=== PATIENT | male | born 1960 | race Caucasian/White ===

== ENCOUNTER → 2019-07-15 11:29 | Outpatient (BNVA) | payer OTHER, SELFPAY | PROVIDERS: Family Provider Nurse Practitioner; PCP Nurse Practitioner; Visit Provider Nurse Practitioner | DX: I10 Essential (primary) hypertension (principal); E03.9 Hypothyroidism, unspecified | CPT/HCPCS: 80053; 80061; 83721; 84443 ==

== ENCOUNTER → 2019-07-23 18:20 | Outpatient (BNVA) | payer OTHER, SELFPAY | PROVIDERS: Family Provider Nurse Practitioner; PCP Nurse Practitioner; Visit Provider Nurse Practitioner | DX: E03.8 Other specified hypothyroidism (principal); R79.89 Other specified abnormal findings of blood chemistry | CPT/HCPCS: 84439; 84481 ==

== ENCOUNTER 2019-10-01 07:34 | Day surgery (SDC) | payer OTHER, SELFPAY ==
[2019-09-29 11:36] VITALS: BMI 34.0
[2019-10-01 07:55] VITALS: BP 121/88; PULSE 82; RESP 18; TEMP 36.3; O2SAT 93
--- NOTE | 2019-10-01 07:55 | W.PM.OPSUD ---
Surgery/Procedure H&P Update DATE OF PROCEDURE: October 01, 2019 DATE H&P PERFORMED: 09/10/19 H&P UPDATE INFORMATION: I have reviewed H&P completed within last 30 days, I have examined patient prior to procedure and No changes to prior documentation PLANNED PROCEDURE: Operation Date: 10/01/19 09:10 Proposed Procedures p Colonoscopy 71725 Z86.010(Not Applicable) - Emeka Fontenot MD
--- NOTE | 2019-10-01 08:49 | ANES.PREANE2 ---
Pre-Anesthetic Assessment Pre-Anesthetic Assessment: Height/Weight: Height 1.73 m Weight 101.605 kg Temp Pulse Resp BP Pulse Ox 97.4 F L 82 18 121/88 93 10/01/19 07:55 10/01/19 07:55 10/01/19 07:55 10/01/19 07:55 10/01/19 07:55 Preop Diagnosis: History of colon polyps Proposed Procedure: Operation Date: 10/01/19 09:10 Proposed Procedures p Colonoscopy 97494 Z86.010(Not Applicable) - Emeka Fontenot MD Last intake: Intake Last Liquid Date 09/30/19 Last Liquid Time 23:55 Last Solid Date 09/29/19 Last Solid Time 23:55 Social: Social History: Tobacco and No alcohol Exam: Pre-Anes Outpt Exam: alert, oriented x 3, clear to auscultation bilaterally and regular rate & rhythm Airway: Submandibular: WNL Cervical ROM: WNL MP: 2 History/ROS: No significant history except as noted Pulmonary: Pulmonary: COPD CV/HEM: CV/HEM: Afib Metabolic: Metabolic: Hyperlipidemia Musc/skel: Musc/skel: Lower Back Pain Anesthetic Plan: ASA status: 3 Anesthesia: Anesthesia Evaluation and MAC Risk of > 500 ml blood loss (7ml/kg in children): No PFSH Anesthesia PFSH: Social History Smoking and tobacco status: current every day smoker Second hand smoke exposure: No Smoking risk assessment/counseling performed?: Yes Alcohol intake: current Alcohol intake frequency: holidays/special occasions only Desire information about alcohol rehabilitation?: No Counseling given: No Desire information about substance/drug rehabilitation?: No Counseling given: No Adopted: No Caregiver/support person: No Household members: spouse and children Housing: House Marital status: Current occupational status: employed 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
[2019-10-01 08:56] LABS: Glucose Point of Care 104 mg/dL (70-110)
[2019-10-01] MEDS: sodium chloride 0.9% 1,000 ML 30 ML IV (09:39)
[2019-10-01 10:39] VITALS: BP 133/70; PULSE 73; RESP 16; TEMP 35.8; O2SAT 92
[2019-10-01 11:10] VITALS: BP 130/84; PULSE 68; RESP 16; TEMP 36.2; O2SAT 93
[2019-10-01 11:36] VITALS: O2SAT 98
== END 2019-10-01 12:20 | disposition home or self-care (01) ==
PROVIDERS: Family Provider Nurse Practitioner; PCP Nurse Practitioner; Visit Provider Surgery
PROC: 0DJD8ZZ Inspection of Lower Intestinal Tract, Via Natural or Artificial Opening Endoscopic (ICD-10-PCS; CPT 45378; principal; 2019-10-01 09:05)
DX: D12.0 Benign neoplasm of cecum (principal); D12.8 Benign neoplasm of rectum; K57.30 Diverticulosis of large intestine without perforation or abscess without bleeding; Z86.010 Personal history of colon polyps; E03.9 Hypothyroidism, unspecified; I48.91 Unspecified atrial fibrillation; J44.9 Chronic obstructive pulmonary disease, unspecified; I10 Essential (primary) hypertension; E78.2 Mixed hyperlipidemia; Z79.01 Long term (current) use of anticoagulants
CPT/HCPCS: 45380; 12345; 36416; 82962; 88305; J2704; J7030

== ENCOUNTER → 2019-11-05 12:00 | Outpatient (BNVA) | payer OTHER, SELFPAY | PROVIDERS: Family Provider Nurse Practitioner; PCP Nurse Practitioner; Visit Provider Nurse Practitioner | DX: E88.81 Metabolic syndrome and other insulin resistance (principal); I10 Essential (primary) hypertension; E03.8 Other specified hypothyroidism; E78.2 Mixed hyperlipidemia | CPT/HCPCS: 80053; 80061; 84443 ==

== ENCOUNTER → 2020-01-26 10:51 | Outpatient (BNVA) | payer OTHER, SELFPAY | PROVIDERS: Family Provider Nurse Practitioner; PCP Nurse Practitioner; Visit Provider Nurse Practitioner | DX: E55.9 Vitamin D deficiency, unspecified (principal); I10 Essential (primary) hypertension; E03.8 Other specified hypothyroidism; J30.1 Allergic rhinitis due to pollen; E78.2 Mixed hyperlipidemia; M54.5 Low back pain; E88.81 Metabolic syndrome and other insulin resistance; Z87.891 Personal history of nicotine dependence | CPT/HCPCS: 81000; 82306; 84439; 84443; 84481 ==

== ENCOUNTER → 2020-03-22 13:47 | Outpatient (BNVA) | payer OTHER, SELFPAY | PROVIDERS: Family Provider Nurse Practitioner; PCP Nurse Practitioner; Visit Provider Nurse Practitioner Family | DX: Z11.59 Encounter for screening for other viral diseases (principal) | CPT/HCPCS: 87635 ==

== ENCOUNTER → 2020-03-24 14:43 | Outpatient (BNVA) | payer OTHER, SELFPAY | PROVIDERS: Family Provider Nurse Practitioner; PCP Nurse Practitioner; Visit Provider Nurse Practitioner Family | DX: Z11.59 Encounter for screening for other viral diseases (principal) | CPT/HCPCS: 87635 ==

== ENCOUNTER → 2020-05-11 15:54 | Outpatient (BNVA) | payer OTHER, SELFPAY | PROVIDERS: Family Provider Nurse Practitioner; PCP Nurse Practitioner; Visit Provider Nurse Practitioner | DX: M54.5 Low back pain (principal); J30.1 Allergic rhinitis due to pollen; E03.8 Other specified hypothyroidism; E78.2 Mixed hyperlipidemia; E88.81 Metabolic syndrome and other insulin resistance; I10 Essential (primary) hypertension; M51.37 Other intervertebral disc degeneration, lumbosacral region | CPT/HCPCS: 72100; 80053; 80061; 84443 ==

== ENCOUNTER 2020-06-23 12:24 | Outpatient (CLI) | payer OTHER, SELFPAY ==
--- NOTE | 2020-06-23 13:00 | MR_ITS ---
WS: [id number] MRI LUMBAR SPINE NONCONTRAST TECHNIQUE: Sagittal T1, T2 and STIR imaging. Axial T1 and T2 imaging. CLINICAL INFORMATION: M48.062 - Spinal stenosis, lumbar region with neurogenic claudication COMPARISON: CT 2 15,019 FINDINGS: Mild lumbar curve. No acute compression. Infiltrating T2 hyperintense expansile bony process involvin g the S1-S2 vertebral bodies centered at the S1 level. Small amount of signal abnormality extends int o the sacral ala bilaterally. Additional signal abnormality extends into the posterior L5 vertebral b arlen. Findings suspicious for primary neoplasm or metastatic disease. Epidural disease at the S1 level with moderate to severe central canal stenosis eccentric to the right. Impingement on the traversing S1 nerve roots. L1-L2: Normal. L2-L3: Normal. L3-L4: Mild disc bulging with slight effacement of the ventral thecal sac. Mild central canal stenosi s. Small central protrusion. Impingement traversing L4 nerve roots. Small left foraminal protrusion w ith mild left foraminal narrowing. Mild to moderate facet arthropathy. L4-L5: Mild disc bulging eccentric to the right. Impingement traversing right L5 nerve root. Mild phuong tral canal stenosis. Mild right and no significant left foraminal narrowing. Moderate facet arthropat hy. L5-S1: Mild disc bulging with endplate ridging. Small amount of epidural disease at this level with m oderate central canal stenosis. Foramen are patent. Partially visualized expansile lesion in the right acetabulum. This could be further evaluated with M RI pelvis without and with gadolinium enhancement. Recommend oncology consultation.. MR/MR lumbar spine wo con* [id number] IMPRESSION: 1. Expansile marrow replacing process likely neoplasm involving the S1 and S2 vertebral bodies centered at the S1 level. Associated epidural disease with mod erate to severe narrowing of the cauda equina distally. Impingement traversing S1 nerve roots. 2. Infiltrating signal abnormality extends into the sacral ala bilaterally and also involves the posterior L5 vertebral body. Differential considerations inc lude primary bony neoplasm or metastatic disease. Recommend correlation with cl inical history. 3. Moderate central canal stenosis L5-S1 with a small amount of epidural disea se inferiorly. 4. Signal normality extends into the right ilium partially visualized. This ca n be further evaluated with MRI of the pelvis. Recommend oncology consultation. 5. Partially visualized expansile lesion in the right acetabulum. This could b e further evaluated with MRI pelvis. 6. Mild disc bulging with a small central protrusion L3-4 and L4-5 with mild c entral canal stenosis. Impingement on the left subarticular recess L3-4 and rig ht subarticular recess L4-5. 7. Small left foraminal protrusion L3-4 with contact of the exiting left L3 ne rve root. 8. Mild right L4-5 foraminal narrowing.
== END 2020-06-23 12:25 | disposition home or self-care (01) ==
LOC: RADSHAW 12:25
PROVIDERS: Family Provider Nurse Practitioner; PCP Nurse Practitioner; Visit Provider Orthopaedic Surgery
DX: M48.062 Spinal stenosis, lumbar region with neurogenic claudication (principal); M51.26 Other intervertebral disc displacement, lumbar region; M48.07 Spinal stenosis, lumbosacral region
CPT/HCPCS: 72148

== ENCOUNTER 2020-07-08 07:16 | Outpatient (CLI) | payer OTHER, SELFPAY ==
--- NOTE | 2020-07-08 07:26 | MR_ITS ---
WS: [id number] INDICATION: Low back pain TECHNIQUE: MR of the pelvis without gadolinium enhancement. Coronal T1 and T2 and STIR imaging. Axial T1 and T2 imaging. Sagittal T2 imaging. FINDINGS: Comparison MRI June 23, 2020 Again seen is the marrow replacing neoplasm involving the S1 and S2 vertebral bodies, right acetabulu m extending into the right pubic root and ilium. Additional T2 hyperintense lesions consistent with a dditional disease involving the intertrochanteric Left femur. Left femoral lesion measures 4.2 x 2.9 CM. Adjacent smaller satellite lesion. Additional patchy T2 signal abnormality extends into the right iliac wing adjacent to the sacroiliac joint. Small amount of adjacent soft tissue edema. Marrow replacing expansile disease involving the s acral ala. Right femoral head and neck appear normal. Partially visualized epidural disease better seen on the recent MRI with severe stenosis at S1 and S2 with tapering of the cauda equina distally. MR/MR pelvis wo con* [id number] IMPRESSION: 1. Marrow replacing multifocal neoplasm/metastatic disease involving the right acetabulum with bony expansion extending into the adjacent pubic rami and pubi c root. Signal normality extends into the right ilium and right iliac wing. 2. Additional disease involving the left intratrochanteric femur. The largest lesion measuring 2.8 x 4.2 CM. Patient potential risk for pathologic intratroch anteric fracture. 3. Additional marrow replacing T2 disease involving the S1-S2 vertebral bodies as described on the recent lumbar spine MRI with bony expansion at these level s. 4. Associated narrowing of the right S1 and S2 sacral foramina and narrowing o f the cauda equina distally at S1-S2. 5. Findings compatible with neoplasm most likely due to metastatic disease.
== END 2020-07-08 07:17 | disposition home or self-care (01) ==
LOC: RADSHAW 07:18
PROVIDERS: Family Provider Nurse Practitioner; PCP Nurse Practitioner; Visit Provider Orthopaedic Surgery
DX: M54.5 Low back pain (principal)
CPT/HCPCS: 72195

== ENCOUNTER 2020-08-23 05:36 | Outpatient (RCR) | payer OTHER, SELFPAY ==
[2020-08-04 12:02] VITALS: RESP 17; O2SAT 96
[2020-08-04] MEDS: morphine 4 mg/mL SDV 1 mL SUBCUT (12:02)
[2020-08-04 12:38] LABS: Basophils % 0.5 %; Eosinophils # 0.1 10^3/uL (0.0-0.8); Eosinophils % 1.1 %; Hematocrit 29.6 % (42.0-52.0); Hemoglobin 9.4 g/dL (11.7-16.6); Lymphocytes # 1.5 10^3/uL (0.8-4.8); Lymphocytes % 17.1 %; Mean Corpuscular HGB Conc 31.8 g/dL (30.0-36.0); Mean Corpuscular Volume 91.4 fL (80-94); Mean Platelet Volume 8.5 fL (7.4-10.4); Monocytes # 0.7 10^3/uL (0.2-0.9); Monocytes % 7.6 %; Neutrophils # 6.27 10^3/uL (1.8-7.7); Neutrophils % 73.2 %; Nucleated Red Blood Cells % 0 %; Platelet Count 498 10^3/cmm (130-400); Red Blood Count 3.24 10^6/uL (4.1-5.3); Red Cell Distribution Width 13.2 % (12.1-15.1); White Blood Count 8.6 10^3/uL (4.0-10.0)
--- NOTE | 2020-08-04 13:06 | N.ONRAD NP_ITS ---
Radiation Oncology Consultation Patient Name: Avtar Kerns Date of : 1960 Date of Service: 08/04/2020 Attending Physician: Jun Mead M.D. Avtar Kerns was seen in consultation this afternoon at the request of Julio Swenson M.D. for consideration of palliative radiotherapy for the management of his recently diagnosed non-small cell lung cancer. The patient was evaluated at [facility] after presenting with back pain. A radiograph of the lumbar spine ordered on May 11, 2020 identified degenerative disc disease most significant at L5-S1. An MR of the lumbar spine and pelvis (independently reviewed in [facility]) obtained on June 23, 2020 and July 08, 2020 revealed an infiltrating, expansile bony process involving the first and second sacral vertebral bodies marrow replacement within the right acetabulum extending into the right pubic root and ilium and a 4.2 cm x 2.9 cm lesion involving the intertrochanteric left femur. He was referred to [facility] in [place], [place] for further evaluation. A nuclear bone scan completed on July 15, 2020 demonstrated hyperactivity within the sacrum, right acetabulum and proximal left femur. A thoracoabdominopelvic CT revealed 2 cm x 2.6 cm right upper lobe mass invading the right upper lobe bronchus as well as the previously described destructive masses in the pelvis. A prophylactic fixation of the left femur and open biopsy was performed on July 21, 2020. The pathology report (requested from the outside hospital and personally reviewed) diagnosed a metastatic squamous cell carcinoma. PD-L1 testing is pending. I discussed with Mr. Kerns the role for palliative radiotherapy. I would recommend a 2-week course of radiation therapy. A CT scan will be performed for radiotherapy planning prior to beginning treatment. The potential toxicities of pelvic radiotherapy were reviewed. The patient has verbalized understanding would like to proceed as recommended. Signed by: Dr. Jun Mead 08/04/2020 1:04:56 PM
[2020-08-04 13:07] LABS: Alanine Aminotransferase 17 U/L (0-41); Albumin Level 3.5 g/dL (3.5-5.2); Alkaline Phosphatase 158 IU/L (40-130); Anion Gap 14.3 (5-19); Aspartate Amino Transferase 17 U/L (0-40); Blood Urea Nitrogen 13 mg/dL (6-20); Calcium 10.5 mg/dL (8.5-10.5); Carbon Dioxide 24 mmol/L (22-29); Chloride 97 mmol/L (98-107); Glomerular Filtration Rate 99.6 mL/min (90-130); Glucose 90 mg/dL (65-115); Osmolality Calculated 272 mOsm/kg (285-295); Potassium 4.3 mmol/L (3.5-5.1); Sodium 131 mmol/L (136-145); Total Bilirubin 0.2 mg/dL (0.15-1.2); Total Protein 7.5 g/dL (6.6-8.7)
--- NOTE | 2020-08-04 18:11 | ONC CON_ITS ---
Dr. Swenson New Patient Note Patient: Avtar Kerns Unit #: [id number]: 1960 Dicatated By: Julio Swenson M.D.Date of Visit: Aug 04, 2020 Onc MED New Patient/Consult Referring Physician: Jun Li Chief Complaint: Lung cancer. 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 This is presumed to be from a primary lesion in the upper lobe of the right lung, by clinical evaluation stage IVB (T2a, N0, M1c). He had presented with severe pain in the lower back. It actually started as far back as 2019 and it just continue to progressively worsen. He was seen at the orthopedic clinic by Dr. Umair Lima on 06/14/2020. An MRI of the lumbar spine on 06/23/2020 showed an expansile marrow replacing process, likely neoplasm, involving the S1 and S2 vertebral bodies centered at the S1 level. There was associated epidural disease with moderate to severe narrowing of the cauda equina distally impinging the transversing S1 nerve roots. There was infiltrating signal abnormality extending into the sacral ala bilaterally and also involving the posterior L5 vertebral body. There was moderate central canal stenosis at L5-S1. The findings were consistent with primary bone neoplasm or metastatic disease. Also noted was a partially visualized expansile lesion in the right acetabulum. Further evaluation with MRI of the pelvis on 07/08/2020 showed marrow replacing multifocal neoplasm/metastatic disease involving the right acetabulum with bony expansion extending into the adjacent pubic rami and pubic root. Signal abnormality was noted to extend into the right ilium and right iliac wing. There was additional disease involving the left intertrochanteric femur, with the largest lesion measuring 2.8 x 4.2 cm. The findings involving the S1-S2 vertebral bodies were again noted. Overall, the findings were compatible with neoplasm most likely due to metastatic disease. He was admitted to [facility] where additional evaluation with bone scan and x-rays confirmed evidence of a lytic lesion in the right acetabulum with cortical breakthrough, a large lytic lesion in the sacrum with cortical breakthrough, a lytic lesion in the left femoral intertrochanteric region, and a suspected lytic lesion in the left proximal tibia. Staging CT scans of the chest, abdomen, and pelvis on 07/15/2020 showed a hypoenhancing mass in the upper lobe of the right lung measuring 3.2 x 2.6 cm. It was noted to invade the right upper lobe bronchus and it appeared to be the likely cause of right upper lobe atelectasis. There were no pathologically enlarged lymph nodes in the mediastinum or kya. A 9 mm nodular groundglass opacity was noted in the right lower lobe and a 4 mm calcified granuloma was noted in the right lower lobe. There is no evidence for metastatic disease in the abdominal area. There was evidence of an infiltrative destructive mass centered in the sacrum with soft tissue component extending into the right sacroiliac joint and into the right aspect of the posterior elements of L5. Another infiltrative destructive mass with soft tissue component was seen centered in the right acetabulum with intra-arterial extension and with extension into the fovea of the right femoral head. Another lytic lesion was noted in the left femoral intertrochanteric region. On 07/21/2020 he underwent open biopsy of the left femur along with prophylactic fixation of the left femur with intramedullary maricruz. Pathology showed metastatic squamous cell carcinoma. A PD-L1 expression on that biopsy was requested, but the result was not reported in the available records. He is seen now for further management. He complains that it hurts on a scale that is inhuman. His pain medication has been limited to hydrocodone 5/APAP which is given him virtually no relief. He is in constant pain to the point that he has virtually no activity. He struggles to ambulate short distances with a walker. His ECOG score is 3. He does not have much appetite. He has not had fever, but he has been having significant night sweating. He has just recently started to have some cough. He does not complain of shortness of breath or chest pain. He has been having a lot of nausea, and he also has acid reflux, managed with antacids. He has constipation. He has difficulty with bowel movements because he cannot sit on a stool for more than a few minutes due to the severe pain. Bladder function thus far remains adequate. He has just occasional headache. He sometimes has lightheadedness. He has some numbness on his outside toes. He has no other focal neurologic symptoms. He has difficulty sleeping because of the pain, and he is having some depression. Past Medical History: His medical history includes atrial fibrillation, history of colonic polyps, hyperlipidemia, hypertension, hypothyroidism, and type II diabetes. Past Surgical History: He underwent prophylactic fixation of the left femur and open biopsy of left femur on 07/21/2020. His other surgical/procedural history has been limited to colonoscopy in 2018 and in 2019 and a previous tonsillectomy. Medications: Atorvastatin Calcium 1 (40 mg) Tablet Oral daily, Cetirizine HCl 1 (10 mg) Tablet Oral daily, DULoxetine HCl 1 (20 mg) Capsule Delayed Release Particles Oral b.i.d., Eliquis 1 (5 mg) Tablet Oral b.i.d., Gabapentin 1 (300 mg) Capsule Oral t.i.d., HYDROcodone-Acetaminophen 1 (5-325 mg) Tablet Oral q for 6 hours, Levoxyl 1 (150 mcg) Tablet Oral daily, Liothyronine Sodium 1 (5 mcg) Tablet Oral daily, metFORMIN HCl 1 (500 mg) Tablet Oral b.i.d., Metoprolol Tartrate 1 (25 mg) Tablet Oral b.i.d., Montelukast Sodium 1 (10 mg) Tablet Oral daily Allergies: No Known Allergies. Social History: Mr. Kerns is . 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 He has a history of smoking 1-1/2 to 2 packs of cigarettes daily for 35 years. He quit in November 2019. He has moderate alcohol use with a mixed drink 4 to 5 days a week. Family History: Father of heart attack at age 65. Mother of lung cancer at age 63. Three sisters are in good health. A 17-year-old daughter has juvenile rheumatoid arthritis. Review Of Symptoms: Constitutional - He has very limited activity. He struggles to ambulate with a walker. He does not have much appetite. He has not had fever. He has been having night sweating. ECOG score is 3, Eyes - No change in vision, ENMT - He has hearing loss and tinnitus. He has some allergy related sinus symptoms. No mouth sores. No sore throat or difficulty swallowing, Hematologic/Lymphatic - No abnormal bruising or bleeding, Respiratory - He does not complain of shortness of breath. He has just recently started having some cough. No pleuritic pain or hemoptysis, Cardiovascular - No angina pain. No palpitations, Gastrointestinal - He has a lot of nausea. He has had acid reflux, managed with antacids. He has constipation. He has difficulty with bowel movements because he cannot sit on a stool without having severe pain. No blood in the stool or black stools, Genitourinary (M) - No dysuria or hematuria. No urinary frequency. No urgency or incontinence, Musculoskeletal - He has severe pain in the lower back, Integumentary - No skin rash or other skin changes, Neurologic - He has occasional headache. He is sometimes lightheaded. He has had some numbness on his outside toes. No other focal neurologic symptoms, Psychiatric - He is having some depression. He has difficulty sleeping. Vital Signs: Performed on Aug 04, 2020 12:38: 68.00 in, 250.0 lbs, 97.0 F, 109, 18, 137/97 mm(hg), 96 %, 4, Performed on Aug 04, 2020 12:38: 38.013 kg/m2 (HIGH), and Performed on Aug 04, 2020 11:11: 2.25 sq.m. Physical Examination: Constitutional - He appears generally weak and he is in significant discomfort, Eyes - Sclerae nonicteric. Conjunctivae clear, ENMT - No lesions noted in the oral cavity, Neck - No mass or thyromegaly, Hematologic/Lymphatic - No cervical, clavicular, or axillary adenopathy, Respiratory - Lungs sound clear with good air movement bilaterally, Cardiovascular - Heart rhythm is regular. There is no murmur, gallop, or rub noted, Abdomen - Soft and non-tender. Liver and spleen are not enlarged. There is no abdominal mass or ascites noted and there is no inguinal adenopathy, Extremities - No edema. Pedal pulses are palpable bilaterally, Integumentary - No rashes. No suspicious skin lesions noted, Neurologic - He has extremely limited mobility due to pain. He does not appear to have any focal neurologic deficits noted. Problem List: 1. Metastatic squamous cell carcinoma with presumed primary in the upper lobe of the right lung, stage IVB (T2a, N0, M1c). 2. He presented with severely painful bony metastatic disease involving multiple sites including the sacrum, right acetabulum, proximal left femur, and possibly the proximal left tibia. 3. Hypertension. 4. Hyperlipidemia. 5. Type 2 diabetes. 6. Atrial fibrillation. 7. History of colonic polyps. Problems Addressed with this Encounter and Plan: 1. Patient with metastatic squamous cell carcinoma with presumed primary in the upper lobe of the right lung, stage IVB (T2a, N0, M1c). He presented with severely painful bony metastatic disease involving multiple sites including the sacrum, right acetabulum, proximal left femur, and possibly the proximal left tibia. On 07/21/2019 he underwent open biopsy of the left femur in association with prophylactic fixation of the left femur with intramedullary maricruz. Pathology showed metastatic squamous cell carcinoma. His staging CT scans showed a primary tumor in the upper lobe of the right lung. There was associated right upper lobe atelectasis, but he has not been overtly symptomatic with that disease. The findings on the imaging studies and the pathology results were reviewed with the patient and his . He has metastatic non-small cell lung cancer with multiple sites of bone involvement. He is aware of the this disease will not be curable. Initially the primary focus of the treatment will symptom palliation, and to that end I am going to have him see Dr. Mead for radiation oncology consultation. If he is physically able, he would potentially benefit with palliative radiation to the sites of metastatic bone involvement and eventually may also want to consider treating the lung primary, as there is associated obstructive atelectasis. Recommendations for systemic therapy will depend on the results of the PD-L1 expression. If the expression is high, monotherapy with a PD-L1 inhibitor would be the most appropriate treatment. I will check baseline laboratory studies today to include a CBC and CMP, and I will plan his further followup depending on the results of the radiation oncology evaluation. 2. He has severe pain associated with the metastatic bone involvement to the extent that he is virtually unable to function. He is being given 4 mg of morphine by subcutaneous injection in the office today, and he will then start extended release morphine 30 mg every 12 hours together with immediate release morphine 15 mg up to every 4 hours as needed for breakthrough pain. I discussed potential side effects with the pain medication which may include nausea, constipation, and sedation and/or confusion, among others. He will start a bowel regimen with senna/docusate. He had recently stopped Cymbalta, as he had run out of the medication, and that will be restarted at a dosage of 60 mg daily. In addition, I am requesting a hospital bed for him, as he is requiring positioning of his body in ways not feasible with an ordinary bed in order to help relieve his pain. At some point he also will need to start denosumab injections for the metastatic bone involvement. Signed By: Julio Swenson M.D. <<Signature on File>>
--- NOTE | 2020-08-08 | CT_ITS ---
Guided Bronchoscopy Planning CT images; total exam DLP: 1156.31 mGy-cm MTDD
--- NOTE | 2020-08-08 | CT_ITS ---
Radiation Therapy Planning CT images; total exam DLP: 1156.31 mGy-cm MTDD
--- NOTE | 2020-08-15 10:47 | ONCRAD TMN_ITS ---
Radiation Oncology Treatment Management Note Patient Name: Avtar Kerns Date of : 1960 Date of Service: 08/15/2020 Attending Physician: Jun Mead M.D. Avtar Kerns is a 59 year old white male recently diagnosed with metastatic non-small cell lung cancer to the pelvis. The patient has received 12 Gy of a prescribed 30 Ho to the sacrum with a 3-dimensional conformal radiotherapy plan utilizing AP port with a wedge-pair treatment field. Upon review of systems, he continues to have significant pain (01/03 with 120 mg bid ER morphine.) On physical examination, the patient weighed 202 lbs. His temperature was 97.1 ???F with a blood pressure of 76/39 mmHg. His pulse was 92 bpm and his respiratory rate was 16. Continue palliative radiotherapy as prescribed. IVF have been prescribed for hypotension. His medical oncologist will increase his narcotic regimen. Signed by: Dr. Jun Mead 08/15/2020 10:46:34 AM
[2020-08-15 11:38] VITALS: RESP 16
[2020-08-15] MEDS: morphine 4 mg/mL SDV 1 mL SUBCUT (11:38)
[2020-08-15] MEDS: sodium chloride 0.9% 1,000 ML 999 ML IV (12:00)
[2020-08-15 14:48] LABS: Add Urine Culture? No; Bacteria Urine TRACE /hpf; Bilirubin Urine Neg (Negative); Blood Urine Neg (Negative); Glucose Urine UA Norm (Normal); Hyaline Casts Urine 0-4 /lpf; Ketones Urine Negative (Negative); Leukocyte Esterase Urine Negative (Negative); Nitrate Urine Negative (Negative); Protein Urine Neg (Negative); Squamous Epithelial Cell Urine RARE /hpf (0-5); Urine Appearance Clear (CLEAR); Urine Color Yellow (Yellow); Urobilinogen Urine Norm (Negative); WBC Urine 0-4 /hpf (0-5); pH Urine 6 (5-7)
[2020-08-16] MEDS: sodium chloride 0.9% 500 ML 999 ML IV (10:20)
--- NOTE | 2020-08-18 11:26 | XR_ITS ---
WS: [id number] Exam: XR femur LT min 2V* [id number] Date/Time of Exam: 08/18/2020 11:26 AM Reason For Exam: BONE METS/PAIN LEFT LEG Cortical lytic bone destruction noted along the medial aspect of the proximal femur seen on the frog- leg view. No other obvious osteoblastic or osteolytic lesions of the femur were noted. There is a indra g intramedullary maricruz coursing through the femur with 2 femoral neck screws. No acute fracture is note d. XR/XR femur LT min 2V* [id number] IMPRESSION: 1. Subtle area of osteolytic bone destruction involving the medial aspect of th e proximal femur seen on the frog-leg view.
--- NOTE | 2020-08-18 11:26 | XR_ITS ---
WS: [id number] Exam: XR hip LT 2-3V wo/w pel* [id number] Date/Time of Exam: 08/18/2020 11:26 AM Reason For Exam: BONE METS/PAIN L LEG There is a 2 cm lytic lesion identified on the frog-leg view of the left hip just lateral to the less er trochanter that probably represents a metastatic lesion. No fracture or dislocation. An intramedul beverly maricruz with 2 femoral neck screws are in place apparently secondary to prior hip fracture. Mild DJD of the joint compartment. XR/XR hip LT 2-3V wo/w pel* [id number] IMPRESSION: 1. 2 cm lytic lesion seen in the proximal femur just lateral to the lesser troc hanter on the frog-leg view. This is likely related to the patient's known meta static bone disease. 2. No fracture or dislocation. Femoral hardware in place as discussed above.
--- NOTE | 2020-08-19 11:28 | XR_ITS ---
WS: [id number] Exam: XR hip RT 2-3V wo/w pel* [id number] Date/Time of Exam: 08/19/2020 11:28 AM Reason For Exam: BONE METS There is extensive lytic bone destruction involving the medial aspect of the right acetabulum as well as the anterior column and the lateral aspect of the superior right pubic ramus. The femoral head is intact. No obvious pathologic fracture. Degenerative change of the joint compartment. There are also ill-defined areas of lytic bone destruction in the right and left sacrum. XR/XR hip RT 2-3V wo/w pel* [id number] IMPRESSION: 1. Extensive lytic bone destruction involving the medial aspect of the right ac etabulum as well as the anterior column and the lateral aspect of the superior right pubic ramus. 2. Extensive ill-defined areas of lytic bone destruction involving the right an d left sacrum.
--- NOTE | 2020-08-19 11:28 | XR_ITS ---
WS: [id number] Exam: XR femur RT min 2V* [id number] Date/Time of Exam: 08/19/2020 11:28 AM Reason For Exam: BONE METS No fracture or dislocation. No sign of obvious osteolytic or osteoblastic bone destruction. Soft tiss ues are unremarkable. XR/XR femur RT min 2V* [id number] IMPRESSION: 1. No sign of osteolytic or osteoblastic bone destruction. No bony injury.
--- NOTE | 2020-08-22 10:46 | ONCRAD TMN_ITS ---
Radiation Oncology Treatment Management Note Patient Name: Avtar Kerns Date of : 1960 Date of Service: 08/22/2020 Attending Physician: Jun Mead M.D. Avtar Kerns is a 59 year old white male recently diagnosed with metastatic non-small cell lung cancer to the pelvis. The patient has received 27 Gy of a prescribed 30 Ho to the sacrum with a 3-dimensional conformal radiotherapy plan utilizing AP port with a wedge-pair treatment field. Upon review of systems, he continues to have pain (2/10). On physical examination, the patient weighed 201 lbs. His temperature was 97.5 ???F with a blood pressure of 103/67 mmHg. His pulse was 90 bpm and his respiratory rate was 20. Continue palliative radiotherapy as planned. Signed by: Dr. Jun Mead 08/22/2020 10:45:25 AM
== END 2020-08-24 23:59 | disposition home or self-care (01) ==
LOC: ONCMED 05:36
PROVIDERS: Internal Medicine Medical Oncology; Family Provider Nurse Practitioner; PCP Nurse Practitioner; Visit Provider Radiology Radiation Oncology
DX: Z51.0 Encounter for antineoplastic radiation therapy (principal); C34.11 Malignant neoplasm of upper lobe, right bronchus or lung; C79.51 Secondary malignant neoplasm of bone; I10 Essential (primary) hypertension; E78.5 Hyperlipidemia, unspecified; E11.9 Type 2 diabetes mellitus without complications; I48.91 Unspecified atrial fibrillation; Z86.010 Personal history of colon polyps; Z79.899 Other long term (current) drug therapy
CPT/HCPCS: 36415; 73502; 73552; 77280; 77290; 77295; 77300; 77334; 77336; 77412; 77417; 80053; 81001; 85025; 96361; 96365; 96372; 99205; 99215; J1100; J2270; J7030; J7040

== ENCOUNTER 2020-08-25 06:00 | Outpatient (RCR) | payer OTHER, SELFPAY ==
--- NOTE | 2020-08-25 17:11 | ONC FU_ITS ---
Dr. Swenson Patient Follow-Up Note Patient: Avtar Kerns Unit #: [id number]: 1960 Dicatated By: Julio Swenson M.D.Date of Visit:Aug 25, 2020 Onc Med Follow-up/Prog Note Chief Complaint: Lung cancer. 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 This is presumed to be from a primary lesion in the upper lobe of the right lung, by clinical evaluation stage IVB (T2a, N0, M1c). He had presented with severe pain in the lower back. It actually started as far back as 2019 and it just continue to progressively worsen. He was seen at the orthopedic clinic by Dr. Umair Lima on 06/14/2020. An MRI of the lumbar spine on 06/23/2020 showed an expansile marrow replacing process, likely neoplasm, involving the S1 and S2 vertebral bodies centered at the S1 level. There was associated epidural disease with moderate to severe narrowing of the cauda equina distally impinging the transversing S1 nerve roots. There was infiltrating signal abnormality extending into the sacral ala bilaterally and also involving the posterior L5 vertebral body. There was moderate central canal stenosis at L5-S1. The findings were consistent with primary bone neoplasm or metastatic disease. Also noted was a partially visualized expansile lesion in the right acetabulum. Further evaluation with MRI of the pelvis on 07/08/2020 showed marrow replacing multifocal neoplasm/metastatic disease involving the right acetabulum with bony expansion extending into the adjacent pubic rami and pubic root. Signal abnormality was noted to extend into the right ilium and right iliac wing. There was additional disease involving the left intertrochanteric femur, with the largest lesion measuring 2.8 x 4.2 cm. The findings involving the S1-S2 vertebral bodies were again noted. Overall, the findings were compatible with neoplasm most likely due to metastatic disease. He was admitted to [facility] where additional evaluation with bone scan and x-rays confirmed evidence of a lytic lesion in the right acetabulum with cortical breakthrough, a large lytic lesion in the sacrum with cortical breakthrough, a lytic lesion in the left femoral intertrochanteric region, and a suspected lytic lesion in the left proximal tibia. Staging CT scans of the chest, abdomen, and pelvis on 07/15/2020 showed a hypoenhancing mass in the upper lobe of the right lung measuring 3.2 x 2.6 cm. It was noted to invade the right upper lobe bronchus and it appeared to be the likely cause of right upper lobe atelectasis. There were no pathologically enlarged lymph nodes in the mediastinum or kya. A 9 mm nodular groundglass opacity was noted in the right lower lobe and a 4 mm calcified granuloma was noted in the right lower lobe. There is no evidence for metastatic disease in the abdominal area. There was evidence of an infiltrative destructive mass centered in the sacrum with soft tissue component extending into the right sacroiliac joint and into the right aspect of the posterior elements of L5. Another infiltrative destructive mass with soft tissue component was seen centered in the right acetabulum with intra-arterial extension and with extension into the fovea of the right femoral head. Another lytic lesion was noted in the left femoral intertrochanteric region. On 07/21/2020 he underwent open biopsy of the left femur along with prophylactic fixation of the left femur with intramedullary maricruz. Pathology showed metastatic squamous cell carcinoma. The PD-L1 22C3 expression by IHC was reported positive at 1 to 10%. He was seen here initially on 08/04/2020. He began on symptomatic management for the bone pain. He was seen by Dr. Mead for palliative radiation. He was given a course of treatment to the sacrum, which he completed on 08/23/2020 to a total dose of 3000 cGy administered in 10 fractions. He tolerated the radiation well. His other medical illnesses include hypertension, hyperlipidemia, type 2 diabetes, and hypothyroidism. He has a history of atrial fibrillation and he also has a history of colonic polyps. He has a history of smoking 1-1/2 to 2 packs of cigarettes daily for 35 years. He quit smoking in November 2019. He is seen for a follow-up visit. He still has very limited activity because of his bone pain, but overall he is feeling much better. His pain is mostly under control with his current medication, though with weightbearing is still has pain on both sides from the hips down to the knee. He is doing some ambulation with a walker. His ECOG score is 3. His appetite is not normal, but it is getting better. His weight is down about 30 pounds from normal. He has not had fever. He has been having some night sweating. He has no shortness of breath, cough, or chest pain. He has been having nausea, but is being managed adequately with medication. He has some acid reflux, which he manages with Tums. He was having constipation, but bowel function now is adequate on a bowel regimen. He still has some hesitancy with urination. He has occasional headaches and he occasionally has dizziness. He has no numbness/paresthesia or other focal neurologic symptoms. Medications: Atorvastatin Calcium 1 (40 mg) Tablet Oral daily, Cetirizine HCl 1 (10 mg) Tablet Oral daily, DULoxetine HCl 1 (20 mg) Capsule Delayed Release Particles Oral b.i.d., Eliquis 1 (5 mg) Tablet Oral b.i.d., Levoxyl 1 (150 mcg) Tablet Oral daily, Liothyronine Sodium 1 (5 mcg) Tablet Oral daily, Marinol 1 (5 mg) Capsule Oral b.i.d., metFORMIN HCl 1 (500 mg) Tablet Oral b.i.d., Metoprolol Tartrate 1 (25 mg) Tablet Oral b.i.d., Montelukast Sodium 1 (10 mg) Tablet Oral daily, Morphine Sulfate 1 Tablet (of 15 mg) Oral q 4 hours PRN, Morphine Sulfate ER 1 Tablet (of 60 mg) Tablet, controlled release Oral b.i.d., Ondansetron 1 - 2 (4 mg) Tablet Dispersable Oral q 4 hours PRN Allergies: No Known Allergies. Vital Signs: Performed on Aug 25, 2020 10:13 Height - 68.00 in Weight - 201.6 lbs (HIGH) BSA - 2.05 sq.m BMI - 30.65 (HIGH) Temperature - 97.0 F (LOW) Pulse - 102 /min (HIGH) Respiration - 18 /min BP - 119/73 mm(hg) O2 Sat - 93 % (LOW) Pain - 4 Fatigue - 8 Physical Examination: Constitutional - He still appears generally weak, but overall significantly improved, Eyes - Sclerae nonicteric. Conjunctivae clear, ENMT - No lesions noted in the oral cavity, Hematologic/Lymphatic - No cervical, clavicular, or axillary adenopathy, Respiratory - Lungs sound clear with good air movement bilaterally, Cardiovascular - Heart rhythm is regular. There is no murmur, gallop, or rub noted, Abdomen - Soft. Liver and spleen are not enlarged. There is no abdominal mass or ascites noted and there is no inguinal adenopathy, Extremities - No edema, Neurologic - He still has limited mobility. He does not appear to have any focal neurologic deficit. Lab/Imaging: Test performed on Aug 04, 2020 12:00 Sodium 131 mmol/L Potassium 4.3 mmol/L Chloride 97 mmol/L CO2 24 mmol/L Anion Gap 14.3 BUN 13 mg/dL Creatinine 0.8 mg/dL Cr Clearance (Est) 163.4100 mL/min eGFR 99.6 mL/min Glucose 90 mg/dL Osmolality - Calculated 272 mOsm/kg Calcium 10.5 mg/dL Protein, Total 7.5 g/dL Albumin 3.5 g/dL Globulin 4.0 g/dL Bilirubin, Total 0.2 mg/dL ALT (SGPT) 17 U/L AST (SGOT) 17 U/L Alkaline Phosphatase 158 IU/L WBC 8.6 10 3/uL RBC 3.24 10 6/uL HGB 9.4 g/dL HCT 29.6 % MCV 91.4 fL MCH 29.0 pg MCHC 31.8 g/dL RDW 13.2 % Platelet Count 498 10 3/cmm MPV 8.5 fL Neutrophils 6.27 10 3/uL Lymphocytes 1.5 10 3/uL Monocytes 0.7 10 3/uL Eosinophils 0.1 10 3/uL Basophils 0.0 10 3/uL Neutrophil % 73.2 % Lymphocyte % 17.1 % Monocyte % 7.6 % Eosinophil % 1.1 % Basophils % 0.5 % NRBC % 0 % Problem List: 1. Metastatic squamous cell carcinoma with presumed primary in the upper lobe of the right lung, stage IVB (T2a, N0, M1c). His tumor showed positive PD-L1 22C3 expression by IHC (1 to 10%). 2. He presented with severely painful bony metastatic disease involving multiple sites including the sacrum, right acetabulum, proximal left femur, and possibly the proximal left tibia. 3. Hypertension. 4. Hyperlipidemia. 5. Type 2 diabetes. 6. Atrial fibrillation. 7. History of colonic polyps. Problems Addressed with this Encounter and Plan: 1. Patient with metastatic squamous cell carcinoma with presumed primary in the upper lobe of the right lung, stage IVB (T2a, N0, M1c). His tumor showed positive PD-L1 22C3 expression by IHC (1 to 10%). He presented with severely painful bony metastatic disease involving multiple sites including the sacrum, right acetabulum, proximal left femur, and possibly the proximal left tibia. On 07/21/2019 he underwent open biopsy of the left femur in association with prophylactic fixation of the left femur with intramedullary maricruz. Pathology showed metastatic squamous cell carcinoma. His staging CT scans showed a primary tumor in the upper lobe of the right lung. There was associated right upper lobe atelectasis, but he has not been overtly symptomatic with it. He has undergone palliative radiation to the sacrum, completed on 08/23/2020 to a total dose of 3000 cGy administered in 10 fractions. He tolerated it well. He has had symptomatic benefit. He will proceed now to systemic therapy. With his PD-L1 expression positive at 1 to 10%, the recommended treatment will be chemotherapy with carboplatin/Abraxane in combination with pembrolizumab. He will be scheduled now for placement of Port-A-Cath venous access device and he will return for treatment soon as that is completed. In the meantime, I will request a next generation sequencing study by liquid biopsy. 2. He has severe pain associated with the metastatic bone involvement. It is now being managed adequately on a pain regimen following completion of palliative radiation. It is pain medications will be continued as ordered. He also will start denosumab injections for the metastatic bone involvement in conjunction with his chemotherapy. Signed By: Julio Swenson M.D. <<Signature on File>>
== END 2020-08-31 11:00 | disposition home or self-care (01) ==
LOC: ONCMED 06:00
PROVIDERS: Family Provider Nurse Practitioner; PCP Nurse Practitioner; Visit Provider Internal Medicine Medical Oncology
DX: C34.11 Malignant neoplasm of upper lobe, right bronchus or lung (principal); C79.51 Secondary malignant neoplasm of bone; G89.3 Neoplasm related pain (acute) (chronic); I10 Essential (primary) hypertension; E78.5 Hyperlipidemia, unspecified; E11.9 Type 2 diabetes mellitus without complications; I48.91 Unspecified atrial fibrillation; Z92.3 Personal history of irradiation; Z79.899 Other long term (current) drug therapy; Z86.010 Personal history of colon polyps; Z79.01 Long term (current) use of anticoagulants; Z79.891 Long term (current) use of opiate analgesic
CPT/HCPCS: 36415; 99214

== ENCOUNTER → 2020-08-26 12:41 | Outpatient (BNVA) | payer OTHER, SELFPAY | PROVIDERS: Family Provider Nurse Practitioner; PCP Nurse Practitioner; Visit Provider Surgery | DX: Z20.822 Contact with and (suspected) exposure to COVID-19 (principal) | CPT/HCPCS: 87635 ==

== ENCOUNTER 2020-08-31 11:04 | Day surgery (SDC) | payer OTHER, SELFPAY ==
--- NOTE | 2020-08-31 | SCC_ITS ---
Procedure Done: Placement of PowerPort in the left subclavian vein 19.8 seconds of fluoroscopic guidance, for a cumulative dose of 2.50 mGy, was provided to Dr. Fontenot by the radiology department. C-arm images of the chest were saved for the patient's permanent record. [facility]
[2020-08-31] MEDS: sodium chloride 0.9% 1,000 ML 30 ML IV (11:15)
--- NOTE | 2020-08-31 11:20 | W.PM.OPSUD ---
Surgery/Procedure H&P Update DATE OF PROCEDURE: August 31, 2020 DATE H&P PERFORMED: 08/26/20 H&P UPDATE INFORMATION: I have reviewed H&P completed within last 30 days, I have examined patient prior to procedure and No changes to prior documentation PREOP DIAGNOSIS: History of colon polyps PLANNED PROCEDURE: Operation Date: 08/31/20 13:20 Proposed Procedures p Portacath Placement 82721 c34.90(Not Applicable) - Emeka Fontenot MD
[2020-08-31 11:29] VITALS: BP 107/66; PULSE 111; RESP 18; TEMP 37.9; O2SAT 95; BMI 30.1
--- NOTE | 2020-08-31 11:47 | ANES.PREANE2 ---
Pre-Anesthetic Assessment Pre-Anesthetic Assessment: Height/Weight: Height 1.73 m Weight 89.811 kg Preop Diagnosis: History of colon polyps Proposed Procedure: Operation Date: 08/31/20 13:20 Proposed Procedures p Portacath Placement [id number] c34.90(Not Applicable) - Emeka Fontenot MD Exam: Pre-Anes Outpt Exam: alert, oriented x 3, clear to auscultation bilaterally and regular rate & rhythm Pulmonary: Pulmonary: COPD (metastatic lung cancer - mets to spine, in wheelchair) and Cough (states its baseline cough with chronic production of phlegm, no recent changes) CV/HEM: CV/HEM: Afib (w/ RVR - holding eliquis for port placement) and HTN Metabolic: Comments: metabolic syndrome. Temp 100.8 orally - patient denies new changes in respiratory status that might indicate respiratory infection, his lungs are clear to auscultation, denies dysuria, diarrhea, or increased fatigue/myalgias. Covid negative Neuropsych: Comments: lung mets to spine - in wheel chair Anesthetic Plan: ASA status: 4 Anesthesia: MAC Risk of > 500 ml blood loss (7ml/kg in children): No PFSH Anesthesia PFSH: Medical History (Updated 08/31/20 @ 11:22 by Emeka Fontenot MD) Adult onset hypothyroidism Atrial fibrillation with rapid ventricular response Chronic allergic rhinitis due to pollen COPD (chronic obstructive pulmonary disease) with emphysema Essential (primary) hypertension History of colon polyps Lumbar pain with radiation down right leg Metabolic syndrome Mixed hyperlipidemia Vitamin D deficiency Surgical History (Updated 08/31/20 @ 11:22 by Emeka Fontenot MD) History of circumcision History of colonoscopy 2019 History of tonsillectomy Port-A-Cath in place (08/31/20) Family History Other Cancer Hypertension Social History Smoking and tobacco status: current every day smoker Second hand smoke exposure: Yes Smoking risk assessment/counseling performed?: Yes Alcohol intake: current Alcohol intake frequency: holidays/special occasions only Desire information about alcohol rehabilitation?: No Counseling given: No Desire information about substance/drug rehabilitation?: No Counseling given: No Adopted: No Caregiver/support person: No Lives independently: Yes Household members: spouse and children Housing: House Marital status: Current occupational status: employed Current occupation: [employer] History of recent travel: Yes (for job) Out of state: Yes Current gender identity: Male Data Anesthesia Cardiac Studies: No Data to Display
[2020-08-31 12:19] LABS: Glucose Point of Care 126 mg/dL (70-110)
--- NOTE | 2020-08-31 12:19 | XR_ITS ---
WS: [id number] C-arm fluoroscopy of the left upper chest for port placement, 08/31/2020 Clinical Data: POST OP PORT PLACEMENT, AND FEVER 100.8 Comparison: Portable chest, 07/20/2020. Findings: A left port has been inserted into the left subclavian vein is noted and is in the superior vena cava .
[2020-08-31] MEDS: heparin, porcine 1,000 unit/mL INJ 10 mL 10000 UNIT IRRIGATION (12:53)
[2020-08-31] MEDS: lidocaine 1% INJ 20 mL INJECTION (12:54)
--- NOTE | 2020-08-31 13:28 | XR_ITS ---
WS: [id number] Portable AP upright chest, 08/31/2020 Clinical Data: POST PORT INSERTION Comparison: Portable chest, 07/20/2020. Findings: There is a right hilar mass with distal atelectasis. Compared with the prior chest x-ray th ere is partial reexpansion of the right upper lobe. The left infusion catheter is in good position. I t ends in the superior vena cava. No pneumothorax is seen. No lung nodules are still present. The hea rt is normal. The pulmonary vascularity is not increased. No pneumonia or pneumothorax is seen. XR/XR chest 1V portable [id number] Impression: 1. Right hilar, right upper lobe mass causing minimal peripheral atelectasis. 2. Satisfactory position of left infusion port.
--- NOTE | 2020-08-31 13:29 | PM.OP ---
Operative Report Date of procedure: August 31, 2020 Pre-op Diagnosis: Metastatic lung cancer Post-op diagnosis: same Procedure Done: Placement of PowerPort in the left subclavian vein Fluoroscopic guidance and interpretation for placement of catheter Pathology: none sent Surgeon: Emeka Fontenot Anesthesia: MAC Condition: stable Disposition: PACU Procedure: The patient was taken to the Operating Room and the chest and neck bilaterally were prepped and draped in a sterile manner after the antibiotic had been administered and shoulder rolls had been placed. A total of 10 mL of 1% lidocaine with 0.5% Marcaine was infiltrated under the clavicle on the left side at the site of the planned entry into the subclavian vein. An introducer needle was then used to access the subclavian vein under the clavicle and after withdrawing blood syringe was removed and a guidewire passed under fluoroscopy into the superior vena cava. The site of the planned port was then marked on the chest and a 15 blade was used to make a 3 cm skin incision this was extended into the subcutaneous tissue using electrocautery and a subcutaneous pocket over the pectoralis fascia was created 2-0 Vicryl suture was used to suture the port to the pectoral fascia in the pocket on 3 sides. The catheter, after having been flushed with hep saline, was attached to the tunneler and a tunnel created between the port site and the subclavian vein entry site. Under fluoroscopy the dilator sheath was passed over the guidewire into the proximal superior vena cava. The inner dilator was removed and the sheath left behind and~ the catheter was introduced through the peel-away sheath with the tip in the superior vena cava. The peel-away sheath was removed. The proximal end of the catheter was cut to the right size and was attached to the port. Using a Spencer needle the port was accessed, it withdrew blood easily and flushed easily. A final 5cc of heparin was used to flush the PowerPort. The subcutaneous tissue was approximated using interrupted 3-0 Vicryl sutures and the skin at the introducer site and the port site was closed using subcuticular running 4-0 Monocryl sutures. Surgical glue was applied and the patient was stable throughout the procedure. Fluoroscopic guidance and interpretation was performed for introduction of the guidewire in the left subclavian vein, passage of dilator and placement of catheter tip in the distal superior vena cava.
[2020-08-31 13:30] VITALS: BP 101/69; PULSE 100; RESP 16; TEMP 37.4; O2SAT 100
[2020-08-31 13:35] VITALS: BP 114/74; PULSE 101; RESP 19; O2SAT 99
[2020-08-31 13:40] VITALS: BP 105/63; PULSE 102; RESP 18; TEMP 37.5; O2SAT 91
[2020-08-31 13:55] VITALS: BP 108/60; PULSE 97; RESP 16; TEMP 36.3; O2SAT 94
[2020-08-31 14:15] LABS: Add Urine Microscopic? NO; Charge for UA Resulting for Rev
[2020-08-31 14:18] VITALS: BP 104/54; PULSE 97; RESP 18; O2SAT 93
[2020-08-31 14:23] LABS: Urine Appearance Clear (CLEAR); Urine Color Yellow (Yellow); pH Urine 6 (5-7)
[2020-08-31 14:24] LABS: Bilirubin Urine Neg (Negative); Blood Urine Neg (Negative); Glucose Urine UA Norm (Normal); Ketones Urine Negative (Negative); Leukocyte Esterase Urine Negative (Negative); Nitrate Urine Negative (Negative); Protein Urine Neg (Negative); Specific Gravity, Urine 1.005 (1.005-1.030); Urobilinogen Urine 4 mg/dL (Negative)
--- NOTE | 2020-08-31 15:51 | ANE.PACU2 ---
Inpatient post-anesthesia follow up: Airway intact: Yes Vital signs: Temperature 97.4 F Pulse Rate 97 Respiratory Rate 18 Blood Pressure 104/54 Pulse Oximetry 93 Oxygen Delivery Me thod Room Air Oxygen Flow Rate 6 Fraction of Inspir ed Oxygen Hydration adequate: Yes Nausea and vomiting: No Pain level: 2 Mental status: Baseline
== END 2020-08-31 14:24 | disposition home or self-care (01) ==
PROVIDERS: PCP Nurse Practitioner; Visit Provider Surgery
PROC: (CPT 36561; principal; 2020-08-31 13:10)
DX: C34.90 Malignant neoplasm of unspecified part of unspecified bronchus or lung (principal); C79.9 Secondary malignant neoplasm of unspecified site; J44.9 Chronic obstructive pulmonary disease, unspecified; I48.91 Unspecified atrial fibrillation; Z79.01 Long term (current) use of anticoagulants; I10 Essential (primary) hypertension; Z99.3 Dependence on wheelchair; E03.9 Hypothyroidism, unspecified; E78.2 Mixed hyperlipidemia; F17.210 Nicotine dependence, cigarettes, uncomplicated; Z79.52 Long term (current) use of systemic steroids
CPT/HCPCS: 36561; 36416; 71045; 77001; 81003; 82962; 96365; C1788; J0690; J1644; J2250; J2704; J3010; J3490; J7030

== ENCOUNTER 2020-09-15 08:08 | Outpatient (RCR) | payer OTHER, SELFPAY ==
[2020-09-06] VITALS (10 sets, daily range): BP systolic 99–143; BP diastolic 63–86; PULSE 61–96; RESP 18; TEMP 35.6–36.1; O2SAT 91–94
[2020-09-06 09:24] LABS: Basophils % 0.2 %; Eosinophils # 0.5 10^3/uL (0.0-0.8); Eosinophils % 7.4 %; Hematocrit 22.3 % (42.0-52.0); Hemoglobin 6.6 g/dL (11.7-16.6); Lymphocytes # 0.7 10^3/uL (0.8-4.8); Lymphocytes % 10.6 %; Mean Corpuscular HGB Conc 29.6 g/dL (30.0-36.0); Mean Corpuscular Hemoglobin 26.8 pg (28.0-34.0); Mean Corpuscular Volume 90.7 fL (80-94); Monocytes # 0.5 10^3/uL (0.2-0.9); Monocytes % 8.2 %; Neutrophils # 4.48 10^3/uL (1.8-7.7); Neutrophils % 73.1 %; Nucleated Red Blood Cells % 0 %; Platelet Count 192 10^3/cmm (130-400); Red Blood Count 2.46 10^6/uL (4.1-5.3); Red Cell Distribution Width 15.3 % (12.1-15.1); White Blood Count 6.1 10^3/uL (4.0-10.0)
[2020-09-06 09:52] LABS: Alanine Aminotransferase 17 U/L (0-41); Albumin Level 2.8 g/dL (3.5-5.2); Alkaline Phosphatase 149 IU/L (40-130); Anion Gap 14.7 (5-19); Aspartate Amino Transferase 20 U/L (0-40); Blood Urea Nitrogen 9 mg/dL (6-20); Calcium 8.3 mg/dL (8.5-10.5); Carbon Dioxide 26 mmol/L (22-29); Chloride 95 mmol/L (98-107); Globulin 3.9 g/dL (1.3-4.6); Glomerular Filtration Rate 116.2 mL/min (90-130); Glucose 124 mg/dL (65-115); Osmolality Calculated 274 mOsm/kg (285-295); Potassium 3.7 mmol/L (3.5-5.1); Sodium 132 mmol/L (136-145); Thyroid Stimulating Hormone 9.97 uIU/mL (0.27-4.20); Total Bilirubin 0.3 mg/dL (0.15-1.2); Total Protein 6.7 g/dL (6.6-8.7)
[2020-09-06] MEDS: famotidine 20 mg/2 mL INJ IVP (10:58)
[2020-09-06] MEDS: sodium chloride 0.9% 250 ML 75 ML IV (10:58)
[2020-09-06] MEDS: palonosetron 0.25 mg/5 mL SDV IVP (10:59)
[2020-09-06] MEDS: fosaprepitant 150 MG in sodium chloride 0.9% 150 ML 300 MG IV (11:16)
[2020-09-06 11:20] LABS: Free T4 Free Thyroxine 1.13 ng/dL (0.82-1.77); T3 Free 1.9 PG/ML (2.0-4.4)
[2020-09-06 11:36] LABS: Ferritin 363 ng/mL (30-400); Iron 25 ug/dL (59-158); Percent Saturation 16.8 % (20-50); Total Iron Binding Capacity 148 mcg/dl; Unsaturated Iron Binding 123 ug/dL (112-347)
[2020-09-06 11:37] LABS: Folate Level 3.9 ng/mL (4.5-32.2)
[2020-09-06] MEDS: diphenhydrAMINE 50 mg/mL SDV 1mL 25 MG IVP (11:51)
[2020-09-06] MEDS: acetaminophen 325 mg Tablet 650 MG PO (14:15)
[2020-09-06] MEDS: sodium chloride 0.9% 250 ML 999 ML IV (14:15)
[2020-09-06] MEDS: FUROsemide 10 mg/mL SDV 2mL 20 MG IV (15:40)
[2020-09-12 11:37] LABS: Basophils % 0.4 %; Eosinophils # 0.1 10^3/uL (0.0-0.8); Eosinophils % 2.8 %; Hematocrit 27.6 % (42.0-52.0); Hemoglobin 8.7 g/dL (11.7-16.6); Lymphocytes # 0.6 10^3/uL (0.8-4.8); Lymphocytes % 11.4 %; Mean Corpuscular HGB Conc 31.5 g/dL (30.0-36.0); Mean Corpuscular Volume 85.7 fL (80-94); Mean Platelet Volume 9.1 fL (7.4-10.4); Monocytes # 0.2 10^3/uL (0.2-0.9); Monocytes % 4.6 %; Neutrophils # 3.99 10^3/uL (1.8-7.7); Nucleated Red Blood Cells % 0 %; Platelet Count 204 10^3/cmm (130-400); Red Blood Count 3.22 10^6/uL (4.1-5.3); Red Cell Distribution Width 14.9 % (12.1-15.1)
[2020-09-12 11:57] LABS: Alanine Aminotransferase 16 U/L (0-41); Albumin Level 2.9 g/dL (3.5-5.2); Alkaline Phosphatase 163 IU/L (40-130); Anion Gap 15.2 (5-19); Aspartate Amino Transferase 32 U/L (0-40); Blood Urea Nitrogen 10 mg/dL (6-20); Calcium 8.5 mg/dL (8.5-10.5); Carbon Dioxide 25 mmol/L (22-29); Chloride 93 mmol/L (98-107); Globulin 3.8 g/dL (1.3-4.6); Glomerular Filtration Rate 171.4 mL/min (90-130); Glucose 132 mg/dL (65-115); Osmolality Calculated 269 mOsm/kg (285-295); Potassium 4.2 mmol/L (3.5-5.1); Sodium 129 mmol/L (136-145); Total Bilirubin 0.6 mg/dL (0.15-1.2); Total Protein 6.7 g/dL (6.6-8.7)
--- NOTE | 2020-09-12 22:14 | ONC FU_ITS ---
[facility] Patient Note Patient: Avtar Kerns Unit #: [id number]: [id number] Dictated By: Amna RockDate of Visit: Sep 06, 2020 Onc MED Follow-Up/Prog Note Chief Complaint: Lung cancer. 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 This is presumed to be from a primary lesion in the upper lobe of the right lung, by clinical evaluation stage IVB (T2a, N0, M1c). He had presented with severe pain in the lower back. It actually started as far back as 2019 and it just continue to progressively worsen. He was seen at the orthopedic clinic by Dr. Umair Lima on 06/14/2020. An MRI of the lumbar spine on 06/23/2020 showed an expansile marrow replacing process, likely neoplasm, involving the S1 and S2 vertebral bodies centered at the S1 level. There was associated epidural disease with moderate to severe narrowing of the cauda equina distally impinging the transversing S1 nerve roots. There was infiltrating signal abnormality extending into the sacral ala bilaterally and also involving the posterior L5 vertebral body. There was moderate central canal stenosis at L5-S1. The findings were consistent with primary bone neoplasm or metastatic disease. Also noted was a partially visualized expansile lesion in the right acetabulum. Further evaluation with MRI of the pelvis on 07/08/2020 showed marrow replacing multifocal neoplasm/metastatic disease involving the right acetabulum with bony expansion extending into the adjacent pubic rami and pubic root. Signal abnormality was noted to extend into the right ilium and right iliac wing. There was additional disease involving the left intertrochanteric femur, with the largest lesion measuring 2.8 x 4.2 cm. The findings involving the S1-S2 vertebral bodies were again noted. Overall, the findings were compatible with neoplasm most likely due to metastatic disease. He was admitted to [facility] where additional evaluation with bone scan and x-rays confirmed evidence of a lytic lesion in the right acetabulum with cortical breakthrough, a large lytic lesion in the sacrum with cortical breakthrough, a lytic lesion in the left femoral intertrochanteric region, and a suspected lytic lesion in the left proximal tibia. Staging CT scans of the chest, abdomen, and pelvis on 07/15/2020 showed a hypoenhancing mass in the upper lobe of the right lung measuring 3.2 x 2.6 cm. It was noted to invade the right upper lobe bronchus and it appeared to be the likely cause of right upper lobe atelectasis. There were no pathologically enlarged lymph nodes in the mediastinum or kya. A 9 mm nodular groundglass opacity was noted in the right lower lobe and a 4 mm calcified granuloma was noted in the right lower lobe. There is no evidence for metastatic disease in the abdominal area. There was evidence of an infiltrative destructive mass centered in the sacrum with soft tissue component extending into the right sacroiliac joint and into the right aspect of the posterior elements of L5. Another infiltrative destructive mass with soft tissue component was seen centered in the right acetabulum with intra-arterial extension and with extension into the fovea of the right femoral head. Another lytic lesion was noted in the left femoral intertrochanteric region. On 07/21/2020 he underwent open biopsy of the left femur along with prophylactic fixation of the left femur with intramedullary maricruz. Pathology showed metastatic squamous cell carcinoma. The PD-L1 22C3 expression by IHC was reported positive at 1 to 10%. He was seen here initially on 08/04/2020. He began on symptomatic management for the bone pain. He was seen by Dr. Mead for palliative radiation. He was given a course of treatment to the sacrum, which he completed on 08/23/2020 to a total dose of 3000 cGy administered in 10 fractions. He tolerated the radiation well. His other medical illnesses include hypertension, hyperlipidemia, type 2 diabetes, and hypothyroidism. He has a history of atrial fibrillation and he also has a history of colonic polyps. He has a history of smoking 1-1/2 to 2 packs of cigarettes daily for 35 years. He quit smoking in November 2019. Mr Kerns was seen by Dr Swenson and offered systemic therapy post radiation with Carboplatin and Abraxane in combination with pembrolizumab. The Carbo/Abraxane will be day 1 and 8 and the pembrolizumab is day 1 on a 21-day cycle. He did have venous access device placement per Dr. Fontenot. It is healing well. He is here today for his first cycle of chemotherapy and immunotherapy. He presents today with a hemoglobin of 6.6. His hemoglobin on August 04, 2020 was 9.4. He did just complete radiation therapy and has had had radiation to his pelvis. He has extensive bone metastasis. Mrs. Kerns reports that he has noted that he has been more weak and tired and short of breath. He denies any fever or chills. His appetite comes and goes. For the most part he is just sleeping a lot. She states that he sleeps a lot during the day and drinks pretty heavily at night but this is not an unusual pattern for him. He states his pain has improved since the radiation. He denies any new pain. He denies any nausea or vomiting. He denies any fever or chills. He has had no diarrhea or constipation. He continues to require assistance for mobility but is walking some with a walker and getting some stronger every day . His ECOG remains at 3 at present. Past Medical History: Atrial fibrillation History of colonic polyps Hyperlipidemia Hypertension Hypothyroidism Type II diabetes Past Surgical History: Tonsillectomy Left chest wall venous access device placement-Dr Fontenot-[facility] in 2020 Prophylactic fixation of the left femur and open biopsy of left femur in 2020 Colonoscopy in 2019 Allergies: No Known Allergies. Medications: Atorvastatin Calcium 1 (40 mg) Tablet Oral daily Cetirizine HCl 1 (10 mg) Tablet Oral daily DULoxetine HCl 1 (20 mg) Capsule Delayed Release Particles Oral b.i.d. Eliquis 1 (5 mg) Tablet Oral b.i.d. Levoxyl 1 (150 mcg) Tablet Oral daily Liothyronine Sodium 1 (5 mcg) Tablet Oral daily Marinol 1 (5 mg) Capsule Oral b.i.d. metFORMIN HCl 1 (500 mg) Tablet Oral b.i.d. Metoprolol Tartrate 1 (25 mg) Tablet Oral b.i.d. Montelukast Sodium 1 (10 mg) Tablet Oral daily Morphine Sulfate 1 Tablet (of 15 mg) Oral q 4 hours PRN Morphine Sulfate ER 1 Tablet (of 60 mg) Tablet, controlled release Oral b.i.d. Ondansetron 1 - 2 (4 mg) Tablet Dispersable Oral q 4 hours PRN Family History: Mr. Kerns's mother at age 63: Cancer. Mr. Kerns's father at age 65: myocardial infarction. Father of heart attack at age 65. Mother of lung cancer at age 63. Three sisters are in good health. A 17-year-old daughter has juvenile rheumatoid arthritis. Social History: Mr. Kerns is . Mr. Kerns quit smoking less than one year ago but had smoked 3.0 packs/day for 30 years. He drinks occasionally. 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 He has a history of smoking 1-1/2 to 2 packs of cigarettes daily for 35 years. He quit in November 2019. He has moderate alcohol use with a mixed drink 4 to 5 days a week. Review Of Symptoms: Vital Signs: ,3 - Capable of only limited self-care, confined to bed or chair more than 50% of waking hours. (ECOG) Physical Examination: Constitutional Alert, oriented, no acute distress. Skin pink, warm and dry. He is very drowsy but arouses relatively easy and answers questions appropriately but falls right back to sleep. Head Normocephalic; atraumatic. Eyes Conjunctivae and sclerae are clear and without icterus. Pupils are reactive and equal. ENMT No oral exudates, ulcers, masses, thrush or mucositis. Oropharynx clear. Tongue normal. Neck Supple without masses or thyromegaly. No jugular venous distension. Hematologic/Lymphatic No petechiae or purpura. No tender or palpable lymph nodes in the cervical or supraclavicular areas. Respiratory Lungs are clear to auscultation without rhonchi or wheezing. Cardiovascular Regular rate and rhythm of heart without murmurs,clicks, gallops or rubs. Chest Chest is symmetric without chest wall deformities. Left chest wall venous access device is unremarkable. It is healed well. Abdomen Non-tender, non-distended, no masses or ascites. Good bowel sounds noted in all quads. No guarding or rebound tenderness. No pulsatile masses. Back/Spine Non-tender to palpation. Extremities No visible deformities, no cyanosis, clubbing or edema. Musculoskeletal No tenderness or swelling, normal range of motion without obvious weakness. Integumentary No rashes or lesions. Psychiatric Alert and oriented times three. Coherent speech. Verbalizes understanding of our discussions today. Laboratory:Test performed on Sep 12, 2020 11:10 Sodium 129 mmol/L Potassium 4.2 mmol/L Chloride 93 mmol/L CO2 25 mmol/L Anion Gap 15.2 BUN 10 mg/dL Creatinine 0.5 mg/dL Cr Clearance (Est) 210.8300 mL/min eGFR 171.4 mL/min Glucose 132 mg/dL Osmolality - Calculated 269 mOsm/kg Calcium 8.5 mg/dL Protein, Total 6.7 g/dL Albumin 2.9 g/dL Globulin 3.8 g/dL Bilirubin, Total 0.6 mg/dL ALT (SGPT) 16 U/L AST (SGOT) 32 U/L Alkaline Phosphatase 163 IU/L WBC 5.0 10 3/uL RBC 3.22 10 6/uL HGB 8.7 g/dL HCT 27.6 % MCV 85.7 fL MCH 27.0 pg MCHC 31.5 g/dL RDW 14.9 % Platelet Count 204 10 3/cmm MPV 9.1 fL Neutrophils 3.99 10 3/uL Lymphocytes 0.6 10 3/uL Monocytes 0.2 10 3/uL Eosinophils 0.1 10 3/uL Basophils 0.0 10 3/uL Neutrophil % 80.0 % Lymphocyte % 11.4 % Monocyte % 4.6 % Eosinophil % 2.8 % Basophils % 0.4 % NRBC % 0 % Test performed on Sep 06, 2020 10:41 Ferritin 363 ng/mL Folate, Serum 3.9 ng/mL Iron 25 mcg/dL T3, Free 1.9 PG/ML T4, Free 1.13 ng/dL Iron Binding Capacity (TIBC) 148 mcg/dl % Iron Saturation 16.8 % UIBC 123 mcg/dL Test performed on Sep 06, 2020 10:35 Leukocyte Reduced RBC [id number] ON RCLR XM COMPATIBLE Anti-D Negative / 0 Blood Type ON Antibody Screen (Gel) NEGATIVE Test performed on Sep 06, 2020 09:07 TSH 9.97 uIU/mL ABO & Rh Type # 2 ON Impression: 1. Metastatic squamous cell carcinoma with presumed primary in the upper lobe of the right lung, stage IVB (T2a, N0, M1c). His tumor showed positive PD-L1 22C3 expression by IHC (1 to 10%). 2. He presented with severely painful bony metastatic disease involving multiple sites including the sacrum, right acetabulum, proximal left femur, and possibly the proximal left tibia. 3. Hypertension. 4. Hyperlipidemia. 5. Type 2 diabetes. 6. Atrial fibrillation. 7. History of colonic polyps. Plan: 1. Patient with metastatic squamous cell carcinoma with presumed primary in the upper lobe of the right lung, stage IVB (T2a, N0, M1c). His tumor showed positive PD-L1 22C3 expression by IHC (1 to 10%). He presented with severely painful bony metastatic disease involving multiple sites including the sacrum, right acetabulum, proximal left femur, and possibly the proximal left tibia. On 07/21/2019 he underwent open biopsy of the left femur in association with prophylactic fixation of the left femur with intramedullary maricruz. Pathology showed metastatic squamous cell carcinoma. His staging CT scans showed a primary tumor in the upper lobe of the right lung. There was associated right upper lobe atelectasis, but he has not been overtly symptomatic with it. He has undergone palliative radiation to the sacrum, completed on 08/23/2020 to a total dose of 3000 cGy administered in 10 fractions. He tolerated it well. He has had symptomatic benefit. He will proceed now to systemic therapy. With his PD-L1 expression positive at 1 to 10%, the recommended treatment will be chemotherapy with carboplatin/Abraxane in combination with pembrolizumab. He has had placement of Port-A-Cath venous access device per Dr Fontenot @ [facility]. A. Proceed with cycle 1 day 1 carboplatin/Abraxane along with pembrolizumab. B. Today's labs reviewed in detail and discussed with Mr. Kerns and a copy was given to him and his . WBC 6.1, hemoglobin 6.6, hematocrit 22.3 platelets 192,000 ANC is 4480. Potassium 3.7 creatinine 0.7 his LFTs are normal. Alk phos is 149 which is improved from August 04, 2020 at which time was 158. His iron saturation is 16.8%. His ferritin is 363 his folic acid is 3.9 iron level is 25. His TSH is 9.97 with a free T4 of one 1.13 and free T3 of 1.9. He is currently on thyroid replacement. C. Mr. Kerns also received 2 units of packed red blood cells today for the hemoglobin of 6.6 he is certainly symptomatic. D. He is noted to be iron deficient as well and we could try 1 dose of Injectafer for him. The anemia may be related to either his iron deficiency, radiation therapy, the squamous cell carcinoma or all the above. E. I have requested iFOB. He does have a history of polyps. Mrs. Kerns states that he has mentioned he thought he had passed blood in his stools over the last couple of months. He has had no overt, sy bleeding from the rectum that he is aware of. He denies any other episodes of bleeding. 2. He has severe pain associated with the metastatic bone involvement. A. His pain is being managed with his current pain regimen following completion of the palliative radiation. B. We will plan to start denosumab on day 8. Most likely his denosumab will be given on a 6-week schedule as he is on a 3-week treatment plan. I elected not to start it today due to all the new meds he was receiving. 3. Anemia/iron deficiency A. We will reassess his anemia in 1 week at his day 8 chemotherapy appointment. B. It may be optional to give him 1 unit/dose of Injectafer 750 mg and then reassess his anemia. 4. Follow-up plan A. We will plan to see him back in 1 week with CBC CMP. He will be due for day 8 carboplatin and Abraxane at that time. B. We will plan to initiate his first dose of denosumab 120 mg on day 8. C. His pembrolizumab is a 21-day cycle. D. He is on a 21 day cycle and will be due back for cycle 2 and 3 weeks with CBC CMP and repeat thyroid profile. E. Mr. Mrs. Kerns were encouraged to contact us in interim if questions or problems arise. 5. Patient education regarding chemotherapy treatment plan A. The patient and family were informed of chemotherapy plan and specific drugs were discussed. We also discussed how chemotherapy works and identified common side effects including alopecia; myelosuppression-including neutropenia, anemia, bleeding or bruising; skin changes; mouth sores; drug hypersensitivity/allergic reactions or anaphylaxis and extravasation. They have also been informed how to contact the clinic with side effects or symptoms, including but not limited to fever greater than 100.4 degrees, chills, sore throat, bleeding or bruising that is not explained or mouth sores, cough, nasal discharge, diarrhea, constipation, nausea and/or vomiting not relieved with medications on hand at home, as well as any other concern or question they may have. Our hours are 8:00 a.m. to 4:30 p.m. on Saturday through and 8-12:00 on Saturday. 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 We have also discussed potential long-term side effects of chemotherapy including secondary cancers, infertility, pulmonary complications, cardiac complications, and again peripheral neuropathy. We have discussed that they certainly need to let us know before taking any antioxidants or herbal or further dietary supplements, as we are unsure of how these agents react with chemotherapy and we request that they avoid these products for now. They were informed that it is okay to take multivitamins at normal doses. They verbally state that they understand to take all medications as directed by their healthcare provider unless otherwise indicated. They also verbalized understanding to leave the pressure dressing on the intravenous administration site for at least two hours after treatment. Instructions for oral care with baking soda and salt water rinses as well as a guide for use of [id number] medication were provided with the treatment plan. They have been given a written patient treatment plan, of which a copy is in the chart, as well as specific drug information. They have no questions and verbalized understanding and are willing to proceed with chemotherapy at this time. Total time spent on this patient encounter including reviewing records and plan of care prior to his visit; reviewing labs and arranging transfusion services; face to face communication with this patient and/or his/her family in regards to plan of care, side effect identification and management as well as post visit documentation was 70 minutes. Signed By: Amna Rock-, CNP Julio Swenson MD <<Signature on File>>
[2020-09-13] MEDS: famotidine 20 mg/2 mL INJ IVP (10:07)
[2020-09-13] MEDS: sodium chloride 0.9% 250 ML 75 ML IV (10:08)
[2020-09-13] MEDS: diphenhydrAMINE 50 mg/mL SDV 1mL 25 MG IV (10:08)
[2020-09-13] MEDS: palonosetron 0.25 mg/5 mL SDV IV (10:28)
[2020-09-13] MEDS: fosaprepitant 150 MG in sodium chloride 0.9% 150 ML 300 MG IV (10:44)
[2020-09-13] MEDS: pegfilgrastim 6 mg/0.6 mL Kit (onpro) SUBCUT (13:00)
--- NOTE | 2020-09-25 20:04 | ONC FU_ITS ---
[facility] Patient Note Patient: Avtar Kerns Unit #: [id number]: 1960 Dictated By: Amna RockDate of Visit: Sep 13, 2020 Onc MED Follow-Up/Prog Note Chief Complaint: Lung cancer. 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 This is presumed to be from a primary lesion in the upper lobe of the right lung, by clinical evaluation stage IVB (T2a, N0, M1c). He had presented with severe pain in the lower back. It actually started as far back as 2019 and it just continue to progressively worsen. He was seen at the orthopedic clinic by Dr. Umair Lima on 06/14/2020. An MRI of the lumbar spine on 06/23/2020 showed an expansile marrow replacing process, likely neoplasm, involving the S1 and S2 vertebral bodies centered at the S1 level. There was associated epidural disease with moderate to severe narrowing of the cauda equina distally impinging the transversing S1 nerve roots. There was infiltrating signal abnormality extending into the sacral ala bilaterally and also involving the posterior L5 vertebral body. There was moderate central canal stenosis at L5-S1. The findings were consistent with primary bone neoplasm or metastatic disease. Also noted was a partially visualized expansile lesion in the right acetabulum. Further evaluation with MRI of the pelvis on 07/08/2020 showed marrow replacing multifocal neoplasm/metastatic disease involving the right acetabulum with bony expansion extending into the adjacent pubic rami and pubic root. Signal abnormality was noted to extend into the right ilium and right iliac wing. There was additional disease involving the left intertrochanteric femur, with the largest lesion measuring 2.8 x 4.2 cm. The findings involving the S1-S2 vertebral bodies were again noted. Overall, the findings were compatible with neoplasm most likely due to metastatic disease. He was admitted to [facility] where additional evaluation with bone scan and x-rays confirmed evidence of a lytic lesion in the right acetabulum with cortical breakthrough, a large lytic lesion in the sacrum with cortical breakthrough, a lytic lesion in the left femoral intertrochanteric region, and a suspected lytic lesion in the left proximal tibia. Staging CT scans of the chest, abdomen, and pelvis on 07/15/2020 showed a hypoenhancing mass in the upper lobe of the right lung measuring 3.2 x 2.6 cm. It was noted to invade the right upper lobe bronchus and it appeared to be the likely cause of right upper lobe atelectasis. There were no pathologically enlarged lymph nodes in the mediastinum or kya. A 9 mm nodular groundglass opacity was noted in the right lower lobe and a 4 mm calcified granuloma was noted in the right lower lobe. There is no evidence for metastatic disease in the abdominal area. There was evidence of an infiltrative destructive mass centered in the sacrum with soft tissue component extending into the right sacroiliac joint and into the right aspect of the posterior elements of L5. Another infiltrative destructive mass with soft tissue component was seen centered in the right acetabulum with intra-arterial extension and with extension into the fovea of the right femoral head. Another lytic lesion was noted in the left femoral intertrochanteric region. On 07/21/2020 he underwent open biopsy of the left femur along with prophylactic fixation of the left femur with intramedullary maricruz. Pathology showed metastatic squamous cell carcinoma. The PD-L1 22C3 expression by IHC was reported positive at 1 to 10%. He was seen here initially on 08/04/2020. He began on symptomatic management for the bone pain. He was seen by Dr. Mead for palliative radiation. He was given a course of treatment to the sacrum, which he completed on 08/23/2020 to a total dose of 3000 cGy administered in 10 fractions. He tolerated the radiation well. His other medical illnesses include hypertension, hyperlipidemia, type 2 diabetes, and hypothyroidism. He has a history of atrial fibrillation and he also has a history of colonic polyps. He has a history of smoking 1-1/2 to 2 packs of cigarettes daily for 35 years. He quit smoking in November 2019. Mr Kerns was seen by Dr Swenson and offered systemic therapy post radiation with Carboplatin and Abraxane in combination with pembrolizumab. The Carbo/Abraxane will be day 1 and 8 and the pembrolizumab is day 1 on a 21-day cycle. He did have left subclavian Power Portvenous access device placement per Dr. Fontenot on 08/31/2020. He began his first cycle of chemotherapy and immunotherapy on 09/06/2020. He presented on day 1 with a hemoglobin of 6.6. His hemoglobin on August 04, 2020 was 9.4. He did just complete radiation therapy and has had had radiation to his pelvis. He has extensive bone metastasis. He received 2 untis of PRBCs and proceeded with cycle 1 day 1 on 09/06/2020. He has tolerated it well thus far. Mr. Kerns is here today for follow-up. He states overall he feels much better. He is much more alert. He states his pain is better. He is actually decreased his breakthrough pain medications. He states he just not taking them as often as he had been. He did have a little queasy this morning and did take Compazine and that has resolved. He states he is eating better. His energy is still marginal but overall he thinks it is improved. He denies any new concerns today. He denies any headaches or vision changes. He has had no mouth sores, sore throat or difficulty swallowing. He denies any shortness of breath orthopnea. He denies any hemoptysis at this time. He denies any bowel or bladder changes. He denies any peripheral neuropathy. His states that he is doing better overall as well. His ECOG is 3. Past Medical History: Atrial fibrillation History of colonic polyps Hyperlipidemia Hypertension Hypothyroidism Type II diabetes Past Surgical History: Tonsillectomy Left chest wall venous access device placement-Dr Fontenot[facility] in 2020 Prophylactic fixation of the left femur and open biopsy of left femur in 2020 Colonoscopy in 2019 Allergies: No Known Allergies. Medications: Atorvastatin Calcium 1 (40 mg) Tablet Oral daily Cetirizine HCl 1 (10 mg) Tablet Oral daily DULoxetine HCl 1 (20 mg) Capsule Delayed Release Particles Oral b.i.d. Eliquis 1 (5 mg) Tablet Oral b.i.d. Levoxyl 1 (150 mcg) Tablet Oral daily Liothyronine Sodium 1 (5 mcg) Tablet Oral daily Marinol 1 (5 mg) Capsule Oral b.i.d. metFORMIN HCl 1 (500 mg) Tablet Oral b.i.d. Metoprolol Tartrate 1 (25 mg) Tablet Oral b.i.d. Montelukast Sodium 1 (10 mg) Tablet Oral daily Morphine Sulfate 1 Tablet (of 15 mg) Oral q 4 hours PRN Morphine Sulfate ER 1 Tablet (of 60 mg) Tablet, controlled release Oral b.i.d. Ondansetron 1 - 2 (4 mg) Tablet Dispersable Oral q 4 hours PRN Family History: Mr. Kerns's mother at age 63: Cancer. Mr. Kerns's father at age 65: myocardial infarction. Father of heart attack at age 65. Mother of lung cancer at age 63. Three sisters are in good health. A 17-year-old daughter has juvenile rheumatoid arthritis. Social History: Mr. Kerns is . Mr. Kerns quit smoking less than one year ago but had smoked 3.0 packs/day for 30 years. He drinks occasionally. 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 He has a history of smoking 1-1/2 to 2 packs of cigarettes daily for 35 years. He quit in November 2019. He has moderate alcohol use with a mixed drink 4 to 5 days a week. Review Of Symptoms: Vital Signs: Performed on Sep 13, 2020 09:04 Height - 68.00 in Weight - 192.2 lbs (LOW) BSA - 2.01 sq.m BMI - 29.22 Temperature - 97.3 F (LOW) Pulse - 94 /min Respiration - 18 /min BP - 102/70 mm(hg) O2 Sat - 96 % Pain - 2 Fatigue - 6,3 - Capable of only limited self-care, confined to bed or chair more than 50% of waking hours. (ECOG) Physical Examination: Constitutional Alert, oriented, no acute distress. Skin pink, warm and dry. Head Normocephalic; atraumatic. Eyes Conjunctivae and sclerae are clear and without icterus. Pupils are reactive and equal. Neck Supple without masses or thyromegaly. No jugular venous distension. Hematologic/Lymphatic No petechiae or purpura. No tender or palpable lymph nodes in the cervical or supraclavicular areas. Respiratory Lungs are clear to auscultation without rhonchi or wheezing. Cardiovascular Regular rate and rhythm of heart without murmurs,clicks, gallops or rubs. Chest Chest is symmetric without chest wall deformities. Left chest wall venous access device is unremarkable. It has healed well. Back/Spine Non-tender to palpation. Extremities No visible deformities, no cyanosis, clubbing or edema. Musculoskeletal No tenderness or swelling, normal range of motion without obvious weakness. Integumentary No rashes or lesions. Psychiatric Alert and oriented times three. Coherent speech. Verbalizes understanding of our discussions today. Laboratory:Test performed on Sep 12, 2020 11:10 Sodium 129 mmol/L Potassium 4.2 mmol/L Chloride 93 mmol/L CO2 25 mmol/L Anion Gap 15.2 BUN 10 mg/dL Creatinine 0.5 mg/dL Cr Clearance (Est) 210.8300 mL/min eGFR 171.4 mL/min Glucose 132 mg/dL Osmolality - Calculated 269 mOsm/kg Calcium 8.5 mg/dL Protein, Total 6.7 g/dL Albumin 2.9 g/dL Globulin 3.8 g/dL Bilirubin, Total 0.6 mg/dL ALT (SGPT) 16 U/L AST (SGOT) 32 U/L Alkaline Phosphatase 163 IU/L WBC 5.0 10 3/uL RBC 3.22 10 6/uL HGB 8.7 g/dL HCT 27.6 % MCV 85.7 fL MCH 27.0 pg MCHC 31.5 g/dL RDW 14.9 % Platelet Count 204 10 3/cmm MPV 9.1 fL Neutrophils 3.99 10 3/uL Lymphocytes 0.6 10 3/uL Monocytes 0.2 10 3/uL Eosinophils 0.1 10 3/uL Basophils 0.0 10 3/uL Neutrophil % 80.0 % Lymphocyte % 11.4 % Monocyte % 4.6 % Eosinophil % 2.8 % Basophils % 0.4 % NRBC % 0 % Test performed on Sep 06, 2020 10:41 Ferritin 363 ng/mL Folate, Serum 3.9 ng/mL Iron 25 mcg/dL T3, Free 1.9 PG/ML T4, Free 1.13 ng/dL Iron Binding Capacity (TIBC) 148 mcg/dl % Iron Saturation 16.8 % UIBC 123 mcg/dL Test performed on Sep 06, 2020 10:35 Leukocyte Reduced RBC [id number] ON RCLR XM COMPATIBLE Anti-D Negative / 0 Blood Type ON Antibody Screen (Gel) NEGATIVE Test performed on Sep 06, 2020 09:07 TSH 9.97 uIU/mL ABO & Rh Type # 2 ON Test performed on Aug 15, 2020 13:53 Ua Color Yellow Ua Appearance Clear Ua pH 6 Ua Specific [place] 1.010 Ua Glucose Norm Ua Ketones Negative Ua Protein Neg Ua Blood Neg Ua Bilirubin Neg Ua Nitrites Negative Ua Leukocyte Esterase Negative Ua Micro: Hyaline Casts 0-4 /lpf Ua Micro: WBC 0-4 /hpf Ua Micro: RBC NONE /hpf Ua Micro: Squam Epith Cells RARE /hpf Ua Micro: Bacteria TRACE /hpf Impression: 1. Metastatic squamous cell carcinoma with presumed primary in the upper lobe of the right lung, stage IVB (T2a, N0, M1c). His tumor showed positive PD-L1 22C3 expression by IHC (1 to 10%). 2. He presented with severely painful bony metastatic disease involving multiple sites including the sacrum, right acetabulum, proximal left femur, and possibly the proximal left tibia. 3. Hypertension. 4. Hyperlipidemia. 5. Type 2 diabetes. 6. Atrial fibrillation. 7. History of colonic polyps. Plan: PROBLEMS ADDRESSED TODAY 1. Patient with metastatic squamous cell carcinoma with presumed primary in the upper lobe of the right lung, stage IVB (T2a, N0, M1c). His tumor showed positive PD-L1 22C3 expression by IHC (1 to 10%). He presented with severely painful bony metastatic disease involving multiple sites including the sacrum, right acetabulum, proximal left femur, and possibly the proximal left tibia. On 07/21/2019 he underwent open biopsy of the left femur in association with prophylactic fixation of the left femur with intramedullary maricruz. Pathology showed metastatic squamous cell carcinoma. His staging CT scans showed a primary tumor in the upper lobe of the right lung. There was associated right upper lobe atelectasis, but he has not been overtly symptomatic with it. He has undergone palliative radiation to the sacrum, completed on 08/23/2020 to a total dose of 3000 cGy administered in 10 fractions. He tolerated it well. He has had symptomatic benefit. He will proceed now to systemic therapy. With his PD-L1 expression positive at 1 to 10%, the recommended treatment will be chemotherapy with carboplatin/Abraxane in combination with pembrolizumab. He has had placement of Port-A-Cath venous access device per Dr Fontenot @ [facility]. A. Proceed with cycle 1 day 8 carboplatin/Abraxane along with pembrolizumab. He is only due for carbo Abraxane today. The pembrolizumab is only day one of the 21-day cycle. He will receive growth factor support with Neulasta today given his extensive bone metastasis and his extensive disease. B. Today's labs reviewed in detail and discussed with Mr. Kerns and a copy was given to him and his . WBC 5.0, hemoglobin improved at 8.7, platelets 204,000 ANC is 4000. Potassium 4.2 creatinine 0.5 random glucose 132 LFTs are normal. His alk phos is 163 but he just completed radiation to his pelvis. C. He is noted to be iron deficient as well and we could try 1 dose of Injectafer for him. The anemia may be related to either his iron deficiency, radiation therapy, the squamous cell carcinoma or all the above. Not yet pursued the iron deficiency replacement with Injectafer as he had been so sick and were given him time to recover. His hemoglobin is improved at 8.7 today. E. I have requested iFOB. I have not seen results of the iFOB yet. He does have a history of polyps. Mrs. Kerns states that he has mentioned he thought he had passed blood in his stools over the last couple of months. He has had no overt, sy bleeding from the rectum that he is aware of. He denies any other episodes of bleeding. 2. He has severe pain associated with the metastatic bone involvement. A. His pain is being managed with his current pain regimen following completion of the palliative radiation. B. We will plan to start denosumab on day 1 of cycle 2. Most likely his denosumab will be given on a 6-week schedule as he is on a 3-week treatment plan. I elected not to start it today due to growth factor support with Neulasta. His pain is just finally starting to settle down as well. 3. Anemia/iron deficiency A. We will reassess his anemia in weekly. B. It may be optional to give him 1 unit/dose of Injectafer 750 mg and then reassess his anemia. 4. Follow-up plan A. We will plan to see him back in 2 weeks with CBC CMP. He will be due for day 1 of cycle Keytruda, carboplatin and Abraxane at that time. B. We will plan to initiate his first dose of denosumab 120 mg on day 1 of cycle 2. C. . Mrs. Kerns were encouraged to contact us in interim if questions or problems arise. Signed By: Amna Rock-, [facility] Julio Swenson MD <<Signature on File>>
== END 2020-09-18 17:00 | disposition home or self-care (01) ==
LOC: ONCMED 08:08
PROVIDERS: Internal Medicine Medical Oncology; Family Provider Nurse Practitioner; PCP Nurse Practitioner; Visit Provider Nurse Practitioner
DX: Z51.11 Encounter for antineoplastic chemotherapy (principal); C34.11 Malignant neoplasm of upper lobe, right bronchus or lung; C79.51 Secondary malignant neoplasm of bone; I48.20 Chronic atrial fibrillation, unspecified; E78.5 Hyperlipidemia, unspecified; I10 Essential (primary) hypertension; E03.9 Hypothyroidism, unspecified; E11.9 Type 2 diabetes mellitus without complications; Z86.010 Personal history of colon polyps; Z79.899 Other long term (current) drug therapy
CPT/HCPCS: 36430; 36591; 80053; 82728; 82746; 83540; 83550; 84439; 84443; 84481; 85025; 86850; 86900; 86920; 96367; 96372; 96375; 96377; 96413; 96417; 99214; 99215; J1100; J1200; J1453; J1940; J2469; J2505; J3490; J7040; J7050; J9045; J9264; J9271; P9016; P9040

== ENCOUNTER 2020-09-18 17:57 | Emergency (ER) | payer OTHER, SELFPAY ==
[2020-09-18 18:20] VITALS: BP 107/69; PULSE 105; RESP 18; TEMP 36.7; O2SAT 98; BMI 28.8
[2020-09-18 19:17] VITALS: BP 124/73; PULSE 96; RESP 18; O2SAT 96
--- NOTE | 2020-09-18 19:18 | XRR_ITS ---
PROCEDURE INFORMATION: Exam: XR Right Hip Exam date and time: 09/18/2020 7:29 PM Age: 59 years old Clinical indication: Hip pain; Right hip; Additional info: Hip pain. H/o metastatic cancer TECHNIQUE: Imaging protocol: XR Right hip. Views: 2 or 3 views hip with pelvis when performed. COMPARISON: CR XR hip RT 2-3V wo/w pel* [id number] 08/19/2020 11:31 AM FINDINGS: Bones/joints: Femoroacetabular alignment is normal. There is no femoral fracture. Joint space is preserved. There are small acetabular osteophytes. There is an ill-defined osteolytic lesion involving the anterior acetabulum and superior pubic ramus. The visible portion of the sacrum is unremarkable. Soft tissues: Unremarkable. XR/XR hip RT 2-3V wo/w pel* [id number] IMPRESSION: Large osteolytic lesion involving the anterior acetabulum and superior pubic ramus. No acute fracture.
[2020-09-18 20:32] VITALS: BP 130/77; PULSE 103; RESP 18; O2SAT 94
--- NOTE | 2020-09-18 21:19 | W.ED.EXTPRO ---
HPI - Extremity Problem General: Chief complaint: Extremity Problem,Nontraumatic Stated complaint: hip pain Time Seen by Provider: 09/18/20 19:13 Source: patient, family () and old records reviewed Mode of arrival: ambulatory Limitations: no limitations History of Present Illness: HPI Narrative: This is a 59-year-old male with a history of metastatic lung cancer with multiple bone metastases including right acetabulum with extension into the adjacent pubic rami and pubic root, left intertrochanteric femur, S1-S2 vertebral bodies, among others. He presents to the emergency department with right hip pain. He states that today when he was moving he felt a pop in his right hip area and has had severe pain since then. Because the pain is persistent and because of the popping sound he was concerned that he may have dislocated his hip and wants to be evaluated for this. He has severe pain on ambulation. Complaint: extremity pain Onset (ago): hour(s) Pain Consistency: constant Location: right and lower extremity Severity scale (1-10): 10 Quality: sharp Radiation: none Relieving factors: nothing Exacerbating factors: range of motion and weight bearing Associated symptoms: Reports arthralgias; Deny chest pain, fever(s), myalgias, rash or short of breath Context: other (Bone metastasis) Review of Systems General: Reports: 10 or more systems reviewed and unremarkable except in HPI and below Const: Denies: fever(s) Card: Denies: chest pain Skin/Breast: Denies: rash PFSH ED PFSH: Medical History Adult onset hypothyroidism Atrial fibrillation with rapid ventricular response Chronic allergic rhinitis due to pollen COPD (chronic obstructive pulmonary disease) with emphysema Essential (primary) hypertension History of colon polyps Lumbar pain with radiation down right leg Metabolic syndrome Mixed hyperlipidemia Vitamin D deficiency Surgical History History of circumcision History of colonoscopy 2019 History of tonsillectomy Port-A-Cath in place (08/31/20) Family History Other Cancer Hypertension Social History Smoking and tobacco status: current every day smoker Second hand smoke exposure: Yes Smoking risk assessment/counseling performed?: Yes Alcohol intake: current Alcohol intake frequency: holidays/special occasions only Desire information about alcohol rehabilitation?: No Counseling given: No Desire information about substance/drug rehabilitation?: No Counseling given: No Adopted: No Caregiver/support person: No Lives independently: Yes Household members: spouse and children Housing: House Marital status: Current occupational status: employed Current occupation: [employer] History of recent travel: Yes (for job) Out of state: Yes Current gender identity: Male Physical Exam Const: COMMON NORMALS: no acute distress, average body habitus, patient oriented x3, no limitations, healthy appearing, alert and well nourished HENMT: COMMON NORMALS: normocephalic, atraumatic and moist oral mucous membranes HEAD & SCALP: normocephalic and atraumatic Neck/C-Spine: COMMON NORMALS: no meningeal signs and no JVD Resp: COMMON NORMALS: normal respiratory effort, No retractions, No use of accessory muscles, clear to auscultation bilaterally and percussion normal AUSCULTATION: clear to auscultation bilaterally PERCUSSION: percussion normal Cardio: COMMON NORMALS: no JVD, regular rate, regular rhythm, S1 normal heart sound present, S2 normal heart sound present, No gallops present (Cardio), No clicks present (Cardio), No murmurs present (Cardio), No rub (Cardio) and Peripheral pulses 2+ throughout RATE: regular rate RHYTHM: regular rhythm HEART SOUNDS: S1 normal heart sound present and S2 normal heart sound present PERIPHERAL PULSES: Peripheral pulses 2+ throughout GI: COMMON NORMALS: Normal to inspection, nondistended, normoactive bowel sounds present, Soft to palpation, non-tender, No hepatosplenomegaly present, no masses and no bruits PALPATION: Yes Soft to palpation and Yes No hepatosplenomegaly present Extremity: COMMON NORMALS: normal to inspection, full ROM, capillary refill normal, no calf tenderness and no pedal edema RIGHT LOWER EXTREMITY: Yes hip joint Right hip: Yes inspection (No gross abnormalities), Yes palpation (Tender to palpation laterally.), Yes ROM (Decreased, especially due to pain.) and Yes neurovascular exam (Intact.) Neuro: COMMON NORMALS: patient oriented x3 SENSORIUM/ORIENTATION: Yes alert MENINGEAL SIGNS: Yes no meningeal signs Course Reevaluation(s): Reevaluation #1: Discussed his imaging findings with him. Negative for acute findings. Previously seen metastasis noted but no acute findings. We will discharge him home with no new orders and he voiced understanding and is in agreement with the plan. Time: 21:20 Vital Signs: Vital signs: Vital Signs Temperature 98.0 F 09/18/20 18:20 Pulse Rate 92 09/18/20 21:43 Respiratory Rate 18 09/18/20 21:43 Blood Pressure 120/81 09/18/20 21:43 Pulse Oximetry 95 09/18/20 21:43 MDM - Extremity (Nontraumatic) MDM Narrative: Medical decision making narrative: 59-year-old male with a history of metastatic lung cancer with bone metastases who presents to the emergency department with right hip pain that he developed when moving today. He was concerned that he may have had a dislocation of the right hip. Evaluation in the ED was negative for dislocation or fracture of the right hip and previously seen bone metastasis. No acute changes on his imaging. He is therefore discharged home with no new orders. Patient has pain medication that he states works well for his pain. Medical Records: Attestation: I reviewed the patient's medical records. Lab Data: Attestation: I reviewed the patient's lab results. Imaging Data^: Other Xray: Attestation: I personally reviewed and interpreted this imaging study as follows: Radiologist's impression: [address] [address] XRay Report Signed Patient: Avtar Kerns #: [id number] : 1960Acct#:[id number] Age/Sex: 59 / MADM Date: 09/18/20 Loc: ERRoom/Bed: Attending Dr: Ordering Provider/Ordering MD: Virginia Dove MD, [facility] [place] Date of Service: 09/18/20 Procedure(s): XR hip RT 2-3V wo/w pel* [id number] Accession Number(s): [id number] Report Number: [id number] PROCEDURE INFORMATION: Exam: XR Right Hip Exam date and time: 09/18/2020 7:29 PM Age: 59 years old Clinical indication: Hip pain; Right hip; Additional info: Hip pain. H/o metastatic cancer TECHNIQUE: Imaging protocol: XR Right hip. Views: 2 or 3 views hip with pelvis when performed. COMPARISON: CR XR hip RT 2-3V wo/w pel* [id number] 08/19/2020 11:31 AM FINDINGS: Bones/joints: Femoroacetabular alignment is normal. There is no femoral fracture. Joint space is preserved. There are small acetabular osteophytes. There is an ill-defined osteolytic lesion involving the anterior acetabulum and superior pubic ramus. The visible portion of the sacrum is unremarkable. Soft tissues: Unremarkable. XR/XR hip RT 2-3V wo/w pel* [id number] IMPRESSION: Large osteolytic lesion involving the anterior acetabulum and superior pubic ramus. No acute fracture. Dictated By:Steven Bruner MD Signed By:Steven Bruner MDSigned Date/Time:09/18/202111 DD/ 10 Discharge Plan Discharge Patient Disposition: Home Clinical Impression: Right hip pain, Bone metastases Condition: Stable Prescriptions: Continued fluticasone propionate 50 mcg/actuation spray,suspension 2 spray INTRANASAL DAILY RF: 0 magnesium 250 mg tablet 250 mg PO .every other day RF: 0 cholecalciferol (vitamin D3) 125 mcg (5,000 unit) capsule 5,000 unit PO QDAY Qty: 90 RF: 1 atorvastatin [Lipitor] 40 mg tablet 40 mg PO DAILY Qty: 90 RF: 1 cetirizine [All Day Allergy (cetirizine)] 10 mg tablet 10 mg PO DAILY Qty: 90 RF: 1 levothyroxine [Levoxyl] 150 mcg tablet 150 mcg PO QDAY Qty: 90 RF: 1 liothyronine [Cytomel] 5 mcg tablet 5 mcg PO DAILY Qty: 90 RF: 1 metformin 500 mg tablet 500 mg PO BID Qty: 180 RF: 1 montelukast [Singulair] 10 mg tablet 10 mg PO DAILY Qty: 90 RF: 1 valsartan 160 mg tablet 160 mg PO DAILY Qty: 90 RF: 1 apixaban [Eliquis] 5 mg tablet 5 mg PO BID Qty: 180 RF: 2 Hold Instructions: Resume on 09/02/20. albuterol sulfate 2.5 mg /3 mL (0.083 %) solution for nebulization 2.5 mg INHALATION Q4H PRN (Reason: Shortness Of Breath Or Wheezing) Qty: 180 RF: 2 metoprolol tartrate 25 mg tablet 25 mg PO BID Qty: 180 RF: 3 polyethylene glycol 3350 [ClearLax] 17 gram/dose powder 17 g PO BID PRN (Reason: Constipation) RF: 0 duloxetine [Cymbalta] 60 mg capsule,delayed release(DR/EC) 60 mg PO DAILY RF: 0 dronabinol 5 mg capsule 5 mg PO BID RF: 0 morphine 60 mg tablet extended release 120 mg PO BID RF: 0 morphine 15 mg tablet 15 mg PO Q4H PRN (Reason: Breakthrough Pain) RF: 0 ondansetron 4 mg tablet,disintegrating 4 mg PO Q8H PRN (Reason: Nausea) RF: 0 Discharge Orders: Discharge ED (Routine); Ordered 09/18/20 Ordered By: Virginia Dove Referrals: Guerrero Claudio, CLASSIFIED AD TAKER-C [Primary Care Provider] - 1-3 days Discharge Diet: Usual diet Discharge Activity: Increase activity as tolerated Patient Instructions: Arthralgia (ED), Opioid Safety Activity Restrictions/Additional Instructions: Return for any new or worsening symptoms. Follow-up with your primary care provider as needed within 3 days. Continue home medications. Coding Level of Care Code ED Wheel And Pinion Inspector for Kasey Paul
[2020-09-18 21:43] VITALS: BP 120/81; PULSE 92; RESP 18; O2SAT 95
== END 2020-09-18 21:45 | disposition home or self-care (01) ==
PROVIDERS: Emergency Provider Family Medicine; PCP Nurse Practitioner
DX: M25.551 Pain in right hip (principal); C79.51 Secondary malignant neoplasm of bone; Z85.118 Personal history of other malignant neoplasm of bronchus and lung; I48.91 Unspecified atrial fibrillation; J44.9 Chronic obstructive pulmonary disease, unspecified; I10 Essential (primary) hypertension; E78.2 Mixed hyperlipidemia; F17.210 Nicotine dependence, cigarettes, uncomplicated
CPT/HCPCS: 73502; 99282

== ENCOUNTER 2020-09-20 06:30 | Outpatient (RCR) | payer OTHER, SELFPAY ==
[2020-09-20 14:34] LABS: Basophils # 0.1 10^3/uL (0.0-0.1); Basophils % 0.9 %; Eosinophils # 0.2 10^3/uL (0.0-0.8); Eosinophils % 1.2 %; Hematocrit 25.7 % (42.0-52.0); Hemoglobin 7.8 g/dL (11.7-16.6); Lymphocytes # 1.5 10^3/uL (0.8-4.8); Lymphocytes % 10.7 %; Mean Corpuscular HGB Conc 30.4 g/dL (30.0-36.0); Mean Corpuscular Hemoglobin 26.8 pg (28.0-34.0); Mean Corpuscular Volume 88.3 fL (80-94); Mean Platelet Volume 9.2 fL (7.4-10.4); Monocytes # 1.5 10^3/uL (0.2-0.9); Monocytes % 10.4 %; Neutrophils # 9.78 10^3/uL (1.8-7.7); Neutrophils % 69.3 %; Nucleated Red Blood Cells # 0.1 /100WBC; Nucleated Red Blood Cells % 0.6 %; Platelet Count 215 10^3/cmm (130-400); Red Blood Count 2.91 10^6/uL (4.1-5.3); Red Cell Distribution Width 16.8 % (12.1-15.1); White Blood Count 14.1 10^3/uL (4.0-10.0)
[2020-09-20 14:55] LABS: Alanine Aminotransferase 23 U/L (0-41); Albumin Level 2.9 g/dL (3.5-5.2); Alkaline Phosphatase 222 IU/L (40-130); Anion Gap 12.6 (5-19); Aspartate Amino Transferase 14 U/L (0-40); Blood Urea Nitrogen 6 mg/dL (6-20); Carbon Dioxide 26 mmol/L (22-29); Chloride 94 mmol/L (98-107); Globulin 3.1 g/dL (1.3-4.6); Glomerular Filtration Rate 138.9 mL/min (90-130); Glucose 101 mg/dL (65-115); Osmolality Calculated 266 mOsm/kg (285-295); Potassium 3.6 mmol/L (3.5-5.1); Sodium 129 mmol/L (136-145); Total Bilirubin 0.2 mg/dL (0.15-1.2)
[2020-09-20 15:13] LABS: Slide Review Slide Review Perform
== END 2020-09-23 23:59 | disposition home or self-care (01) ==
LOC: ONCMED 06:30
PROVIDERS: Family Provider Nurse Practitioner; PCP Nurse Practitioner; Visit Provider Internal Medicine Hematology & Oncology
DX: C34.11 Malignant neoplasm of upper lobe, right bronchus or lung (principal); C79.51 Secondary malignant neoplasm of bone
CPT/HCPCS: 36591; 80053; 85025

== ENCOUNTER 2020-10-18 05:34 | Outpatient (RCR) | payer OTHER, SELFPAY ==
[2020-09-26 09:07] LABS: Basophils % 0.3 %; Eosinophils # 0.1 10^3/uL (0.0-0.8); Eosinophils % 0.4 %; Hematocrit 22.8 % (42.0-52.0); Lymphocytes # 1.2 10^3/uL (0.8-4.8); Lymphocytes % 7.6 %; Mean Corpuscular HGB Conc 30.7 g/dL (30.0-36.0); Mean Corpuscular Hemoglobin 26.5 pg (28.0-34.0); Mean Corpuscular Volume 86.4 fL (80-94); Mean Platelet Volume 9.5 fL (7.4-10.4); Monocytes # 0.8 10^3/uL (0.2-0.9); Neutrophils # 12.87 10^3/uL (1.8-7.7); Neutrophils % 85.2 %; Nucleated Red Blood Cells % 0 %; Platelet Count 187 10^3/cmm (130-400); Red Blood Count 2.64 10^6/uL (4.1-5.3); Red Cell Distribution Width 17.4 % (12.1-15.1); White Blood Count 15.1 10^3/uL (4.0-10.0)
[2020-09-26 09:54] LABS: Alanine Aminotransferase 19 U/L (0-41); Albumin Level 2.5 g/dL (3.5-5.2); Alkaline Phosphatase 244 IU/L (40-130); Anion Gap 15.1 (5-19); Aspartate Amino Transferase 19 U/L (0-40); Blood Urea Nitrogen 9 mg/dL (6-20); Calcium 7.6 mg/dL (8.5-10.5); Carbon Dioxide 23 mmol/L (22-29); Chloride 92 mmol/L (98-107); Globulin 3.6 g/dL (1.3-4.6); Glomerular Filtration Rate 138.9 mL/min (90-130); Glucose 139 mg/dL (65-115); Osmolality Calculated 263 mOsm/kg (285-295); Potassium 4.1 mmol/L (3.5-5.1); Sodium 126 mmol/L (136-145); Thyroid Stimulating Hormone 3.57 uIU/mL (0.27-4.20); Total Bilirubin 0.5 mg/dL (0.15-1.2); Total Protein 6.1 g/dL (6.6-8.7)
[2020-09-26 11:04] LABS: Ferritin 839 ng/mL (30-400); Iron 22 ug/dL (59-158); Percent Saturation 15.7 % (20-50); Total Iron Binding Capacity 140 mcg/dl; Unsaturated Iron Binding 118 ug/dL (112-347)
[2020-09-27] VITALS (10 sets, daily range): BP systolic 104–128; BP diastolic 69–87; PULSE 80–91; RESP 18; TEMP 35.6–36.4; O2SAT 92–96
[2020-09-27] MEDS: famotidine 20 mg/2 mL INJ IVP (10:33)
[2020-09-27] MEDS: sodium chloride 0.9% 250 ML 75 ML IV (10:33)
[2020-09-27] MEDS: diphenhydrAMINE 50 mg/mL SDV 1mL 25 MG IV (10:34)
[2020-09-27] MEDS: palonosetron 0.25 mg/5 mL SDV IV (10:36)
[2020-09-27] MEDS: fosaprepitant 150 MG in sodium chloride 0.9% 150 ML 300 MG IV (10:53)
[2020-09-27] MEDS: acetaminophen 325 mg Tablet 650 MG PO (13:15)
[2020-09-27] MEDS: FUROsemide 10 mg/mL SDV 2mL 20 MG IV (14:45)
[2020-09-27] MEDS: diphenhydrAMINE 25 mg Capsule PO (14:49)
--- NOTE | 2020-09-27 16:02 | ONC FU_ITS ---
[facility] Patient Note Patient: Avtar Kerns Unit #: [id number]: 1960 Dictated By: Amna RockDate of Visit: September 27, 2020 Onc MED Follow-Up/Prog Note Chief Complaint: Lung cancer. 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 This is presumed to be from a primary lesion in the upper lobe of the right lung, by clinical evaluation stage IVB (T2a, N0, M1c). He had presented with severe pain in the lower back. It actually started as far back as 2019 and it just continue to progressively worsen. He was seen at the orthopedic clinic by Dr. Umair Lima on 06/14/2020. An MRI of the lumbar spine on 06/23/2020 showed an expansile marrow replacing process, likely neoplasm, involving the S1 and S2 vertebral bodies centered at the S1 level. There was associated epidural disease with moderate to severe narrowing of the cauda equina distally impinging the transversing S1 nerve roots. There was infiltrating signal abnormality extending into the sacral ala bilaterally and also involving the posterior L5 vertebral body. There was moderate central canal stenosis at L5-S1. The findings were consistent with primary bone neoplasm or metastatic disease. Also noted was a partially visualized expansile lesion in the right acetabulum. Further evaluation with MRI of the pelvis on 07/08/2020 showed marrow replacing multifocal neoplasm/metastatic disease involving the right acetabulum with bony expansion extending into the adjacent pubic rami and pubic root. Signal abnormality was noted to extend into the right ilium and right iliac wing. There was additional disease involving the left intertrochanteric femur, with the largest lesion measuring 2.8 x 4.2 cm. The findings involving the S1-S2 vertebral bodies were again noted. Overall, the findings were compatible with neoplasm most likely due to metastatic disease. He was admitted to [facility] where additional evaluation with bone scan and x-rays confirmed evidence of a lytic lesion in the right acetabulum with cortical breakthrough, a large lytic lesion in the sacrum with cortical breakthrough, a lytic lesion in the left femoral intertrochanteric region, and a suspected lytic lesion in the left proximal tibia. Staging CT scans of the chest, abdomen, and pelvis on 07/15/2020 showed a hypoenhancing mass in the upper lobe of the right lung measuring 3.2 x 2.6 cm. It was noted to invade the right upper lobe bronchus and it appeared to be the likely cause of right upper lobe atelectasis. There were no pathologically enlarged lymph nodes in the mediastinum or kya. A 9 mm nodular groundglass opacity was noted in the right lower lobe and a 4 mm calcified granuloma was noted in the right lower lobe. There is no evidence for metastatic disease in the abdominal area. There was evidence of an infiltrative destructive mass centered in the sacrum with soft tissue component extending into the right sacroiliac joint and into the right aspect of the posterior elements of L5. Another infiltrative destructive mass with soft tissue component was seen centered in the right acetabulum with intra-arterial extension and with extension into the fovea of the right femoral head. Another lytic lesion was noted in the left femoral intertrochanteric region. On 07/21/2020 he underwent open biopsy of the left femur along with prophylactic fixation of the left femur with intramedullary maricruz. Pathology showed metastatic squamous cell carcinoma. The PD-L1 22C3 expression by IHC was reported positive at 1 to 10%. He was seen here initially on 08/04/2020. He began on symptomatic management for the bone pain. He was seen by Dr. Mead for palliative radiation. He was given a course of treatment to the sacrum, which he completed on 08/23/2020 to a total dose of 3000 cGy administered in 10 fractions. He tolerated the radiation well. His other medical illnesses include hypertension, hyperlipidemia, type 2 diabetes, and hypothyroidism. He has a history of atrial fibrillation and he also has a history of colonic polyps. He has a history of smoking 1-1/2 to 2 packs of cigarettes daily for 35 years. He quit smoking in November 2019. Mr Kerns was seen by Dr Swenson and offered systemic therapy post radiation with Carboplatin and Abraxane in combination with pembrolizumab. The Carbo/Abraxane will be day 1 and 8 and the pembrolizumab is day 1 on a 21-day cycle. He did have left subclavian Power Portvenous access device placement per Dr. Fontenot on 08/31/2020. He began his first cycle of chemotherapy and immunotherapy on 09/06/2020. He presented on day 1 with a hemoglobin of 6.6. His hemoglobin on August 04, 2020 was 9.4. He did just complete radiation therapy and has had had radiation to his pelvis. He has extensive bone metastasis. He received 2 untis of PRBCs and proceeded with cycle 1 day 1 on 09/06/2020. He has tolerated it well thus far. Mr. Kerns is here today for follow-up. He is due for cycle 2 day 1 today. He will alos receive 2 units of PRBC today as his HGB is 7.0. He reports he is having persistent rectal bleeding with bright red blood and blood clots in the stool . He states he is having pain with bowel movements and is having more blood in the toliet with his bowel movements. He states he si eating good but tries not to let himself eat a whole lot bcause of the discomfort of moving bowels. Mrs Kerns states she is giving him stool softeners and Miralax as needed to him his bowel movements soft. He denies any other areas of bleeding. He states he has not had fever or chills. He denies any mouth sores, sore throat or trouble swallowing. Denies any shortness of breath orthopnea. He has had no chest pain or palpitations. Mrs. Kerns reports that his pain is well controlled on the extended release morphine. He is rarely taking any breakthrough morphine. She states overall he is getting better but they are concerned about the rectal bleeding. They have seen Dr. Fontenot in the past and would like to see him again. He denies any gastritis symptoms or any pain after eating. He denies any neuropathy symptoms. He denies any abdominal pain. He is somewhat sedated today due to the ventral given with the treatment and with transfusion services but Mrs. Kerns states overall he is doing well at home. His ECOG is 3. Past Medical History: Atrial fibrillation History of colonic polyps Hyperlipidemia Hypertension Hypothyroidism Type II diabetes Past [facility] History[facility]phylactic fixation of the left femur and open biopsy of left femur in 2020 Colonoscopy in 2019 Allergies: No Known Allergies. Medications: Atorvastatin Calcium 1 (40 mg) Tablet Oral daily Cetirizine HCl 1 (10 mg) Tablet Oral daily DULoxetine HCl 1 (20 mg) Capsule Delayed Release Particles Oral b.i.d. Eliquis 1 (5 mg) Tablet Oral b.i.d. Levoxyl 1 (150 mcg) Tablet Oral daily Liothyronine Sodium 1 (5 mcg) Tablet Oral daily Marinol 1 (5 mg) Capsule Oral b.i.d. metFORMIN HCl 1 (500 mg) Tablet Oral b.i.d. Metoprolol Tartrate 1 (25 mg) Tablet Oral b.i.d. Montelukast Sodium 1 (10 mg) Tablet Oral daily Morphine Sulfate 1 Tablet (of 15 mg) Oral q 4 hours PRN Morphine Sulfate ER 1 Tablet (of 60 mg) Tablet, controlled release Oral b.i.d. Ondansetron 1 - 2 (4 mg) Tablet Dispersable Oral q 4 hours PRN Family History: Mr. Kerns's mother at age 63: Cancer. Mr. Kerns's father at age 65: myocardial infarction. Father of heart attack at age 65. Mother of lung cancer at age 63. Three sisters are in good health. A 17-year-old daughter has juvenile rheumatoid arthritis. Social History: Mr. Kerns is . Mr. Kerns quit smoking less than one year ago but had smoked 3.0 packs/day for 30 years. He drinks occasionally. 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 He has a history of smoking 1-1/2 to 2 packs of cigarettes daily for 35 years. He quit in November 2019. He has moderate alcohol use with a mixed drink 4 to 5 days a week. Review Of Symptoms: see above Vital Signs: Performed on September 27, 2020 09:18 Height - 68.00 in Weight - 190.8 lbs (LOW) BSA - 2.00 sq.m BMI - 29.01 Temperature - 97.2 F (LOW) Pulse - 99 /min Respiration - 18 /min BP - 111/67 mm(hg) O2 Sat - 96 % Pain - 2 Fatigue - 6,3 - Capable of only limited self-care, confined to bed or chair more than 50% of waking hours. (ECOG) Physical Examination: Constitutional Alert, oriented, no acute distress. Skin pink, warm and dry. Head Normocephalic; atraumatic. Eyes Conjunctivae and sclerae are clear and without icterus. Pupils are reactive and equal. Neck Supple without masses or thyromegaly. No jugular venous distension. Hematologic/Lymphatic No petechiae or purpura. No tender or palpable lymph nodes in the cervical or supraclavicular areas. Respiratory Lungs are clear to auscultation without rhonchi or wheezing. Cardiovascular Regular rate and rhythm of heart without murmurs,clicks, gallops or rubs. Chest Chest is symmetric without chest wall deformities. Left chest wall venous access device is unremarkable. It has healed well. Abdomen Non-tender, non-distended, no masses or ascites. Good bowel sounds noted in all quads. No guarding or rebound tenderness. No pulsatile masses. Back/Spine Non-tender to palpation. Extremities No visible deformities, no cyanosis, clubbing or edema. Musculoskeletal No tenderness or swelling, normal range of motion without obvious weakness. Integumentary No rashes or lesions. Psychiatric Alert and oriented times three. Coherent speech. Verbalizes understanding of our discussions today. Laboratory:Test performed on September 27, 2020 09:18 Leukocyte Reduced RBC [id number] ON RCLR XM COMPATIBLE Anti-D Negative / 0 Blood Type ON Antibody Screen (Gel) NEGATIVE Test performed on September 26, 2020 09:19 Creatinine 0.6 mg/dL Cr Clearance (Est) 175.69 mL/min Test performed on Sep 12, 2020 11:10 Sodium 129 mmol/L Potassium 4.2 mmol/L Chloride 93 mmol/L CO2 25 mmol/L Anion Gap 15.2 BUN 10 mg/dL eGFR 171.4 mL/min Glucose 132 mg/dL Osmolality - Calculated 269 mOsm/kg Calcium 8.5 mg/dL Protein, Total 6.7 g/dL Albumin 2.9 g/dL Globulin 3.8 g/dL Bilirubin, Total 0.6 mg/dL ALT (SGPT) 16 U/L AST (SGOT) 32 U/L Alkaline Phosphatase 163 IU/L WBC 5.0 10 3/uL RBC 3.22 10 6/uL HGB 8.7 g/dL HCT 27.6 % MCV 85.7 fL MCH 27.0 pg MCHC 31.5 g/dL RDW 14.9 % Platelet Count 204 10 3/cmm MPV 9.1 fL Neutrophils 3.99 10 3/uL Lymphocytes 0.6 10 3/uL Monocytes 0.2 10 3/uL Eosinophils 0.1 10 3/uL Basophils 0.0 10 3/uL Neutrophil % 80.0 % Lymphocyte % 11.4 % Monocyte % 4.6 % Eosinophil % 2.8 % Basophils % 0.4 % NRBC % 0 % Test performed on Sep 06, 2020 10:41 Ferritin 363 ng/mL Folate, Serum 3.9 ng/mL Iron 25 mcg/dL T3, Free 1.9 PG/ML T4, Free 1.13 ng/dL Iron Binding Capacity (TIBC) 148 mcg/dl % Iron Saturation 16.8 % UIBC 123 mcg/dL Test performed on Sep 06, 2020 09:07 TSH 9.97 uIU/mL ABO & Rh Type # 2 ON Test performed on Aug 15, 2020 13:53 Ua Color Yellow Ua Appearance Clear Ua pH 6 Ua Specific Newell 1.010 Ua Glucose Norm Ua Ketones Negative Ua Protein Neg Ua Blood Neg Ua Bilirubin Neg Ua Nitrites Negative Ua Leukocyte Esterase Negative Ua Micro: Hyaline Casts 0-4 /lpf Ua Micro: WBC 0-4 /hpf Ua Micro: RBC NONE /hpf Ua Micro: Squam Epith Cells RARE /hpf Ua Micro: Bacteria TRACE /hpf Impression: 1. Metastatic squamous cell carcinoma with presumed primary in the upper lobe of the right lung, stage IVB (T2a, N0, M1c). His tumor showed positive PD-L1 22C3 expression by IHC (1 to 10%). 2. He presented with severely painful bony metastatic disease involving multiple sites including the sacrum, right acetabulum, proximal left femur, and possibly the proximal left tibia. 3. Hypertension. 4. Hyperlipidemia. 5. Type 2 diabetes. 6. Atrial fibrillation. 7. History of colonic polyps. Plan: PROBLEMS ADDRESSED TODAY 1. Patient with metastatic squamous cell carcinoma with presumed primary in the upper lobe of the right lung, stage IVB (T2a, N0, M1c). His tumor showed positive PD-L1 22C3 expression by IHC (1 to 10%). He presented with severely painful bony metastatic disease involving multiple sites including the sacrum, right acetabulum, proximal left femur, and possibly the proximal left tibia. On 07/21/2019 he underwent open biopsy of the left femur in association with prophylactic fixation of the left femur with intramedullary maricruz. Pathology showed metastatic squamous cell carcinoma. His staging CT scans showed a primary tumor in the upper lobe of the right lung. There was associated right upper lobe atelectasis, but he has not been overtly symptomatic with it. He has undergone palliative radiation to the sacrum, completed on 08/23/2020 to a total dose of 3000 cGy administered in 10 fractions. He tolerated it well. He has had symptomatic benefit. He will proceed now to systemic therapy. With his PD-L1 expression positive at 1 to 10%, the recommended treatment will be chemotherapy with carboplatin/Abraxane in combination with pembrolizumab. He has had placement of Port-A-Cath venous access device per Dr Fontenot @ [facility]. A. Proceed with cycle 2 day 1 carboplatin/Abraxane along with pembrolizumab. The pembrolizumab is only day one of the 21-day cycle. He will receive growth factor support with Neulasta day 8 given his extensive bone metastasis and his extensive disease. B. Labs from )09/26/2020 were reviewed in detail and discussed with Mr. Kerns and a copy was given to him and his . WBC 15.1, hemoglobin 7.0 hematocrit 22.8, platelets 187,000 ANC is 12,900. Sodium 129 random glucose 139 creatinine 0.6 calcium 7.6 LFTs are normal. His iron saturation is 15.7%. His iron level is 22. His TSH is 3.57. C. He is noted to be iron deficient as well and we could try 1 dose of Injectafer for him. The anemia may be related to either his iron deficiency, radiation therapy, the squamous cell carcinoma or all the above. Not yet pursued the iron deficiency replacement with Injectafer as he had been so sick and we were trying to give him time to recover. E. I have requested iFOB. I have not seen results of the iFOB yet. He does have a history of polyps. Mrs. Kerns states that he has mentioned he thought he had passed blood in his stools over the last couple of months. He has had some bleeding from the rectum and reports blood clots in the toliet with bowel movements. He denies any other episodes of bleeding. 2. He has severe pain associated with the metastatic bone involvement. A. His pain is being managed with his current pain regimen following completion of the palliative radiation. B. We will plan to start denosumab on day 3 of cycle 2. Most likely his denosumab will be given on a 6-week schedule as he is on a 3-week treatment plan. I elected not to start it today due to growth factor support with Neulasta. His pain is just finally starting to settle down as well. 3. Anemia/iron deficiency A. We will reassess his anemia in weekly. B. It may be optional to give him 1 unit/dose of Injectafer 750 mg and then reassess his anemia. 4. Follow-up plan A. We will plan to see him back in 3 weeks with CBC CMP. He will be due for day 1 of cycle3 Keytruda, carboplatin and Abraxane at that time. B. We will plan to initiate his first dose of denosumab 120 mg on day 8 of cycle 2. C. I requested referral to Dr. Fontenot for follow-up of patient's report of consistent/persistent rectal bleeding now with blood clots in the toilet with bowel movements. He has had a colonoscopy with polyp removal about a year ago per Dr. Fontenot. Mikaela. . Mrs. Kerns were encouraged to contact us in interim if questions or problems arise. Signed By: Amna Rock-, AOCNP Julio Swenson MD <<Signature on File>>
[2020-10-04] VITALS (10 sets, daily range): BP systolic 121–145; BP diastolic 66–98; PULSE 79–92; RESP 18; TEMP 35.9–36.9; O2SAT 95–99
[2020-10-04 09:29] LABS: Basophils % 0.2 %; Eosinophils # 0.1 10^3/uL (0.0-0.8); Eosinophils % 1.7 %; Hematocrit 23.7 % (42.0-52.0); Hemoglobin 7.5 g/dL (11.7-16.6); Lymphocytes # 0.6 10^3/uL (0.8-4.8); Lymphocytes % 14.4 %; Mean Corpuscular HGB Conc 31.6 g/dL (30.0-36.0); Mean Corpuscular Hemoglobin 28.2 pg (28.0-34.0); Mean Corpuscular Volume 89.1 fL (80-94); Mean Platelet Volume 8.9 fL (7.4-10.4); Monocytes # 0.3 10^3/uL (0.2-0.9); Monocytes % 7.4 %; Neutrophils # 3.16 10^3/uL (1.8-7.7); Neutrophils % 75.6 %; Nucleated Red Blood Cells % 0 %; Platelet Count 155 10^3/cmm (130-400); Red Blood Count 2.66 10^6/uL (4.1-5.3); Red Cell Distribution Width 17.2 % (12.1-15.1); White Blood Count 4.2 10^3/uL (4.0-10.0)
[2020-10-04 09:49] LABS: Alanine Aminotransferase 13 U/L (0-41); Albumin Level 2.8 g/dL (3.5-5.2); Alkaline Phosphatase 145 IU/L (40-130); Anion Gap 11.9 (5-19); Aspartate Amino Transferase 15 U/L (0-40); Blood Urea Nitrogen 13 mg/dL (6-20); Calcium 8.1 mg/dL (8.5-10.5); Carbon Dioxide 24 mmol/L (22-29); Chloride 97 mmol/L (98-107); Globulin 3.5 g/dL (1.3-4.6); Glomerular Filtration Rate 138.9 mL/min (90-130); Glucose 104 mg/dL (65-115); Osmolality Calculated 268 mOsm/kg (285-295); Potassium 3.9 mmol/L (3.5-5.1); Sodium 129 mmol/L (136-145); Total Bilirubin 0.3 mg/dL (0.15-1.2); Total Protein 6.3 g/dL (6.6-8.7)
[2020-10-04] MEDS: acetaminophen 325 mg Tablet 650 MG PO (12:20)
[2020-10-04] MEDS: sodium chloride 0.9% 250 ML 999 ML IV (12:20)
[2020-10-04] MEDS: diphenhydrAMINE 25 mg Capsule PO (12:20)
[2020-10-04] MEDS: FUROsemide 10 mg/mL SDV 2mL 20 MG IV (14:12)
--- NOTE | 2020-10-05 06:50 | ONC FU_ITS ---
Dr. Swenson Patient Follow-Up Note Patient: Avtar Kerns Unit #: [id number]: 1960 Dicatated By: Julio Swenson M.D.Date of Visit:October 04, 2020 Onc Med Follow-up/Prog Note Chief Complaint: Lung cancer. 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 This is presumed to be from a primary lesion in the upper lobe of the right lung, by clinical evaluation stage IVB (T2a, N0, M1c). He had presented with severe pain in the lower back. It actually started as far back as 2019 and it just continue to progressively worsen. He was seen at the orthopedic clinic by Dr. Umair Lima on 06/14/2020. An MRI of the lumbar spine on 06/23/2020 showed an expansile marrow replacing process, likely neoplasm, involving the S1 and S2 vertebral bodies centered at the S1 level. There was associated epidural disease with moderate to severe narrowing of the cauda equina distally impinging the transversing S1 nerve roots. There was infiltrating signal abnormality extending into the sacral ala bilaterally and also involving the posterior L5 vertebral body. There was moderate central canal stenosis at L5-S1. The findings were consistent with primary bone neoplasm or metastatic disease. Also noted was a partially visualized expansile lesion in the right acetabulum. Further evaluation with MRI of the pelvis on 07/08/2020 showed marrow replacing multifocal neoplasm/metastatic disease involving the right acetabulum with bony expansion extending into the adjacent pubic rami and pubic root. Signal abnormality was noted to extend into the right ilium and right iliac wing. There was additional disease involving the left intertrochanteric femur, with the largest lesion measuring 2.8 x 4.2 cm. The findings involving the S1-S2 vertebral bodies were again noted. Overall, the findings were compatible with neoplasm most likely due to metastatic disease. He was admitted to [facility] where additional evaluation with bone scan and x-rays confirmed evidence of a lytic lesion in the right acetabulum with cortical breakthrough, a large lytic lesion in the sacrum with cortical breakthrough, a lytic lesion in the left femoral intertrochanteric region, and a suspected lytic lesion in the left proximal tibia. Staging CT scans of the chest, abdomen, and pelvis on 07/15/2020 showed a hypoenhancing mass in the upper lobe of the right lung measuring 3.2 x 2.6 cm. It was noted to invade the right upper lobe bronchus and it appeared to be the likely cause of right upper lobe atelectasis. There were no pathologically enlarged lymph nodes in the mediastinum or kya. A 9 mm nodular groundglass opacity was noted in the right lower lobe and a 4 mm calcified granuloma was noted in the right lower lobe. There is no evidence for metastatic disease in the abdominal area. There was evidence of an infiltrative destructive mass centered in the sacrum with soft tissue component extending into the right sacroiliac joint and into the right aspect of the posterior elements of L5. Another infiltrative destructive mass with soft tissue component was seen centered in the right acetabulum with intra-arterial extension and with extension into the fovea of the right femoral head. Another lytic lesion was noted in the left femoral intertrochanteric region. On 07/21/2020 he underwent open biopsy of the left femur along with prophylactic fixation of the left femur with intramedullary maricruz. Pathology showed metastatic squamous cell carcinoma. The PD-L1 22C3 expression by IHC was reported positive at 1 to 10%. He was seen here initially on 08/04/2020. He began on symptomatic management for the bone pain. He was seen by Dr. Mead for palliative radiation. He was given a course of treatment to the sacrum, which he completed on 08/23/2020 to a total dose of 3000 cGy administered in 10 fractions. He tolerated the radiation well. His other medical illnesses include hypertension, hyperlipidemia, type 2 diabetes, and hypothyroidism. He has a history of atrial fibrillation and he also has a history of colonic polyps. He has a history of smoking 1-1/2 to 2 packs of cigarettes daily for 35 years. He quit smoking in November 2019. INTERIM HISTORY: On 09/06/2020 he began systemic therapy with carboplatin/Abraxane chemotherapy administered on a day 1/day 8 schedule every 21 days together with pembrolizumab administered every 21 days. At that point he had become significantly anemic, requiring PRBC transfusion. He was able to tolerate treatment with acceptable toxicity, and he continued with cycle 2 on 09/27/2020. He is seen for a follow-up visit. He is now at day 8 of his second cycle. He has been showing gradual improvement in his clinical status, the point that he is able to ambulate short distances with a walker. He has also been exercising his legs. He has managing his pain adequately with extended release morphine. His ECOG score is still 3. His appetite is getting better. Recently has been running a slight fever, up to 99.9 degrees. Along with that he has been having episodes of feeling hot and sweaty alternating with shaking chills. He has had sore mouth. He has no difficulty swallowing. He has cough productive of clear to greenish sputum. He occasionally gets short of breath. He does not complain of chest pain. He has had some nausea, but it is adequately managed with medication. He is also having some acid reflux. He had constipation, that is now managed adequately with his bowel regimen. Recently he has noticed some red blood in the stool. He has no complaints. He does not complain of headache. He sometimes has lightheadedness. He has no numbness/paresthesia or other focal neurologic symptoms. Medications: Atorvastatin Calcium 1 (40 mg) Tablet Oral daily, Cetirizine HCl 1 (10 mg) Tablet Oral daily, DULoxetine HCl 1 (20 mg) Capsule Delayed Release Particles Oral b.i.d., Eliquis 1 (5 mg) Tablet Oral b.i.d., Levaquin 1 (500 mg) Tablet Oral daily for 7 days, Levoxyl 1 (150 mcg) Tablet Oral daily, Liothyronine Sodium 1 (5 mcg) Tablet Oral daily, Marinol 1 (5 mg) Capsule Oral b.i.d., metFORMIN HCl 1 (500 mg) Tablet Oral b.i.d., Metoprolol Tartrate 1 (25 mg) Tablet Oral b.i.d., Montelukast Sodium 1 (10 mg) Tablet Oral daily, Morphine Sulfate 1 Tablet (of 15 mg) Oral q 4 hours PRN, Morphine Sulfate ER 1 Tablet (of 60 mg) Tablet, controlled release Oral b.i.d., Ondansetron 1 - 2 (4 mg) Tablet Dispersable Oral q 4 hours PRN Allergies: No Known Allergies. Vital Signs: Performed on October 04, 2020 08:15 Height - 68.00 in Weight - 190.6 lbs (LOW) BSA - 2.00 sq.m BMI - 28.98 Temperature - 96.7 F (LOW) Pulse - 85 /min Respiration - 17 /min BP - 107/65 mm(hg) O2 Sat - 97 % Pain - 2 Physical Examination: Constitutional - He appears somewhat weak generally, but not acutely ill, Eyes - Sclerae nonicteric. Conjunctivae clear, ENMT - There are some tiny ulcerations on the lateral aspect of the tongue on both sides, Hematologic/Lymphatic - No cervical, clavicular, or axillary adenopathy, Respiratory - Lungs sound clear, Cardiovascular - Heart rhythm is regular. There is no murmur, gallop, or rub noted, Abdomen - Soft. Liver and spleen are not enlarged. There is no abdominal mass or ascites noted and there is no inguinal adenopathy, Extremities - No edema, Neurologic - No focal neurologic deficits noted. Lab/Imaging: Test performed on October 04, 2020 09:00 Sodium 129 mmol/L Potassium 3.9 mmol/L Chloride 97 mmol/L CO2 24 mmol/L Anion Gap 11.9 BUN 13 mg/dL Creatinine 0.6 mg/dL Cr Clearance (Est) 175.6900 mL/min eGFR 138.9 mL/min Glucose 104 mg/dL Osmolality - Calculated 268 mOsm/kg Calcium 8.1 mg/dL Protein, Total 6.3 g/dL Albumin 2.8 g/dL Globulin 3.5 g/dL Bilirubin, Total 0.3 mg/dL ALT (SGPT) 13 U/L AST (SGOT) 15 U/L Alkaline Phosphatase 145 IU/L WBC 4.2 10 3/uL RBC 2.66 10 6/uL HGB 7.5 g/dL HCT 23.7 % MCV 89.1 fL MCH 28.2 pg MCHC 31.6 g/dL RDW 17.2 % Platelet Count 155 10 3/cmm MPV 8.9 fL Neutrophils 3.16 10 3/uL Lymphocytes 0.6 10 3/uL Monocytes 0.3 10 3/uL Eosinophils 0.1 10 3/uL Basophils 0.0 10 3/uL Neutrophil % 75.6 % Lymphocyte % 14.4 % Monocyte % 7.4 % Eosinophil % 1.7 % Basophils % 0.2 % NRBC % 0 % Problem List: 1. Metastatic squamous cell carcinoma with presumed primary in the upper lobe of the right lung, stage IVB (T2a, N0, M1c). His tumor showed positive PD-L1 22C3 expression by IHC (1 to 10%). 2. He presented with severely painful bony metastatic disease involving multiple sites including the sacrum, right acetabulum, proximal left femur, and possibly the proximal left tibia. 3. Hypertension. 4. Hyperlipidemia. 5. Type 2 diabetes. 6. Atrial fibrillation. 7. History of colonic polyps. Problems Addressed with this Encounter and Plan: 1. Patient with metastatic squamous cell carcinoma with presumed primary in the upper lobe of the right lung, stage IVB (T2a, N0, M1c). His tumor showed positive PD-L1 22C3 expression by IHC (1 to 10%). He presented with severely painful bony metastatic disease involving multiple sites including the sacrum, right acetabulum, proximal left femur, and possibly the proximal left tibia. On 07/21/2019 he underwent open biopsy of the left femur in association with prophylactic fixation of the left femur with intramedullary maricruz. Pathology showed metastatic squamous cell carcinoma. His staging CT scans showed a primary tumor in the upper lobe of the right lung. There was associated right upper lobe atelectasis, but he has not been overtly symptomatic with it. He was given palliative radiation to the sacrum, completed on 08/23/2020 to a total dose of 3000 cGy administered in 10 fractions. He tolerated it well, and he did have symptomatic benefit. On 09/06/2020 he began systemic therapy with carboplatin/Abraxane chemotherapy in combination with pembrolizumab. He tolerated the 1st cycle with acceptable toxicity. He continued with cycle 2 on 09/27/2020. He is now at day 8 of the second cycle. He does not appear to be having any significant treatment related toxicity, but he does report having low-grade fever along with episodes of feeling hot/sweaty alternating with severe chills. The underlying cause is uncertain. However, I am going to put his treatment on hold pending outcome of blood cultures, which will be obtained today. 2. He has persistent anemia, severe enough to require PRBC transfusion. A specific cause has not been determined, and may just be due to the underlying malignancy. He will have additional laboratory studies today and he will again be transfused 2 units PRBC. He will have further evaluation as indicated. 3. He has severe pain associated with the metastatic bone involvement. It is being managed adequately with extended release morphine, which will be continued at the same dosage. 4. He complains of sore mouth and he has some small ulcerations on the lateral aspect of the tongue bilaterally. He will be given empiric treatment with fluconazole and acyclovir. Signed By: Julio Swenson M.D. <<Signature on File>>
[2020-10-11 12:16] LABS: Basophils % 0.3 %; Eosinophils # 0.1 10^3/uL (0.0-0.8); Eosinophils % 1.4 %; Hematocrit 31.5 % (42.0-52.0); Hemoglobin 9.9 g/dL (11.7-16.6); Lymphocytes # 1.1 10^3/uL (0.8-4.8); Lymphocytes % 18.9 %; Mean Corpuscular HGB Conc 31.4 g/dL (30.0-36.0); Mean Platelet Volume 8.5 fL (7.4-10.4); Monocytes # 0.7 10^3/uL (0.2-0.9); Neutrophils # 3.97 10^3/uL (1.8-7.7); Neutrophils % 67.1 %; Nucleated Red Blood Cells % 0 %; Platelet Count 248 10^3/cmm (130-400); Red Blood Count 3.54 10^6/uL (4.1-5.3); Red Cell Distribution Width 16.2 % (12.1-15.1); White Blood Count 5.9 10^3/uL (4.0-10.0)
[2020-10-11 12:51] LABS: Alanine Aminotransferase 12 U/L (0-41); Albumin Level 3.1 g/dL (3.5-5.2); Alkaline Phosphatase 159 IU/L (40-130); Anion Gap 13.9 (5-19); Aspartate Amino Transferase 13 U/L (0-40); Blood Urea Nitrogen 13 mg/dL (6-20); Calcium 8.7 mg/dL (8.5-10.5); Carbon Dioxide 26 mmol/L (22-29); Chloride 96 mmol/L (98-107); Globulin 4.4 g/dL (1.3-4.6); Glucose 116 mg/dL (65-115); Osmolality Calculated 275 mOsm/kg (285-295); Potassium 3.9 mmol/L (3.5-5.1); Sodium 132 mmol/L (136-145); Total Bilirubin 0.3 mg/dL (0.15-1.2); Total Protein 7.5 g/dL (6.6-8.7)
[2020-10-17 10:05] LABS: Basophils % 0.3 %; Eosinophils % 0.5 %; Hematocrit 29.8 % (42.0-52.0); Hemoglobin 9.4 g/dL (11.7-16.6); Lymphocytes # 1.1 10^3/uL (0.8-4.8); Lymphocytes % 17.6 %; Mean Corpuscular HGB Conc 31.5 g/dL (30.0-36.0); Mean Corpuscular Hemoglobin 27.7 pg (28.0-34.0); Mean Corpuscular Volume 87.9 fL (80-94); Mean Platelet Volume 8.1 fL (7.4-10.4); Monocytes # 0.6 10^3/uL (0.2-0.9); Monocytes % 10.7 %; Neutrophils # 4.22 10^3/uL (1.8-7.7); Neutrophils % 70.6 %; Nucleated Red Blood Cells % 0 %; Platelet Count 248 10^3/cmm (130-400); Red Blood Count 3.39 10^6/uL (4.1-5.3); Red Cell Distribution Width 15.8 % (12.1-15.1)
[2020-10-17 10:35] LABS: Alanine Aminotransferase 9 U/L (0-41); Albumin Level 3.1 g/dL (3.5-5.2); Alkaline Phosphatase 165 IU/L (40-130); Anion Gap 16.7 (5-19); Aspartate Amino Transferase 12 U/L (0-40); Blood Urea Nitrogen 11 mg/dL (6-20); Calcium 8.5 mg/dL (8.5-10.5); Carbon Dioxide 26 mmol/L (22-29); Chloride 95 mmol/L (98-107); Globulin 4.4 g/dL (1.3-4.6); Glomerular Filtration Rate 99.6 mL/min (90-130); Glucose 109 mg/dL (65-115); Osmolality Calculated 278 mOsm/kg (285-295); Potassium 3.7 mmol/L (3.5-5.1); Sodium 134 mmol/L (136-145); Thyroid Stimulating Hormone 13.95 uIU/mL (0.27-4.20); Total Bilirubin 0.3 mg/dL (0.15-1.2); Total Protein 7.5 g/dL (6.6-8.7)
[2020-10-18] MEDS: sodium chloride 0.9% 250 ML 75 ML IV (10:10)
[2020-10-18] MEDS: palonosetron 0.25 mg/5 mL SDV IVP (10:10)
[2020-10-18] MEDS: famotidine 20 mg/2 mL INJ IVP (10:11)
[2020-10-18] MEDS: diphenhydrAMINE 50 mg/mL SDV 1mL 25 MG IVP (10:13)
[2020-10-18 10:16] LABS: Free T4 Free Thyroxine 1.13 ng/dL (0.82-1.77); T3 Free 2.3 PG/ML (2.0-4.4)
[2020-10-18] MEDS: fosaprepitant 150 MG in sodium chloride 0.9% 150 ML 300 MG IV (10:33)
[2020-10-18] MEDS: ferumoxytol (NON-ESRD) 510 MG in sodium chloride 0.9% (100 ml) 100 ML 351 MG IV (13:35)
--- NOTE | 2020-10-20 07:23 | ONC FU_ITS ---
Dr. Swenson Patient Follow-Up Note Patient: Avtar Kerns Unit #: [id number]: 1960 Dicatated By: Julio Swenson M.D.Date of Visit:October 18, 2020 Onc Med Follow-up/Prog Note Chief Complaint: Lung cancer. 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 This is presumed to be from a primary lesion in the upper lobe of the right lung, by clinical evaluation stage IVB (T2a, N0, M1c). He had presented with severe pain in the lower back. It actually started as far back as 2019 and it just continue to progressively worsen. He was seen at the orthopedic clinic by Dr. Umair Lima on 06/14/2020. An MRI of the lumbar spine on 06/23/2020 showed an expansile marrow replacing process, likely neoplasm, involving the S1 and S2 vertebral bodies centered at the S1 level. There was associated epidural disease with moderate to severe narrowing of the cauda equina distally impinging the transversing S1 nerve roots. There was infiltrating signal abnormality extending into the sacral ala bilaterally and also involving the posterior L5 vertebral body. There was moderate central canal stenosis at L5-S1. The findings were consistent with primary bone neoplasm or metastatic disease. Also noted was a partially visualized expansile lesion in the right acetabulum. Further evaluation with MRI of the pelvis on 07/08/2020 showed marrow replacing multifocal neoplasm/metastatic disease involving the right acetabulum with bony expansion extending into the adjacent pubic rami and pubic root. Signal abnormality was noted to extend into the right ilium and right iliac wing. There was additional disease involving the left intertrochanteric femur, with the largest lesion measuring 2.8 x 4.2 cm. The findings involving the S1-S2 vertebral bodies were again noted. Overall, the findings were compatible with neoplasm most likely due to metastatic disease. He was admitted to [facility] where additional evaluation with bone scan and x-rays confirmed evidence of a lytic lesion in the right acetabulum with cortical breakthrough, a large lytic lesion in the sacrum with cortical breakthrough, a lytic lesion in the left femoral intertrochanteric region, and a suspected lytic lesion in the left proximal tibia. Staging CT scans of the chest, abdomen, and pelvis on 07/15/2020 showed a hypoenhancing mass in the upper lobe of the right lung measuring 3.2 x 2.6 cm. It was noted to invade the right upper lobe bronchus and it appeared to be the likely cause of right upper lobe atelectasis. There were no pathologically enlarged lymph nodes in the mediastinum or kya. A 9 mm nodular groundglass opacity was noted in the right lower lobe and a 4 mm calcified granuloma was noted in the right lower lobe. There is no evidence for metastatic disease in the abdominal area. There was evidence of an infiltrative destructive mass centered in the sacrum with soft tissue component extending into the right sacroiliac joint and into the right aspect of the posterior elements of L5. Another infiltrative destructive mass with soft tissue component was seen centered in the right acetabulum with intra-arterial extension and with extension into the fovea of the right femoral head. Another lytic lesion was noted in the left femoral intertrochanteric region. On 07/21/2020 he underwent open biopsy of the left femur along with prophylactic fixation of the left femur with intramedullary maricruz. Pathology showed metastatic squamous cell carcinoma. The PD-L1 22C3 expression by IHC was reported positive at 1 to 10%. He was seen here initially on 08/04/2020. He began on symptomatic management for the bone pain. He was seen by Dr. Mead for palliative radiation. He was given a course of treatment to the sacrum, which he completed on 08/23/2020 to a total dose of 3000 cGy administered in 10 fractions. He tolerated the radiation well. His other medical illnesses include hypertension, hyperlipidemia, type 2 diabetes, and hypothyroidism. He has a history of atrial fibrillation and he also has a history of colonic polyps. He has a history of smoking 1-1/2 to 2 packs of cigarettes daily for 35 years. He quit smoking in November 2019. INTERIM HISTORY: On 09/06/2020 he began systemic therapy with carboplatin/Abraxane chemotherapy administered on a day 1/day 8 schedule every 21 days together with pembrolizumab administered every 21 days. At that point he had become significantly anemic, requiring PRBC transfusion. He was able to tolerate treatment with acceptable toxicity, and he continued with cycle 2 on 09/27/2020. He is seen for a follow-up visit. He continues to complain that he is tired a lot. However, he is able to ambulate with a walker, though slowly. His ECOG score is 2. Appetite is not that good and he has early satiety. He just eats small amounts at a time. He has a slight fever at times and he also has chills. He has sweating when he is sleeping, during the daytime or at night. He has not had sore mouth or throat. He has just occasional cough. He does not complain of shortness of breath or chest pain. He continues to complain that he is nauseated a lot, and he sometimes has vomiting. He has ongoing problems with constipation. Bladder function has been okay. He does have some pain in his lower back, but overall the pain is being managed adequately with his medication. He has occasional orthostatic lightheadedness. He does not complain of headache, and he has no focal neurologic symptoms. Medications: Atorvastatin Calcium 1 (40 mg) Tablet Oral daily, Cetirizine HCl 1 (10 mg) Tablet Oral daily, Dulcolax Tablet, enteric coated Oral PRN, DULoxetine HCl 1 (20 mg) Capsule Delayed Release Particles Oral b.i.d., Eliquis 1 (5 mg) Tablet Oral b.i.d., Famotidine 1 (20 mg) Tablet Oral daily, Levoxyl 1 (200 mcg) Tablet Oral daily, Liothyronine Sodium 1 (5 mcg) Tablet Oral daily, LORazepam 1 (1 mg) Tablet Oral b.i.d., Marinol 1 (5 mg) Capsule Oral b.i.d., metFORMIN HCl 1 (500 mg) Tablet Oral b.i.d., Metoprolol Tartrate 1 (25 mg) Tablet Oral b.i.d., Montelukast Sodium 1 (10 mg) Tablet Oral daily, Morphine Sulfate 1 Tablet (of 15 mg) Oral q 4 hours PRN, Morphine Sulfate ER 2 Tablet (of 60 mg) Tablet, controlled release Oral b.i.d., Ondansetron 1 - 2 (4 mg) Tablet Dispersable Oral q 4 hours PRN Allergies: No Known Allergies. Vital Signs: Performed on October 18, 2020 09:19 Height - 68.00 in Weight - 183.2 lbs (LOW) BSA - 1.97 sq.m BMI - 27.86 Temperature - 96.6 F (LOW) Pulse - 82 /min Respiration - 18 /min BP - 120/77 mm(hg) O2 Sat - 98 % Pain - 2 Fatigue - 6 Physical Examination: Constitutional - He still appears somewhat weak generally, but over he looks better, Eyes - Sclerae nonicteric. Conjunctivae clear, ENMT - No lesions noted in the oral cavity, Hematologic/Lymphatic - No cervical, clavicular, or axillary adenopathy, Respiratory - Lungs sound clear, Cardiovascular - Heart rhythm is regular. There is no murmur, gallop, or rub noted, Abdomen - Soft. Liver and spleen are not enlarged. There is no abdominal mass or ascites noted and there is no inguinal adenopathy, Extremities - No edema, Neurologic - No focal neurologic deficits noted. Lab/Imaging: CBC shows hemoglobin 9.4 g, white blood cell count 6000, and platelet count 248,000. Comprehensive metabolic profile is unremarkable except for mildly elevated alkaline phosphatase of 165/130 IU/L.. TSH is mildly elevated at 13.95 ???IU/mL. Problem List: 1. Metastatic squamous cell carcinoma with presumed primary in the upper lobe of the right lung, stage IVB (T2a, N0, M1c). His tumor showed positive PD-L1 22C3 expression by IHC (1 to 10%). 2. He presented with severely painful bony metastatic disease involving multiple sites including the sacrum, right acetabulum, proximal left femur, and possibly the proximal left tibia. 3. Hypertension. 4. Hyperlipidemia. 5. Type 2 diabetes. 6. Atrial fibrillation. 7. History of colonic polyps. Problems Addressed with this Encounter and Plan: 1. Patient with metastatic squamous cell carcinoma with presumed primary in the upper lobe of the right lung, stage IVB (T2a, N0, M1c). His tumor showed positive PD-L1 22C3 expression by IHC (1 to 10%). He presented with severely painful bony metastatic disease involving multiple sites including the sacrum, right acetabulum, proximal left femur, and possibly the proximal left tibia. On 07/21/2019 he underwent open biopsy of the left femur in association with prophylactic fixation of the left femur with intramedullary maricruz. Pathology showed metastatic squamous cell carcinoma. His staging CT scans showed a primary tumor in the upper lobe of the right lung. There was associated right upper lobe atelectasis, but he has not been overtly symptomatic with it. He was given palliative radiation to the sacrum, completed on 08/23/2020 to a total dose of 3000 cGy administered in 10 fractions. He tolerated it well, and he did have symptomatic benefit. On 09/06/2020 he began systemic therapy with carboplatin/Abraxane chemotherapy in combination with pembrolizumab. He tolerated the 1st cycle with acceptable toxicity. He continued with cycle 2 on 09/27/2020. He was seen at day 8 of the 2nd cycle with complaints of low-grade fever along with episodes of feeling hot/sweaty alternating with severe chills. A specific cause was not determined, but there was no evidence of an active infectious process. Overall he has tolerated his treatment with acceptable toxicity, and he has been showing gradual improvement in his performance status. As such, he will proceed now with cycle 3 of carboplatin/Abraxane/pembrolizumab. The dosages will remain the same. Blood counts will be monitored weekly. He will be scheduled for a follow-up visit in 3 weeks. 2. He has transfusion dependent anemia. It is uncertain to what extent the anemia may be due to treatment or to the underlying malignancy. He will be transfused as needed. 3. He had severe pain associated with the metastatic bone involvement. It is being managed adequately with extended release morphine, which will be continued at the same dosage. 4. He has ongoing complaints of nausea and anorexia. I will have him try dronabinol, subject to verification of insurance coverage. 5. He has elevated TSH, consistent with hypothyroidism. His levothyroxine dosage will be increased to 200 mcg daily. Signed By: Julio Swenson M.D. <<Signature on File>>
== END 2020-10-24 23:59 | disposition home or self-care (01) ==
LOC: ONCMED 05:34
PROVIDERS: Internal Medicine Hematology & Oncology; Nurse Practitioner; Family Provider Nurse Practitioner; PCP Nurse Practitioner; Visit Provider Internal Medicine Medical Oncology
DX: Z51.12 Encounter for antineoplastic immunotherapy (principal); Z51.11 Encounter for antineoplastic chemotherapy; C34.01 Malignant neoplasm of right main bronchus; C79.51 Secondary malignant neoplasm of bone; I10 Essential (primary) hypertension; E78.5 Hyperlipidemia, unspecified; E11.9 Type 2 diabetes mellitus without complications; I48.20 Chronic atrial fibrillation, unspecified; Z86.010 Personal history of colon polyps; Z79.899 Other long term (current) drug therapy
CPT/HCPCS: 36430; 36591; 80053; 82274; 82728; 83540; 83550; 84439; 84443; 84481; 85025; 86850; 86900; 86920; 87040; 96367; 96375; 96413; 96417; 99214; 99215; J1100; J1200; J1453; J1940; J2469; J3490; J7040; J7050; J9045; J9264; J9271; P9016; Q0138

== ENCOUNTER 2020-11-21 05:50 | Outpatient (RCR) | payer OTHER, SELFPAY ==
[2020-10-25 09:06] LABS: Basophils % 0.4 %; Eosinophils % 0.6 %; Hematocrit 27.8 % (42.0-52.0); Lymphocytes # 0.8 10^3/uL (0.8-4.8); Lymphocytes % 14.6 %; Mean Corpuscular HGB Conc 32.4 g/dL (30.0-36.0); Mean Corpuscular Hemoglobin 27.5 pg (28.0-34.0); Mean Platelet Volume 8.7 fL (7.4-10.4); Monocytes # 0.3 10^3/uL (0.2-0.9); Monocytes % 5.8 %; Neutrophils # 4.06 10^3/uL (1.8-7.7); Nucleated Red Blood Cells % 0 %; Platelet Count 232 10^3/cmm (130-400); Red Blood Count 3.27 10^6/uL (4.1-5.3); Red Cell Distribution Width 15.6 % (12.1-15.1); White Blood Count 5.2 10^3/uL (4.0-10.0)
[2020-10-25 09:22] LABS: Alanine Aminotransferase 10 U/L (0-41); Albumin Level 3.1 g/dL (3.5-5.2); Alkaline Phosphatase 165 IU/L (40-130); Anion Gap 16.1 (5-19); Aspartate Amino Transferase 15 U/L (0-40); Blood Urea Nitrogen 15 mg/dL (6-20); Calcium 8.7 mg/dL (8.5-10.5); Carbon Dioxide 26 mmol/L (22-29); Chloride 92 mmol/L (98-107); Globulin 3.9 g/dL (1.3-4.6); Glomerular Filtration Rate 116.2 mL/min (90-130); Glucose 145 mg/dL (65-115); Osmolality Calculated 275 mOsm/kg (285-295); Potassium 3.1 mmol/L (3.5-5.1); Sodium 131 mmol/L (136-145); Total Bilirubin 0.4 mg/dL (0.15-1.2)
[2020-10-25] MEDS: palonosetron 0.25 mg/5 mL SDV IV (09:50)
[2020-10-25] MEDS: sodium chloride 0.9% 250 ML 75 ML IV (09:50)
[2020-10-25] MEDS: famotidine 20 mg/2 mL INJ IVP (09:51)
[2020-10-25] MEDS: diphenhydrAMINE 50 mg/mL SDV 1mL 25 MG IV (09:53)
[2020-10-25] MEDS: fosaprepitant 150 MG in sodium chloride 0.9% 150 ML 300 MG IV (10:15)
[2020-10-25] MEDS: pegfilgrastim 6 mg/0.6 mL Kit (onpro) SUBCUT (13:00)
[2020-10-26] MEDS: ferumoxytol (NON-ESRD) 510 MG in sodium chloride 0.9% (100 ml) 100 ML 351 MG IV (13:47)
[2020-11-01] MEDS: sodium chloride 0.9% 1,000 ML 999 ML IV (14:40)
[2020-11-01] MEDS: ondansetron 2 mg/ML SDV 2 mL 8 MG IVP (14:45)
[2020-11-01 15:25] LABS: Basophils # 0.1 10^3/uL (0.0-0.1); Basophils % 0.9 %; Eosinophils % 0.1 %; Hematocrit 27.5 % (42.0-52.0); Hemoglobin 8.8 g/dL (11.7-16.6); Lymphocytes # 1.1 10^3/uL (0.8-4.8); Lymphocytes % 7.1 %; Mean Corpuscular Hemoglobin 27.6 pg (28.0-34.0); Mean Corpuscular Volume 86.2 fL (80-94); Mean Platelet Volume 9.2 fL (7.4-10.4); Monocytes # 1.3 10^3/uL (0.2-0.9); Monocytes % 8.3 %; Neutrophils # 12.01 10^3/uL (1.8-7.7); Neutrophils % 80.2 %; Nucleated Red Blood Cells % 0.1 %; Platelet Count 217 10^3/cmm (130-400); Red Blood Count 3.19 10^6/uL (4.1-5.3); Red Cell Distribution Width 16.6 % (12.1-15.1)
[2020-11-08] VITALS (10 sets, daily range): BP systolic 112–125; BP diastolic 72–81; PULSE 80–87; RESP 16; TEMP 35.8–36.7; O2SAT 95–100
[2020-11-08 09:28] LABS: Basophils % 0.3 %; Eosinophils % 0.1 %; Hematocrit 23.7 % (42.0-52.0); Hemoglobin 7.5 g/dL (11.7-16.6); Lymphocytes # 0.9 10^3/uL (0.8-4.8); Lymphocytes % 10.2 %; Mean Corpuscular HGB Conc 31.6 g/dL (30.0-36.0); Mean Corpuscular Hemoglobin 27.7 pg (28.0-34.0); Mean Corpuscular Volume 87.5 fL (80-94); Mean Platelet Volume 9.1 fL (7.4-10.4); Monocytes # 0.7 10^3/uL (0.2-0.9); Monocytes % 7.6 %; Neutrophils # 7.37 10^3/uL (1.8-7.7); Neutrophils % 81.2 %; Nucleated Red Blood Cells % 0 %; Platelet Count 182 10^3/cmm (130-400); Red Blood Count 2.71 10^6/uL (4.1-5.3); Red Cell Distribution Width 17.5 % (12.1-15.1); White Blood Count 9.1 10^3/uL (4.0-10.0)
[2020-11-08 10:06] LABS: Alanine Aminotransferase 11 U/L (0-41); Albumin Level 3.2 g/dL (3.5-5.2); Alkaline Phosphatase 176 IU/L (40-130); Anion Gap 18.8 (5-19); Aspartate Amino Transferase 11 U/L (0-40); Blood Urea Nitrogen 14 mg/dL (6-20); Calcium 8.8 mg/dL (8.5-10.5); Carbon Dioxide 22 mmol/L (22-29); Chloride 94 mmol/L (98-107); Globulin 3.2 g/dL (1.3-4.6); Glomerular Filtration Rate 115.8 mL/min (90-130); Glucose 137 mg/dL (65-115); Osmolality Calculated 275 mOsm/kg (285-295); Potassium 3.8 mmol/L (3.5-5.1); Sodium 131 mmol/L (136-145); Thyroid Stimulating Hormone 1.21 uIU/mL (0.27-4.20); Total Bilirubin 0.3 mg/dL (0.15-1.2); Total Protein 6.4 g/dL (6.6-8.7)
[2020-11-08] MEDS: diphenhydrAMINE 25 mg Capsule PO (10:53)
[2020-11-08] MEDS: sodium chloride 0.9% 250 ML 999 ML IV (10:53)
[2020-11-08] MEDS: acetaminophen 325 mg Tablet 650 MG PO (10:53)
[2020-11-08] MEDS: FUROsemide 10 mg/mL SDV 2mL 20 MG IV (12:55)
[2020-11-08 14:24] LABS: Magnesium 1.9 mg/dL (1.7-2.3)
[2020-11-14] MEDS: sodium chloride 0.9% 1,000 ML 999 ML IV (13:50)
[2020-11-14 14:00] LABS: Basophils % 0.3 %; Eosinophils % 0.3 %; Hemoglobin 9.9 g/dL (11.7-16.6); Lymphocytes # 1.2 10^3/uL (0.8-4.8); Lymphocytes % 15.1 %; Mean Corpuscular Hemoglobin 28.7 pg (28.0-34.0); Mean Platelet Volume 8.9 fL (7.4-10.4); Monocytes # 0.6 10^3/uL (0.2-0.9); Neutrophils # 5.97 10^3/uL (1.8-7.7); Neutrophils % 75.8 %; Nucleated Red Blood Cells % 0 %; Platelet Count 166 10^3/cmm (130-400); Red Blood Count 3.45 10^6/uL (4.1-5.3); Red Cell Distribution Width 16.3 % (12.1-15.1); White Blood Count 7.9 10^3/uL (4.0-10.0)
[2020-11-14 14:50] LABS: Alanine Aminotransferase 21 U/L (0-41); Albumin Level 3.3 g/dL (3.5-5.2); Alkaline Phosphatase 168 IU/L (40-130); Anion Gap 19.2 (5-19); Aspartate Amino Transferase 15 U/L (0-40); Blood Urea Nitrogen 18 mg/dL (6-20); Calcium 9.6 mg/dL (8.5-10.5); Carbon Dioxide 23 mmol/L (22-29); Chloride 93 mmol/L (98-107); Globulin 3.6 g/dL (1.3-4.6); Glomerular Filtration Rate 138.4 mL/min (90-130); Glucose 103 mg/dL (65-115); Osmolality Calculated 274 mOsm/kg (285-295); Potassium 4.2 mmol/L (3.5-5.1); Sodium 131 mmol/L (136-145); Total Bilirubin 0.4 mg/dL (0.15-1.2); Total Protein 6.9 g/dL (6.6-8.7)
[2020-11-17] MEDS: famotidine 20 mg/2 mL INJ IVP (10:28)
[2020-11-17] MEDS: sodium chloride 0.9% 250 ML 125 ML IV (10:28)
[2020-11-17] MEDS: diphenhydrAMINE 50 mg/mL SDV 1mL 25 MG IV (10:30)
[2020-11-17] MEDS: fosaprepitant 150 MG in sodium chloride 0.9% 150 ML 300 MG IV (10:32)
[2020-11-17] MEDS: palonosetron 0.25 mg/5 mL SDV IV (11:10)
[2020-11-21 11:12] LABS: Basophils % 0.4 %; Eosinophils % 0.2 %; Lymphocytes # 0.6 10^3/uL (0.8-4.8); Lymphocytes % 11.1 %; Mean Corpuscular HGB Conc 33.3 g/dL (30.0-36.0); Mean Corpuscular Hemoglobin 28.8 pg (28.0-34.0); Mean Corpuscular Volume 86.5 fL (80-94); Mean Platelet Volume 8.7 fL (7.4-10.4); Monocytes # 0.1 10^3/uL (0.2-0.9); Monocytes % 2.1 %; Neutrophils # 4.53 10^3/uL (1.8-7.7); Neutrophils % 84.9 %; Nucleated Red Blood Cells % 0 %; Platelet Count 184 10^3/cmm (130-400); Red Blood Count 3.12 10^6/uL (4.1-5.3); Red Cell Distribution Width 16.3 % (12.1-15.1); White Blood Count 5.3 10^3/uL (4.0-10.0)
[2020-11-21 11:50] LABS: Alanine Aminotransferase 11 U/L (0-41); Albumin Level 3.1 g/dL (3.5-5.2); Alkaline Phosphatase 139 IU/L (40-130); Anion Gap 17.1 (5-19); Aspartate Amino Transferase 10 U/L (0-40); Blood Urea Nitrogen 22 mg/dL (6-20); Calcium 9.2 mg/dL (8.5-10.5); Carbon Dioxide 24 mmol/L (22-29); Chloride 89 mmol/L (98-107); Globulin 3.3 g/dL (1.3-4.6); Glomerular Filtration Rate 138.4 mL/min (90-130); Glucose 145 mg/dL (65-115); Osmolality Calculated 268 mOsm/kg (285-295); Potassium 4.1 mmol/L (3.5-5.1); Sodium 126 mmol/L (136-145); Total Bilirubin 0.5 mg/dL (0.15-1.2); Total Protein 6.4 g/dL (6.6-8.7)
--- NOTE | 2020-11-27 18:24 | ONC FU_ITS ---
[facility] Patient Note Patient: Avtar Kerns Unit #: [id number]: 1960 Dictated By: Amna RockDate of Visit: Nov 08, 2020 Onc MED Follow-Up/Prog Note Chief Complaint: Lung cancer. 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 This is presumed to be from a primary lesion in the upper lobe of the right lung, by clinical evaluation stage IVB (T2a, N0, M1c). He had presented with severe pain in the lower back. It actually started as far back as 2019 and it just continue to progressively worsen. He was seen at the orthopedic clinic by Dr. Umair Lima on 06/14/2020. An MRI of the lumbar spine on 06/23/2020 showed an expansile marrow replacing process, likely neoplasm, involving the S1 and S2 vertebral bodies centered at the S1 level. There was associated epidural disease with moderate to severe narrowing of the cauda equina distally impinging the transversing S1 nerve roots. There was infiltrating signal abnormality extending into the sacral ala bilaterally and also involving the posterior L5 vertebral body. There was moderate central canal stenosis at L5-S1. The findings were consistent with primary bone neoplasm or metastatic disease. Also noted was a partially visualized expansile lesion in the right acetabulum. Further evaluation with MRI of the pelvis on 07/08/2020 showed marrow replacing multifocal neoplasm/metastatic disease involving the right acetabulum with bony expansion extending into the adjacent pubic rami and pubic root. Signal abnormality was noted to extend into the right ilium and right iliac wing. There was additional disease involving the left intertrochanteric femur, with the largest lesion measuring 2.8 x 4.2 cm. The findings involving the S1-S2 vertebral bodies were again noted. Overall, the findings were compatible with neoplasm most likely due to metastatic disease. He was admitted to [facility] where additional evaluation with bone scan and x-rays confirmed evidence of a lytic lesion in the right acetabulum with cortical breakthrough, a large lytic lesion in the sacrum with cortical breakthrough, a lytic lesion in the left femoral intertrochanteric region, and a suspected lytic lesion in the left proximal tibia. Staging CT scans of the chest, abdomen, and pelvis on 07/15/2020 showed a hypoenhancing mass in the upper lobe of the right lung measuring 3.2 x 2.6 cm. It was noted to invade the right upper lobe bronchus and it appeared to be the likely cause of right upper lobe atelectasis. There were no pathologically enlarged lymph nodes in the mediastinum or kya. A 9 mm nodular groundglass opacity was noted in the right lower lobe and a 4 mm calcified granuloma was noted in the right lower lobe. There is no evidence for metastatic disease in the abdominal area. There was evidence of an infiltrative destructive mass centered in the sacrum with soft tissue component extending into the right sacroiliac joint and into the right aspect of the posterior elements of L5. Another infiltrative destructive mass with soft tissue component was seen centered in the right acetabulum with intra-arterial extension and with extension into the fovea of the right femoral head. Another lytic lesion was noted in the left femoral intertrochanteric region. On 07/21/2020 he underwent open biopsy of the left femur along with prophylactic fixation of the left femur with intramedullary maricruz. Pathology showed metastatic squamous cell carcinoma. The PD-L1 22C3 expression by IHC was reported positive at 1 to 10%. He was seen here initially on 08/04/2020. He began on symptomatic management for the bone pain. He was seen by Dr. Mead for palliative radiation. He was given a course of treatment to the sacrum, which he completed on 08/23/2020 to a total dose of 3000 cGy administered in 10 fractions. He tolerated the radiation well. His other medical illnesses include hypertension, hyperlipidemia, type 2 diabetes, and hypothyroidism. He has a history of atrial fibrillation and he also has a history of colonic polyps. He has a history of smoking 1-1/2 to 2 packs of cigarettes daily for 35 years. He quit smoking in November 2019. INTERIM HISTORY: On 09/06/2020 he began systemic therapy with carboplatin/Abraxane chemotherapy administered on a day 1/day 8 schedule every 21 days together with pembrolizumab administered every 21 days. At that point he had become significantly anemic, requiring PRBC transfusion. He was able to tolerate treatment with acceptable toxicity, and he continued with cycle 2 on 09/27/2020. Mr. Kerns is now received three cycles of carboplatin Abraxane Keytruda. His last Keytruda was on 10/19/2020 and his carbo Abraxane cycle 3-day eight was on October 25, 2020. He has received two doses of Feraheme 510 mg with the last dose being on October 26, 2020. His last blood transfusion was on November 01, 2020 for hemoglobin of 8.8 which was very symptomatic with shortness of breath, orthopnea and significant fatigue. Mr. Kerns presents today for follow-up and consideration of day four carboplatin Abraxane Keytruda. He continues to have shortness of breath and generalized weakness overall. However his overall performance status does seem to have improved some. He is more alert and talkative. He states his appetite is doing fair. He denies any new pain. He has had no orthopnea. He denies chest pain or palpitations today. He has had significant fatigue over the last couple of days and is noted that his hemoglobin today is 7.5. He denies any fever or chills. His activity is still limited although somewhat improved. He states he does a little bit around the house but wears out pretty fast and rest frequently. He denies nausea or vomiting. He denies any diarrhea or constipation. He has had no lower extremity edema or persistent neuropathy symptoms. He denies any hearing changes. His ECOG is two. Past Medical History: Atrial fibrillation History of colonic polyps Hyperlipidemia Hypertension Hypothyroidism Type II diabetes Past Surgical History: [facility] Prophylactic fixation of the left femur and open biopsy of left femur in 2020 Colonoscopy in 2019 Allergies: No Known Allergies. Medications: Atorvastatin Calcium 1 (40 mg) Tablet Oral daily Cetirizine HCl 1 (10 mg) Tablet Oral daily Dulcolax Tablet, enteric coated Oral PRN DULoxetine HCl 1 (20 mg) Capsule Delayed Release Particles Oral b.i.d. Eliquis 1 (5 mg) Tablet Oral b.i.d. Famotidine 1 (20 mg) Tablet Oral daily Levoxyl 1 (200 mcg) Tablet Oral daily Liothyronine Sodium 1 (5 mcg) Tablet Oral daily LORazepam 1 (1 mg) Tablet Oral b.i.d. Marinol 1 (5 mg) Capsule Oral b.i.d. metFORMIN HCl 1 (500 mg) Tablet Oral b.i.d. Metoprolol Tartrate 1 (25 mg) Tablet Oral b.i.d. Montelukast Sodium 1 (10 mg) Tablet Oral daily Morphine Sulfate 1 Tablet (of 15 mg) Oral q 4 hours PRN Morphine Sulfate ER 2 Tablet (of 60 mg) Tablet, controlled release Oral b.i.d. Ondansetron 1 - 2 (4 mg) Tablet Dispersable Oral q 4 hours PRN Family History: Mr. Kerns's mother at age 63: Cancer. Mr. Kerns's father at age 65: myocardial infarction. Father of heart attack at age 65. Mother of lung cancer at age 63. Three sisters are in good health. A 17-year-old daughter has juvenile rheumatoid arthritis. Social History: Mr. Kerns is . Mr. Kerns quit smoking less than one year ago but had smoked 3.0 packs/day for 30 years. He drinks occasionally. 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 He has a history of smoking 1-1/2 to 2 packs of cigarettes daily for 35 years. He quit in November 2019. He has moderate alcohol use with a mixed drink 4 to 5 days a week. Review Of Symptoms: <See Above> Vital Signs: Performed on Nov 08, 2020 10:00 Height - 68.00 in Weight - 171.8 lbs (LOW) BSA - 1.92 sq.m BMI - 26.12 Temperature - 97.2 F (LOW) Pulse - 102 /min (HIGH) Respiration - 18 /min BP - 104/68 mm(hg) O2 Sat - 99 % Pain - 4 Fatigue - 5,2 - Ambulatory/capable of all self-care, unable to perform any work activities. Up and about more than 50% of waking hours. (ECOG) Physical Examination: Constitutional Alert, oriented, no acute distress. Skin pink, warm and dry. Head Normocephalic; atraumatic. Eyes Conjunctivae and sclerae are clear and without icterus. Pupils are reactive and equal. Neck Supple without masses or thyromegaly. No jugular venous distension. Respiratory Lungs are clear to auscultation without rhonchi or wheezing. Cardiovascular Regular rate and rhythm of heart without murmurs,clicks, gallops or rubs. Chest Chest is symmetric without chest wall deformities. Left chest wall venous access device is unremarkable. It has healed well. Back/Spine Non-tender to palpation. Extremities No visible deformities, no cyanosis, clubbing or edema. Musculoskeletal No tenderness or swelling, normal range of motion without obvious weakness. Ambulating with wheeled walker Integumentary No rashes or lesions. Psychiatric Alert and oriented times three. Coherent speech. Verbalizes understanding of our discussions today. Laboratory:Test performed on Nov 14, 2020 13:44 Sodium 131 mmol/L TSH 0.80 uIU/mL Potassium 4.2 mmol/L Chloride 93 mmol/L CO2 23 mmol/L Anion Gap 19.2 BUN 18 mg/dL Creatinine 0.6 mg/dL Cr Clearance (Est) 147.9200 mL/min eGFR 138.4 mL/min Glucose 103 mg/dL Osmolality - Calculated 274 mOsm/kg Calcium 9.6 mg/dL Protein, Total 6.9 g/dL Albumin 3.3 g/dL Globulin 3.6 g/dL Bilirubin, Total 0.4 mg/dL ALT (SGPT) 21 U/L AST (SGOT) 15 U/L Alkaline Phosphatase 168 IU/L WBC 7.9 10 3/uL RBC 3.45 10 6/uL HGB 9.9 g/dL HCT 30.0 % MCV 87.0 fL MCH 28.7 pg MCHC 33.0 g/dL RDW 16.3 % Platelet Count 166 10 3/cmm MPV 8.9 fL Neutrophils 5.97 10 3/uL Lymphocytes 1.2 10 3/uL Monocytes 0.6 10 3/uL Eosinophils 0.0 10 3/uL Basophils 0.0 10 3/uL Neutrophil % 75.8 % Lymphocyte % 15.1 % Monocyte % 8.0 % Eosinophil % 0.3 % Basophils % 0.3 % NRBC % 0 % Test performed on Nov 08, 2020 08:38 Magnesium 1.9 mg/dL Anti-D Negative / 0 Blood Type ON Antibody Screen (Gel) NEGATIVE Test performed on October 17, 2020 09:45 T3, Free 2.3 PG/ML T4, Free 1.13 ng/dL Test performed on October 04, 2020 09:05 Leukocyte Reduced RBC [id number] ON RCLR XM COMPATIBLE Blood Culture R3 Test performed on October 02, 2020 10:30 Occult Blood -Fecal, IA IFOB P Test performed on Sep 06, 2020 10:41 Ferritin 363 ng/mL Folate, Serum 3.9 ng/mL Iron 25 mcg/dL Iron Binding Capacity (TIBC) 148 mcg/dl % Iron Saturation 16.8 % UIBC 123 mcg/dL Test performed on Sep 06, 2020 09:07 ABO & Rh Type # 2 ON Test performed on Aug 15, 2020 13:53 Ua Color Yellow Ua Appearance Clear Ua pH 6 Ua Specific [place] 1.010 Ua Glucose Norm Ua Ketones Negative Ua Protein Neg Ua Blood Neg Ua Bilirubin Neg Ua Nitrites Negative Ua Leukocyte Esterase Negative Ua Micro: Hyaline Casts 0-4 /lpf Ua Micro: WBC 0-4 /hpf Ua Micro: RBC NONE /hpf Ua Micro: Squam Epith Cells RARE /hpf Ua Micro: Bacteria TRACE /hpf Impression: 1. Metastatic squamous cell carcinoma with presumed primary in the upper lobe of the right lung, stage IVB (T2a, N0, M1c). His tumor showed positive PD-L1 22C3 expression by IHC (1 to 10%). 2. He presented with severely painful bony metastatic disease involving multiple sites including the sacrum, right acetabulum, proximal left femur, and possibly the proximal left tibia. 3. Hypertension. 4. Hyperlipidemia. 5. Type 2 diabetes. 6. Atrial fibrillation. 7. History of colonic polyps. Plan/Problems Addressed at this Visit: 1. Metastatic squamous cell carcinoma with presumed primary in the upper lobe of the right lung, stage IVB (T2a, N0, M1c). His tumor showed positive PD-L1 22C3 expression by IHC (1 to 10%). He presented with severely painful bony metastatic disease involving multiple sites including the sacrum, right acetabulum, proximal left femur, and possibly the proximal left tibia. On 07/21/2019 he underwent open biopsy of the left femur in association with prophylactic fixation of the left femur with intramedullary maricruz. Pathology showed metastatic squamous cell carcinoma. His staging CT scans showed a primary tumor in the upper lobe of the right lung. There was associated right upper lobe atelectasis, but he has not been overtly symptomatic with it. He was given palliative radiation to the sacrum, completed on 08/23/2020 to a total dose of 3000 cGy administered in 10 fractions. He tolerated it well, and he did have symptomatic benefit. On 09/06/2020 he began systemic therapy with carboplatin/Abraxane chemotherapy in combination with pembrolizumab. He tolerated the 1st cycle with acceptable toxicity. He continued with cycle 2 on 09/27/2020. He was seen at day 8 of the 2nd cycle with complaints of low-grade fever along with episodes of feeling hot/sweaty alternating with severe chills. A specific cause was not determined, but there was no evidence of an active infectious process. Overall he has tolerated his treatment with acceptable toxicity, and he has been showing gradual improvement in his performance status. He has now completed three cycles of carboplatin Abraxane Keytruda. His carboplatin Abraxane was last given on October 25, 2020 and Keytruda was last given on 10/18/2020. A. Plan we'll set him up for 2 units of packed red blood cells today for hemoglobin of 7.5 hematocrit 23.7. Today's labs reviewed in detail discussed with Mr. Kerns and a copy was given to him. White count 9.1 hemoglobin 7.5, HCT is 23.7 platelets 182,000, ANC is 7370. Sodium 131 which is stable creatinine 0.7 LFTs are normal alk phos 176. B. We'll delay his cycle 4-day one chemotherapy as well today. We'll plan for that to occur in 1 week. C. I have asked for repeat TSH as well as CBC CMP and type a next at that time. It is noted that his TSH was 13.95 on 10/17/2020. His free T3 and free T4 were both normal. D. Given that he has bone involvement. He will need coverage with Xgeva monthly. This has not been started yet as he has been so sick with significant performance status changes but is slowly recovering. 2. He has transfusion dependent anemia. It is uncertain to what extent the anemia may be due to treatment or to the underlying malignancy. He will be transfused as needed. A. He'll have 2 units of packed red blood cells today for hemoglobin of 7.5. 3. He had severe pain associated with the metastatic bone involvement. It is being managed adequately with extended release morphine, which will be continued at the same dosage. 4. He has elevated TSH, consistent with hypothyroidism. His levothyroxine dosage was increased to 200 mcg daily On 10/18/2020. A. We'll follow TSH in 1 week to make sure that is declining. 5. Mr. Kerns is instructed to contact us in interim should questions or problems arise. Signed By: Amna Rock-, CNP Julio Swenson MD <<Signature on File>>
--- NOTE | 2020-11-28 13:46 | ONC FU_ITS ---
[facility] Patient Note Patient: Avtar Kerns Unit #: [id number]: 1960 Dictated By: Amna RockDate of Visit: Nov 17, 2020 Onc MED Follow-Up/Prog Note Chief Complaint: Lung cancer. 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 This is presumed to be from a primary lesion in the upper lobe of the right lung, by clinical evaluation stage IVB (T2a, N0, M1c). He had presented with severe pain in the lower back. It actually started as far back as 2019 and it just continue to progressively worsen. He was seen at the orthopedic clinic by Dr. Umair Lima on 06/14/2020. An MRI of the lumbar spine on 06/23/2020 showed an expansile marrow replacing process, likely neoplasm, involving the S1 and S2 vertebral bodies centered at the S1 level. There was associated epidural disease with moderate to severe narrowing of the cauda equina distally impinging the transversing S1 nerve roots. There was infiltrating signal abnormality extending into the sacral ala bilaterally and also involving the posterior L5 vertebral body. There was moderate central canal stenosis at L5-S1. The findings were consistent with primary bone neoplasm or metastatic disease. Also noted was a partially visualized expansile lesion in the right acetabulum. Further evaluation with MRI of the pelvis on 07/08/2020 showed marrow replacing multifocal neoplasm/metastatic disease involving the right acetabulum with bony expansion extending into the adjacent pubic rami and pubic root. Signal abnormality was noted to extend into the right ilium and right iliac wing. There was additional disease involving the left intertrochanteric femur, with the largest lesion measuring 2.8 x 4.2 cm. The findings involving the S1-S2 vertebral bodies were again noted. Overall, the findings were compatible with neoplasm most likely due to metastatic disease. He was admitted to [facility] where additional evaluation with bone scan and x-rays confirmed evidence of a lytic lesion in the right acetabulum with cortical breakthrough, a large lytic lesion in the sacrum with cortical breakthrough, a lytic lesion in the left femoral intertrochanteric region, and a suspected lytic lesion in the left proximal tibia. Staging CT scans of the chest, abdomen, and pelvis on 07/15/2020 showed a hypoenhancing mass in the upper lobe of the right lung measuring 3.2 x 2.6 cm. It was noted to invade the right upper lobe bronchus and it appeared to be the likely cause of right upper lobe atelectasis. There were no pathologically enlarged lymph nodes in the mediastinum or kya. A 9 mm nodular groundglass opacity was noted in the right lower lobe and a 4 mm calcified granuloma was noted in the right lower lobe. There is no evidence for metastatic disease in the abdominal area. There was evidence of an infiltrative destructive mass centered in the sacrum with soft tissue component extending into the right sacroiliac joint and into the right aspect of the posterior elements of L5. Another infiltrative destructive mass with soft tissue component was seen centered in the right acetabulum with intra-arterial extension and with extension into the fovea of the right femoral head. Another lytic lesion was noted in the left femoral intertrochanteric region. On 07/21/2020 he underwent open biopsy of the left femur along with prophylactic fixation of the left femur with intramedullary maricruz. Pathology showed metastatic squamous cell carcinoma. The PD-L1 22C3 expression by IHC was reported positive at 1 to 10%. He was seen here initially on 08/04/2020. He began on symptomatic management for the bone pain. He was seen by Dr. Mead for palliative radiation. He was given a course of treatment to the sacrum, which he completed on 08/23/2020 to a total dose of 3000 cGy administered in 10 fractions. He tolerated the radiation well. His other medical illnesses include hypertension, hyperlipidemia, type 2 diabetes, and hypothyroidism. He has a history of atrial fibrillation and he also has a history of colonic polyps. He has a history of smoking 1-1/2 to 2 packs of cigarettes daily for 35 years. He quit smoking in November 2019. INTERIM HISTORY: On 09/06/2020 he began systemic therapy with carboplatin/Abraxane chemotherapy administered on a day 1/day 8 schedule every 21 days together with pembrolizumab administered every 21 days. At that point he had become significantly anemic, requiring PRBC transfusion. He was able to tolerate treatment with acceptable toxicity, and he continued with cycle 2 on 09/27/2020. Mr. Kerns has now received three cycles of carboplatin Abraxane Keytruda. His last Keytruda was on 10/19/2020 and his carbo Abraxane cycle 3-day eight was on October 25, 2020. He has received two doses of Feraheme 510 mg with the last dose being on October 26, 2020. His last blood transfusion was on November 01, 2020 for hemoglobin of 8.8 which was very symptomatic with shortness of breath, orthopnea and significant fatigue. Mr. Kerns presents today for follow-up and consideration of cycle 4 Keytruda/carboplatin/Abraxane. His treatment was held last week due to hemoglobin of 7.5, generalized weakness and shortness of breath. He received 2 units of packed red blood cells and is here today for reassessment. His labs were drawn on November 14, 2020 he did not show for his appointment on the and is here today instead. He states overall he is feeling pretty good. He tolerated transfusion services well. He states his shortness of breath and weakness is better overall. He still has some shortness of breath and generalized weakness but feels it is improved compared to last week. He has no new concerns. He denies any fever or chills. He denies mouth sores, sore throat or difficulty swallowing. He denies any productive cough or hemoptysis. He denies any nausea or vomiting. He states his bowels are normal for him. Some days are loose and some days are firm. He adjust his stool softener/laxative/bowel regimen accordingly. He is having intermittent lower back pain with walking. He states it hurts at times just sitting or laying but bothers him walking as well. He describes the pain as achy sharp pokey at times. He has had no recent fall or trauma. He states pain medication heat and ice seem to help the back in general. He has needed a bone scan follow-up but has titanium in his left leg (prophylactic fixation of the left femur with intramedullary maricruz on 07/21/2020). He states he does not want to pursue anything for the back pain at this time. He wants to monitor it over the next week or so and see how it does. He thinks it is aggravated because he has been a low bit more active recently by walking around the house trying to do a little bit more for himself. He has had no lower extremity edema or persistent neuropathy symptoms. He denies any hearing changes. His ECOG is 2. Past Medical History: Atrial fibrillation History of colonic polyps Hyperlipidemia Hypertension Hypothyroidism Type II diabetes Past Surgical History: [facility] Prophylactic fixation of the left femur and open biopsy of left femur in 2020 Colonoscopy in 2019 Allergies: No Known Allergies. Medications: Atorvastatin Calcium 1 (40 mg) Tablet Oral daily Cetirizine HCl 1 (10 mg) Tablet Oral daily Dulcolax Tablet, enteric coated Oral PRN DULoxetine HCl 1 (20 mg) Capsule Delayed Release Particles Oral b.i.d. Eliquis 1 (5 mg) Tablet Oral b.i.d. Famotidine 1 (20 mg) Tablet Oral daily Levoxyl 1 (200 mcg) Tablet Oral daily Liothyronine Sodium 1 (5 mcg) Tablet Oral daily LORazepam 1 (1 mg) Tablet Oral b.i.d. Marinol 1 (5 mg) Capsule Oral b.i.d. metFORMIN HCl 1 (500 mg) Tablet Oral b.i.d. Metoprolol Tartrate 1 (25 mg) Tablet Oral b.i.d. Montelukast Sodium 1 (10 mg) Tablet Oral daily Morphine Sulfate 1 Tablet (of 15 mg) Oral q 4 hours PRN Morphine Sulfate ER 2 Tablet (of 60 mg) Tablet, controlled release Oral b.i.d. Ondansetron 1 - 2 (4 mg) Tablet Dispersable Oral q 4 hours PRN Family History: Mr. Kerns's mother at age 63: Cancer. Mr. Kerns's father at age 65: myocardial infarction. Father of heart attack at age 65. Mother of lung cancer at age 63. Three sisters are in good health. A 17-year-old daughter has juvenile rheumatoid arthritis. Social History: Mr. Kerns is . Mr. Kerns quit smoking less than one year ago but had smoked 3.0 packs/day for 30 years. He drinks occasionally. 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 He has a history of smoking 1-1/2 to 2 packs of cigarettes daily for 35 years. He quit in November 2019. He has moderate alcohol use with a mixed drink 4 to 5 days a week. Review Of Symptoms: <See Above> Vital Signs: Performed on Nov 17, 2020 13:40 Height - 68.00 in Temperature - 96.8 F (LOW) Pulse - 88 /min Respiration - 18 /min BP - 129/88 mm(hg) O2 Sat - 97 % Performed on Nov 17, 2020 09:21 Height - 68.00 in Weight - 168.2 lbs (LOW) BSA - 1.90 sq.m BMI - 25.57 Temperature - 97.0 F (LOW) Pulse - 108 /min (HIGH) Respiration - 17 /min BP - 132/90 mm(hg) O2 Sat - 92 % (LOW) Pain - 7,2 - Ambulatory/capable of all self-care, unable to perform any work activities. Up and about more than 50% of waking hours. (ECOG) Physical Examination: Constitutional Alert, oriented, no acute distress. Skin pink, warm and dry. Head Normocephalic; atraumatic. Eyes Conjunctivae and sclerae are clear and without icterus. Pupils are reactive and equal. ENMT No oral exudates, ulcers, masses, thrush or mucositis. Oropharynx clear. Tongue normal. Neck Supple without masses or thyromegaly. No jugular venous distension. Hematologic/Lymphatic No petechiae or purpura. No tender or palpable lymph nodes in the cervical or supraclavicular areas. Respiratory Lungs are clear to auscultation without rhonchi or wheezing. Cardiovascular Regular rate and rhythm of heart without murmurs,clicks, gallops or rubs. Chest Chest is symmetric without chest wall deformities. Left chest wall venous access device is unremarkable. Abdomen Non-tender, non-distended, no masses or ascites. Good bowel sounds noted in all quads. No guarding or rebound tenderness. No pulsatile masses. Back/Spine Non-tender to palpation. Extremities No visible deformities, no cyanosis, clubbing or edema. Musculoskeletal No tenderness or swelling, normal range of motion without obvious weakness. Ambulating with wheeled walker Integumentary No rashes or lesions. Psychiatric Alert and oriented times three. Coherent speech. Verbalizes understanding of our discussions today. Laboratory:Test performed on Nov 14, 2020 13:44 Sodium 131 mmol/L TSH 0.80 uIU/mL Potassium 4.2 mmol/L Chloride 93 mmol/L CO2 23 mmol/L Anion Gap 19.2 BUN 18 mg/dL Creatinine 0.6 mg/dL Cr Clearance (Est) 147.9200 mL/min eGFR 138.4 mL/min Glucose 103 mg/dL Osmolality - Calculated 274 mOsm/kg Calcium 9.6 mg/dL Protein, Total 6.9 g/dL Albumin 3.3 g/dL Globulin 3.6 g/dL Bilirubin, Total 0.4 mg/dL ALT (SGPT) 21 U/L AST (SGOT) 15 U/L Alkaline Phosphatase 168 IU/L WBC 7.9 10 3/uL RBC 3.45 10 6/uL HGB 9.9 g/dL HCT 30.0 % MCV 87.0 fL MCH 28.7 pg MCHC 33.0 g/dL RDW 16.3 % Platelet Count 166 10 3/cmm MPV 8.9 fL Neutrophils 5.97 10 3/uL Lymphocytes 1.2 10 3/uL Monocytes 0.6 10 3/uL Eosinophils 0.0 10 3/uL Basophils 0.0 10 3/uL Neutrophil % 75.8 % Lymphocyte % 15.1 % Monocyte % 8.0 % Eosinophil % 0.3 % Basophils % 0.3 % NRBC % 0 % TImpression: 1. Metastatic squamous cell carcinoma with presumed primary in the upper lobe of the right lung, stage IVB (T2a, N0, M1c). His tumor showed positive PD-L1 22C3 expression by IHC (1 to 10%). 2. He presented with severely painful bony metastatic disease involving multiple sites including the sacrum, right acetabulum, proximal left femur, and possibly the proximal left tibia. 3. Hypertension. 4. Hyperlipidemia. 5. Type 2 diabetes. 6. Atrial fibrillation. 7. History of colonic polyps. Plan/Problems Addressed at this Visit: 1. Metastatic squamous cell carcinoma with presumed primary in the upper lobe of the right lung, stage IVB (T2a, N0, M1c). His tumor showed positive PD-L1 22C3 expression by IHC (1 to 10%). He presented with severely painful bony metastatic disease involving multiple sites including the sacrum, right acetabulum, proximal left femur, and possibly the proximal left tibia. On 07/21/2019 he underwent open biopsy of the left femur in association with prophylactic fixation of the left femur with intramedullary maricruz. Pathology showed metastatic squamous cell carcinoma. His staging CT scans showed a primary tumor in the upper lobe of the right lung. There was associated right upper lobe atelectasis, but he has not been overtly symptomatic with it. He was given palliative radiation to the sacrum, completed on 08/23/2020 to a total dose of 3000 cGy administered in 10 fractions. He tolerated it well, and he did have symptomatic benefit. On 09/06/2020 he began systemic therapy with carboplatin/Abraxane chemotherapy in combination with pembrolizumab. He tolerated the 1st cycle with acceptable toxicity. He continued with cycle 2 on 09/27/2020. He was seen at day 8 of the 2nd cycle with complaints of low-grade fever along with episodes of feeling hot/sweaty alternating with severe chills. A specific cause was not determined, but there was no evidence of an active infectious process. Overall he has tolerated his treatment with acceptable toxicity, and he has been showing gradual improvement in his performance status. He has now completed three cycles of carboplatin Abraxane Keytruda. His carboplatin Abraxane was last given on October 25, 2020 and Keytruda was last given on 10/18/2020. His treatment was delayed on 11/09/2020 due to anemia. He received 2 units of packed red blood cells and tolerated them well. He has recovered well thus far. A. We will plan to proceed with cycle 4 Keytruda/carboplatin/Abraxane. B. Labs from 11.14.2020 were reviewed in detail discussed with Mr. Kerns and a copy was given to him. WBC 7.9 hemoglobin 9.9, platelets 166,000, ANC is 6000. Sodium stable at 131 potassium 4.2, random glucose 103, creatinine 0.6. His alk phos is stable at 168. His LFTs are normal. His TSH today is 0.80. 2. He has transfusion dependent anemia. It is uncertain to what extent the anemia may be due to treatment or to the underlying malignancy. He will be transfused as needed. A. He did have 2 units of packed red blood cells on 11/09/2020 for hemoglobin of 7.5. B. His hemoglobin today is 9.9. 3. He had severe pain associated with the metastatic bone involvement. It is being managed adequately with extended release morphine, which will be continued at the same dosage. A. He has had radiation to the sacrum per Dr. Jun Mead at [facility] radiation oncology completed on August 23, 2020 to a total dose of 3000 cGy in 10 fractions. B. He has not yet started denosumab due to the severe pain and poor performance status. 4. He has elevated TSH, consistent with hypothyroidism. His levothyroxine dosage was increased to 200 mcg daily On 10/18/2020. A. His TSH on 11/08/2020 was 1.21 and is 0.80 today. 5. Followup Plan A. We will plan to have him return in 1 week for day 8 carboplatin Abraxane. B. I have requested a CBC CMP antibiotics at that time. C. Mr. Kerns was instructed to contact us in interim should questions or problems arise. Signed By: Amna Rock-, AOP Julio Swenson MD <<Signature on File>>
== END 2020-11-23 23:59 | disposition home or self-care (01) ==
LOC: ONCMED 05:50
PROVIDERS: Nurse Practitioner; Family Provider Nurse Practitioner; PCP Nurse Practitioner; Visit Provider Internal Medicine Medical Oncology
DX: Z51.12 Encounter for antineoplastic immunotherapy (principal); Z51.11 Encounter for antineoplastic chemotherapy; C34.11 Malignant neoplasm of upper lobe, right bronchus or lung; C79.51 Secondary malignant neoplasm of bone; I10 Essential (primary) hypertension; E78.5 Hyperlipidemia, unspecified; E11.9 Type 2 diabetes mellitus without complications; I48.20 Chronic atrial fibrillation, unspecified; Z86.010 Personal history of colon polyps; Z79.899 Other long term (current) drug therapy
CPT/HCPCS: 36415; 36430; 36591; 80053; 83735; 84443; 85025; 86850; 86900; 86920; 96360; 96361; 96365; 96367; 96374; 96375; 96377; 96413; 96417; 99214; 99215; J1100; J1200; J1453; J1940; J2405; J2469; J2505; J3490; J7030; J7040; J7050; J9045; J9264; J9271; P9016; Q0138

== ENCOUNTER 2020-12-15 05:45 | Outpatient (RCR) | payer OTHER, SELFPAY ==
[2020-11-29 10:48] LABS: Basophils % 0.5 %; Eosinophils % 0.5 %; Hematocrit 26.2 % (42.0-52.0); Hemoglobin 8.3 g/dL (11.7-16.6); Lymphocytes # 0.6 10^3/uL (0.8-4.8); Lymphocytes % 15.4 %; Mean Corpuscular HGB Conc 31.7 g/dL (30.0-36.0); Mean Corpuscular Hemoglobin 28.5 pg (28.0-34.0); Mean Platelet Volume 8.5 fL (7.4-10.4); Monocytes # 0.6 10^3/uL (0.2-0.9); Monocytes % 13.9 %; Neutrophils # 2.79 10^3/uL (1.8-7.7); Neutrophils % 69.5 %; Nucleated Red Blood Cells % 0 %; Platelet Count 220 10^3/cmm (130-400); Red Blood Count 2.91 10^6/uL (4.1-5.3)
[2020-11-29 11:14] LABS: Alanine Aminotransferase 10 U/L (0-41); Alkaline Phosphatase 129 IU/L (40-130); Anion Gap 16.1 (5-19); Aspartate Amino Transferase 11 U/L (0-40); Blood Urea Nitrogen 18 mg/dL (6-20); Calcium 9.4 mg/dL (8.5-10.5); Carbon Dioxide 25 mmol/L (22-29); Chloride 95 mmol/L (98-107); Globulin 3.1 g/dL (1.3-4.6); Glomerular Filtration Rate 115.8 mL/min (90-130); Glucose 102 mg/dL (65-115); Osmolality Calculated 276 mOsm/kg (285-295); Potassium 4.1 mmol/L (3.5-5.1); Sodium 132 mmol/L (136-145); Total Bilirubin 0.3 mg/dL (0.15-1.2); Total Protein 6.1 g/dL (6.6-8.7)
[2020-11-29] MEDS: sodium chloride 0.9% 250 ML 75 ML IV (12:20)
[2020-11-29] MEDS: fosaprepitant 150 MG in sodium chloride 0.9% 150 ML 300 MG IV (12:40)
[2020-11-29] MEDS: palonosetron 0.25 mg/5 mL SDV IV (13:05)
[2020-11-29] MEDS: famotidine 20 mg/2 mL INJ IVP (13:06)
[2020-11-29] MEDS: diphenhydrAMINE 50 mg/mL SDV 1mL 25 MG IV (13:08)
[2020-11-29] MEDS: pegfilgrastim 6 mg/0.6 mL Kit (onpro) SUBCUT (15:30)
--- NOTE | 2020-11-30 06:55 | ONC FU_ITS ---
Dr. Swenson Patient Follow-Up Note Patient: Avtar Kerns Unit #: [id number]: 1960 Dicatated By: Julio Swenson M.D.Date of Visit:Nov 29, 2020 Onc Med Follow-up/Prog Note Chief Complaint: Lung cancer. 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 This is presumed to be from a primary lesion in the upper lobe of the right lung, by clinical evaluation stage IVB (T2a, N0, M1c). He had presented with severe pain in the lower back. It actually started as far back as 2019 and it just continue to progressively worsen. He was seen at the orthopedic clinic by Dr. Umair Lima on 06/14/2020. An MRI of the lumbar spine on 06/23/2020 showed an expansile marrow replacing process, likely neoplasm, involving the S1 and S2 vertebral bodies centered at the S1 level. There was associated epidural disease with moderate to severe narrowing of the cauda equina distally impinging the transversing S1 nerve roots. There was infiltrating signal abnormality extending into the sacral ala bilaterally and also involving the posterior L5 vertebral body. There was moderate central canal stenosis at L5-S1. The findings were consistent with primary bone neoplasm or metastatic disease. Also noted was a partially visualized expansile lesion in the right acetabulum. Further evaluation with MRI of the pelvis on 07/08/2020 showed marrow replacing multifocal neoplasm/metastatic disease involving the right acetabulum with bony expansion extending into the adjacent pubic rami and pubic root. Signal abnormality was noted to extend into the right ilium and right iliac wing. There was additional disease involving the left intertrochanteric femur, with the largest lesion measuring 2.8 x 4.2 cm. The findings involving the S1-S2 vertebral bodies were again noted. Overall, the findings were compatible with neoplasm most likely due to metastatic disease. He was admitted to [facility] where additional evaluation with bone scan and x-rays confirmed evidence of a lytic lesion in the right acetabulum with cortical breakthrough, a large lytic lesion in the sacrum with cortical breakthrough, a lytic lesion in the left femoral intertrochanteric region, and a suspected lytic lesion in the left proximal tibia. Staging CT scans of the chest, abdomen, and pelvis on 07/15/2020 showed a hypoenhancing mass in the upper lobe of the right lung measuring 3.2 x 2.6 cm. It was noted to invade the right upper lobe bronchus and it appeared to be the likely cause of right upper lobe atelectasis. There were no pathologically enlarged lymph nodes in the mediastinum or kya. A 9 mm nodular groundglass opacity was noted in the right lower lobe and a 4 mm calcified granuloma was noted in the right lower lobe. There is no evidence for metastatic disease in the abdominal area. There was evidence of an infiltrative destructive mass centered in the sacrum with soft tissue component extending into the right sacroiliac joint and into the right aspect of the posterior elements of L5. Another infiltrative destructive mass with soft tissue component was seen centered in the right acetabulum with intra-arterial extension and with extension into the fovea of the right femoral head. Another lytic lesion was noted in the left femoral intertrochanteric region. On 07/21/2020 he underwent open biopsy of the left femur along with prophylactic fixation of the left femur with intramedullary maricruz. Pathology showed metastatic squamous cell carcinoma. The PD-L1 22C3 expression by IHC was reported positive at 1 to 10%. He was seen here initially on 08/04/2020. He began on symptomatic management for the bone pain. He was seen by Dr. Mead for palliative radiation. He was given a course of treatment to the sacrum, which he completed on 08/23/2020 to a total dose of 3000 cGy administered in 10 fractions. He tolerated the radiation well. His other medical illnesses include hypertension, hyperlipidemia, type 2 diabetes, and hypothyroidism. He has a history of atrial fibrillation and he also has a history of colonic polyps. He has a history of smoking 1-1/2 to 2 packs of cigarettes daily for 35 years. He quit smoking in November 2019. INTERIM HISTORY: On 09/06/2020 he began systemic therapy with carboplatin/Abraxane chemotherapy administered on a day 1/day 8 schedule every 21 days together with pembrolizumab administered every 21 days. At that point he had become significantly anemic, requiring PRBC transfusion. He was able to tolerate treatment with acceptable toxicity, and he continued with cycle 2 on 09/27/2020, with cycle 3 on 10/18/2020, and with cycle 4 on 11/17/2020. On 11/21/2020 he had been seen by Dr. Fontenot because of left lower quadrant abdominal pain. He improved on empiric antibiotic therapy with ciprofloxacin/metronidazole for suspected diverticulitis. However, because of that illness, his scheduled day 8 chemotherapy treatment was deferred. He is seen for a follow-up visit. He has been feeling better to the extent that his abdominal pain has completely resolved. However, since his last visit with me his hip pain has worsened to the point that he is not walking now, and he is having to use a wheelchair to get around. His ECOG score is 3. His appetite is getting better. He has not had fever. He has some night sweating, not as much now. He has had no mouth sores. He has no shortness of breath, cough, or chest pain. He has had some nausea, but not bad. Bowel function has been okay as long as he regulates his pain medication. He has no complaints. He does not complain of headache. He does have some orthostatic dysequilibrium. He sometimes has tingling. Medications: Atorvastatin Calcium 1 (40 mg) Tablet Oral daily, Cetirizine HCl 1 (10 mg) Tablet Oral daily, Dulcolax Tablet, enteric coated Oral PRN, DULoxetine HCl 1 (20 mg) Capsule Delayed Release Particles Oral b.i.d., Eliquis 1 (5 mg) Tablet Oral b.i.d., Famotidine 1 (20 mg) Tablet Oral daily, Levoxyl 1 (200 mcg) Tablet Oral daily, Liothyronine Sodium 1 (5 mcg) Tablet Oral daily, LORazepam 1 (1 mg) Tablet Oral b.i.d., Marinol 1 (5 mg) Capsule Oral b.i.d., metFORMIN HCl 1 (500 mg) Tablet Oral b.i.d., Metoprolol Tartrate 1 (25 mg) Tablet Oral b.i.d., Montelukast Sodium 1 (10 mg) Tablet Oral daily, Morphine Sulfate 1 Tablet (of 15 mg) Oral q 4 hours PRN, Morphine Sulfate ER 2 Tablet (of 60 mg) Tablet, controlled release Oral b.i.d., Ondansetron 1 - 2 (4 mg) Tablet Dispersable Oral q 4 hours PRN Allergies: No Known Allergies. Vital Signs: Performed on Nov 29, 2020 11:54 Height - 68.00 in Weight - 165.6 lbs (LOW) BSA - 1.89 sq.m BMI - 25.18 Temperature - 97.6 F (LOW) Pulse - 98 /min Respiration - 18 /min BP - 102/67 mm(hg) O2 Sat - 94 % (LOW) Pain - 8 Physical Examination: Constitutional - He appears generally weak, Eyes - Sclerae nonicteric. Conjunctivae clear, ENMT - No lesions noted in the oral cavity, Hematologic/Lymphatic - No cervical, clavicular, or axillary adenopathy, Respiratory - Lungs sound clear, Cardiovascular - Heart rhythm is regular. There is no murmur, gallop, or rub noted, Abdomen - Soft. Liver and spleen are not enlarged. There is no abdominal mass or ascites noted and there is no inguinal adenopathy, Extremities - Slight edema, Integumentary - He still has mottling of the skin in both legs, Neurologic - No focal neurologic deficits noted. Lab/Imaging: Test performed on Nov 29, 2020 11:51 Creatinine 0.7 mg/dL Cr Clearance (Est) 124.13 mL/min Test performed on Nov 29, 2020 10:16 Sodium 132 mmol/L Potassium 4.1 mmol/L Chloride 95 mmol/L CO2 25 mmol/L Anion Gap 16.1 BUN 18 mg/dL eGFR 115.8 mL/min Glucose 102 mg/dL Osmolality - Calculated 276 mOsm/kg Calcium 9.4 mg/dL Protein, Total 6.1 g/dL Albumin 3.0 g/dL Globulin 3.1 g/dL Bilirubin, Total 0.3 mg/dL ALT (SGPT) 10 U/L AST (SGOT) 11 U/L Alkaline Phosphatase 129 IU/L WBC 4.0 10 3/uL RBC 2.91 10 6/uL HGB 8.3 g/dL HCT 26.2 % MCV 90.0 fL MCH 28.5 pg MCHC 31.7 g/dL RDW 17.0 % Platelet Count 220 10 3/cmm MPV 8.5 fL Neutrophils 2.79 10 3/uL Lymphocytes 0.6 10 3/uL Monocytes 0.6 10 3/uL Eosinophils 0.0 10 3/uL Basophils 0.0 10 3/uL Neutrophil % 69.5 % Lymphocyte % 15.4 % Monocyte % 13.9 % Eosinophil % 0.5 % Basophils % 0.5 % NRBC % 0 % Problem List: 1. Metastatic squamous cell carcinoma with presumed primary in the upper lobe of the right lung, stage IVB (T2a, N0, M1c). His tumor showed positive PD-L1 22C3 expression by IHC (1 to 10%). 2. He presented with severely painful bony metastatic disease involving multiple sites including the sacrum, right acetabulum, proximal left femur, and possibly the proximal left tibia. 3. Hypertension. 4. Hyperlipidemia. 5. Type 2 diabetes. 6. Atrial fibrillation. 7. History of colonic polyps. Problems Addressed with this Encounter and Plan: 1. Patient with metastatic squamous cell carcinoma with presumed primary in the upper lobe of the right lung, stage IVB (T2a, N0, M1c). His tumor showed positive PD-L1 22C3 expression by IHC (1 to 10%). He presented with severely painful bony metastatic disease involving multiple sites including the sacrum, right acetabulum, proximal left femur, and possibly the proximal left tibia. On 07/21/2019 he underwent open biopsy of the left femur in association with prophylactic fixation of the left femur with intramedullary maricruz. Pathology showed metastatic squamous cell carcinoma. His staging CT scans showed a primary tumor in the upper lobe of the right lung. There was associated right upper lobe atelectasis, but he has not been overtly symptomatic with it. He was given palliative radiation to the sacrum, completed on 08/23/2020 to a total dose of 3000 cGy administered in 10 fractions. He tolerated it well, and he did have symptomatic benefit. On 09/06/2020 he began systemic therapy with carboplatin/Abraxane chemotherapy in combination with pembrolizumab. He tolerated the 1st cycle with acceptable toxicity. He continued with cycle 2 on 09/27/2020. He was seen at day 8 of the 2nd cycle with complaints of low-grade fever along with episodes of feeling hot/sweaty alternating with severe chills. A specific cause was not determined, but there was no evidence of an active infectious process. Overall he had tolerated his treatment with acceptable toxicity, and he had been showing gradual improvement in his performance status. He then continued with cycle 3 of carboplatin/Abraxane/pembrolizumab on 10/18/2020 and with cycle 4 on 11/17/2020. His cycle 4-day 8 treatment was deferred due to suspected acute diverticulitis. His symptoms have resolved following empiric antibiotic therapy. He will now proceed with his daily treatment. The dosages remain the same. He will be given Neulasta prophylactically, and he will return for follow-up in 2 weeks. He will have restaging PET/CT prior to that visit. 2. He has transfusion dependent anemia. It is uncertain to what extent the anemia may be due to treatment or to the underlying malignancy. He is being transfused as needed. 3. He had severe pain associated with the metastatic bone involvement. It is still being managed adequately with extended release morphine, but it has worsened to the point that he has become nonambulatory again. 5. He has had elevated TSH, consistent with hypothyroidism. His most recent TSH was in normal range with the levothyroxine dosage increased to 200 mcg daily. Signed By: Julio Swenson M.D. <<Signature on File>>
[2020-12-06 14:59] LABS: Basophils % 0.1 %; Eosinophils % 0.1 %; Hematocrit 25.5 % (42.0-52.0); Hemoglobin 7.9 g/dL (11.7-16.6); Lymphocytes # 0.9 10^3/uL (0.8-4.8); Lymphocytes % 6.2 %; Mean Corpuscular Hemoglobin 28.4 pg (28.0-34.0); Mean Corpuscular Volume 91.7 fL (80-94); Mean Platelet Volume 9.7 fL (7.4-10.4); Monocytes # 1.2 10^3/uL (0.2-0.9); Monocytes % 8.5 %; Neutrophils # 11.37 10^3/uL (1.8-7.7); Neutrophils % 79.8 %; Nucleated Red Blood Cells # 0.1 /100WBC; Nucleated Red Blood Cells % 0.4 %; Platelet Count 195 10^3/cmm (130-400); Red Blood Count 2.78 10^6/uL (4.1-5.3); Red Cell Distribution Width 17.1 % (12.1-15.1); White Blood Count 14.2 10^3/uL (4.0-10.0)
[2020-12-06 15:46] LABS: Slide Review Slide Review Perform
[2020-12-08] VITALS (8 sets, daily range): BP systolic 99–122; BP diastolic 61–78; PULSE 72–79; RESP 18; TEMP 36–36.8; O2SAT 92–98
[2020-12-08 10:37] LABS: Basophils # 0.1 10^3/uL (0.0-0.1); Basophils % 0.6 %; Eosinophils % 0.1 %; Hematocrit 23.6 % (42.0-52.0); Hemoglobin 7.6 g/dL (11.7-16.6); Lymphocytes # 0.9 10^3/uL (0.8-4.8); Lymphocytes % 6.4 %; Mean Corpuscular HGB Conc 32.2 g/dL (30.0-36.0); Mean Corpuscular Hemoglobin 29.2 pg (28.0-34.0); Mean Corpuscular Volume 90.8 fL (80-94); Mean Platelet Volume 9.3 fL (7.4-10.4); Monocytes # 0.9 10^3/uL (0.2-0.9); Monocytes % 6.4 %; Neutrophils # 11.48 10^3/uL (1.8-7.7); Neutrophils % 81.5 %; Nucleated Red Blood Cells % 0.1 %; Platelet Count 133 10^3/cmm (130-400); White Blood Count 14.1 10^3/uL (4.0-10.0)
[2020-12-08] MEDS: sodium chloride 0.9% 250 ML 999 ML IV (11:00)
[2020-12-08] MEDS: diphenhydrAMINE 25 mg Capsule PO (11:30)
[2020-12-08] MEDS: acetaminophen 325 mg Tablet 650 MG PO (11:30)
[2020-12-08] MEDS: FUROsemide 10 mg/mL SDV 2mL 20 MG IV (13:25)
--- NOTE | 2020-12-15 09:49 | PC.NURSE ---
Patient came in for [id number] with vitals takenevery 15 minutes on units [id number] and [id number] with the units scans
[2020-12-15 10:25] LABS: Basophils % 0.4 %; Eosinophils % 0.3 %; Hematocrit 32.6 % (42.0-52.0); Hemoglobin 10.7 g/dL (11.7-16.6); Lymphocytes # 0.8 10^3/uL (0.8-4.8); Mean Corpuscular HGB Conc 32.8 g/dL (30.0-36.0); Mean Corpuscular Hemoglobin 30.1 pg (28.0-34.0); Mean Corpuscular Volume 91.6 fL (80-94); Monocytes # 0.7 10^3/uL (0.2-0.9); Monocytes % 7.8 %; Neutrophils # 7.61 10^3/uL (1.8-7.7); Nucleated Red Blood Cells % 0 %; Platelet Count 163 10^3/cmm (130-400); Red Blood Count 3.56 10^6/uL (4.1-5.3); Red Cell Distribution Width 15.9 % (12.1-15.1); White Blood Count 9.3 10^3/uL (4.0-10.0)
[2020-12-15 10:57] LABS: Alanine Aminotransferase 8 U/L (0-41); Albumin Level 3.1 g/dL (3.5-5.2); Alkaline Phosphatase 144 IU/L (40-130); Anion Gap 15.7 (5-19); Aspartate Amino Transferase 11 U/L (0-40); Blood Urea Nitrogen 18 mg/dL (6-20); Calcium 10.7 mg/dL (8.5-10.5); Carbon Dioxide 26 mmol/L (22-29); Chloride 92 mmol/L (98-107); Globulin 3.4 g/dL (1.3-4.6); Glomerular Filtration Rate 115.8 mL/min (90-130); Glucose 128 mg/dL (65-115); Osmolality Calculated 274 mOsm/kg (285-295); Potassium 3.7 mmol/L (3.5-5.1); Sodium 130 mmol/L (136-145); Thyroid Stimulating Hormone 2.24 uIU/mL (0.27-4.20); Total Bilirubin 0.4 mg/dL (0.15-1.2); Total Protein 6.5 g/dL (6.6-8.7)
[2020-12-15] MEDS: sodium chloride 0.9% 250 ML 125 ML IV (12:10)
[2020-12-15] MEDS: denosumab 120 mg SDV SUBCUT (14:29)
--- NOTE | 2020-12-15 17:02 | ONC FU_ITS ---
Dr. Swenson Patient Follow-Up Note Patient: Avtar Kerns Unit #: [id number]: 1960 Dicatated By: Julio Swenson M.D.Date of Visit:Dec 15, 2020 Onc Med Follow-up/Prog Note Chief Complaint: Lung cancer. 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 This is presumed to be from a primary lesion in the upper lobe of the right lung, by clinical evaluation stage IVB (T2a, N0, M1c). He had presented with severe pain in the lower back. It actually started as far back as 2019 and it just continue to progressively worsen. He was seen at the orthopedic clinic by Dr. Umair Lima on 06/14/2020. An MRI of the lumbar spine on 06/23/2020 showed an expansile marrow replacing process, likely neoplasm, involving the S1 and S2 vertebral bodies centered at the S1 level. There was associated epidural disease with moderate to severe narrowing of the cauda equina distally impinging the transversing S1 nerve roots. There was infiltrating signal abnormality extending into the sacral ala bilaterally and also involving the posterior L5 vertebral body. There was moderate central canal stenosis at L5-S1. The findings were consistent with primary bone neoplasm or metastatic disease. Also noted was a partially visualized expansile lesion in the right acetabulum. Further evaluation with MRI of the pelvis on 07/08/2020 showed marrow replacing multifocal neoplasm/metastatic disease involving the right acetabulum with bony expansion extending into the adjacent pubic rami and pubic root. Signal abnormality was noted to extend into the right ilium and right iliac wing. There was additional disease involving the left intertrochanteric femur, with the largest lesion measuring 2.8 x 4.2 cm. The findings involving the S1-S2 vertebral bodies were again noted. Overall, the findings were compatible with neoplasm most likely due to metastatic disease. He was admitted to [facility] where additional evaluation with bone scan and x-rays confirmed evidence of a lytic lesion in the right acetabulum with cortical breakthrough, a large lytic lesion in the sacrum with cortical breakthrough, a lytic lesion in the left femoral intertrochanteric region, and a suspected lytic lesion in the left proximal tibia. Staging CT scans of the chest, abdomen, and pelvis on 07/15/2020 showed a hypoenhancing mass in the upper lobe of the right lung measuring 3.2 x 2.6 cm. It was noted to invade the right upper lobe bronchus and it appeared to be the likely cause of right upper lobe atelectasis. There were no pathologically enlarged lymph nodes in the mediastinum or kya. A 9 mm nodular groundglass opacity was noted in the right lower lobe and a 4 mm calcified granuloma was noted in the right lower lobe. There is no evidence for metastatic disease in the abdominal area. There was evidence of an infiltrative destructive mass centered in the sacrum with soft tissue component extending into the right sacroiliac joint and into the right aspect of the posterior elements of L5. Another infiltrative destructive mass with soft tissue component was seen centered in the right acetabulum with intra-arterial extension and with extension into the fovea of the right femoral head. Another lytic lesion was noted in the left femoral intertrochanteric region. On 07/21/2020 he underwent open biopsy of the left femur along with prophylactic fixation of the left femur with intramedullary maricruz. Pathology showed metastatic squamous cell carcinoma. The PD-L1 22C3 expression by IHC was reported positive at 1 to 10%. He was seen here initially on 08/04/2020. He began on symptomatic management for the bone pain. He was seen by Dr. Mead for palliative radiation. He was given a course of treatment to the sacrum, which he completed on 08/23/2020 to a total dose of 3000 cGy administered in 10 fractions. He tolerated the radiation well. His other medical illnesses include hypertension, hyperlipidemia, type 2 diabetes, and hypothyroidism. He has a history of atrial fibrillation and he also has a history of colonic polyps. He has a history of smoking 1-1/2 to 2 packs of cigarettes daily for 35 years. He quit smoking in November 2019. INTERIM HISTORY: On 09/06/2020 he began systemic therapy with carboplatin/Abraxane chemotherapy administered on a day 1/day 8 schedule every 21 days together with pembrolizumab administered every 21 days. At that point he had become significantly anemic, requiring PRBC transfusion. He was able to tolerate treatment with acceptable toxicity, and he continued with cycle 2 on 09/27/2020, with cycle 3 on 10/18/2020, and with cycle 4 on 11/17/2020. On 11/21/2020 he had been seen by Dr. Fontenot because of left lower quadrant abdominal pain. He improved on empiric antibiotic therapy with ciprofloxacin/metronidazole for suspected diverticulitis. However, because of that illness, his scheduled day 8 chemotherapy treatment was deferred. He was then seen here on 11/29/2020. His symptoms have improved at that point I did opt to proceed with the cycle 4-day treatment. It was administered with Neulasta prophylactically. He is seen for a follow-up visit. He continues to have limited activity due to increased pain in the left hip area. He has only minimal ambulation. ECOG score is 3. Appetite is poor, but he is maintaining his weight. He occasionally feels feverish and he also sometimes has chills. He does not have night sweating. He has had a little bit of sore throat. His breathing has been okay. He does not have much cough. He has occasional mild chest pain. He has occasional episodes of nausea/vomiting. Bowel and bladder function remain adequate. He still has some pain in his lower back area, but it is managed adequately with his medication. He does not complain of headache or dizziness. He has some numbness in his hands and feet, but it is intermittent. Medications: Atorvastatin Calcium 1 (40 mg) Tablet Oral daily, Cetirizine HCl 1 (10 mg) Tablet Oral daily, Dulcolax Tablet, enteric coated Oral PRN, DULoxetine HCl 1 (20 mg) Capsule Delayed Release Particles Oral b.i.d., Eliquis 1 (5 mg) Tablet Oral b.i.d., Famotidine 1 (20 mg) Tablet Oral daily, Levoxyl 1 (200 mcg) Tablet Oral daily, Liothyronine Sodium 1 (5 mcg) Tablet Oral daily, LORazepam 1 (1 mg) Tablet Oral b.i.d., Marinol 1 (5 mg) Capsule Oral b.i.d., metFORMIN HCl 1 (500 mg) Tablet Oral b.i.d., Metoprolol Tartrate 1 (25 mg) Tablet Oral b.i.d., Montelukast Sodium 1 (10 mg) Tablet Oral daily, Morphine Sulfate 1 Tablet (of 15 mg) Oral q 4 hours PRN, Morphine Sulfate ER 2 Tablet (of 60 mg) Tablet, controlled release Oral b.i.d., Ondansetron 1 - 2 (4 mg) Tablet Dispersable Oral q 4 hours PRN Allergies: No Known Allergies. Vital Signs: Performed on Dec 15, 2020 11:55 Height - 68.00 in Weight - 164.4 lbs (LOW) BSA - 1.88 sq.m BMI - 25.00 Temperature - 98.4 F Pulse - 108 /min (HIGH) Respiration - 18 /min BP - 89/57 mm(hg) (LOW) Pain - 7 Fatigue - 7 Physical Examination: Constitutional - He appears generally weak, Eyes - Sclerae nonicteric. Conjunctivae clear, ENMT - No lesions noted in the oral cavity, Hematologic/Lymphatic - No cervical, clavicular, or axillary adenopathy, Respiratory - Lungs sound clear, Cardiovascular - Heart rhythm is regular. There is no murmur, gallop, or rub noted, Abdomen - Soft. Liver and spleen are not enlarged. There is no abdominal mass or ascites noted and there is no inguinal adenopathy, Extremities - Mild edema, Neurologic - No focal neurologic deficits noted. Lab/Imaging: Test performed on Dec 15, 2020 09:50 Sodium 130 mmol/L TSH 2.24 uIU/mL Potassium 3.7 mmol/L Chloride 92 mmol/L CO2 26 mmol/L Anion Gap 15.7 BUN 18 mg/dL Creatinine 0.7 mg/dL Cr Clearance (Est) 121.3300 mL/min eGFR 115.8 mL/min Glucose 128 mg/dL Osmolality - Calculated 274 mOsm/kg Calcium 10.7 mg/dL Protein, Total 6.5 g/dL Albumin 3.1 g/dL Globulin 3.4 g/dL Bilirubin, Total 0.4 mg/dL ALT (SGPT) 8 U/L AST (SGOT) 11 U/L Alkaline Phosphatase 144 IU/L WBC 9.3 10 3/uL RBC 3.56 10 6/uL HGB 10.7 g/dL HCT 32.6 % MCV 91.6 fL MCH 30.1 pg MCHC 32.8 g/dL RDW 15.9 % Platelet Count 163 10 3/cmm MPV 9.0 fL Neutrophils 7.61 10 3/uL Lymphocytes 0.8 10 3/uL Monocytes 0.7 10 3/uL Eosinophils 0.0 10 3/uL Basophils 0.0 10 3/uL Neutrophil % 82.0 % Lymphocyte % 9.0 % Monocyte % 7.8 % Eosinophil % 0.3 % Basophils % 0.4 % NRBC % 0 % Problem List: 1. Metastatic squamous cell carcinoma with presumed primary in the upper lobe of the right lung, stage IVB (T2a, N0, M1c). His tumor showed positive PD-L1 22C3 expression by IHC (1 to 10%). 2. He presented with severely painful bony metastatic disease involving multiple sites including the sacrum, right acetabulum, proximal left femur, and possibly the proximal left tibia. 3. Hypertension. 4. Hyperlipidemia. 5. Type 2 diabetes. 6. Atrial fibrillation. 7. History of colonic polyps. Problems Addressed with this Encounter and Plan: 1. Patient with metastatic squamous cell carcinoma with presumed primary in the upper lobe of the right lung, stage IVB (T2a, N0, M1c). His tumor showed positive PD-L1 22C3 expression by IHC (1 to 10%). He presented with severely painful bony metastatic disease involving multiple sites including the sacrum, right acetabulum, proximal left femur, and possibly the proximal left tibia. On 07/21/2019 he underwent open biopsy of the left femur in association with prophylactic fixation of the left femur with intramedullary maricruz. Pathology showed metastatic squamous cell carcinoma. His staging CT scans showed a primary tumor in the upper lobe of the right lung. There was associated right upper lobe atelectasis, but he has not been overtly symptomatic with it. He was given palliative radiation to the sacrum, completed on 08/23/2020 to a total dose of 3000 cGy administered in 10 fractions. He tolerated it well, and he did have symptomatic benefit. On 09/06/2020 he began systemic therapy with carboplatin/Abraxane chemotherapy in combination with pembrolizumab. He tolerated the 1st cycle with acceptable toxicity. He continued with cycle 2 on 09/27/2020. He was seen at day 8 of the 2nd cycle with complaints of low-grade fever along with episodes of feeling hot/sweaty alternating with severe chills. A specific cause was not determined, but there was no evidence of an active infectious process. Overall he had tolerated his treatment with acceptable toxicity, and he had been showing gradual improvement in his performance status. He then continued with cycle 3 of carboplatin/Abraxane/pembrolizumab on 10/18/2020 and with cycle 4 on 11/17/2020. His cycle 4-day 8 treatment was deferred due to suspected acute diverticulitis. At his follow-up visit on 11/30/2019 when he was feeling better, and he then continued his cycle 4-day treatment. It was administered with Neulasta prophylactically. He has now completed 4 cycles of chemotherapy. He does have a restaging PET/CT scheduled for this weekend. I will now go ahead and transition him to maintenance pembrolizumab, but further management will depend on the PET/CT results. 2. He has transfusion dependent anemia. It is uncertain to what extent the anemia may be due to treatment or to the underlying malignancy. He is being transfused as needed. 3. He had severe pain associated with the metastatic bone involvement. The pain has been managed adequately with extended release morphine, but he recently had developed increased pain in the left hip area significant enough that he had become nonambulatory again. He will continue the extended release morphine as ordered, but he also is scheduled for further evaluation with MRI of the left hip. Signed By: Julio Swenson M.D. <<Signature on File>>
== END 2020-12-24 23:59 | disposition home or self-care (01) ==
LOC: ONCMED 05:45
PROVIDERS: Family Provider Nurse Practitioner; PCP Nurse Practitioner; Visit Provider Internal Medicine Medical Oncology
DX: Z51.12 Encounter for antineoplastic immunotherapy (principal); Z51.11 Encounter for antineoplastic chemotherapy; C34.11 Malignant neoplasm of upper lobe, right bronchus or lung; C79.51 Secondary malignant neoplasm of bone; I10 Essential (primary) hypertension; E78.5 Hyperlipidemia, unspecified; E11.9 Type 2 diabetes mellitus without complications; I48.20 Chronic atrial fibrillation, unspecified; Z86.010 Personal history of colon polyps; Z79.899 Other long term (current) drug therapy
CPT/HCPCS: 36415; 36430; 36591; 80053; 84443; 85025; 86850; 86900; 86920; 96367; 96372; 96375; 96377; 96413; 96417; 99214; 99215; J0897; J1100; J1200; J1453; J1940; J2469; J2505; J3490; J7040; J7050; J9045; J9264; J9271; P9040

== ENCOUNTER 2021-01-19 05:36 | Outpatient (RCR) | payer OTHER, SELFPAY ==
--- NOTE | 2020-12-29 13:25 | MR_ITS ---
WS: [id number] MRI PELVIS with and without CONTRAST. COMPARISON: 07/08/[address] 12/17/2020 Multiplanar, multisequence imaging is performed with and without contrast. There is diffuse increased STIR signal throughout the soft tissues and muscles of the pelvis bilatera lly. These areas do not significantly enhance and probably representing myositis. There is a large lobulated soft tissue mass centered along the RIGHT acetabulum extending over a cam th of 10 cm x 9 cm x 8 cm. This mass enhances and is destroying the acetabulum and a portion of the R IGHT ilium with extension along the superior acetabulum through the joint space. There is greater joshua n 50% encasement of the femoral head and neck. Displacement of the soft tissues and muscles towards t he midline. There is slight mass effect upon the bladder. There is tumor extension into the RIGHT nico um through the supra-acetabular region. There are additional neoplastic implants which are less well-defined involving the gluteal muscles of the LEFT hip. Soft tissue mass with mild enhancement extends along the lateral hip and posterior to the ilium. There is obliteration of the fat planes between the gluteal muscles. There is additional s oft tissue component which is subcutaneous and lateral to the femoral neck. The subcutaneous nodule m easures 3.0 x 3.5 cm. The infiltrating gluteal mass measures at least 6.1 x 9.1 cm. Patient is status post LEFT hip ORIF. Bony expansion secondary to a metastatic deposit within the LEF T lesser trochanter extending into the proximal femur. There is destruction of cortex. Patient at [facility] for pathological fracture. This soft tissue mass contains only moderate enhancement and measures at least 4.8 x 3.3 cm. There is bone and adjacent soft tissue involvement. Metastatic lesion at L5 and within at least S1 and S2 and possibly S3 and S4. Abnormal signal through out the sacrum bilaterally with enhancement. Metastatic changes in sacrum extend to involve multiple of the sacral nerve roots bilaterally but greatest on the RIGHT. Metastatic deposit in the RIGHT isch ial tuberosity. MR/MR pelvis wo/w con [id number] IMPRESSION: 1. Large destructive osseous metastatic mass centered in the RIGHT acetabulum with extension through the superior RIGHT hip joint and RIGHT ilium. Mass effec t upon the bladder and soft tissues of the pelvis due to extension into the pel vis. 2. Multifocal soft tissue metastatic deposit surrounding the LEFT hip involvin g the gluteal muscles. 3. Additional osseous metastatic site involving the LEFT lesser trochanter wit h extension into the proximal femoral diaphysis. This metastatic site is adjace nt to the prosthetic hardware in the LEFT hip. Patient at risk for pathological fracture. 4. Multiple additional metastatic lesions in the lumbar spine, sacrum and RIGH T ischial tuberosity.
[2020-12-29] MEDS: gadobenate dimeglumine 20 mL vial IV (14:58)
[2020-12-29 15:15] LABS: Basophils % 0.3 %; Eosinophils % 0.2 %; Hematocrit 26.1 % (42.0-52.0); Hemoglobin 8.3 g/dL (11.7-16.6); Lymphocytes # 0.8 10^3/uL (0.8-4.8); Lymphocytes % 13.2 %; Mean Corpuscular HGB Conc 31.8 g/dL (30.0-36.0); Mean Corpuscular Hemoglobin 29.1 pg (28.0-34.0); Mean Corpuscular Volume 91.6 fL (80-94); Mean Platelet Volume 8.7 fL (7.4-10.4); Monocytes # 0.7 10^3/uL (0.2-0.9); Neutrophils # 4.25 10^3/uL (1.8-7.7); Nucleated Red Blood Cells % 0 %; Platelet Count 242 10^3/cmm (130-400); Red Blood Count 2.85 10^6/uL (4.1-5.3); Red Cell Distribution Width 15.7 % (12.1-15.1); White Blood Count 5.8 10^3/uL (4.0-10.0)
--- NOTE | 2021-01-02 14:05 | N.ONRAD NP_ITS ---
Radiation Oncology Consultation Patient Name: Avtar Kerns Date of : 1960 Date of Service: 01/02/2021 Attending Physician: Jun Mead M.D. Avtar Kerns was seen in consultation this afternoon at the request of Julio Swenson M.D. for consideration of palliative radiotherapy for the management of a non-small cell lung cancer. The patient was evaluated at [facility] after presenting with back pain. A radiograph of the lumbar spine ordered on May 11, 2020 identified degenerative disc disease most significant at L5-S1. An MR of the lumbar spine and pelvis obtained on June 23, 2020 and July 08, 2020 revealed an infiltrating, expansile bony process involving the first and second sacral vertebral bodies, marrow replacement within the right acetabulum extending into the right pubis and ilium, and a 4.2 cm x 2.9 cm lesion involving the intertrochanteric left femur. He was referred to [facility] in [place], [place] for further evaluation. A nuclear bone scan completed on July 15, 2020 demonstrated hyperactivity within the sacrum, right acetabulum and proximal left femur. A thoracoabdominopelvic CT revealed 2 cm x 2.6 cm right upper lobe mass invading the right upper lobe bronchus as well as the previously described destructive masses in the pelvis. A prophylactic fixation of the left femur and open biopsy was performed on July 21, 2020. 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 PD-L1 expression was 1 to 10%. Radiotherapy was administered between the dates of August 10, 2020 through August 23, 2020. A prescribed dose of 30 Gy was delivered to the sacrum in 10 fractions encompassing 14 elapsed days. Systemic chemotherapy (carboplatin, Abraxane, and Keytruda) was prescribed for 3 cycles (September 06, 2020 through November 17, 2020). A PET CT (independently reviewed in [facility]) ordered on December 17, 2020 revealed a new malignant soft tissue implant in the left gluteal muscles (SUV 18.7) with the lesion measuring 6.7 cm x 3.1 cm, an 8.7 cm x 4.5 cm right acetabular mass (SUV 18.8), smaller lesions within the right ilium and proximal left femur, and the known primary lung carcinoma within the right upper lobe (SUV 12.8). Of note, FDG negative sclerotic changes were present in the sacrum consistent with treated metastatic disease. The patient was evaluated for palliative radiotherapy to the left gluteal mass and right acetabulum. I discussed with Mr. Kerns the role for palliative radiotherapy. I would recommend a 2-week course of radiation therapy. A CT scan will be performed for radiotherapy planning prior to beginning treatment to delineate the clinical target volumes. The potential toxicities of pelvic radiotherapy were reviewed. The patient has verbalized understanding would like to proceed as recommended. His medical treatment plan has been discussed with Julio Swenson M.D. Signed by: Dr. Jun Mead 01/02/2021 2:04:08 PM
--- NOTE | 2021-01-03 | CT_ITS ---
Radiation Therapy Planning CT images; total exam DLP: 728.06 mGy-cm MTDD
[2021-01-09] MEDS: morphine 4 mg/mL SDV 1 mL 8 MG IM (14:35)
--- NOTE | 2021-01-10 14:45 | ONCRAD TMN_ITS ---
Radiation Oncology Treatment Management Note Patient Name: Avtar Kerns Date of : 1960 Date of Service: 01/10/2021 Attending Physician: Jun Mead M.D. Avtar Kerns is a 60 year-old white male diagnosed non-small cell lung cancer. A PET scan ordered on December 17, 2020 revealed a new malignant soft tissue implant in the left gluteal muscles (SUV 18.7) with the lesion measuring 6.7 cm x 3.1 cm, an 8.7 cm x 4.5 cm right acetabular mass (SUV 18.8), smaller lesions within the right ilium and proximal left femur, and the known primary lung carcinoma within the right upper lobe (SUV 12.8). The patient presents for palliative radiotherapy to the left gluteal mass and right acetabulum. The patient has received 12 Gy of a prescribed 30 Ho to the right acetabulum and left gluteal mass with two 3-dimensional conformal radiotherapy plans utilizing AP/PA and lateral treatment adams. Upon review of systems, he described improvement with his pain likely due to an increase in the ER morphine dosage. On physical examination, the patient weighed 166 lbs. His temperature was 98.4 ???F with a blood pressure of 94/61 mmHg. His pulse was 75 bpm and his respiratory rate was 20. Continue palliative radiotherapy as prescribed. Signed by: Dr. Jun Mead 01/10/2021 2:43:34 PM
--- NOTE | 2021-01-19 14:57 | N.ONRD TS_ITS ---
Radiation OncologyTreatment Summary Patient Name: Avtar Kerns Date of : 1960 Date of Service: 01/19/2021 Attending Physician: Jun Mead M.D. Avtar Kerns has completed palliative radiotherapy for the management of a metastatic non-small cell lung cancer. A PET scan ordered on December 17, 2020 revealed a new malignant soft tissue implant in the left gluteal muscles (SUV 18.7) with the lesion measuring 6.7 cm x 3.1 cm, an 8.7 cm x 4.5 cm right acetabular mass (SUV 18.8), smaller lesions within the right ilium and proximal left femur, and the known primary lung carcinoma within the right upper lobe (SUV 12.8). The patient presents for palliative radiotherapy to the left gluteal mass and right acetabulum. Daily radiotherapy was administered between the dates of January 04, 2021 through January 17, 2021. A prescribed dose of 30 Gy was delivered in 10 fractions encompassing 14 elapsed days. The right acetabular mass was treated utilizing a 3-dimensional conformal radiotherapy plan with AP/PA adams and a right lateral port. The AP field utilized a 0??? gantry angle with a collimator angle of 90???. The field size measured 7 cm x 7 cm within the X-direction and 7 cm x 7 cm within the Y-direction. The SSD measured 92.2 cm with the field delivering 125 monitor units. An enhanced dynamic wedge of 30??? was utilized. The PA port employed a gantry angle of 180??? and a collimator angle of 90???. The field size was 7 cm x 7 cm within X-direction and 7 cm x 7 cm within the Y-direction. The SSD was 86.9 cm with the field allocating 146 monitor units. A 30??? enhanced dynamic wedge was incorporated. The right lateral field was designed with a gantry angle of 270??? with a collimator angle of 90???. The measured field size was 7.4 cm x 8 cm within the X-direction and 7.2 cm x 7.2 cm within the Y-direction. The measured SSD was 88.3 cm with the field apportioning 115 monitor units. All treatments were performed with the [employer] linear accelerator and an isocentric technique. The dose was calculated by Anisotropic Analytic Algorithm. A photon energy of 15 MV was prescribed with the plan normalized to deliver 100% of the prescription dose to 100% of the planning target volume. The gluteal mass was treated utilizing a 3-dimensional conformal radiotherapy plan with AP/PA adams and a left lateral port. The AP field utilized a 0??? gantry angle with a collimator angle of 90???. The field size measured 5 cm x 5 cm within the X-direction and 7 cm x 7 cm within the Y-direction. The SSD measured 91.7 cm with the field delivering 171 monitor units. An enhanced dynamic wedge of 30??? was utilized. The PA port employed a gantry angle of 180??? and a collimator angle of 90???. The field size was 5 cm x 5 cm within X-direction and 7 cm x 7 cm within the Y-direction. The SSD was 89.9 cm with the field allocating 175 monitor units. A 30??? enhanced dynamic wedge was incorporated. The left lateral field was designed with a gantry angle of 90??? with a collimator angle of 90???. The measured field size was 5.6 cm x 5.6 cm within the X-direction and 5.7 cm x 5.7 cm within the Y-direction. The measured SSD was 93.5 cm with the field apportioning 107 monitor units. All treatments were performed with the [employer] linear accelerator and an isocentric technique. The dose was calculated by Anisotropic Analytic Algorithm. A photon energy of 6 MV was prescribed with the plan normalized to deliver 100% of the prescription dose to 100% of the planning target volume. Signed by: Dr. Jun Mead 01/19/2021 2:57:07 PM
--- NOTE | 2021-01-19 15:19 | ONCRAD TMN_ITS ---
Radiation Oncology Treatment Management Note Patient Name: Avtar Kerns Date of : 1960 Date of Service: 01/19/2021 Attending Physician: Jun Mead M.D. Avtar Kerns is a 60 year-old white male diagnosed non-small cell lung cancer. A PET scan ordered on December 17, 2020 revealed a new malignant soft tissue implant in the left gluteal muscles (SUV 18.7) with the lesion measuring 6.7 cm x 3.1 cm, an 8.7 cm x 4.5 cm right acetabular mass (SUV 18.8), smaller lesions within the right ilium and proximal left femur, and the known primary lung carcinoma within the right upper lobe (SUV 12.8). The patient presents for palliative radiotherapy to the left gluteal mass and right acetabulum. The patient has received 30 Gy of a prescribed 30 Ho to the right acetabulum and left gluteal mass with two 3-dimensional conformal radiotherapy plans utilizing AP/PA and lateral treatment adams. Upon review of systems, he described continued improvement with his pain. On physical examination, the patient weighed 164 lbs. His temperature was 98 ???F with a blood pressure of 91/57 mmHg. His pulse was 98 bpm and his respiratory rate was 20. Palliative radiotherapy was concluded today. Signed by: Dr. Jun Mead 01/19/2021 3:17:27 PM
== END 2021-01-24 23:59 | disposition home or self-care (01) ==
LOC: ONCMED 05:36
PROVIDERS: Internal Medicine Medical Oncology; PCP Nurse Practitioner; Visit Provider Radiology Radiation Oncology
DX: Z51.0 Encounter for antineoplastic radiation therapy (principal); C34.11 Malignant neoplasm of upper lobe, right bronchus or lung; C79.51 Secondary malignant neoplasm of bone; Z79.899 Other long term (current) drug therapy
CPT/HCPCS: 36591; 72197; 77290; 77295; 77300; 77334; 77336; 77387; 77412; 85025; 96372; A9577; J2270

== ENCOUNTER 2021-02-06 08:52 | Outpatient (RCR) | payer OTHER, SELFPAY ==
[2021-02-02 10:16] LABS: Basophils % 0.2 %; Hematocrit 26.1 % (42.0-52.0); Hemoglobin 7.8 g/dL (11.7-16.6); Lymphocytes # 1.1 10^3/uL (0.8-4.8); Lymphocytes % 19.8 %; Mean Corpuscular HGB Conc 29.9 g/dL (30.0-36.0); Mean Corpuscular Hemoglobin 27.8 pg (28.0-34.0); Mean Corpuscular Volume 92.9 fl (80-94); Mean Platelet Volume 8.4 fL (7.4-10.4); Monocytes # 0.5 10^3/uL (0.2-0.9); Monocytes % 10.1 %; Neutrophils # 3.72 10^3/uL (1.8-7.7); Neutrophils % 69.3 %; Nucleated Red Blood Cells % 0 %; Platelet Count 242 10^3/cmm (130-400); Red Blood Count 2.81 10^6/uL (4.1-5.3); Red Cell Distribution Width 17.2 % (12.1-15.1); White Blood Count 5.4 10^3/uL (4.0-10.0)
[2021-02-02 10:44] LABS: Alanine Aminotransferase 9 U/L (0-41); Albumin Level 2.7 g/dL (3.5-5.2); Alkaline Phosphatase 116 IU/L (40-130); Anion Gap 15.8 (5-19); Aspartate Amino Transferase 10 U/L (0-40); Blood Urea Nitrogen 11 mg/dL (6-20); Calcium 8.5 mg/dL (8.5-10.5); Carbon Dioxide 21 mmol/L (22-29); Chloride 93 mmol/L (98-107); Globulin 3.9 g/dL (1.3-4.6); Glomerular Filtration Rate 138.4 mL/min (90-130); Glucose 114 mg/dL (65-115); Osmolality Calculated 262 mOsm/kg (285-295); Potassium 3.8 mmol/L (3.5-5.1); Sodium 126 mmol/L (136-145); Total Bilirubin 0.3 mg/dL (0.15-1.2); Total Protein 6.6 g/dL (6.6-8.7)
--- NOTE | 2021-02-03 07:42 | ONC FU_ITS ---
Dr. Swenson Patient Follow-Up Note Patient: Avtar Kerns Unit #: [id number]: 1960 Dicatated By: Julio Swenson M.D.Date of Visit:Feb 02, 2021 Onc Med Follow-up/Prog Note Chief Complaint: Lung cancer. 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 This is presumed to be from a primary lesion in the upper lobe of the right lung, by clinical evaluation stage IVB (T2a, N0, M1c). He had presented with severe pain in the lower back. It actually started as far back as 2019 and it just continue to progressively worsen. He was seen at the orthopedic clinic by Dr. Umair Lima on 06/14/2020. An MRI of the lumbar spine on 06/23/2020 showed an expansile marrow replacing process, likely neoplasm, involving the S1 and S2 vertebral bodies centered at the S1 level. There was associated epidural disease with moderate to severe narrowing of the cauda equina distally impinging the transversing S1 nerve roots. There was infiltrating signal abnormality extending into the sacral ala bilaterally and also involving the posterior L5 vertebral body. There was moderate central canal stenosis at L5-S1. The findings were consistent with primary bone neoplasm or metastatic disease. Also noted was a partially visualized expansile lesion in the right acetabulum. Further evaluation with MRI of the pelvis on 07/08/2020 showed marrow replacing multifocal neoplasm/metastatic disease involving the right acetabulum with bony expansion extending into the adjacent pubic rami and pubic root. Signal abnormality was noted to extend into the right ilium and right iliac wing. There was additional disease involving the left intertrochanteric femur, with the largest lesion measuring 2.8 x 4.2 cm. The findings involving the S1-S2 vertebral bodies were again noted. Overall, the findings were compatible with neoplasm most likely due to metastatic disease. He was admitted to [facility] where additional evaluation with bone scan and x-rays confirmed evidence of a lytic lesion in the right acetabulum with cortical breakthrough, a large lytic lesion in the sacrum with cortical breakthrough, a lytic lesion in the left femoral intertrochanteric region, and a suspected lytic lesion in the left proximal tibia. Staging CT scans of the chest, abdomen, and pelvis on 07/15/2020 showed a hypoenhancing mass in the upper lobe of the right lung measuring 3.2 x 2.6 cm. It was noted to invade the right upper lobe bronchus and it appeared to be the likely cause of right upper lobe atelectasis. There were no pathologically enlarged lymph nodes in the mediastinum or kya. A 9 mm nodular groundglass opacity was noted in the right lower lobe and a 4 mm calcified granuloma was noted in the right lower lobe. There is no evidence for metastatic disease in the abdominal area. There was evidence of an infiltrative destructive mass centered in the sacrum with soft tissue component extending into the right sacroiliac joint and into the right aspect of the posterior elements of L5. Another infiltrative destructive mass with soft tissue component was seen centered in the right acetabulum with intra-arterial extension and with extension into the fovea of the right femoral head. Another lytic lesion was noted in the left femoral intertrochanteric region. On 07/21/2020 he underwent open biopsy of the left femur along with prophylactic fixation of the left femur with intramedullary maricruz. Pathology showed metastatic squamous cell carcinoma. The PD-L1 22C3 expression by IHC was reported positive at 1 to 10%. He was seen here initially on 08/04/2020. He began on symptomatic management for the bone pain. He was seen by Dr. Mead for palliative radiation. He was given a course of treatment to the sacrum, which he completed on 08/23/2020 to a total dose of 3000 cGy administered in 10 fractions. He tolerated the radiation well. His other medical illnesses include hypertension, hyperlipidemia, type 2 diabetes, and hypothyroidism. He has a history of atrial fibrillation and he also has a history of colonic polyps. He has a history of smoking 1-1/2 to 2 packs of cigarettes daily for 35 years. He quit smoking in November 2019. INTERIM HISTORY: On 09/06/2020 he began systemic therapy with carboplatin/Abraxane chemotherapy administered on a day 1/day 8 schedule every 21 days together with pembrolizumab administered every 21 days. At that point he had become significantly anemic, requiring PRBC transfusion. He was able to tolerate treatment with acceptable toxicity, and he continued with cycle 2 on 09/27/2020, with cycle 3 on 10/18/2020, and with cycle 4 on 11/17/2020. On 11/21/2020 he had been seen by Dr. Fontenot because of left lower quadrant abdominal pain. He improved on empiric antibiotic therapy with ciprofloxacin/metronidazole for suspected diverticulitis. However, because of that illness, his scheduled day 8 chemotherapy treatment was deferred. He was then seen here on 11/29/2020. His symptoms have improved at that point I did opt to proceed with the cycle 4-day treatment. It was administered with Neulasta prophylactically. At his follow-up visit on 12/15/2020 he reported significant worsening of pain, particularly in the left hip area. Restaging PET/CT on 12/17/2020 showed FDG avid right upper lobe pulmonary nodule measuring 1.8 x 2.1 cm, SUV 12.8. There were malignant soft tissue implants noted in the left gluteal muscles with SUV up to 18.7, the dominant lesion measuring 6.7 x 3.1 cm. There was essential replacement of the right acetabulum with an FDG positive destructive mass measuring 8.7 x 4.5 cm, SUV 18.8. Other smaller active lesions were noted in the right iliac bone and proximal left femur. And FDG negative sclerotic change in the sacrum was felt to be consistent with treated metastatic disease. David had further evaluation with MRI of the pelvis on 12/29/2020. It showed a large destructive osseous metastatic mass centered in the right acetabulum with extension through the superior right hip joint and right ilium. Also noted were multifocal soft tissue metastatic deposits surrounding the left hip involving the gluteal muscles and an additional osseous metastatic site involving the left lesser trochanter with extension into the proximal femoral diaphysis. With those findings he was referred to Dr. Mead and he underwent additional palliative radiation to the right acetabular mass and to the left gluteal area. Treatment was completed on 01/19/2021, both sites to a total dose of 3000 cGy administered in 10 fractions. He is seen for a follow-up visit. He has had significant improvement in his pain following the radiation, but he still has very limited activity. He is essentially nonambulatory. His appetite lately has been a little bit better, though still not good. He does not have fever or night sweats. He has not had sore mouth or throat, and he has no difficulty swallowing. He does not complain of cough, shortness of breath, or chest pain. He has nausea occasionally. Bowel function has been adequate with his current bowel regimen. He has no complaints. He still has some pain in his lower back and left hip area, and his mobility is very limited. He has difficulty getting in and out of bed. He does not complain of headache or dizziness. He has some numbness in his feet. Medications: Atorvastatin Calcium 1 (40 mg) Tablet Oral daily, Cetirizine HCl 1 (10 mg) Tablet Oral daily, Dulcolax Tablet, enteric coated Oral PRN, DULoxetine HCl 1 (20 mg) Capsule Delayed Release Particles Oral b.i.d., Eliquis 1 (5 mg) Tablet Oral b.i.d., Famotidine 1 (20 mg) Tablet Oral daily, Levoxyl 1 (200 mcg) Tablet Oral daily, Liothyronine Sodium 1 (5 mcg) Tablet Oral daily, LORazepam 1 (1 mg) Tablet Oral b.i.d., Marinol 1 (5 mg) Capsule Oral b.i.d., metFORMIN HCl 1 (500 mg) Tablet Oral b.i.d., Metoprolol Tartrate 1 (25 mg) Tablet Oral b.i.d., Montelukast Sodium 1 (10 mg) Tablet Oral daily, Morphine Sulfate 1 - 2 Tablet (of 30 mg) Oral q 4 hours PRN, Morphine Sulfate ER 3 Tablet (of 60 mg) Tablet, controlled release Oral b.i.d., Ondansetron 1 - 2 (4 mg) Tablet Dispersable Oral q 4 hours PRN Allergies: No Known Allergies. Vital Signs: Performed on Feb 02, 2021 11:04 Height - 68.00 in Weight - 163.4 lbs (LOW) BSA - 1.88 sq.m BMI - 24.85 Temperature - 98.1 F (LOW) Pulse - 89 /min Respiration - 18 /min BP - 95/65 mm(hg) O2 Sat - 94 % (LOW) Pain - 4 Fatigue - 5 Physical Examination: Constitutional - He appears generally weak, Eyes - Sclerae nonicteric. Conjunctivae clear, ENMT - No lesions noted in the oral cavity, Hematologic/Lymphatic - No cervical, clavicular, or axillary adenopathy, Respiratory - Lungs sound clear, Cardiovascular - Heart rhythm is regular. There is no murmur, gallop, or rub noted, Abdomen - Soft. Liver and spleen are not enlarged. There is no abdominal mass or ascites noted and there is no inguinal adenopathy, Extremities - Slight edema, Neurologic - No focal neurologic deficits noted. Lab/Imaging: Test performed on Feb 02, 2021 09:58 Sodium 126 mmol/L Potassium 3.8 mmol/L Chloride 93 mmol/L CO2 21 mmol/L Anion Gap 15.8 BUN 11 mg/dL Creatinine 0.6 mg/dL Cr Clearance (Est) 140.69 mL/min eGFR 138.4 mL/min Glucose 114 mg/dL Osmolality - Calculated 262 mOsm/kg Calcium 8.5 mg/dL Protein, Total 6.6 g/dL Albumin 2.7 g/dL Globulin 3.9 g/dL Bilirubin, Total 0.3 mg/dL ALT (SGPT) 9 U/L AST (SGOT) 10 U/L Alkaline Phosphatase 116 IU/L WBC 5.4 10 3/uL RBC 2.81 10 6/uL HGB 7.8 g/dL HCT 26.1 % MCV 92.9 fl MCH 27.8 pg MCHC 29.9 g/dL RDW 17.2 % Platelet Count 242 10 3/cmm MPV 8.4 fL Neutrophils 3.72 10 3/uL Lymphocytes 1.1 10 3/uL Monocytes 0.5 10 3/uL Eosinophils 0.0 10 3/uL Basophils 0.0 10 3/uL Neutrophil % 69.3 % Lymphocyte % 19.8 % Monocyte % 10.1 % Eosinophil % 0.0 % Basophils % 0.2 % NRBC % 0 % Problem List: 1. Metastatic squamous cell carcinoma with presumed primary in the upper lobe of the right lung, stage IVB (T2a, N0, M1c). His tumor showed positive PD-L1 22C3 expression by IHC (1 to 10%). 2. He presented with severely painful bony metastatic disease involving multiple sites including the sacrum, right acetabulum, proximal left femur, and possibly the proximal left tibia. 3. Hypertension. 4. Hyperlipidemia. 5. Type 2 diabetes. 6. Atrial fibrillation. 7. History of colonic polyps. Problems Addressed with this Encounter and Plan: 1. Patient with metastatic squamous cell carcinoma with presumed primary in the upper lobe of the right lung, stage IVB (T2a, N0, M1c). His tumor showed positive PD-L1 22C3 expression by IHC (1 to 10%). He presented with severely painful bony metastatic disease involving multiple sites including the sacrum, right acetabulum, proximal left femur, and possibly the proximal left tibia. On 07/21/2019 he underwent open biopsy of the left femur in association with prophylactic fixation of the left femur with intramedullary maricruz. Pathology showed metastatic squamous cell carcinoma. His staging CT scans showed a primary tumor in the upper lobe of the right lung. There was associated right upper lobe atelectasis, but he has not been overtly symptomatic with it. He was given palliative radiation to the sacrum, completed on 08/23/2020 to a total dose of 3000 cGy administered in 10 fractions. He tolerated it well, and he did have symptomatic benefit. On 09/06/2020 he began systemic therapy with carboplatin/Abraxane chemotherapy in combination with pembrolizumab. He tolerated the 1st cycle with acceptable toxicity. He continued with cycle 2 on 09/27/2020. He was seen at day 8 of the 2nd cycle with complaints of low-grade fever along with episodes of feeling hot/sweaty alternating with severe chills. A specific cause was not determined, but there was no evidence of an active infectious process. Overall he had tolerated his treatment with acceptable toxicity, and he had been showing gradual improvement in his performance status. He then continued with cycle 3 of carboplatin/Abraxane/pembrolizumab on 10/18/2020 and with cycle 4 on 11/17/2020. His cycle 4-day 8 treatment was deferred due to suspected acute diverticulitis. At his follow-up visit on 11/30/2019 when he was feeling better, and he then continued his cycle 4-day treatment. It was administered with Neulasta prophylactically. At his follow-up visit on 12/15/2020 he reported significant increased pain, particularly in the left hip area. His restaging PET/CT showed significant disease progression involving the right acetabulum and the left gluteal area, for which she was given additional palliative radiation. His options for further treatment unfortunately are limited given the fact that he had significant disease progression on combined chemotherapy/immunotherapy. In this setting, I think the best option for him will be a trial of second line treatment with afatinib, which may at least delay his further disease progression with relatively low risk for significant toxicities. It will be initiated at a standard dosage of 40 mg daily, subject to verification of insurance coverage. I reviewed anticipated side effects which may include hypertension, skin rash, diarrhea, and fatigue, among others. I will plan a 1-month interval follow-up visit. 2. He has transfusion dependent anemia. At this point it appears most likely to be due to the underlying malignancy. He will be transfused as needed. 3. He has pain associated with metastatic bone involvement in the right hip and with involvement in the left gluteal area. The pain has improved following additional palliative radiation, but he has an ongoing requirement for opiate pain medication. The dosages will be adjusted as necessary. In the meantime, he has very limited mobility which includes difficulty getting in and out of his hospital bed. At this point he would potentially benefit with a trapeze bar, I will put in that request for him. Signed By: Julio Swenson M.D. <<Signature on File>>
[2021-02-06 11:55] VITALS: BP 102/64; PULSE 85; RESP 18; TEMP 37.3; O2SAT 99
[2021-02-06] MEDS: sodium chloride 0.9% 250 ML 999 ML IV (12:00)
[2021-02-06] MEDS: acetaminophen 325 mg Tablet 650 MG PO (12:00)
[2021-02-06] MEDS: diphenhydrAMINE 25 mg Capsule PO (12:00)
[2021-02-06] MEDS: FUROsemide 10 mg/mL SDV 2mL 20 MG IV (13:50)
[2021-02-06 13:55] VITALS: BP 94/67; PULSE 77; RESP 18; TEMP 37.1; O2SAT 98
[2021-02-06 14:10] VITALS: PULSE 78; RESP 18; TEMP 37.3; O2SAT 99
[2021-02-07] MEDS: FUROsemide 10 mg/mL SDV 2mL 20 MG IV (11:00)
== END 2021-02-23 23:59 | disposition home or self-care (01) ==
LOC: ONCMED 08:52
PROVIDERS: PCP Nurse Practitioner; Visit Provider Internal Medicine Medical Oncology
DX: C34.11 Malignant neoplasm of upper lobe, right bronchus or lung (principal); C79.51 Secondary malignant neoplasm of bone; I10 Essential (primary) hypertension; E78.5 Hyperlipidemia, unspecified; E11.9 Type 2 diabetes mellitus without complications; I48.91 Unspecified atrial fibrillation; Z86.010 Personal history of colon polyps; Z79.899 Other long term (current) drug therapy; Z92.21 Personal history of antineoplastic chemotherapy
CPT/HCPCS: 36430; 36591; 80053; 85025; 86850; 86900; 86920; 99215; J1940; J7050; P9016

== ENCOUNTER 2021-02-28 08:04 | Outpatient (CLI) | payer OTHER, SELFPAY ==
--- NOTE | 2021-02-28 08:20 | USCV_ITS ---
NOTE: Report was unsigned for reason: Order was edited. Original Signature date and time was: 02/28/21 @2047 Avtar Kerns Age: 60 Gender: M : 1960 Exam Date: 02/28/2021 08:39 Ordering Phys: Julio Swenson MD Technologist: Ochoa Quiros Exam Location: [facility] [place] Indication: HIGH RISK MEDS BP: 125 / 70 HR: 91 Rhythm: Sinus Technical Quality: Technically difficult study MEASUREMENTS (Male / Female) Normal Values 2D ECHO LV Diastolic Diameter PLAX 3.9 cm 4.2 - 5.9 / 3.9 - 5.3 cm LV Systolic Diameter PLAX 2.4 cm IVS Diastolic Thickness 1.0 cm 0.6 - 1.0 / 0.6 - 0.9 cm IVS Systolic Thickness 1.3 cm LVPW Diastolic Thickness 1.1 cm 0.6 - 1.0 / 0.6 - 0.9 cm LVPW Systolic Thickness 1.2 cm LVOT Diameter 2.2 cm LV Ejection Fraction 2D Teich 67.8 % LA Diameter 3.2 cm FINDINGS Left Ventricle Possibly normal LV size and ejection fraction of around 55%. Technically difficult study because of poor ultrasonic window. Only subcostal views were obtained Right Ventricle Possibly normal LV size and ejection fraction. Right Atrium Possibly of normal size Left Atrium Possibly of normal size Mitral Valve No gross abnormalities noted Aortic Valve No gross abnormalities noted Tricuspid Valve No gross abnormalities noted Pulmonic Valve Pulmonic valve not well visualized. Pericardium No pericardial effusion. Aorta Normal aortic annulus size. CONCLUSIONS Possibly normal LV size and ejection fraction of around 55%. Possibly normal cardiac chamber sizes No intracardiac mass Pericardial effusion Technically difficult study because of poor ultrasonic window Only subcostal views were obtained Dr Azeb Menard MD FACC (Electronically Signed) Final Date: 28 February 2021 20:48 S MTDD
== END 2021-02-28 08:05 | disposition home or self-care (01) ==
PROVIDERS: PCP Nurse Practitioner; Visit Provider Internal Medicine Medical Oncology
DX: Z79.899 Other long term (current) drug therapy (principal); I31.3 Pericardial effusion (noninflammatory)
CPT/HCPCS: 93308

== ENCOUNTER 2021-03-20 06:29 | Outpatient (RCR) | payer OTHER, SELFPAY ==
[2021-02-27 13:27] LABS: Basophils % 0.4 %; Eosinophils % 0.2 %; Hemoglobin 8.5 g/dL (11.7-16.6); Lymphocytes # 0.8 10^3/uL (0.8-4.8); Lymphocytes % 14.8 %; Mean Corpuscular HGB Conc 31.5 g/dL (30.0-36.0); Mean Corpuscular Hemoglobin 27.6 pg (28.0-34.0); Mean Corpuscular Volume 87.7 fl (80-94); Mean Platelet Volume 8.5 fL (7.4-10.4); Monocytes # 0.5 10^3/uL (0.2-0.9); Monocytes % 8.6 %; Neutrophils # 4.25 10^3/uL (1.8-7.7); Neutrophils % 75.6 %; Nucleated Red Blood Cells % 0 %; Platelet Count 213 10^3/cmm (130-400); Red Blood Count 3.08 10^6/uL (4.1-5.3); Red Cell Distribution Width 15.9 % (12.1-15.1); White Blood Count 5.6 10^3/uL (4.0-10.0)
[2021-02-27 13:58] LABS: Alanine Aminotransferase 9 U/L (0-41); Albumin Level 2.6 g/dL (3.5-5.2); Alkaline Phosphatase 99 IU/L (40-130); Anion Gap 11.2 (5-19); Aspartate Amino Transferase 11 U/L (0-40); Blood Urea Nitrogen 12 mg/dL (6-20); Calcium 8.6 mg/dL (8.5-10.5); Carbon Dioxide 26 mmol/L (22-29); Chloride 96 mmol/L (98-107); Globulin 3.2 g/dL (1.3-4.6); Glomerular Filtration Rate 220.9 mL/min (90-130); Glucose 94 mg/dL (65-115); Osmolality Calculated 268 mOsm/kg (285-295); Potassium 4.2 mmol/L (3.5-5.1); Sodium 129 mmol/L (136-145); Total Bilirubin 0.2 mg/dL (0.15-1.2); Total Protein 5.8 g/dL (6.6-8.7)
[2021-03-07 09:32] LABS: Basophils % 0.4 %; Eosinophils % 0.4 %; Hematocrit 27.2 % (42.0-52.0); Hemoglobin 8.5 g/dL (11.7-16.6); Lymphocytes # 0.7 10^3/uL (0.8-4.8); Lymphocytes % 15.4 %; Mean Corpuscular HGB Conc 31.3 g/dL (30.0-36.0); Mean Corpuscular Hemoglobin 27.2 pg (28.0-34.0); Mean Corpuscular Volume 87.2 fl (80-94); Mean Platelet Volume 8.4 fL (7.4-10.4); Monocytes # 0.5 10^3/uL (0.2-0.9); Monocytes % 11.5 %; Neutrophils # 3.36 10^3/uL (1.8-7.7); Neutrophils % 71.9 %; Nucleated Red Blood Cells % 0 %; Platelet Count 252 10^3/cmm (130-400); Red Blood Count 3.12 10^6/uL (4.1-5.3); Red Cell Distribution Width 15.6 % (12.1-15.1); White Blood Count 4.7 10^3/uL (4.0-10.0)
[2021-03-07] MEDS: sodium chloride 0.9% 1,000 mL Bag 1000 ML IV (09:44)
[2021-03-07] MEDS: ondansetron 2 mg/ML SDV 2 mL 8 MG IV (09:44)
[2021-03-07 10:04] LABS: Alanine Aminotransferase 9 U/L (0-41); Alkaline Phosphatase 96 IU/L (40-130); Anion Gap 18.1 (5-19); Aspartate Amino Transferase 11 U/L (0-40); Blood Urea Nitrogen 12 mg/dL (6-20); Calcium 8.7 mg/dL (8.5-10.5); Carbon Dioxide 19 mmol/L (22-29); Chloride 96 mmol/L (98-107); Globulin 3.7 g/dL (1.3-4.6); Glomerular Filtration Rate 115.8 mL/min (90-130); Glucose 98 mg/dL (65-115); Magnesium 1.8 mg/dL (1.7-2.3); Osmolality Calculated 270 mOsm/kg (285-295); Potassium 3.1 mmol/L (3.5-5.1); Sodium 130 mmol/L (136-145); Total Bilirubin 0.5 mg/dL (0.15-1.2); Total Protein 6.7 g/dL (6.6-8.7)
[2021-03-15 08:59] LABS: Basophils % 0.3 %; Eosinophils % 0.3 %; Hematocrit 25.2 % (42.0-52.0); Hemoglobin 8.1 g/dL (11.7-16.6); Lymphocytes # 0.8 10^3/uL (0.8-4.8); Lymphocytes % 19.6 %; Mean Corpuscular HGB Conc 32.1 g/dL (30.0-36.0); Mean Corpuscular Hemoglobin 27.6 pg (28.0-34.0); Mean Corpuscular Volume 85.7 fl (80-94); Mean Platelet Volume 8.4 fL (7.4-10.4); Monocytes # 0.5 10^3/uL (0.2-0.9); Monocytes % 12.8 %; Neutrophils # 2.58 10^3/uL (1.8-7.7); Neutrophils % 65.7 %; Nucleated Red Blood Cells % 0 %; Platelet Count 225 10^3/cmm (130-400); Red Blood Count 2.94 10^6/uL (4.1-5.3); Red Cell Distribution Width 15.8 % (12.1-15.1); White Blood Count 3.9 10^3/uL (4.0-10.0)
[2021-03-15] MEDS: ondansetron 2 mg/ML SDV 2 mL 8 MG IV (09:10)
[2021-03-15] MEDS: sodium chloride 0.9% 500 ML 999 ML IV (09:15)
[2021-03-15 09:23] LABS: Alanine Aminotransferase 17 U/L (0-41); Albumin Level 2.9 g/dL (3.5-5.2); Alkaline Phosphatase 124 IU/L (40-130); Anion Gap 13.6 (5-19); Aspartate Amino Transferase 15 U/L (0-40); Blood Urea Nitrogen 9 mg/dL (6-20); Calcium 8.3 mg/dL (8.5-10.5); Carbon Dioxide 23 mmol/L (22-29); Chloride 93 mmol/L (98-107); Globulin 3.1 g/dL (1.3-4.6); Glomerular Filtration Rate 170.8 mL/min (90-130); Glucose 99 mg/dL (65-115); Osmolality Calculated 261 mOsm/kg (285-295); Potassium 3.6 mmol/L (3.5-5.1); Sodium 126 mmol/L (136-145); Total Bilirubin 0.4 mg/dL (0.15-1.2)
[2021-03-20] VITALS (11 sets, daily range): BP systolic 102–108; BP diastolic 61–76; PULSE 76–84; RESP 18; TEMP 36.3–36.7; O2SAT 96–98
[2021-03-20 09:03] LABS: Basophils % 0.2 %; Eosinophils % 0.2 %; Hematocrit 24.9 % (42.0-52.0); Hemoglobin 7.8 g/dL (11.7-16.6); Lymphocytes # 0.7 10^3/uL (0.8-4.8); Lymphocytes % 15.9 %; Mean Corpuscular HGB Conc 31.3 g/dL (30.0-36.0); Mean Corpuscular Hemoglobin 27.4 pg (28.0-34.0); Mean Corpuscular Volume 87.4 fl (80-94); Mean Platelet Volume 8.4 fL (7.4-10.4); Monocytes # 0.4 10^3/uL (0.2-0.9); Monocytes % 8.7 %; Neutrophils # 3.43 10^3/uL (1.8-7.7); Neutrophils % 74.6 %; Nucleated Red Blood Cells % 0 %; Platelet Count 191 10^3/cmm (130-400); Red Blood Count 2.85 10^6/uL (4.1-5.3); White Blood Count 4.6 10^3/uL (4.0-10.0)
[2021-03-20] MEDS: sodium chloride 0.9% 250 ML 999 ML IV (10:15)
[2021-03-20] MEDS: diphenhydrAMINE 25 mg Capsule PO (10:20)
[2021-03-20] MEDS: acetaminophen 325 mg Tablet 650 MG PO (10:20)
[2021-03-20] MEDS: FUROsemide 10 mg/mL SDV 2mL 20 MG IV (12:30)
--- NOTE | 2021-03-30 21:25 | ONC FU_ITS ---
[facility] Patient Note Patient: Avtar Kerns Unit #: [id number]: 1960 Dictated By: Amna RockDate of Visit: Mar 15, 2021 Onc MED Follow-Up/Prog Note Chief Complaint: Metastatic Lung cancer. 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 This is presumed to be from a primary lesion in the upper lobe of the right lung, by clinical evaluation stage IVB (T2a, N0, M1c). He had presented with severe pain in the lower back. It actually started as far back as 2019 and it just continue to progressively worsen. He was seen at the orthopedic clinic by Dr. Umair Lima on 06/14/2020. An MRI of the lumbar spine on 06/23/2020 showed an expansile marrow replacing process, likely neoplasm, involving the S1 and S2 vertebral bodies centered at the S1 level. There was associated epidural disease with moderate to severe narrowing of the cauda equina distally impinging the transversing S1 nerve roots. There was infiltrating signal abnormality extending into the sacral ala bilaterally and also involving the posterior L5 vertebral body. There was moderate central canal stenosis at L5-S1. The findings were consistent with primary bone neoplasm or metastatic disease. Also noted was a partially visualized expansile lesion in the right acetabulum. Further evaluation with MRI of the pelvis on 07/08/2020 showed marrow replacing multifocal neoplasm/metastatic disease involving the right acetabulum with bony expansion extending into the adjacent pubic rami and pubic root. Signal abnormality was noted to extend into the right ilium and right iliac wing. There was additional disease involving the left intertrochanteric femur, with the largest lesion measuring 2.8 x 4.2 cm. The findings involving the S1-S2 vertebral bodies were again noted. Overall, the findings were compatible with neoplasm most likely due to metastatic disease. He was admitted to [facility] where additional evaluation with bone scan and x-rays confirmed evidence of a lytic lesion in the right acetabulum with cortical breakthrough, a large lytic lesion in the sacrum with cortical breakthrough, a lytic lesion in the left femoral intertrochanteric region, and a suspected lytic lesion in the left proximal tibia. Staging CT scans of the chest, abdomen, and pelvis on 07/15/2020 showed a hypoenhancing mass in the upper lobe of the right lung measuring 3.2 x 2.6 cm. It was noted to invade the right upper lobe bronchus and it appeared to be the likely cause of right upper lobe atelectasis. There were no pathologically enlarged lymph nodes in the mediastinum or kya. A 9 mm nodular groundglass opacity was noted in the right lower lobe and a 4 mm calcified granuloma was noted in the right lower lobe. There is no evidence for metastatic disease in the abdominal area. There was evidence of an infiltrative destructive mass centered in the sacrum with soft tissue component extending into the right sacroiliac joint and into the right aspect of the posterior elements of L5. Another infiltrative destructive mass with soft tissue component was seen centered in the right acetabulum with intra-arterial extension and with extension into the fovea of the right femoral head. Another lytic lesion was noted in the left femoral intertrochanteric region. On 07/21/2020 he underwent open biopsy of the left femur along with prophylactic fixation of the left femur with intramedullary maricruz. Pathology showed metastatic squamous cell carcinoma. The PD-L1 22C3 expression by IHC was reported positive at 1 to 10%. He was seen here initially on 08/04/2020. He began on symptomatic management for the bone pain. He was seen by Dr. Mead for palliative radiation. He was given a course of treatment to the sacrum, which he completed on 08/23/2020 to a total dose of 3000 cGy administered in 10 fractions. He tolerated the radiation well. His other medical illnesses include hypertension, hyperlipidemia, type 2 diabetes, and hypothyroidism. He has a history of atrial fibrillation and he also has a history of colonic polyps. He has a history of smoking 1-1/2 to 2 packs of cigarettes daily for 35 years. He quit smoking in November 2019. INTERIM HISTORY: On 09/06/2020 he began systemic therapy with carboplatin/Abraxane chemotherapy administered on a day 1/day 8 schedule every 21 days together with pembrolizumab administered every 21 days. At that point he had become significantly anemic, requiring PRBC transfusion. He was able to tolerate treatment with acceptable toxicity, and he continued with cycle 2 on 09/27/2020, with cycle 3 on 10/18/2020, and with cycle 4 on 11/17/2020. On 11/21/2020 he had been seen by Dr. Fontenot because of left lower quadrant abdominal pain. He improved on empiric antibiotic therapy with ciprofloxacin/metronidazole for suspected diverticulitis. However, because of that illness, his scheduled day 8 chemotherapy treatment was deferred. He was then seen here on 11/29/2020. His symptoms have improved at that point and Dr Swenson did opt to proceed with the cycle 4-day 1 treatment. It was administered with Neulasta prophylactically. At his follow-up visit on 12/15/2020, he reported significant worsening of pain, particularly in the left hip area. Restaging PET/CT on 12/17/2020 showed FDG avid right upper lobe pulmonary nodule measuring 1.8 x 2.1 cm, SUV 12.8. There were malignant soft tissue implants noted in the left gluteal muscles with SUV up to 18.7, the dominant lesion measuring 6.7 x 3.1 cm. There was essential replacement of the right acetabulum with an FDG positive destructive mass measuring 8.7 x 4.5 cm, SUV 18.8. Other smaller active lesions were noted in the right iliac bone and proximal left femur. A FDG negative sclerotic change in the sacrum was felt to be consistent with treated metastatic disease. He had further evaluation with MRI of the pelvis on 12/29/2020. It showed a large destructive osseous metastatic mass centered in the right acetabulum with extension through the superior right hip joint and right ilium. Also noted were multifocal soft tissue metastatic deposits surrounding the left hip involving the gluteal muscles and an additional osseous metastatic site involving the left lesser trochanter with extension into the proximal femoral diaphysis. With those findings he was referred to Dr. Mead and he underwent additional palliative radiation to the right acetabular mass and to the left gluteal area. Treatment was completed on 01/19/2021, both sites to a total dose of 3000 cGy administered in 10 fractions. He was seen by Dr Swenson on 02/02/2021 for a follow-up visit. He had had significant improvement in his pain following the radiation, but he still had very limited activity. He was essentially nonambulatory. He was also found to be anemic at that point with a hemoglobin of 7.8 hematocrit of 26.1. He received 2 units of packed red blood cells on February 06, 2021. It was recommended that he pursue second line treatment with afatinib 40 mg orally daily. He states that he started on the afatinib on March 01, 2021. He is here today for follow-up. He reports overall he is feeling better. He is still tired and his mobility is limited but his pain overall is better. He reports no adverse reactions to the afatinib at this point. States his only been on it for 2 weeks but feels he is tolerating it well. His last transfusion was on February 06, 2021 but his hemoglobin has steadily dropped. He has had weekly interim counts and his hemoglobin has ranged from 8.5-8.1 today. He states he really does not feel that he needs blood right now but may in the next week or so as he is feeling more short of breath and some fatigue. He did not want to arrange blood today. He is opted to come back on March 21 for the transfusion services. He denies any nausea or vomiting with the afatinib. He denies any mouth sores, sore throat or difficulty swallowing. He states that he is eating relatively well. He states he is moving around some better. He is still not walking fully but still the pain in his hips are much better. He is jovial and very responsive today. He denies any headaches or vision changes. His ECOG is 3. Past Medical History: Atrial fibrillation History of colonic polyps Hyperlipidemia Hypertension Hypothyroidism Type II diabetes Past Surgical History: Tonsillectomy Left chest wall venous access device placement-Dr [facility]enot[facility] in 2020 Prophylactic fixation of the left femur and open biopsy of left femur in 2020 Colonoscopy in 2019 Allergies: No Known Allergies. Medications: Atorvastatin Calcium 1 (40 mg) Tablet Oral daily Cetirizine HCl 1 (10 mg) Tablet Oral daily Dulcolax Tablet, enteric coated Oral PRN DULoxetine HCl 1 (20 mg) Capsule Delayed Release Particles Oral b.i.d. Eliquis 1 (5 mg) Tablet Oral b.i.d. Famotidine 1 (20 mg) Tablet Oral daily Levoxyl 1 (200 mcg) Tablet Oral daily Liothyronine Sodium 1 (5 mcg) Tablet Oral daily LORazepam 1 (1 mg) Tablet Oral b.i.d. Marinol 1 (5 mg) Capsule Oral b.i.d. metFORMIN HCl 1 (500 mg) Tablet Oral b.i.d. Metoprolol Tartrate 1 (25 mg) Tablet Oral b.i.d. Montelukast Sodium 1 (10 mg) Tablet Oral daily Morphine Sulfate 1 - 2 Tablet (of 30 mg) Oral q 4 hours PRN Morphine Sulfate ER 3 Tablet (of 60 mg) Tablet, controlled release Oral b.i.d. Ondansetron 1 - 2 (4 mg) Tablet Dispersable Oral q 4 hours PRN Family History: Mr. Kerns's mother at age 63: Cancer. Mr. Kerns's father at age 65: myocardial infarction. Father of heart attack at age 65. Mother of lung cancer at age 63. Three sisters are in good health. A 17-year-old daughter has juvenile rheumatoid arthritis. Social History: Mr. Kerns is . He quit smoking 1 year ago but had smoked 3.0 packs/day for 30 years. He drinks occasionally. 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 He has a history of smoking 1-1/2 to 2 packs of cigarettes daily for 35 years. He quit in November 2019. He has moderate alcohol use with a mixed drink 4 to 5 days a week. Review Of Symptoms: <See Above> Vital Signs: Performed on Mar 15, 2021 10:25 Height - 68.00 in Temperature - 97.6 F (LOW) Pulse - 89 /min Respiration - 18 /min BP - 92/51 mm(hg) O2 Sat - 98 % Pain - 2 Fatigue - 6 Performed on Mar 15, 2021 09:00 Height - 68.00 in Temperature - 97.6 F (LOW) Pulse - 88 /min Respiration - 18 /min BP - 108/59 mm(hg) O2 Sat - 96 % Pain - 0 Fatigue - 6,2 - Ambulatory/capable of all self-care, unable to perform any work activities. Up and about more than 50% of waking hours. (ECOG) Physical Examination: Constitutional Alert, oriented, no acute distress. Skin pink, warm and dry. Head Normocephalic; atraumatic. Eyes Conjunctivae and sclerae are clear and without icterus. Pupils are reactive and equal. Neck Supple without masses or thyromegaly. No jugular venous distension. Respiratory Lungs are clear to auscultation without rhonchi or wheezing. Cardiovascular Regular rate and rhythm of heart without murmurs,clicks, gallops or rubs. Chest Chest is symmetric without chest wall deformities. Left chest wall venous access device is unremarkable. Back/Spine Non-tender to palpation. Extremities No visible deformities, no cyanosis, clubbing or edema. Integumentary No rashes or lesions. Psychiatric Alert and oriented times three. Coherent speech. Verbalizes understanding of our discussions today. Laboratory:Test performed on Mar 15, 2021 08:35 Sodium 126 mmol/L Potassium 3.6 mmol/L Chloride 93 mmol/L CO2 23 mmol/L Anion Gap 13.6 BUN 9 mg/dL Creatinine 0.5 mg/dL Cr Clearance (Est) 168.8200 mL/min eGFR 170.8 mL/min Glucose 99 mg/dL Osmolality - Calculated 261 mOsm/kg Calcium 8.3 mg/dL Protein, Total 6.0 g/dL Albumin 2.9 g/dL Globulin 3.1 g/dL Bilirubin, Total 0.4 mg/dL ALT (SGPT) 17 U/L AST (SGOT) 15 U/L Alkaline Phosphatase 124 IU/L WBC 3.9 10 3/uL RBC 2.94 10 6/uL HGB 8.1 g/dL HCT 25.2 % MCV 85.7 fl MCH 27.6 pg MCHC 32.1 g/dL RDW 15.8 % Platelet Count 225 10 3/cmm MPV 8.4 fL Neutrophils 2.58 10 3/uL Lymphocytes 0.8 10 3/uL Monocytes 0.5 10 3/uL Eosinophils 0.0 10 3/uL Basophils 0.0 10 3/uL Neutrophil % 65.7 % Lymphocyte % 19.6 % Monocyte % 12.8 % Eosinophil % 0.3 % Basophils % 0.3 % NRBC % 0 % Impression: 1. Metastatic squamous cell carcinoma with presumed primary in the upper lobe of the right lung, stage IVB (T2a, N0, M1c). His tumor showed positive PD-L1 22C3 expression by IHC (1 to 10%). 2. He presented with severely painful bony metastatic disease involving multiple sites including the sacrum, right acetabulum, proximal left femur, and possibly the proximal left tibia. 3. Hypertension. 4. Hyperlipidemia. 5. Type 2 diabetes. 6. Atrial fibrillation. 7. History of colonic polyps. Plan/Problems Addressed at this Visit: 1. Metastatic squamous cell carcinoma with presumed primary in the upper lobe of the right lung, stage IVB (T2a, N0, M1c). His tumor showed positive PD-L1 22C3 expression by IHC (1 to 10%). He presented with severely painful bony metastatic disease involving multiple sites including the sacrum, right acetabulum, proximal left femur, and possibly the proximal left tibia. On 07/21/2019 he underwent open biopsy of the left femur in association with prophylactic fixation of the left femur with intramedullary maricruz. Pathology showed metastatic squamous cell carcinoma. His staging CT scans showed a primary tumor in the upper lobe of the right lung. There was associated right upper lobe atelectasis, but he has not been overtly symptomatic with it. He was given palliative radiation to the sacrum, completed on 08/23/2020 to a total dose of 3000 cGy administered in 10 fractions. He tolerated it well, and he did have symptomatic benefit. On 09/06/2020 he began systemic therapy with carboplatin/Abraxane chemotherapy in combination with pembrolizumab. He tolerated the 1st cycle with acceptable toxicity. He continued with cycle 2 on 09/27/2020. He was seen at day 8 of the 2nd cycle with complaints of low-grade fever along with episodes of feeling hot/sweaty alternating with severe chills. A specific cause was not determined, but there was no evidence of an active infectious process. Overall he had tolerated his treatment with acceptable toxicity, and he had been showing gradual improvement in his performance status. He then continued with cycle 3 of carboplatin/Abraxane/pembrolizumab on 10/18/2020 and with cycle 4 on 11/17/2020. His cycle 4-day 8 treatment was deferred due to suspected acute diverticulitis. At his follow-up visit on 11/30/2019 when he was feeling better, and he then continued his cycle 4-day treatment. It was administered with Neulasta prophylactically. At his follow-up visit on 12/15/2020 he reported significant increased pain, particularly in the left hip area. His restaging PET/CT showed significant disease progression involving the right acetabulum and the left gluteal area, for which she was given additional palliative radiation. His options for further treatment unfortunately are limited given the fact that he had significant disease progression on combined chemotherapy/immunotherapy. In this setting, Dr Swenson has recommended a trial of second line treatment with afatinib, which may at least delay his further disease progression with relatively low risk for significant toxicities. A. Proceed with afatinib 40 mg daily. He started this on 03/01/2021 per his report. B. He has not had any hyper pretension. His blood pressure today is reported 92/51. C. He may utilize Compazine and lorazepam as needed for nausea. Thus far has not had any problems. D. Today's labs reviewed in detail discussed with Mr. Kerns and a copy was given to him. Today BC 3.9, hemoglobin 8.1, platelets 225,000 ANC is 2580. Potassium 3.6 creatinine 0.5 random glucose was 99 and LFTs are normal. E. We will plan for weekly CBC CMP and typenex. F. In regards to the follow-up for the half at night he will need to be seen at least monthly. G. Mr Kerns was reminded NO GRAPEFRUIT PRODUCTS WITH AFATINIB. H. Mr. Kerns was instructed to contact us in interim should questions or problems arise. I. Echocardiogram from 02/28/2021 reports left ventricular ejection fraction around 55% and possible normal LV size . There is no intracardiac mass. It was reported as a technically difficult study because of poor ultrasonic window. Only subcostal views were obtained. 2. He has transfusion dependent anemia. At this point it appears most likely to be due to the underlying malignancy. He will be transfused as needed. A. His last transfusion services was on 02/06/2021 at which time his hemoglobin was 9.8. B. We will plan to schedule him for transfusion services on 03/20/2021 as his hemoglobin today is 8.1 and he is short of breath and having fatigue. He states he also thinks he may have had some chest pain off and on. He denies any chest pain currently. 3. He has pain associated with metastatic bone involvement in the right hip and with involvement in the left gluteal area. The pain has improved following additional palliative radiation, but he has an ongoing requirement for opiate pain medication. The dosages will be adjusted as necessary. 4. Metastatic bone involvement in the sacrum, proximal left femur and possibly the left proximal tibia amd most recently right hip and left gluteal mass status post radiation therapy. Radiation therapy was completed on the right acetabular mass and the left gluteal area on 01/19/2021 to a total dose of 3000 cGy in 10 fractions to both sites. A. We will request a prior authorization for denosumab monthly. Signed By: Amna Rock-, AOCNP Julio Swenson MD <<Signature on File>>
== END 2021-03-26 23:59 | disposition home or self-care (01) ==
LOC: ONCMED 06:29
PROVIDERS: Internal Medicine Hematology & Oncology; PCP Nurse Practitioner; Visit Provider Nurse Practitioner
DX: C34.11 Malignant neoplasm of upper lobe, right bronchus or lung (principal); C79.51 Secondary malignant neoplasm of bone; D64.89 Other specified anemias
CPT/HCPCS: 36430; 36591; 80053; 83735; 85025; 86850; 86900; 86920; 96361; 96365; 96375; 99215; J1100; J1940; J2405; J7030; J7040; J7050; P9016

== ENCOUNTER 2021-04-12 05:53 | Outpatient (RCR) | payer OTHER, SELFPAY ==
[2021-04-12 11:33] LABS: Basophils % 0.2 %; Eosinophils % 0.2 %; Hematocrit 27.3 % (42.0-52.0); Hemoglobin 8.3 g/dL (11.7-16.6); Lymphocytes # 0.8 10^3/uL (0.8-4.8); Lymphocytes % 12.3 %; Mean Corpuscular HGB Conc 30.4 g/dL (30.0-36.0); Mean Corpuscular Hemoglobin 27.4 pg (28.0-34.0); Mean Corpuscular Volume 90.1 fl (80-94); Mean Platelet Volume 8.5 fL (7.4-10.4); Monocytes # 0.5 10^3/uL (0.2-0.9); Neutrophils # 5.28 10^3/uL (1.8-7.7); Neutrophils % 79.7 %; Nucleated Red Blood Cells % 0 %; Platelet Count 252 10^3/cmm (130-400); Red Blood Count 3.03 10^6/uL (4.1-5.3); Red Cell Distribution Width 14.9 % (12.1-15.1); White Blood Count 6.6 10^3/uL (4.0-10.0)
[2021-04-12 11:48] LABS: Alanine Aminotransferase 15 U/L (0-41); Albumin Level 2.8 g/dL (3.5-5.2); Alkaline Phosphatase 159 IU/L (40-130); Anion Gap 12.9 (5-19); Aspartate Amino Transferase 12 U/L (0-40); Blood Urea Nitrogen 10 mg/dL (6-20); Calcium 7.4 mg/dL (8.5-10.5); Carbon Dioxide 25 mmol/L (22-29); Chloride 97 mmol/L (98-107); Globulin 3.3 g/dL (1.3-4.6); Glomerular Filtration Rate 138.4 mL/min (90-130); Glucose 94 mg/dL (65-115); Osmolality Calculated 271 mOsm/kg (285-295); Potassium 3.9 mmol/L (3.5-5.1); Sodium 131 mmol/L (136-145); Total Bilirubin 0.3 mg/dL (0.15-1.2); Total Protein 6.1 g/dL (6.6-8.7)
--- NOTE | 2021-04-27 17:14 | ONC FU_ITS ---
[facility] Patient Note Patient: Avtar Kerns Unit #: [id number]: 1960 Dictated By: Amna RockDate of Visit: Apr 12, 2021 Onc MED Follow-Up/Prog Note Chief Complaint: Lung cancer. 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 This is presumed to be from a primary lesion in the upper lobe of the right lung, by clinical evaluation stage IVB (T2a, N0, M1c). He had presented with severe pain in the lower back. It actually started as far back as 2019 and it just continue to progressively worsen. He was seen at the orthopedic clinic by Dr. Umair Lima on 06/14/2020. An MRI of the lumbar spine on 06/23/2020 showed an expansile marrow replacing process, likely neoplasm, involving the S1 and S2 vertebral bodies centered at the S1 level. There was associated epidural disease with moderate to severe narrowing of the cauda equina distally impinging the transversing S1 nerve roots. There was infiltrating signal abnormality extending into the sacral ala bilaterally and also involving the posterior L5 vertebral body. There was moderate central canal stenosis at L5-S1. The findings were consistent with primary bone neoplasm or metastatic disease. Also noted was a partially visualized expansile lesion in the right acetabulum. Further evaluation with MRI of the pelvis on 07/08/2020 showed marrow replacing multifocal neoplasm/metastatic disease involving the right acetabulum with bony expansion extending into the adjacent pubic rami and pubic root. Signal abnormality was noted to extend into the right ilium and right iliac wing. There was additional disease involving the left intertrochanteric femur, with the largest lesion measuring 2.8 x 4.2 cm. The findings involving the S1-S2 vertebral bodies were again noted. Overall, the findings were compatible with neoplasm most likely due to metastatic disease. He was admitted to [facility] where additional evaluation with bone scan and x-rays confirmed evidence of a lytic lesion in the right acetabulum with cortical breakthrough, a large lytic lesion in the sacrum with cortical breakthrough, a lytic lesion in the left femoral intertrochanteric region, and a suspected lytic lesion in the left proximal tibia. Staging CT scans of the chest, abdomen, and pelvis on 07/15/2020 showed a hypoenhancing mass in the upper lobe of the right lung measuring 3.2 x 2.6 cm. It was noted to invade the right upper lobe bronchus and it appeared to be the likely cause of right upper lobe atelectasis. There were no pathologically enlarged lymph nodes in the mediastinum or kya. A 9 mm nodular groundglass opacity was noted in the right lower lobe and a 4 mm calcified granuloma was noted in the right lower lobe. There is no evidence for metastatic disease in the abdominal area. There was evidence of an infiltrative destructive mass centered in the sacrum with soft tissue component extending into the right sacroiliac joint and into the right aspect of the posterior elements of L5. Another infiltrative destructive mass with soft tissue component was seen centered in the right acetabulum with intra-arterial extension and with extension into the fovea of the right femoral head. Another lytic lesion was noted in the left femoral intertrochanteric region. On 07/21/2020 he underwent open biopsy of the left femur along with prophylactic fixation of the left femur with intramedullary maricruz. Pathology showed metastatic squamous cell carcinoma. The PD-L1 22C3 expression by IHC was reported positive at 1 to 10%. He was seen here initially on 08/04/2020. He began on symptomatic management for the bone pain. He was seen by Dr. Mead for palliative radiation. He was given a course of treatment to the sacrum, which he completed on 08/23/2020 to a total dose of 3000 cGy administered in 10 fractions. He tolerated the radiation well. His other medical illnesses include hypertension, hyperlipidemia, type 2 diabetes, and hypothyroidism. He has a history of atrial fibrillation and he also has a history of colonic polyps. He has a history of smoking 1-1/2 to 2 packs of cigarettes daily for 35 years. He quit smoking in November 2019. INTERIM HISTORY: On 09/06/2020 he began systemic therapy with carboplatin/Abraxane chemotherapy administered on a day 1/day 8 schedule every 21 days together with pembrolizumab administered every 21 days. At that point he had become significantly anemic, requiring PRBC transfusion. He was able to tolerate treatment with acceptable toxicity, and he continued with cycle 2 on 09/27/2020, with cycle 3 on 10/18/2020, and with cycle 4 on 11/17/2020. On 11/21/2020 he had been seen by Dr. Fontenot because of left lower quadrant abdominal pain. He improved on empiric antibiotic therapy with ciprofloxacin/metronidazole for suspected diverticulitis. However, because of that illness, his scheduled day 8 chemotherapy treatment was deferred. He was then seen here on 11/29/2020. His symptoms have improved at that point and Dr Swenson did opt to proceed with the cycle 4-day 1 treatment. It was administered with Neulasta prophylactically. At his follow-up visit on 12/15/2020, he reported significant worsening of pain, particularly in the left hip area. Restaging PET/CT on 12/17/2020 showed FDG avid right upper lobe pulmonary nodule measuring 1.8 x 2.1 cm, SUV 12.8. There were malignant soft tissue implants noted in the left gluteal muscles with SUV up to 18.7, the dominant lesion measuring 6.7 x 3.1 cm. There was essential replacement of the right acetabulum with an FDG positive destructive mass measuring 8.7 x 4.5 cm, SUV 18.8. Other smaller active lesions were noted in the right iliac bone and proximal left femur. A FDG negative sclerotic change in the sacrum was felt to be consistent with treated metastatic disease. He had further evaluation with MRI of the pelvis on 12/29/2020. It showed a large destructive osseous metastatic mass centered in the right acetabulum with extension through the superior right hip joint and right ilium. Also noted were multifocal soft tissue metastatic deposits surrounding the left hip involving the gluteal muscles and an additional osseous metastatic site involving the left lesser trochanter with extension into the proximal femoral diaphysis. With those findings he was referred to Dr. Mead and he underwent additional palliative radiation to the right acetabular mass and to the left gluteal area. Treatment was completed on 01/19/2021, both sites to a total dose of 3000 cGy administered in 10 fractions. He was seen by Dr Swenson on 02/02/2021 for a follow-up visit. He had had significant improvement in his pain following the radiation, but he still had very limited activity. He was essentially nonambulatory. He was also found to be anemic at that point with a hemoglobin of 7.8 hematocrit of 26.1. He received 2 units of packed red blood cells on February 06, 2021. It was recommended that he pursue second line treatment with afatinib 40 mg orally daily. He states that he started on the afatinib on March 01, 2021. He is here today for follow-up. He reports overall he is feeling ok . He is still tired and his mobility is limited but his pain overall is some better. He reports no adverse reactions to the afatinib at this point. His last transfusion was on 03/20/2021. His hemoglobin today is 8.3 but he states he really does not feel like he needs blood today. He states he will just call us if he feels that he is needing blood. His main concern today is that his left great toenail has been oozing. He is also wondering if he could do his Covid booster. Given that his ANC is greater than 1000 he is cleared to go ahead and pursue his [employer] Covid booster. He denies any new shortness of breath or orthopnea. He still has shortness of breath due to the anemia, but states that stable at present. He denies any fever or chills. He denies any nausea or vomiting. He states that he is eating good. His energy is still low but no worse than what it has been. He denies any skin rashes or lesions. He denies any diarrhea or constipation. He states he is had some intermittent nausea but nothing that bothers him tremendously. If he does have some nausea he can take a nausea medicine and it relieves it quickly. He has no particular complaints overall other than his great toenail which he states his made him report. His mobility is assisted by his wheelchair which he can self propel for the most part but his mobility is greatly limited overall. Due to the mobility limitations his ECOG is 3. He is jovial and very responsive today. He denies any headaches or vision changes. Past Medical History: Atrial fibrillation History of colonic polyps Hyperlipidemia Hypertension Hypothyroidism Type II diabetes Past Surgical History: [facility] Prophylactic fixation of the left femur and open biopsy of left femur in 2020 Colonoscopy in 2019 Allergies: No Known Allergies. Medications: Atorvastatin Calcium 1 (40 mg) Tablet Oral daily Cetirizine HCl 1 (10 mg) Tablet Oral daily Doxycycline Hyclate 1 Tablet (of 100 mg) Oral b.i.d. for 14 days Dulcolax Tablet, enteric coated Oral PRN DULoxetine HCl 1 (20 mg) Capsule Delayed Release Particles Oral b.i.d. Eliquis 1 (5 mg) Tablet Oral b.i.d. Famotidine 1 (20 mg) Tablet Oral daily Levoxyl 1 (200 mcg) Tablet Oral daily Liothyronine Sodium 1 (5 mcg) Tablet Oral daily LORazepam 1 (1 mg) Tablet Oral b.i.d. Marinol 1 (5 mg) Capsule Oral b.i.d. metFORMIN HCl 1 (500 mg) Tablet Oral b.i.d. Metoprolol Tartrate 1 (25 mg) Tablet Oral b.i.d. Montelukast Sodium 1 (10 mg) Tablet Oral daily Morphine Sulfate 1 - 2 Tablet (of 30 mg) Oral q 4 hours PRN Morphine Sulfate ER 3 Tablet (of 60 mg) Tablet, controlled release Oral b.i.d. Ondansetron 1 - 2 (4 mg) Tablet Dispersable Oral q 4 hours PRN predniSONE (5 ) Tablet Therapy Pack Oral Take as Directed Family History: Mr. Kerns's mother at age 63: Cancer. Mr. Kerns's father at age 65: myocardial infarction. Father of heart attack at age 65. Mother of lung cancer at age 63. Three sisters are in good health. A 17-year-old daughter has juvenile rheumatoid arthritis. Social History: Mr. Kerns is . He quit smoking 1 year ago but had smoked 3.0 packs/day for 30 years. He drinks occasionally. 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 He has a history of smoking 1-1/2 to 2 packs of cigarettes daily for 35 years. He quit in November 2019. He has moderate alcohol use with a mixed drink 4 to 5 days a week. Review Of Symptoms: <See Above> Vital Signs: Performed on Apr 12, 2021 13:05 Height - 68.00 in Temperature - 97.5 F (LOW) Pulse - 85 /min Respiration - 18 /min BP - 91/61 mm(hg) O2 Sat - 91 % (LOW) Pain - 5 Fatigue - 7,3 - Capable of only limited self-care, confined to bed or chair more than 50% of waking hours. (ECOG) Physical Examination: Constitutional Alert, oriented, no acute distress. Skin pink, warm and dry. Head Normocephalic; atraumatic. Eyes Conjunctivae and sclerae are clear and without icterus. Pupils are reactive and equal. ENMT No oral exudates, ulcers, masses, thrush or mucositis. Oropharynx clear. Tongue normal. Neck Supple without masses or thyromegaly. No jugular venous distension. Hematologic/Lymphatic No petechiae or purpura. No tender or palpable lymph nodes in the cervical or supraclavicular areas. Respiratory Lungs are clear to auscultation without rhonchi or wheezing. Cardiovascular Regular rate and rhythm of heart without murmurs,clicks, gallops or rubs. Chest Chest is symmetric without chest wall deformities. Left chest wall venous access device is unremarkable. Abdomen Non-tender, non-distended, no masses or ascites. Good bowel sounds noted in all quads. No guarding or rebound tenderness. No pulsatile masses. Back/Spine Non-tender to palpation. Extremities No visible deformities, no cyanosis, clubbing or edema. Musculoskeletal No tenderness or swelling, limited range of motion with obvious weakness bilaterally. Ambulation assistance with his specialized wheelchair which is self r propelled Integumentary No rashes or lesions. Psychiatric Alert and oriented times three. Coherent speech. Verbalizes understanding of our discussions today. Laboratory:Test performed on Apr 24, 2021 08:35 Sodium 134 mmol/L Potassium 3.9 mmol/L Chloride 100 mmol/L CO2 24 mmol/L Anion Gap 13.9 BUN 9 mg/dL Creatinine 0.5 mg/dL Cr Clearance (Est) 168.8200 mL/min eGFR 170.8 mL/min Glucose 103 mg/dL Osmolality - Calculated 277 mOsm/kg Calcium 7.9 mg/dL Protein, Total 6.3 g/dL Albumin 3.0 g/dL Globulin 3.3 g/dL Bilirubin, Total 0.3 mg/dL ALT (SGPT) 12 U/L AST (SGOT) 14 U/L Alkaline Phosphatase 142 IU/L Leukocyte Reduced RBC [id number] ON RCLR XM COMPATIBLE WBC 4.5 10 3/uL RBC 2.79 10 6/uL HGB 7.8 g/dL HCT 24.3 % MCV 87.1 fl MCH 28.0 pg MCHC 32.1 g/dL RDW 15.7 % Platelet Count 233 10 3/cmm MPV 8.7 fL Neutrophils 3.45 10 3/uL Lymphocytes 0.8 10 3/uL Monocytes 0.3 10 3/uL Eosinophils 0.0 10 3/uL Basophils 0.0 10 3/uL Neutrophil % 76.6 % Lymphocyte % 17.3 % Monocyte % 5.5 % Eosinophil % 0.0 % Basophils % 0.2 % NRBC % 0 % Anti-D Negative Blood Type ON Antibody Screen (Gel) NEGATIVE [place] Free Light Chains 33.9 mg/L Lambda Free Light Chains 23.7 mg/L IgA 171 mg/dL [place]/Lambda Free Ratio 1.43 Test performed on Dec 15, 2020 09:50 TSH 2.24 uIU/mL Test performed on Dec 06, 2020 14:32 CBC Slide Review Slide Review Perform Test performed on Nov 08, 2020 08:38 Magnesium 1.9 mg/dL Test performed on October 17, 2020 09:45 T3, Free 2.3 PG/ML T4, Free 1.13 ng/dL Impression: 1. Metastatic squamous cell carcinoma with presumed primary in the upper lobe of the right lung, stage IVB (T2a, N0, M1c). His tumor showed positive PD-L1 22C3 expression by IHC (1 to 10%). 2. He presented with severely painful bony metastatic disease involving multiple sites including the sacrum, right acetabulum, proximal left femur, and possibly the proximal left tibia. 3. Hypertension. 4. Hyperlipidemia. 5. Type 2 diabetes. 6. Atrial fibrillation. 7. History of colonic polyps. Plan/Problems Addressed at this Visit: 1. Metastatic squamous cell carcinoma with presumed primary in the upper lobe of the right lung, stage IVB (T2a, N0, M1c). His tumor showed positive PD-L1 22C3 expression by IHC (1 to 10%). He presented with severely painful bony metastatic disease involving multiple sites including the sacrum, right acetabulum, proximal left femur, and possibly the proximal left tibia. On 07/21/2019 he underwent open biopsy of the left femur in association with prophylactic fixation of the left femur with intramedullary maricruz. Pathology showed metastatic squamous cell carcinoma. His staging CT scans showed a primary tumor in the upper lobe of the right lung. There was associated right upper lobe atelectasis, but he has not been overtly symptomatic with it. He was given palliative radiation to the sacrum, completed on 08/23/2020 to a total dose of 3000 cGy administered in 10 fractions. He tolerated it well, and he did have symptomatic benefit. On 09/06/2020 he began systemic therapy with carboplatin/Abraxane chemotherapy in combination with pembrolizumab. He tolerated the 1st cycle with acceptable toxicity. He continued with cycle 2 on 09/27/2020. He was seen at day 8 of the 2nd cycle with complaints of low-grade fever along with episodes of feeling hot/sweaty alternating with severe chills. A specific cause was not determined, but there was no evidence of an active infectious process. Overall he had tolerated his treatment with acceptable toxicity, and he had been showing gradual improvement in his performance status. He then continued with cycle 3 of carboplatin/Abraxane/pembrolizumab on 10/18/2020 and with cycle 4 on 11/17/2020. His cycle 4-day 8 treatment was deferred due to suspected acute diverticulitis. At his follow-up visit on 11/30/2019 when he was feeling better, and he then continued his cycle 4-day treatment. It was administered with Neulasta prophylactically. At his follow-up visit on 12/15/2020 he reported significant increased pain, particularly in the left hip area. His restaging PET/CT showed significant disease progression involving the right acetabulum and the left gluteal area, for which she was given additional palliative radiation. His options for further treatment unfortunately are limited given the fact that he had significant disease progression on combined chemotherapy/immunotherapy. In this setting, Dr Swenson has recommended a trial of second line treatment with afatinib, which may at least delay his further disease progression with relatively low risk for significant toxicities. A. Proceed with afatinib 40 mg daily. He started this on 03/01/2021 per his report. B. He has not had any hypertension. His blood pressure today is reported at 91/61. C. He may utilize Compazine and lorazepam as needed for nausea. Thus far has not had any problems. D. Today's labs reviewed in detail discussed with Mr. Kerns and a copy was given to him. WBC 6.6, hemoglobin 8.3, platelets 252,000, ANC is 5280. Potassium 3.9 random glucose 94 creatinine 0.5 LFTs are normal alk phos is 159. His weight was not reported. E. We will plan for weekly CBC CMP and typenex as needed with transfusion support as needed. F. In regards to the follow-up for afatinib, he will need to be seen at least monthly. G. Mr Kerns was reminded NO GRAPEFRUIT PRODUCTS WITH AFATINIB. H. Mr. Kerns was instructed to contact us in interim should questions or problems arise. I. Echocardiogram from 02/28/2021 reports left ventricular ejection fraction around 55% and possible normal LV size . There is no intracardiac mass. It was reported as a technically difficult study because of poor ultrasonic window. Only subcostal views were obtained. 2. He has transfusion dependent anemia. At this point it appears most likely to be due to the underlying malignancy. He will be transfused as needed. A. His last transfusion services was on 03/20/21 at which time his Hgb was 7.8. B. We will plan to schedule him for transfusion services as needed. 3. He has pain associated with metastatic bone involvement in the right hip and with involvement in the left gluteal area. The pain has improved following additional palliative radiation, but he has an ongoing requirement for opiate pain medication. The dosages will be adjusted as necessary. 4. Metastatic bone involvement in the sacrum, proximal left femur and possibly the left proximal tibia amd most recently right hip and left gluteal mass status post radiation therapy. Radiation therapy was completed on the right acetabular mass and the left gluteal area on 01/19/2021 to a total dose of 3000 cGy in 10 fractions to both sites. A. We will request a prior authorization for denosumab monthly. B. This is not been initiated as of yet due to his significant bone pain. However his bone pain has dramatically improved and hopefully with his next visit will be able to initiate the denosumab. Signed By: Amna Rock-RAHAT, AOMARVINP Julio Swenson MD <<Signature on File>>
== END 2021-04-21 06:00 | disposition home or self-care (01) ==
LOC: ONCMED 05:53
PROVIDERS: PCP Nurse Practitioner; Visit Provider Nurse Practitioner
DX: C34.11 Malignant neoplasm of upper lobe, right bronchus or lung (principal); C79.51 Secondary malignant neoplasm of bone; G89.3 Neoplasm related pain (acute) (chronic); I10 Essential (primary) hypertension; E78.5 Hyperlipidemia, unspecified; E11.59 Type 2 diabetes mellitus with other circulatory complications; I48.91 Unspecified atrial fibrillation; Z86.010 Personal history of colon polyps; Z79.899 Other long term (current) drug therapy; Z92.21 Personal history of antineoplastic chemotherapy; Z92.3 Personal history of irradiation
CPT/HCPCS: 36591; 80053; 85025; 86850; 86900; 99214

== ENCOUNTER 2021-04-21 14:05 | Emergency (ER) | payer OTHER, SELFPAY ==
[2021-04-21 14:08] VITALS: BP 107/69; PULSE 111; RESP 18; TEMP 36.9; O2SAT 98; BMI 24.3
--- NOTE | 2021-04-21 14:22 | XR_ITS ---
WS: [id number] PORTABLE CHEST HISTORY: SOB COMPARISON: 08/31/2020 Left-sided Mediport is present with tip in the distal SVC. Lungs are clear and well expanded. No pleural effusion or pneumothorax. Cardiac size: Normal. Mediastinum/Aorta: Normal mediastinum. No osseous abnormality seen. XR/XR chest 1V portable [id number] IMPRESSION: Unremarkable portable chest.
[2021-04-21 15:13] LABS: Basophils % 0.2 %; Hematocrit 28.6 % (42.0-52.0); Hemoglobin 8.6 g/dL (11.7-16.6); Lymphocytes # 0.7 10^3/uL (0.8-4.8); Mean Corpuscular HGB Conc 30.1 g/dL (30.0-36.0); Mean Corpuscular Hemoglobin 27.5 pg (28.0-34.0); Mean Corpuscular Volume 91.4 fl (80-94); Mean Platelet Volume 8.4 fL (7.4-10.4); Monocytes # 0.4 10^3/uL (0.2-0.9); Monocytes % 7.9 %; Neutrophils # 3.99 10^3/uL (1.8-7.7); Neutrophils % 78.7 %; Nucleated Red Blood Cells % 0 %; Platelet Count 239 10^3/cmm (130-400); Red Blood Count 3.13 10^6/uL (4.1-5.3); White Blood Count 5.1 10^3/uL (4.0-10.0)
--- NOTE | 2021-04-21 15:14 | ECG_ITS ---
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
[2021-04-21 15:39] LABS: Alanine Aminotransferase 11 U/L (0-41); Albumin Level 3.2 g/dL (3.5-5.2); Alkaline Phosphatase 155 IU/L (40-130); Anion Gap 15.7 (5-19); Aspartate Amino Transferase 11 U/L (0-40); Blood Urea Nitrogen 9 mg/dL (6-20); Carbon Dioxide 22 mmol/L (22-29); Chloride 97 mmol/L (98-107); Globulin 3.3 g/dL (1.3-4.6); Glomerular Filtration Rate 138.4 mL/min (90-130); Glucose 99 mg/dL (65-115); Osmolality Calculated 271 mOsm/kg (285-295); Potassium 3.7 mmol/L (3.5-5.1); SARS Covid-2 Antigen Negative (Negative); Sodium 131 mmol/L (136-145); Total Bilirubin 0.3 mg/dL (0.15-1.2); Total Protein 6.5 g/dL (6.6-8.7)
[2021-04-21 15:46] LABS: Procalcitonin 0.06 ng/mL (0-0.5)
[2021-04-21 17:05] VITALS: BP 139/82; PULSE 100; RESP 17; O2SAT 91
--- NOTE | 2021-04-21 17:13 | W.ED.COVID ---
Documented by User: Maksim Rain DO 04/22/21 11:19 HPI - COVID General: Chief Complaint: Shortness of Breath/Dyspnea Stated Complaint: SOB Time Seen by Provider: 04/21/21 17:04 Triage information: No fever, cough or shortness of breath. No known COVID + exposure last 14 days History of Present Illness: HPI Narrative: 60-year-old male presents emergency room complaining of shortness of breath the last 2 days. Patient is a known history of lung cancer with metastasis to the left proximal femur and proximal left tibia. He had been receiving palliative radiation to multiple areas of bone. Not had any fever but he has had the shortness of breath and mild chest discomfort with a deep breath. No other symptoms no myalgias headache or anosmia. COVID 19 common symptoms: positive non-productive cough and dyspnea; negative fever(s), chills, productive cough, fatigue, body aches, throat pain, nasal congestion, nausea, vomiting or diarrhea COVID 19 other sytmptoms: negative chest pain COVID Results: SARS-CoV-2 Antigen (Rapid) Negative (Negative) 04/21/21 15:00 04/21/21 SARS-CoV-2 RNA (RT-PCR) Not detected (NOT DETECTED) 08/26/20 12:41 08/26/20 Review of Systems Const: Denies: fever(s), chills, body aches, change in appetite, fatigue or malaise ENMT: Denies: throat pain, ear or mastoid pain, nasal discharge or nasal congestion Card: Denies: chest pain, edema, dyspnea on exertion or orthopnea Resp: Reports: dyspnea and non-productive cough; Denies: productive cough GI: Denies: abdominal pain, nausea, vomiting, hematemesis, coffee ground emesis, diarrhea, constipation, bloating, hematochezia or melena : Denies: flank pain, dysuria, urinary frequency or urinary urgency Skin/Breast: Denies: rash or pruritus PFS ED PFSH: Medical History Adult onset hypothyroidism Atrial fibrillation with rapid ventricular response Chronic allergic rhinitis due to pollen COPD (chronic obstructive pulmonary disease) with emphysema Essential (primary) hypertension History of colon polyps Impaired ambulation Lumbar pain with radiation down right leg Metabolic syndrome Mixed hyperlipidemia Vitamin D deficiency Surgical History History of circumcision History of colonoscopy 2019 History of tonsillectomy Port-A-Cath in place (08/31/20) Family History Other Cancer Hypertension Social History Second hand smoke exposure: Yes Smoking risk assessment/counseling performed?: Yes Alcohol intake: current Alcohol intake frequency: holidays/special occasions only Desire information about alcohol rehabilitation?: No Counseling given: No Desire information about substance/drug rehabilitation?: No Counseling given: No Adopted: No Caregiver/support person: No Lives independently: Yes Household members: spouse and children Housing: House Marital status: Current occupational status: employed Current occupation: [employer] History of recent travel: Yes (for job) Out of state: Yes Current gender identity: Male Physical Exam Const: COMMON NORMALS: no acute distress GENERAL APPEARANCE: cooperative and comfortable ORIENTATION/CONSCIOUSNESS: Yes awake, Yes oriented to person, Yes oriented to place and Yes oriented to time HENMT: COMMON NORMALS: normocephalic, atraumatic and hearing grossly normal bilaterally HEAD & SCALP: normocephalic and atraumatic Neck/C-Spine: COMMON NORMALS: no JVD Resp: COMMON NORMALS: normal respiratory effort, No retractions, No use of accessory muscles and clear to auscultation bilaterally AUSCULTATION: clear to auscultation bilaterally Cardio: COMMON NORMALS: no JVD, regular rate, regular rhythm and No murmurs present (Cardio) RATE: regular rate RHYTHM: regular rhythm GI: COMMON NORMALS: Soft to palpation and No hepatosplenomegaly present AUSCULTATION: Yes normoactive bowel sounds PALPATION: Yes Soft to palpation, No Tenderness to palpation present (GI), No Guarding due to palpation present (GI) and Yes No hepatosplenomegaly present Extremity: COMMON NORMALS: normal to inspection, capillary refill normal, no clubbing, cyanosis or edema, no calf tenderness and no pedal edema Neuro: SENSORIUM/ORIENTATION: Yes oriented to person, Yes oriented to place and Yes oriented to time Skin: COMMON NORMALS: no rashes or lesions noted GENERAL SKIN EXAM: no rashes or lesions noted Course Vital Signs: Vital signs: Vital Signs Temperature 98.4 F 04/21/21 14:08 Pulse Rate 103 H 04/21/21 20:13 Respiratory Rate 15 04/21/21 20:13 Blood Pressure 129/78 04/21/21 20:13 Pulse Oximetry 100 04/21/21 20:13 MDM - COVID MDM Narrative: Medical decision making narrative: Care turned over to Dr. Broderick at change of shift. We have ordered home oxygen he will require that CTA of the chest to evaluate whether or not he needs to be anticoagulated if he has a PE. We discussed risks and benefits of possible anticoagulation he expresses understanding. He would prefer to go home he has advanced metastatic lung cancer and does not wish to be hospitalized I think it is peripherally reasonable to discharge him home with oxygen. The CT of the chest is pending Dr. Broderick will follow up on that see his notes. Lab Data: Labs: Lab Results 04/21/21 04/21/21 04/21/21 15:00 15:00 15:00 WBC 5.1 10^3/uL 10^3/ uL (4.0-10.0) RBC 3.13 10^6/uL L 10 ^6/uL (4.1-5.3) Hgb 8.6 g/dL L g/dL (11.7-16.6) Hct 28.6 % L % (42.0-52.0) MCV 91.4 fl fl (80-94) MCH 27.5 pg L pg (28.0-34.0) MCHC 30.1 g/dL g/dL (30.0-36.0) RDW 16.0 % H % (12.1-15.1) Plt Count 239 10^3/cmm 10^3 /cmm (130-400) MPV 8.4 fL fL (7.4-10.4) Neut % (Auto) 78.7 % % Lymph % (Auto) 13.0 % % [place] % (Auto) 7.9 % % Eos % (Auto) 0.0 % % Baso % (Auto) 0.2 % % Neut # (Auto) 3.99 10^3/uL 10^3 /uL (1.8-7.7) Lymph # (Auto) 0.7 10^3/uL L 10^ 3/uL (0.8-4.8) [place] # (Auto) 0.4 10^3/uL 10^3/ uL (0.2-0.9) Eos # (Auto) 0.0 10^3/uL 10^3/ uL (0.0-0.8) Baso # (Auto) 0.0 10^3/uL 10^3/ uL (0.0-0.1) Nucleated RBC % (a uto) 0 % % Nucleated RBCs # 0.0 /100WBC /100W BC Sodium 131 mmol/L L mmol /L (136-145) Potassium 3.7 mmol/L mmol/L (3.5-5.1) Chloride 97 mmol/L L mmol/ L (98-107) Carbon Dioxide 22 mmol/L mmol/L (22-29) Anion Gap 15.7 (5-19) BUN 9 mg/dL mg/dL (6-20) Creatinine 0.6 mg/dL L mg/dL (0.7-1.2) GFR Calculation 138.4 mL/min H mL /min (90-130) Glucose 99 mg/dL mg/dL (65-115) Calculated Osmolal ity 271 mOsm/kg L mOs m/kg (285-295) Calcium 8.0 mg/dL L mg/dL (8.5-10.5) Total Bilirubin 0.3 mg/dL mg/dL (0.15-1.2) AST 11 U/L U/L (0-40) ALT 11 U/L U/L (0-41) Alkaline Phosphata se 155 IU/L H IU/L (40-130) Total Protein 6.5 g/dL L g/dL (6.6-8.7) Albumin 3.2 g/dL L g/dL (3.5-5.2) Globulin 3.3 g/dL g/dL (1.3-4.6) Procalcitonin 0.06 ng/mL ng/mL (0-0.5) SARS-CoV-2 Ag (Rap id) Negative (Negative) COVID Results: SARS-CoV-2 Antigen (Rapid) Negative (Negative) 04/21/21 15:00 04/21/21 SARS-CoV-2 RNA (RT-PCR) Not detected (NOT DETECTED) 08/26/20 12:41 08/26/20 Discharge Plan Discharge Patient Disposition: Home Clinical Impression: Bronchitis Condition: Stable Prescriptions: New Medrol (Edson) 4 mg tablets,dose pack See Rx Instructions .ROUTE .COMPLEX Qty: 21 RF: 0 doxycycline hyclate 100 mg capsule 100 mg PO BID 7 Days Qty: 14 RF: 0 Continued albuterol sulfate 2.5 mg /3 mL (0.083 %) solution for nebulization 2.5 mg INHALATION Q4H PRN (Reason: Shortness Of Breath Or Wheezing) Qty: 180 RF: 2 No Action fluticasone propionate 50 mcg/actuation spray,suspension 2 spray INTRANASAL DAILY RF: 0 magnesium 250 mg tablet 250 mg PO .every other day RF: 0 cholecalciferol (vitamin D3) 125 mcg (5,000 unit) capsule 5,000 unit PO QDAY Qty: 90 RF: 1 levothyroxine [Levoxyl] 150 mcg tablet 200 mcg PO QDAY RF: 0 metoprolol tartrate 25 mg tablet 25 mg PO DAILY RF: 0 Gilotrif 40 mg tablet 40 mg PO DAILY RF: 0 potassium chloride 20 mEq tablet extended release 20 meq PO DAILY RF: 0 liothyronine [Cytomel] 5 mcg tablet 5 mcg PO DAILY Qty: 90 RF: 1 duloxetine [Cymbalta] 60 mg capsule,delayed release(DR/EC) 60 mg PO DAILY Qty: 90 RF: 1 lactulose 10 gram/15 mL solution 20 g PO BID PRNRF: 0 atorvastatin [Lipitor] 40 mg tablet 40 mg PO DAILY Qty: 90 RF: 1 cetirizine [All Day Allergy (cetirizine)] 10 mg tablet 10 mg PO DAILY Qty: 90 RF: 1 sennosides-docusate sodium [Senna-S] 8.6-50 mg tablet 1 tab-cap PO BID 30 Days Qty: 60 RF: 0 pantoprazole [Protonix] 40 mg tablet,delayed release (DR/EC) 40 mg PO BID 30 Days Qty: 60 RF: 0 (DME) AP pad with pump E0271 See Rx Instructions .Route .MEDSUPPLY Qty: 1 RF: 0 (DME) ROHO pad [id number] See Rx Instructions .Route .MEDSUPPLY Qty: 1 RF: 0 montelukast [Singulair] 10 mg tablet 10 mg PO DAILY Qty: 90 RF: 1 metformin 500 mg tablet 500 mg PO BID Qty: 180 RF: 0 Hold Instructions: Improving glucose level Eliquis 5 mg tablet 5 mg PO BID Qty: 60 RF: 0 Hold Instructions: Resume on 09/02/20. MediHoney (honey) 100 % paste 1 applic topical BID Qty: 103 RF: 0 dronabinol 5 mg capsule 5 mg PO BID RF: 0 morphine 60 mg tablet extended release 120 mg PO BID RF: 0 morphine 15 mg tablet 15 mg PO Q4H PRN (Reason: Breakthrough Pain) RF: 0 ondansetron 4 mg tablet,disintegrating 4 mg PO Q8H PRN (Reason: Nausea) RF: 0 Discharge Orders: Discharge ED (Routine); Ordered 04/21/21 Ordered By: Jose De Jesus Broderick Other Ambulatory Orders: DME: Oxygen (Order) Location: None Selected Ordered By: Maksim Rain Referrals: Guerrero Claudio, PARANORMAL INVESTIGATOR-C [Primary Care Provider] - 4-7 days Patient Instructions: Acute Bronchitis (ED) Activity Restrictions/Additional Instructions: Return for fever despite 2-3 doses of antibiotics, worsening shortness of breath despite treatment with oxygen, and medications, chest pain, other concerning symptoms. After 2 to 3 days of therapy, if you are feeling improved, you may use a pulse oximeter at home to check your oxygen level off of oxygen. If your oxygen saturation is remaining above 92% after being off of oxygen for an hour, you may decrease use of oxygen at home. Coding Level of Care Code ED Packaging Inspector for Chg Fwd Documented by User: Jose De Jesus Broderick DO 04/21/21 20:44 HPI - COVID General: Chief Complaint: Shortness of Breath/Dyspnea Stated Complaint: SOB Time Seen by Provider: 04/21/21 17:04 COVID Results: SARS-CoV-2 Antigen (Rapid) Negative (Negative) 04/21/21 15:00 04/21/21 SARS-CoV-2 RNA (RT-PCR) Not detected (NOT DETECTED) 08/26/20 12:41 08/26/20 PFSH ED PFSH: Medical History Adult onset hypothyroidism Atrial fibrillation with rapid ventricular response Chronic allergic rhinitis due to pollen COPD (chronic obstructive pulmonary disease) with emphysema Essential (primary) hypertension History of colon polyps Impaired ambulation Lumbar pain with radiation down right leg Metabolic syndrome Mixed hyperlipidemia Vitamin D deficiency Surgical History History of circumcision History of colonoscopy 2019 History of tonsillectomy Port-A-Cath in place (08/31/20) Family History Other Cancer Hypertension Social History Second hand smoke exposure: Yes Smoking risk assessment/counseling performed?: Yes Alcohol intake: current Alcohol intake frequency: holidays/special occasions only Desire information about alcohol rehabilitation?: No Counseling given: No Desire information about substance/drug rehabilitation?: No Counseling given: No Adopted: No Caregiver/support person: No Lives independently: Yes Household members: spouse and children Housing: House Marital status: Current occupational status: employed Current occupation: [employer] History of recent travel: Yes (for job) Out of state: Yes Current gender identity: Male Course Vital Signs: Vital signs: Vital Signs Temperature 98.4 F 04/21/21 14:08 Pulse Rate 103 H 04/21/21 20:13 Respiratory Rate 15 04/21/21 20:13 Blood Pressure 129/78 04/21/21 20:13 Pulse Oximetry 100 04/21/21 20:13 MDM - COVID MDM Narrative: Medical decision making narrative: 60-year-old male checked out to me by Dr. Rain at shift change. This gentleman has metastatic lung cancer. He has noticed an increasing level of shortness of breath. He has home oxygen set up. His rapid Covid is negative. PCR is pending. Hemoglobin is 8.6, which is at his baseline it appears. His BMP is not remarkable. CTA is performed, as there is a significant chance of clot in this patient, who is currently not anticoagulated. It is negative for PE, or any focal pneumonia. He has agreed to go home on home oxygen therapy to follow-up with his physician. Lab Data: Labs: Lab Results 04/21/21 04/21/21 04/21/21 15:00 15:00 15:00 WBC 5.1 10^3/uL 10^3/ uL (4.0-10.0) RBC 3.13 10^6/uL L 10 ^6/uL (4.1-5.3) Hgb 8.6 g/dL L g/dL (11.7-16.6) Hct 28.6 % L % (42.0-52.0) MCV 91.4 fl fl (80-94) MCH 27.5 pg L pg (28.0-34.0) MCHC 30.1 g/dL g/dL (30.0-36.0) RDW 16.0 % H % (12.1-15.1) Plt Count 239 10^3/cmm 10^3 /cmm (130-400) MPV 8.4 fL fL (7.4-10.4) Neut % (Auto) 78.7 % % Lymph % (Auto) 13.0 % % [place] % (Auto) 7.9 % % Eos % (Auto) 0.0 % % Baso % (Auto) 0.2 % % Neut # (Auto) 3.99 10^3/uL 10^3 /uL (1.8-7.7) Lymph # (Auto) 0.7 10^3/uL L 10^ 3/uL (0.8-4.8) [place] # (Auto) 0.4 10^3/uL 10^3/ uL (0.2-0.9) Eos # (Auto) 0.0 10^3/uL 10^3/ uL (0.0-0.8) Baso # (Auto) 0.0 10^3/uL 10^3/ uL (0.0-0.1) Nucleated RBC % (a uto) 0 % % Nucleated RBCs # 0.0 /100WBC /100W BC Sodium 131 mmol/L L mmol /L (136-145) Potassium 3.7 mmol/L mmol/L (3.5-5.1) Chloride 97 mmol/L L mmol/ L (98-107) Carbon Dioxide 22 mmol/L mmol/L (22-29) Anion Gap 15.7 (5-19) BUN 9 mg/dL mg/dL (6-20) Creatinine 0.6 mg/dL L mg/dL (0.7-1.2) GFR Calculation 138.4 mL/min H mL /min (90-130) Glucose 99 mg/dL mg/dL (65-115) Calculated Osmolal ity 271 mOsm/kg L mOs m/kg (285-295) Calcium 8.0 mg/dL L mg/dL (8.5-10.5) Total Bilirubin 0.3 mg/dL mg/dL (0.15-1.2) AST 11 U/L U/L (0-40) ALT 11 U/L U/L (0-41) Alkaline Phosphata se 155 IU/L H IU/L (40-130) Total Protein 6.5 g/dL L g/dL (6.6-8.7) Albumin 3.2 g/dL L g/dL (3.5-5.2) Globulin 3.3 g/dL g/dL (1.3-4.6) Procalcitonin 0.06 ng/mL ng/mL (0-0.5) SARS-CoV-2 Ag (Rap id) Negative (Negative) COVID Results: SARS-CoV-2 Antigen (Rapid) Negative (Negative) 04/21/21 15:00 04/21/21 SARS-CoV-2 RNA (RT-PCR) Not detected (NOT DETECTED) 08/26/20 12:41 08/26/20 Discharge Plan Discharge Patient Disposition: Home Clinical Impression: Bronchitis Condition: Stable Prescriptions: New Medrol (Edson) 4 mg tablets,dose pack See Rx Instructions .ROUTE .COMPLEX Qty: 21 RF: 0 doxycycline hyclate 100 mg capsule 100 mg PO BID 7 Days Qty: 14 RF: 0 Continued albuterol sulfate 2.5 mg /3 mL (0.083 %) solution for nebulization 2.5 mg INHALATION Q4H PRN (Reason: Shortness Of Breath Or Wheezing) Qty: 180 RF: 2 No Action fluticasone propionate 50 mcg/actuation spray,suspension 2 spray INTRANASAL DAILY RF: 0 magnesium 250 mg tablet 250 mg PO .every other day RF: 0 cholecalciferol (vitamin D3) 125 mcg (5,000 unit) capsule 5,000 unit PO QDAY Qty: 90 RF: 1 levothyroxine [Levoxyl] 150 mcg tablet 200 mcg PO QDAY RF: 0 metoprolol tartrate 25 mg tablet 25 mg PO DAILY RF: 0 Gilotrif 40 mg tablet 40 mg PO DAILY RF: 0 potassium chloride 20 mEq tablet extended release 20 meq PO DAILY RF: 0 liothyronine [Cytomel] 5 mcg tablet 5 mcg PO DAILY Qty: 90 RF: 1 duloxetine [Cymbalta] 60 mg capsule,delayed release(DR/EC) 60 mg PO DAILY Qty: 90 RF: 1 lactulose 10 gram/15 mL solution 20 g PO BID PRNRF: 0 atorvastatin [Lipitor] 40 mg tablet 40 mg PO DAILY Qty: 90 RF: 1 cetirizine [All Day Allergy (cetirizine)] 10 mg tablet 10 mg PO DAILY Qty: 90 RF: 1 sennosides-docusate sodium [Senna-S] 8.6-50 mg tablet 1 tab-cap PO BID 30 Days Qty: 60 RF: 0 pantoprazole [Protonix] 40 mg tablet,delayed release (DR/EC) 40 mg PO BID 30 Days Qty: 60 RF: 0 (DME) AP pad with pump E0271 See Rx Instructions .Route .MEDSUPPLY Qty: 1 RF: 0 (DME) ROHO pad [id number] See Rx Instructions .Route .MEDSUPPLY Qty: 1 RF: 0 montelukast [Singulair] 10 mg tablet 10 mg PO DAILY Qty: 90 RF: 1 metformin 500 mg tablet 500 mg PO BID Qty: 180 RF: 0 Hold Instructions: Improving glucose level Eliquis 5 mg tablet 5 mg PO BID Qty: 60 RF: 0 Hold Instructions: Resume on 09/02/20. MediHoney (honey) 100 % paste 1 applic topical BID Qty: 103 RF: 0 dronabinol 5 mg capsule 5 mg PO BID RF: 0 morphine 60 mg tablet extended release 120 mg PO BID RF: 0 morphine 15 mg tablet 15 mg PO Q4H PRN (Reason: Breakthrough Pain) RF: 0 ondansetron 4 mg tablet,disintegrating 4 mg PO Q8H PRN (Reason: Nausea) RF: 0 Discharge Orders: Discharge ED (Routine); Ordered 04/21/21 Ordered By: Jose De Jesus Broderick Other Ambulatory Orders: DME: Oxygen (Order) Location: None Selected Ordered By: Maksim Rain Referrals: Guerrero Claudio, PARANORMAL INVESTIGATOR-C [Primary Care Provider] - 4-7 days Patient Instructions: Acute Bronchitis (ED) Activity Restrictions/Additional Instructions: Return for fever despite 2-3 doses of antibiotics, worsening shortness of breath despite treatment with oxygen, and medications, chest pain, other concerning symptoms. After 2 to 3 days of therapy, if you are feeling improved, you may use a pulse oximeter at home to check your oxygen level off of oxygen. If your oxygen saturation is remaining above 92% after being off of oxygen for an hour, you may decrease use of oxygen at home. Coding Level of Care Code ED Packaging Inspector for Kasey Paul
--- NOTE | 2021-04-21 17:29 | CTR_ITS ---
PROCEDURE INFORMATION: Exam: CTA Chest With Contrast Exam date and time: 04/21/2021 5:29 PM Age: 60 years old Clinical indication: Shortness of breath; Prior surgery; Surgery date: 6+ months; Surgery type: Port; Patient HX: HX lung CA w/ mets. Sobx 2 days; Additional info: Hypoxis chest pain, HX lung CA TECHNIQUE: Imaging protocol: Computed tomographic angiography of the chest with contrast. 3D rendering (Not supervised by radiologist): MIP and/or 3D reconstructed images were created by the technologist. Radiation optimization: All CT scans at this facility use at least one of these dose optimization techniques: automated exposure control; mA and/or kV adjustment per patient size (includes targeted exams where dose is matched to clinical indication); or iterative reconstruction. Contrast material: OMNI 350; Contrast volume: 74 ml; Contrast route: INTRAVENOUS (IV); COMPARISON: CT chest abd pel w con* 07/15/2020 5:09 PM RADIATION DOSE METRICS: Total DLP (mGy-cm): 575 FINDINGS: Tubes, catheters and devices: Tunnel Port-A-Cath in the left chest with catheter tip terminating in the distal superior vena cava. Pulmonary arteries: Normal. No pulmonary emboli. Aorta: Unremarkable. No aortic aneurysm. No aortic dissection. Lungs: Moderate severity pulmonary emphysema. Coarse reticular interstitial lung change. Spiculated pulmonary nodule in the posterior right upper lobe is difficult to define given the spiculations but the largest solid central component is about 16 mm x 12 mm on axial series 2, image 212. 5 mm noncalcified circumscribed pulmonary nodule slightly superior and lateral to the spiculated nodule. Mild diffuse bronchial wall thickening. Pleural spaces: Unremarkable. No pneumothorax. No pleural effusion. Heart: Unremarkable. No cardiomegaly. No pericardial effusion. Mediastinal space: Small nonenlarged calcified mediastinal granulomas. Lymph nodes: Negative for mediastinal lymphadenopathy. Spleen: Calcified granulomas in the spleen. Bones/joints: Unremarkable. No acute fracture. Soft tissues: Unremarkable. CT/CT angio chest PE protcl [id number] IMPRESSION: 1. Negative for pulmonary embolism. 2. No focal pneumonia. 3. Right upper lobe spiculated lesion with adjacent satellite nodule likely representing residual malignancy. Radiation Dose CTDIVOL = (mGy): DLP = 575 (mGy-cm)
[2021-04-21 17:40] VITALS: BP 125/88; PULSE 93; O2SAT 100
[2021-04-21 18:09] VITALS: O2SAT 95
[2021-04-21] MEDS: iohexol 350 mg/mL 100 mL Btl IV (18:28)
[2021-04-21 19:36] VITALS: BP 105/74; PULSE 89; RESP 19; O2SAT 100
[2021-04-21 20:13] VITALS: BP 129/78; PULSE 103; RESP 15; O2SAT 100
== END 2021-04-21 20:15 | disposition home or self-care (01) ==
PROVIDERS: Physician Assistant; Emergency Provider Emergency Medicine; PCP Nurse Practitioner
DX: J40 Bronchitis, not specified as acute or chronic (principal); Z85.110 Personal history of malignant carcinoid tumor of bronchus and lung; Z85.830 Personal history of malignant neoplasm of bone; Z77.22 Contact with and (suspected) exposure to environmental tobacco smoke (acute) (chronic); J44.9 Chronic obstructive pulmonary disease, unspecified; Z79.891 Long term (current) use of opiate analgesic; Z79.84 Long term (current) use of oral hypoglycemic drugs; Z79.01 Long term (current) use of anticoagulants; I10 Essential (primary) hypertension
CPT/HCPCS: 71045; 71275; 80053; 84145; 85025; 87426; 93005; 99283; Q9967

== ENCOUNTER 2021-04-24 08:19 | Outpatient (RCR) | payer OTHER, SELFPAY ==
[2021-04-24 09:34] LABS: Alanine Aminotransferase 12 U/L (0-41); Alkaline Phosphatase 142 IU/L (40-130); Anion Gap 13.9 (5-19); Aspartate Amino Transferase 14 U/L (0-40); Blood Urea Nitrogen 9 mg/dL (6-20); Calcium 7.9 mg/dL (8.5-10.5); Carbon Dioxide 24 mmol/L (22-29); Chloride 100 mmol/L (98-107); Globulin 3.3 g/dL (1.3-4.6); Glomerular Filtration Rate 170.8 mL/min (90-130); Glucose 103 mg/dL (65-115); Osmolality Calculated 277 mOsm/kg (285-295); Potassium 3.9 mmol/L (3.5-5.1); Sodium 134 mmol/L (136-145); Total Bilirubin 0.3 mg/dL (0.15-1.2); Total Protein 6.3 g/dL (6.6-8.7)
[2021-04-24 10:00] LABS: Basophils % 0.2 %; Hematocrit 24.3 % (42.0-52.0); Hemoglobin 7.8 g/dL (11.7-16.6); Lymphocytes # 0.8 10^3/uL (0.8-4.8); Lymphocytes % 17.3 %; Mean Corpuscular HGB Conc 32.1 g/dL (30.0-36.0); Mean Corpuscular Volume 87.1 fl (80-94); Mean Platelet Volume 8.7 fL (7.4-10.4); Monocytes # 0.3 10^3/uL (0.2-0.9); Monocytes % 5.5 %; Neutrophils # 3.45 10^3/uL (1.8-7.7); Neutrophils % 76.6 %; Nucleated Red Blood Cells % 0 %; Platelet Count 233 10^3/cmm (130-400); Red Blood Count 2.79 10^6/uL (4.1-5.3); Red Cell Distribution Width 15.7 % (12.1-15.1); White Blood Count 4.5 10^3/uL (4.0-10.0)
[2021-04-24 10:21] LABS: Immunoglobulin IGA 171 mg/dL (70-400); Immunoglobulin IGG 1132 mg/dL (700-1600); Immunoglobulin IGM 170 mg/dL (40-230)
[2021-04-24] MEDS: acetaminophen 325 mg Tablet 650 MG PO (10:45)
[2021-04-24] MEDS: sodium chloride 0.9% 250 ML 999 ML IV (10:45)
[2021-04-24] MEDS: diphenhydrAMINE 25 mg Capsule PO (10:45)
[2021-04-24 12:00] VITALS: BP 127/78; PULSE 67; RESP 18; TEMP 36.5; O2SAT 96
[2021-04-24 12:15] VITALS: BP 139/79; PULSE 67; RESP 18; TEMP 36.6; O2SAT 96
[2021-04-24 12:30] VITALS: BP 128/76; PULSE 68; RESP 18; TEMP 36.5; O2SAT 97
--- NOTE | 2021-04-25 07:17 | ONC FU_ITS ---
Dr. Swenson Patient Follow-Up Note Patient: Avtar Kerns Unit #: [id number]: [id number] Dicatated By: Julio Swenson M.D.Date of Visit:Apr 24, 2021 Onc Med Follow-up/Prog Note Chief Complaint: Lung cancer. 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 This is presumed to be from a primary lesion in the upper lobe of the right lung, by clinical evaluation stage IVB (T2a, N0, M1c). He had presented with severe pain in the lower back. It actually started as far back as 2019 and it just continue to progressively worsen. He was seen at the orthopedic clinic by Dr. Umair Lima on 06/14/2020. An MRI of the lumbar spine on 06/23/2020 showed an expansile marrow replacing process, likely neoplasm, involving the S1 and S2 vertebral bodies centered at the S1 level. There was associated epidural disease with moderate to severe narrowing of the cauda equina distally impinging the transversing S1 nerve roots. There was infiltrating signal abnormality extending into the sacral ala bilaterally and also involving the posterior L5 vertebral body. There was moderate central canal stenosis at L5-S1. The findings were consistent with primary bone neoplasm or metastatic disease. Also noted was a partially visualized expansile lesion in the right acetabulum. Further evaluation with MRI of the pelvis on 07/08/2020 showed marrow replacing multifocal neoplasm/metastatic disease involving the right acetabulum with bony expansion extending into the adjacent pubic rami and pubic root. Signal abnormality was noted to extend into the right ilium and right iliac wing. There was additional disease involving the left intertrochanteric femur, with the largest lesion measuring 2.8 x 4.2 cm. The findings involving the S1-S2 vertebral bodies were again noted. Overall, the findings were compatible with neoplasm most likely due to metastatic disease. He was admitted to [facility] where additional evaluation with bone scan and x-rays confirmed evidence of a lytic lesion in the right acetabulum with cortical breakthrough, a large lytic lesion in the sacrum with cortical breakthrough, a lytic lesion in the left femoral intertrochanteric region, and a suspected lytic lesion in the left proximal tibia. Staging CT scans of the chest, abdomen, and pelvis on 07/15/2020 showed a hypoenhancing mass in the upper lobe of the right lung measuring 3.2 x 2.6 cm. It was noted to invade the right upper lobe bronchus and it appeared to be the likely cause of right upper lobe atelectasis. There were no pathologically enlarged lymph nodes in the mediastinum or kya. A 9 mm nodular groundglass opacity was noted in the right lower lobe and a 4 mm calcified granuloma was noted in the right lower lobe. There is no evidence for metastatic disease in the abdominal area. There was evidence of an infiltrative destructive mass centered in the sacrum with soft tissue component extending into the right sacroiliac joint and into the right aspect of the posterior elements of L5. Another infiltrative destructive mass with soft tissue component was seen centered in the right acetabulum with intra-arterial extension and with extension into the fovea of the right femoral head. Another lytic lesion was noted in the left femoral intertrochanteric region. On 07/21/2020 he underwent open biopsy of the left femur along with prophylactic fixation of the left femur with intramedullary maricruz. Pathology showed metastatic squamous cell carcinoma. The PD-L1 22C3 expression by IHC was reported positive at 1 to 10%. He was seen here initially on 08/04/2020. He began on symptomatic management for the bone pain. He was seen by Dr. Mead for palliative radiation. He was given a course of treatment to the sacrum, which he completed on 08/23/2020 to a total dose of 3000 cGy administered in 10 fractions. He tolerated the radiation well. His other medical illnesses include hypertension, hyperlipidemia, type 2 diabetes, and hypothyroidism. He has a history of atrial fibrillation and he also has a history of colonic polyps. He has a history of smoking 1-1/2 to 2 packs of cigarettes daily for 35 years. He quit smoking in November 2019. INTERIM HISTORY: On 09/06/2020 he began systemic therapy with carboplatin/Abraxane chemotherapy administered on a day 1/day 8 schedule every 21 days together with pembrolizumab administered every 21 days. At that point he had become significantly anemic, requiring PRBC transfusion. He was able to tolerate treatment with acceptable toxicity, and he continued with cycle 2 on 09/27/2020, with cycle 3 on 10/18/2020, and with cycle 4 on 11/17/2020. On 11/21/2020 he had been seen by Dr. Fontenot because of left lower quadrant abdominal pain. He improved on empiric antibiotic therapy with ciprofloxacin/metronidazole for suspected diverticulitis. However, because of that illness, his scheduled day 8 chemotherapy treatment was deferred. He was then seen here on 11/29/2020. His symptoms have improved at that point he continued with his cycle 4-day 8 chemotherapy. It was administered with Neulasta prophylactically. At his follow-up visit on 12/15/2020, he reported significant worsening of pain, particularly in the left hip area. Restaging PET/CT on 12/17/2020 showed FDG avid right upper lobe pulmonary nodule measuring 1.8 x 2.1 cm, SUV 12.8. There were malignant soft tissue implants noted in the left gluteal muscles with SUV up to 18.7, the dominant lesion measuring 6.7 x 3.1 cm. There was essential replacement of the right acetabulum with an FDG positive destructive mass measuring 8.7 x 4.5 cm, SUV 18.8. Other smaller active lesions were noted in the right iliac bone and proximal left femur. A FDG negative sclerotic change in the sacrum was felt to be consistent with treated metastatic disease. He had further evaluation with MRI of the pelvis on 12/29/2020. It showed a large destructive osseous metastatic mass centered in the right acetabulum with extension through the superior right hip joint and right ilium. Also noted were multifocal soft tissue metastatic deposits surrounding the left hip involving the gluteal muscles and an additional osseous metastatic site involving the left lesser trochanter with extension into the proximal femoral diaphysis. With those findings he was referred to Dr. Mead and he underwent additional palliative radiation to the right acetabular mass and to the left gluteal area. Treatment was completed on 01/19/2021, both sites to a total dose of 3000 cGy administered in 10 fractions. He was seen on 02/02/2021 for a follow-up visit. He had significant improvement in his pain following the radiation, but he still had very limited activity. He was essentially nonambulatory. He was also found to be anemic with a hemoglobin of 7.8g and hematocrit of 26.1%. He received 2 units of packed red blood cells on February 06, 2021. It was recommended that he pursue second line treatment with afatinib. He started the afatinib on 03/01/2021 at a standard dosage of 40 mg daily. He is seen for an unplanned visit. He had been seen in the emergency room 3 days ago with increased shortness of breath. Has had started fairly abruptly the day before when he woke up from a nap and just could not catch his breath. Evaluation, his hemoglobin was low but above transfusion threshold at 8.[address] pulmonary angiogram showed no evidence of pulmonary embolism. There was evidence of moderately severe emphysema with coarse reticular interstitial changes. The right upper lobe pulmonary nodule measured 16 x 12 mm. There was mild diffuse bronchial wall thickening, but there was no acute infiltrate noted and there was no pleural or pericardial effusion. He was treated symptomatically for bronchitis. Today he is feeling better. He is not as short of breath, even without oxygen. He still has virtually no activity. ECOG score is 3. His appetite is not good. He does not have fever or night sweats. He is having soreness around his lips. He does not have difficulty swallowing. He has not been having cough, and he does not complain of chest pain. He has no GI/ complaints other than his bowels have been a little loose. He continues to have pain in his back and in his right hip and leg. It is managed adequately with the medication. He does not complain of headache or dizziness, and he has no focal neurologic symptoms. Medications: Atorvastatin Calcium 1 (40 mg) Tablet Oral daily, Cetirizine HCl 1 (10 mg) Tablet Oral daily, Doxycycline Hyclate 1 Tablet (of 100 mg) Oral b.i.d. for 14 days, Dulcolax Tablet, enteric coated Oral PRN, DULoxetine HCl 1 (20 mg) Capsule Delayed Release Particles Oral b.i.d., Eliquis 1 (5 mg) Tablet Oral b.i.d., Famotidine 1 (20 mg) Tablet Oral daily, Levoxyl 1 (200 mcg) Tablet Oral daily, Liothyronine Sodium 1 (5 mcg) Tablet Oral daily, LORazepam 1 (1 mg) Tablet Oral b.i.d., Marinol 1 (5 mg) Capsule Oral b.i.d., metFORMIN HCl 1 (500 mg) Tablet Oral b.i.d., Metoprolol Tartrate 1 (25 mg) Tablet Oral b.i.d., Montelukast Sodium 1 (10 mg) Tablet Oral daily, Morphine Sulfate 1 - 2 Tablet (of 30 mg) Oral q 4 hours PRN, Morphine Sulfate ER 3 Tablet (of 60 mg) Tablet, controlled release Oral b.i.d., Ondansetron 1 - 2 (4 mg) Tablet Dispersable Oral q 4 hours PRN, predniSONE (5 ) Tablet Therapy Pack Oral Take as Directed Allergies: No Known Allergies. Vital Signs: Performed on Apr 24, 2021 08:47 Height - 68.00 in Temperature - 98.0 F (LOW) Pulse - 81 /min Respiration - 18 /min BP - 128/81 mm(hg) O2 Sat - 98 % Pain - 5 Fatigue - 4 Physical Examination: Constitutional - He appears generally weak, but not acutely ill, Eyes - Sclerae nonicteric. Conjunctivae clear, ENMT - There is mild angular cheilitis. There are no lesions noted in the oral cavity, Hematologic/Lymphatic - No cervical, clavicular, or axillary adenopathy, Respiratory - Lungs sound clear with some decrease in air movement bilaterally, Cardiovascular - Heart rhythm is regular. There is no murmur, gallop, or rub noted, Abdomen - Soft. Liver and spleen are not enlarged. There is no abdominal mass or ascites noted and there is no inguinal adenopathy, Extremities - No edema, Neurologic - There is generalized weakness, more pronounced in the lower extremities. He does not appear to have any focal neurologic deficit. Lab/Imaging: Test performed on Apr 24, 2021 08:35 Sodium 134 mmol/L Potassium 3.9 mmol/L Chloride 100 mmol/L CO2 24 mmol/L Anion Gap 13.9 BUN 9 mg/dL Creatinine 0.5 mg/dL Cr Clearance (Est) 168.8200 mL/min eGFR 170.8 mL/min Glucose 103 mg/dL Osmolality - Calculated 277 mOsm/kg Calcium 7.9 mg/dL Protein, Total 6.3 g/dL Albumin 3.0 g/dL Globulin 3.3 g/dL Bilirubin, Total 0.3 mg/dL ALT (SGPT) 12 U/L AST (SGOT) 14 U/L Alkaline Phosphatase 142 IU/L Leukocyte Reduced RBC [id number] ON RCLR XM COMPATIBLE WBC 4.5 10 3/uL RBC 2.79 10 6/uL HGB 7.8 g/dL HCT 24.3 % MCV 87.1 fl MCH 28.0 pg MCHC 32.1 g/dL RDW 15.7 % Platelet Count 233 10 3/cmm MPV 8.7 fL Neutrophils 3.45 10 3/uL Lymphocytes 0.8 10 3/uL Monocytes 0.3 10 3/uL Eosinophils 0.0 10 3/uL Basophils 0.0 10 3/uL Neutrophil % 76.6 % Lymphocyte % 17.3 % Monocyte % 5.5 % Eosinophil % 0.0 % Basophils % 0.2 % NRBC % 0 % Anti-D Negative Blood Type ON Antibody Screen (Gel) NEGATIVE IgA 171 mg/dL Problem List: 1. Metastatic squamous cell carcinoma with presumed primary in the upper lobe of the right lung, stage IVB (T2a, N0, M1c). His tumor showed positive PD-L1 22C3 expression by IHC (1 to 10%). 2. He presented with severely painful bony metastatic disease involving multiple sites including the sacrum, right acetabulum, proximal left femur, and possibly the proximal left tibia. 3. Hypertension. 4. Hyperlipidemia. 5. Type 2 diabetes. 6. Atrial fibrillation. 7. History of colonic polyps. Problems Addressed with this Encounter and Plan: 1. Patient with metastatic squamous cell carcinoma with presumed primary in the upper lobe of the right lung, stage IVB (T2a, N0, M1c). His tumor showed positive PD-L1 22C3 expression by IHC (1 to 10%). He presented with severely painful bony metastatic disease involving multiple sites including the sacrum, right acetabulum, proximal left femur, and possibly the proximal left tibia. On 07/21/2019 he underwent open biopsy of the left femur in association with prophylactic fixation of the left femur with intramedullary maricruz. Pathology showed metastatic squamous cell carcinoma. His staging CT scans showed a primary tumor in the upper lobe of the right lung. There was associated right upper lobe atelectasis, but he has not been overtly symptomatic with it. He was given palliative radiation to the sacrum, completed on 08/23/2020 to a total dose of 3000 cGy administered in 10 fractions. He tolerated it well, and he did have symptomatic benefit. On 09/06/2020 he began systemic therapy with carboplatin/Abraxane chemotherapy in combination with pembrolizumab. He tolerated the 1st cycle with acceptable toxicity. He continued with cycle 2 on 09/27/2020. He was seen at day 8 of the 2nd cycle with complaints of low-grade fever along with episodes of feeling hot/sweaty alternating with severe chills. A specific cause was not determined, but there was no evidence of an active infectious process. Overall he had tolerated his treatment with acceptable toxicity, and he had been showing gradual improvement in his performance status. He then continued with cycle 3 of carboplatin/Abraxane/pembrolizumab on 10/18/2020 and with cycle 4 on 11/17/2020. His cycle 4-day 8 treatment was deferred due to suspected acute diverticulitis. At his follow-up visit on 11/29/2020 he was feeling better, and he then continued his cycle 4-day treatment. It was administered with Neulasta prophylactically. At his follow-up visit on 12/15/2020 he reported significant increased pain, particularly in the left hip area. His restaging PET/CT showed significant disease progression involving the right acetabulum and the left gluteal area, for which he was given additional palliative radiation. With evidence of disease progression, he then began second line treatment with afatinib 40 mg daily on 03/01/2021. During follow-up his continued to have transfusion dependent anemia, but he has tolerated the afatinib without significant toxicity. He was seen in the emergency room on 04/21/2021 with increased shortness of breath. The exact cause for that is uncertain, as there were no acute findings noted on CT pulmonary angiogram. In the absence of any evidence of further disease progression, he will continue treatment with afatinib 40 mg daily. He will be scheduled for a follow-up visit in 1 month. 2. 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 With his hemoglobin now back down to 7.8 g, he will be transfused 2 units PRBC. 3. He has pain associated with metastatic bone involvement in the right hip and with involvement in the left gluteal area. The pain did show some improvement following additional palliative radiation, but he has an ongoing requirement for opiate pain medication. Signed By: Julio Swenson M.D. <<Signature on File>>
[2021-04-25 12:07] LABS: PROTEIN, TOTAL 5.9 g/dL (6.1-8.1)
[2021-04-25 14:38] LABS: KAPPA LIGHT CHAIN, FREE, SERUM 33.9 mg/L (3.3-19.4); KAPPA/LAMBDA LIGHT CHAINS FREE 1.43 (0.26-1.65); LAMBDA LIGHT CHAIN, FREE, SERU 23.7 mg/L (5.7-26.3)
[2021-04-25 14:48] LABS: ALBUMIN 2.5 g/dL (3.8-4.8); ALPHA 1 GLOBULIN 0.6 g/dL (0.2-0.3); BETA 1 GLOBULIN 0.4 g/dL (0.4-0.6); BETA 2 GLOBULIN 0.3 g/dL (0.2-0.5); GAMMA GLOBULIN 1.1 g/dL (0.8-1.7)
== END 2021-04-25 23:59 | disposition home or self-care (01) ==
LOC: ONCMED 08:19
PROVIDERS: Internal Medicine Medical Oncology; PCP Nurse Practitioner; Visit Provider Nurse Practitioner
DX: C34.11 Malignant neoplasm of upper lobe, right bronchus or lung (principal); C79.51 Secondary malignant neoplasm of bone; G89.3 Neoplasm related pain (acute) (chronic); I10 Essential (primary) hypertension; E78.5 Hyperlipidemia, unspecified; E11.59 Type 2 diabetes mellitus with other circulatory complications; I48.91 Unspecified atrial fibrillation; Z86.010 Personal history of colon polyps; Z79.899 Other long term (current) drug therapy; Z92.21 Personal history of antineoplastic chemotherapy; Z92.3 Personal history of irradiation
CPT/HCPCS: 36430; 36591; 80053; 82784; 83883; 84155; 84165; 85025; 86850; 86900; 86920; 99214; J7050; P9016

== ENCOUNTER 2021-05-25 06:15 | Outpatient (RCR) | payer OTHER, SELFPAY ==
[2021-04-27] MEDS: sodium chloride 0.9% 1,000 ML 999 ML IV (08:30)
[2021-04-27 09:03] LABS: Basophils % 0.2 %; Eosinophils % 0.2 %; Hematocrit 40.8 % (42.0-52.0); Hemoglobin 13.4 g/dL (11.7-16.6); Lymphocytes # 1.3 10^3/uL (0.8-4.8); Lymphocytes % 11.1 %; Mean Corpuscular HGB Conc 32.8 g/dL (30.0-36.0); Mean Corpuscular Hemoglobin 27.6 pg (28.0-34.0); Mean Corpuscular Volume 84.1 fl (80-94); Monocytes # 1.1 10^3/uL (0.2-0.9); Monocytes % 8.9 %; Neutrophils # 9.37 10^3/uL (1.8-7.7); Nucleated Red Blood Cells % 0 %; Platelet Count 319 10^3/cmm (130-400); Red Blood Count 4.85 10^6/uL (4.1-5.3); Red Cell Distribution Width 15.1 % (12.1-15.1); White Blood Count 11.8 10^3/uL (4.0-10.0)
[2021-04-27 09:14] LABS: Alanine Aminotransferase 9 U/L (0-41); Albumin Level 3.5 g/dL (3.5-5.2); Alkaline Phosphatase 163 IU/L (40-130); Anion Gap 16.1 (5-19); Aspartate Amino Transferase 10 U/L (0-40); Blood Urea Nitrogen 9 mg/dL (6-20); Calcium 7.9 mg/dL (8.5-10.5); Carbon Dioxide 20 mmol/L (22-29); Chloride 90 mmol/L (98-107); Globulin 3.6 g/dL (1.3-4.6); Glomerular Filtration Rate 138.4 mL/min (90-130); Glucose 108 mg/dL (65-115); Osmolality Calculated 255 mOsm/kg (285-295); Potassium 3.1 mmol/L (3.5-5.1); Sodium 123 mmol/L (136-145); Total Bilirubin 0.7 mg/dL (0.15-1.2); Total Protein 7.1 g/dL (6.6-8.7)
[2021-04-27] MEDS: ondansetron 2 mg/ML SDV 2 mL 8 MG IVP (10:20)
[2021-04-27] MEDS: potassium chloride 40 MEQ in sodium chloride 0.9% 500 ML 250 MEQ IV (10:40)
[2021-05-25 11:18] LABS: Basophils % 0.2 %; Eosinophils % 0.4 %; Hematocrit 29.5 % (42.0-52.0); Hemoglobin 9.3 g/dL (11.7-16.6); Lymphocytes % 21.8 %; Mean Corpuscular HGB Conc 31.5 g/dL (30.0-36.0); Mean Corpuscular Hemoglobin 28.1 pg (28.0-34.0); Mean Corpuscular Volume 89.1 fl (80-94); Monocytes # 0.3 10^3/uL (0.2-0.9); Monocytes % 6.2 %; Neutrophils # 3.18 10^3/uL (1.8-7.7); Nucleated Red Blood Cells % 0 %; Platelet Count 210 10^3/cmm (130-400); Red Blood Count 3.31 10^6/uL (4.1-5.3); Red Cell Distribution Width 15.2 % (12.1-15.1); White Blood Count 4.5 10^3/uL (4.0-10.0)
[2021-05-25 11:36] LABS: Alanine Aminotransferase 18 U/L (0-41); Albumin Level 3.3 g/dL (3.5-5.2); Alkaline Phosphatase 154 IU/L (40-130); Anion Gap 14.2 (5-19); Aspartate Amino Transferase 14 U/L (0-40); Blood Urea Nitrogen 13 mg/dL (6-20); Calcium 8.4 mg/dL (8.5-10.5); Carbon Dioxide 26 mmol/L (22-29); Chloride 94 mmol/L (98-107); Globulin 3.7 g/dL (1.3-4.6); Glomerular Filtration Rate 115.8 mL/min (90-130); Glucose 93 mg/dL (65-115); Osmolality Calculated 270 mOsm/kg (285-295); Potassium 4.2 mmol/L (3.5-5.1); Sodium 130 mmol/L (136-145); Total Bilirubin 0.4 mg/dL (0.15-1.2)
--- NOTE | 2021-05-27 11:42 | ONC FU_ITS ---
Dr. Swenson Patient Follow-Up Note Patient: Avtar Kerns Unit #: [id number]: 1960 Dicatated By: Julio Swenson M.D.Date of Visit:May 25, 2021 Onc Med Follow-up/Prog Note Chief Complaint: Lung cancer. 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 This is presumed to be from a primary lesion in the upper lobe of the right lung, by clinical evaluation stage IVB (T2a, N0, M1c). He had presented with severe pain in the lower back. It actually started as far back as 2019 and it just continue to progressively worsen. He was seen at the orthopedic clinic by Dr. Umair Lima on 06/14/2020. An MRI of the lumbar spine on 06/23/2020 showed an expansile marrow replacing process, likely neoplasm, involving the S1 and S2 vertebral bodies centered at the S1 level. There was associated epidural disease with moderate to severe narrowing of the cauda equina distally impinging the transversing S1 nerve roots. There was infiltrating signal abnormality extending into the sacral ala bilaterally and also involving the posterior L5 vertebral body. There was moderate central canal stenosis at L5-S1. The findings were consistent with primary bone neoplasm or metastatic disease. Also noted was a partially visualized expansile lesion in the right acetabulum. Further evaluation with MRI of the pelvis on 07/08/2020 showed marrow replacing multifocal neoplasm/metastatic disease involving the right acetabulum with bony expansion extending into the adjacent pubic rami and pubic root. Signal abnormality was noted to extend into the right ilium and right iliac wing. There was additional disease involving the left intertrochanteric femur, with the largest lesion measuring 2.8 x 4.2 cm. The findings involving the S1-S2 vertebral bodies were again noted. Overall, the findings were compatible with neoplasm most likely due to metastatic disease. He was admitted to [facility] where additional evaluation with bone scan and x-rays confirmed evidence of a lytic lesion in the right acetabulum with cortical breakthrough, a large lytic lesion in the sacrum with cortical breakthrough, a lytic lesion in the left femoral intertrochanteric region, and a suspected lytic lesion in the left proximal tibia. Staging CT scans of the chest, abdomen, and pelvis on 07/15/2020 showed a hypoenhancing mass in the upper lobe of the right lung measuring 3.2 x 2.6 cm. It was noted to invade the right upper lobe bronchus and it appeared to be the likely cause of right upper lobe atelectasis. There were no pathologically enlarged lymph nodes in the mediastinum or kya. A 9 mm nodular groundglass opacity was noted in the right lower lobe and a 4 mm calcified granuloma was noted in the right lower lobe. There is no evidence for metastatic disease in the abdominal area. There was evidence of an infiltrative destructive mass centered in the sacrum with soft tissue component extending into the right sacroiliac joint and into the right aspect of the posterior elements of L5. Another infiltrative destructive mass with soft tissue component was seen centered in the right acetabulum with intra-arterial extension and with extension into the fovea of the right femoral head. Another lytic lesion was noted in the left femoral intertrochanteric region. On 07/21/2020 he underwent open biopsy of the left femur along with prophylactic fixation of the left femur with intramedullary maricruz. Pathology showed metastatic squamous cell carcinoma. The PD-L1 22C3 expression by IHC was reported positive at 1 to 10%. He was seen here initially on 08/04/2020. He began on symptomatic management for the bone pain. He was seen by Dr. Mead for palliative radiation. He was given a course of treatment to the sacrum, which he completed on 08/23/2020 to a total dose of 3000 cGy administered in 10 fractions. He tolerated the radiation well. His other medical illnesses include hypertension, hyperlipidemia, type 2 diabetes, and hypothyroidism. He has a history of atrial fibrillation and he also has a history of colonic polyps. He has a history of smoking 1-1/2 to 2 packs of cigarettes daily for 35 years. He quit smoking in November 2019. INTERIM HISTORY: On 09/06/2020 he began systemic therapy with carboplatin/Abraxane chemotherapy administered on a day 1/day 8 schedule every 21 days together with pembrolizumab administered every 21 days. At that point he had become significantly anemic, requiring PRBC transfusion. He was able to tolerate treatment with acceptable toxicity, and he continued with cycle 2 on 09/27/2020, with cycle 3 on 10/18/2020, and with cycle 4 on 11/17/2020. On 11/21/2020 he had been seen by Dr. Fontenot because of left lower quadrant abdominal pain. He improved on empiric antibiotic therapy with ciprofloxacin/metronidazole for suspected diverticulitis. However, because of that illness, his scheduled day 8 chemotherapy treatment was deferred. He was then seen here on 11/29/2020. His symptoms have improved at that point he continued with his cycle 4-day 8 chemotherapy. It was administered with Neulasta prophylactically. At his follow-up visit on 12/15/2020, he reported significant worsening of pain, particularly in the left hip area. Restaging PET/CT on 12/17/2020 showed FDG avid right upper lobe pulmonary nodule measuring 1.8 x 2.1 cm, SUV 12.8. There were malignant soft tissue implants noted in the left gluteal muscles with SUV up to 18.7, the dominant lesion measuring 6.7 x 3.1 cm. There was essential replacement of the right acetabulum with an FDG positive destructive mass measuring 8.7 x 4.5 cm, SUV 18.8. Other smaller active lesions were noted in the right iliac bone and proximal left femur. A FDG negative sclerotic change in the sacrum was felt to be consistent with treated metastatic disease. He had further evaluation with MRI of the pelvis on 12/29/2020. It showed a large destructive osseous metastatic mass centered in the right acetabulum with extension through the superior right hip joint and right ilium. Also noted were multifocal soft tissue metastatic deposits surrounding the left hip involving the gluteal muscles and an additional osseous metastatic site involving the left lesser trochanter with extension into the proximal femoral diaphysis. With those findings he was referred to Dr. Mead and he underwent additional palliative radiation to the right acetabular mass and to the left gluteal area. Treatment was completed on 01/19/2021, both sites to a total dose of 3000 cGy administered in 10 fractions. He was seen on 02/02/2021 for a follow-up visit. He had significant improvement in his pain following the radiation, but he still had very limited activity. He was essentially nonambulatory. He was also found to be anemic with a hemoglobin of 7.8g and hematocrit of 26.1%. He received 2 units of packed red blood cells on February 06, 2021. It was recommended that he pursue second line treatment with afatinib. He started the afatinib on 03/01/2021 at a standard dosage of 40 mg daily. In March he was seen in the emergency room with increased shortness of breath. It had started fairly abruptly the day before when he woke up from a nap and just could not catch his breath. His CT pulmonary angiogram showed no evidence of pulmonary embolism. There was evidence of moderately severe emphysema with coarse reticular interstitial changes. The right upper lobe pulmonary nodule measured 16 x 12 mm. There was mild diffuse bronchial wall thickening, but there was no acute infiltrate noted and there was no pleural or pericardial effusion. He was treated symptomatically for bronchitis. During subsequent follow-up he had reported development of a skin rash and he also then began having diarrhea. As of 05/02/2021 the afatinib was put on hold, and the diarrhea subsequently resolved. He then restarted the afatinib with the dosage reduced to 30 mg daily. He has seen for a follow-up visit. He says he is feeling pretty good, though he still has limited activity. He is essentially nonambulatory, now due more to muscle weakness than to pain. He has become aware of a knot on the side of his left leg. He has pretty good appetite. He has no fever or night sweats. He has not had sore mouth or throat. He says his breathing is pretty good. He does not complain of cough and he has not been having chest pain. He has occasional nausea. Bowel function is pretty good. He is back on a stool softener, as the diarrhea has completely resolved. Bladder function remains adequate. His pain is adequately managed with his medication. He does not complain of headache or dizziness. He has no numbness/paresthesia or other focal neurologic symptoms. Medications: Atorvastatin Calcium 1 (40 mg) Tablet Oral daily, Cetirizine HCl 1 (10 mg) Tablet Oral daily, Doxycycline Hyclate 1 Tablet (of 100 mg) Oral b.i.d. for 14 days, Dulcolax Tablet, enteric coated Oral PRN, DULoxetine HCl 1 (20 mg) Capsule Delayed Release Particles Oral b.i.d., Eliquis 1 (5 mg) Tablet Oral b.i.d., Famotidine 1 (20 mg) Tablet Oral daily, Levoxyl 1 (200 mcg) Tablet Oral daily, Liothyronine Sodium 1 (5 mcg) Tablet Oral daily, LORazepam 1 (1 mg) Tablet Oral b.i.d., Marinol 1 (5 mg) Capsule Oral b.i.d., metFORMIN HCl 1 (500 mg) Tablet Oral b.i.d., Metoprolol Tartrate 1 (25 mg) Tablet Oral b.i.d., Montelukast Sodium 1 (10 mg) Tablet Oral daily, Morphine Sulfate 1 - 2 Tablet (of 30 mg) Oral q 4 hours PRN, Morphine Sulfate ER 3 Tablet (of 60 mg) Tablet, controlled release Oral b.i.d., Ondansetron 1 - 2 (4 mg) Tablet Dispersable Oral q 4 hours PRN, predniSONE (5 ) Tablet Therapy Pack Oral Take as Directed Allergies: No Known Allergies. Vital Signs: Performed on May 25, 2021 10:44 Height - 68.00 in Weight - 150 lbs (LOW) BSA - 1.81 sq.m BMI - 22.81 Temperature - 96.8 F (LOW) Pulse - 89 /min Respiration - 18 /min BP - 133/87 mm(hg) O2 Sat - 95 % (LOW) Pain - 3 Fatigue - 0 Physical Examination: Constitutional - He appears generally weak, Eyes - Sclerae nonicteric. Conjunctivae clear, ENMT - No lesions noted in the oral cavity, Hematologic/Lymphatic - No cervical, clavicular, or axillary adenopathy, Respiratory - Lungs sound clear with some decrease in air movement bilaterally, Cardiovascular - Heart rhythm is regular. There is no murmur, gallop, or rub noted, Abdomen - Soft. Liver and spleen are not enlarged. There is no abdominal mass or ascites noted and there is no inguinal adenopathy, Extremities - No edema. There is a palpable nodule at the inferior aspect of the incisional scar in the lateral left thigh. At the superior aspect of the incision there is some localized erythema and induration, Neurologic - He has muscle weakness which is more pronounced in the lower extremities. He does not appear to have any focal neurologic deficit. Lab/Imaging: Test performed on May 25, 2021 11:08 Sodium 130 mmol/L Potassium 4.2 mmol/L Chloride 94 mmol/L CO2 26 mmol/L Anion Gap 14.2 BUN 13 mg/dL Creatinine 0.7 mg/dL Cr Clearance (Est) 110.7000 mL/min eGFR 115.8 mL/min Glucose 93 mg/dL Osmolality - Calculated 270 mOsm/kg Calcium 8.4 mg/dL Protein, Total 7.0 g/dL Albumin 3.3 g/dL Globulin 3.7 g/dL Bilirubin, Total 0.4 mg/dL ALT (SGPT) 18 U/L AST (SGOT) 14 U/L Alkaline Phosphatase 154 IU/L WBC 4.5 10 3/uL RBC 3.31 10 6/uL HGB 9.3 g/dL HCT 29.5 % MCV 89.1 fl MCH 28.1 pg MCHC 31.5 g/dL RDW 15.2 % Platelet Count 210 10 3/cmm MPV 8.0 fL Neutrophils 3.18 10 3/uL Lymphocytes 1.0 10 3/uL Monocytes 0.3 10 3/uL Eosinophils 0.0 10 3/uL Basophils 0.0 10 3/uL Neutrophil % 71.0 % Lymphocyte % 21.8 % Monocyte % 6.2 % Eosinophil % 0.4 % Basophils % 0.2 % NRBC % 0 % Problem List: 1. Metastatic squamous cell carcinoma with presumed primary in the upper lobe of the right lung, stage IVB (T2a, N0, M1c). His tumor showed positive PD-L1 22C3 expression by IHC (1 to 10%). 2. He presented with severely painful bony metastatic disease involving multiple sites including the sacrum, right acetabulum, proximal left femur, and possibly the proximal left tibia. 3. Hypertension. 4. Hyperlipidemia. 5. Type 2 diabetes. 6. Atrial fibrillation. 7. History of colonic polyps. Problems Addressed with this Encounter and Plan: 1. Patient with metastatic squamous cell carcinoma with presumed primary in the upper lobe of the right lung, stage IVB (T2a, N0, M1c). His tumor showed positive PD-L1 22C3 expression by IHC (1 to 10%). He presented with severely painful bony metastatic disease involving multiple sites including the sacrum, right acetabulum, proximal left femur, and possibly the proximal left tibia. On 07/21/2019 he underwent open biopsy of the left femur in association with prophylactic fixation of the left femur with intramedullary maricruz. Pathology showed metastatic squamous cell carcinoma. His staging CT scans showed a primary tumor in the upper lobe of the right lung. There was associated right upper lobe atelectasis, but he has not been overtly symptomatic with it. He was given palliative radiation to the sacrum, completed on 08/23/2020 to a total dose of 3000 cGy administered in 10 fractions. He tolerated it well, and he did have symptomatic benefit. On 09/06/2020 he began systemic therapy with carboplatin/Abraxane chemotherapy in combination with pembrolizumab. He tolerated the 1st cycle with acceptable toxicity. He continued with cycle 2 on 09/27/2020. He was seen at day 8 of the 2nd cycle with complaints of low-grade fever along with episodes of feeling hot/sweaty alternating with severe chills. A specific cause was not determined, but there was no evidence of an active infectious process. Overall he had tolerated his treatment with acceptable toxicity, and he had been showing gradual improvement in his performance status. He then continued with cycle 3 of carboplatin/Abraxane/pembrolizumab on 10/18/2020 and with cycle 4 on 11/17/2020. His cycle 4-day 8 treatment was deferred due to suspected acute diverticulitis. At his follow-up visit on 11/29/2020 he was feeling better, and he then continued his cycle 4-day treatment. It was administered with Neulasta prophylactically. At his follow-up visit on 12/15/2020 he reported significant increased pain, particularly in the left hip area. His restaging PET/CT showed significant disease progression involving the right acetabulum and the left gluteal area, for which he was given additional palliative radiation. With evidence of disease progression, he then began second line treatment with afatinib 40 mg daily on 03/01/2021. During follow-up his continued to have transfusion dependent anemia, but he has tolerated the afatinib without significant toxicity. He was seen in the emergency room on 04/21/2021 with increased shortness of breath. The exact cause for that is uncertain, as there were no acute findings noted on CT pulmonary angiogram. He then continued treatment with afatinib 40 mg daily. As of 05/01/2021 the afatinib was put on hold due to side effects, mainly skin rash and diarrhea. With resolution of those symptoms, he then restarted the afatinib with the dosage reduced to 30 mg daily. He appears to be tolerating it well at the reduced dosage. Thus far there has been no obvious progression of the lung cancer by CT scan, but he has some new nodularity at the surgical site in the left thigh, appearance of which is a little worrisome. At least for now I will just continue to monitor it expectantly, but I will check with Dr. Mead to see whether or not he would be able to give any additional radiation to that area. 2. 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 He will be transfused again as needed. 3. He has pain associated with metastatic bone involvement in the right hip and with involvement in the left gluteal area. The pain did show some improvement following additional palliative radiation, but he has an ongoing requirement for opiate pain medication. Signed By: Julio Swenson M.D. <<Signature on File>>
== END 2021-05-26 23:59 | disposition home or self-care (01) ==
LOC: ONCMED 06:15
PROVIDERS: PCP Nurse Practitioner; Visit Provider Internal Medicine Medical Oncology
DX: C34.11 Malignant neoplasm of upper lobe, right bronchus or lung (principal); C79.51 Secondary malignant neoplasm of bone; I10 Essential (primary) hypertension; E78.5 Hyperlipidemia, unspecified; E11.9 Type 2 diabetes mellitus without complications; I48.91 Unspecified atrial fibrillation; G89.3 Neoplasm related pain (acute) (chronic); Z86.010 Personal history of colon polyps; Z79.891 Long term (current) use of opiate analgesic; Z79.899 Other long term (current) drug therapy; Z92.21 Personal history of antineoplastic chemotherapy
CPT/HCPCS: 36415; 80053; 85025; 96361; 96365; 96366; 96375; 96523; 99214; J2405; J3480; J7030; J7040

== ENCOUNTER 2021-07-11 11:41 | Outpatient (RCR) | payer OTHER, SELFPAY ==
[2021-07-06] MEDS: alteplase 1 mg/mL SDV 2 mL 2 MG IV (09:35)
[2021-07-06 10:18] LABS: Basophils % 0.1 %; Eosinophils % 0.5 %; Hematocrit 25.1 % (42.0-52.0); Hemoglobin 7.9 g/dL (11.7-16.6); Lymphocytes # 0.6 10^3/uL (0.8-4.8); Lymphocytes % 6.6 %; Mean Corpuscular HGB Conc 31.5 g/dL (30.0-36.0); Mean Corpuscular Hemoglobin 27.6 pg (28.0-34.0); Mean Corpuscular Volume 87.8 fl (80-94); Mean Platelet Volume 8.6 fL (7.4-10.4); Monocytes # 0.5 10^3/uL (0.2-0.9); Monocytes % 5.6 %; Neutrophils # 7.27 10^3/uL (1.8-7.7); Neutrophils % 86.6 %; Nucleated Red Blood Cells % 0 %; Platelet Count 238 10^3/cmm (130-400); Red Blood Count 2.86 10^6/uL (4.1-5.3); Red Cell Distribution Width 13.9 % (12.1-15.1); White Blood Count 8.4 10^3/uL (4.0-10.0)
[2021-07-06 10:44] LABS: Alanine Aminotransferase 9 U/L (0-41); Albumin Level 3.6 g/dL (3.5-5.2); Alkaline Phosphatase 195 IU/L (40-130); Anion Gap 12.9 (5-19); Aspartate Amino Transferase 13 U/L (0-40); Blood Urea Nitrogen 11 mg/dL (6-20); Calcium 11.7 mg/dL (8.5-10.5); Carbon Dioxide 28 mmol/L (22-29); Chloride 89 mmol/L (98-107); Globulin 3.7 g/dL (1.3-4.6); Glomerular Filtration Rate 99.3 mL/min (90-130); Glucose 96 mg/dL (65-115); Osmolality Calculated 261 mOsm/kg (285-295); Potassium 3.9 mmol/L (3.5-5.1); Sodium 126 mmol/L (136-145); Total Bilirubin 0.4 mg/dL (0.15-1.2); Total Protein 7.3 g/dL (6.6-8.7)
[2021-07-06] MEDS: sodium chloride 0.9% 250 ML 999 ML IV (11:15)
[2021-07-06] MEDS: diphenhydrAMINE 25 mg Capsule PO (11:45)
[2021-07-06] MEDS: acetaminophen 325 mg Tablet 650 MG PO (11:45)
[2021-07-06] MEDS: FUROsemide 10 mg/mL SDV 2mL 20 MG IV (12:55)
[2021-07-07] MEDS: alteplase 1 mg/mL SDV 2 mL 2 MG IV (11:05)
--- NOTE | 2021-07-11 11:46 | USCV_ITS ---
Avtar Kerns Age: 60 Gender: M : 1960 Exam Date: 07/11/2021 12:51 Ordering Phys: Julio Swenson MD Technologist: LORNA Exam Location: [facility] [place] Indication: Atrial fibrillation BP: 120 / 75 HR: 109 Rhythm: Sinus Technical Quality: Technically difficult study MEASUREMENTS (Male / Female) Normal Values 2D ECHO LV Diastolic Diameter PLAX 3.2 cm 4.2 - 5.9 / 3.9 - 5.3 cm LV Systolic Diameter PLAX 2.4 cm IVS Diastolic Thickness 1.2 cm 0.6 - 1.0 / 0.6 - 0.9 cm IVS Systolic Thickness 1.5 cm LVPW Diastolic Thickness 1.1 cm 0.6 - 1.0 / 0.6 - 0.9 cm LVPW Systolic Thickness 1.4 cm LVOT Diameter 2.0 cm LV Ejection Fraction 2D Teich 51.3 % Aorta at Sinotubular Diameter 2.7 cm FINDINGS Left Ventricle Normal left ventricular size, systolic function with no diagnostic regional wall motion abnormalities. Left ventricular ejection fraction is estimated at 60 %. Interpretation limited by tachycardia and technically difficult images Right Ventricle Probably normal right ventricle size and systolic function. Right Atrium Right atrium not well visualized. Left Atrium Left atrium not well visualized. Probably normal left atrial size. Mitral Valve Mildly thickened mitral valve. Aortic Valve Aortic valve not well visualized. Tricuspid Valve Tricuspid valve not well visualized. Pulmonic Valve Pulmonic valve not well visualized. Pericardium No pericardial effusion. Aorta Normal-sized aortic root. CONCLUSIONS 1. This is a technically difficult study. 2. Normal left ventricular size, systolic function with no diagnostic regional wall motion abnormalities. Left ventricular ejection fraction is estimated at 60 %. Interpretation limited by tachycardia. 3. Direct comparison to previous study dated 02/28/2021 is not possible given technically difficult study. Recommend repeat studies be done with echo contrast. Brooke Jones MD (Electronically Signed) Final Date: 12 July 2021 16:42 S
== END 2021-07-24 23:59 | disposition home or self-care (01) ==
LOC: ONCMED 11:41
PROVIDERS: Nurse Practitioner Family; PCP Nurse Practitioner; Visit Provider Internal Medicine Medical Oncology
DX: C34.11 Malignant neoplasm of upper lobe, right bronchus or lung (principal); C79.51 Secondary malignant neoplasm of bone; I10 Essential (primary) hypertension; E78.5 Hyperlipidemia, unspecified; E11.59 Type 2 diabetes mellitus with other circulatory complications; I48.91 Unspecified atrial fibrillation; D64.9 Anemia, unspecified; Z86.010 Personal history of colon polyps; Z79.891 Long term (current) use of opiate analgesic; Z79.899 Other long term (current) drug therapy
CPT/HCPCS: 36430; 36593; 80053; 85025; 86850; 86900; 86920; 93308; 96374; 99215; J1940; J2997; J7050; P9016; P9040

== ENCOUNTER 2021-07-28 09:38 | Outpatient (RCR) | payer OTHER, SELFPAY ==
[2021-07-28 10:59] LABS: Basophils % 0.1 %; Eosinophils # 0.1 10^3/uL (0.0-0.8); Eosinophils % 0.8 %; Hematocrit 26.7 % (42.0-52.0); Hemoglobin 8.5 g/dL (11.7-16.6); Lymphocytes # 1.1 10^3/uL (0.8-4.8); Lymphocytes % 13.9 %; Mean Corpuscular HGB Conc 31.8 g/dL (30.0-36.0); Mean Corpuscular Hemoglobin 27.2 pg (28.0-34.0); Mean Corpuscular Volume 85.6 fl (80-94); Mean Platelet Volume 8.5 fL (7.4-10.4); Monocytes # 0.5 10^3/uL (0.2-0.9); Monocytes % 6.2 %; Neutrophils # 5.93 10^3/uL (1.8-7.7); Neutrophils % 78.6 %; Nucleated Red Blood Cells % 0 %; Platelet Count 209 10^3/cmm (130-400); Red Blood Count 3.12 10^6/uL (4.1-5.3); Red Cell Distribution Width 13.4 % (12.1-15.1); White Blood Count 7.6 10^3/uL (4.0-10.0)
[2021-07-28 11:23] LABS: Alanine Aminotransferase 14 U/L (0-41); Albumin Level 3.4 g/dL (3.5-5.2); Alkaline Phosphatase 213 IU/L (40-130); Anion Gap 13.7 (5-19); Aspartate Amino Transferase 14 U/L (0-40); Blood Urea Nitrogen 20 mg/dL (6-20); Calcium 11.8 mg/dL (8.5-10.5); Carbon Dioxide 26 mmol/L (22-29); Chloride 94 mmol/L (98-107); Globulin 3.5 g/dL (1.3-4.6); Glomerular Filtration Rate 76.7 mL/min (90-130); Glucose 79 mg/dL (65-115); Osmolality Calculated 272 mOsm/kg (285-295); Potassium 3.7 mmol/L (3.5-5.1); Sodium 130 mmol/L (136-145); Total Bilirubin 0.4 mg/dL (0.15-1.2); Total Protein 6.9 g/dL (6.6-8.7)
--- NOTE | 2021-07-29 21:22 | ONC FU_ITS ---
Cindy Jamil Progress Note Patient: Avtar Kerns Unit #: [id number]: 1960 Dicatated By: Cindy Jamil N.P.Date of Visit:Jul 28, 2021 Onc MED Follow-up/Prog Note Chief Complaint: Lung cancer. 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 This is presumed to be from a primary lesion in the upper lobe of the right lung, by clinical evaluation stage IVB (T2a, N0, M1c). He had presented with severe pain in the lower back. It actually started as far back as 2019 and it just continue to progressively worsen. He was seen at the orthopedic clinic by Dr. Umair Lima on 06/14/2020. An MRI of the lumbar spine on 06/23/2020 showed an expansile marrow replacing process, likely neoplasm, involving the S1 and S2 vertebral bodies centered at the S1 level. There was associated epidural disease with moderate to severe narrowing of the cauda equina distally impinging the transversing S1 nerve roots. There was infiltrating signal abnormality extending into the sacral ala bilaterally and also involving the posterior L5 vertebral body. There was moderate central canal stenosis at L5-S1. The findings were consistent with primary bone neoplasm or metastatic disease. Also noted was a partially visualized expansile lesion in the right acetabulum. Further evaluation with MRI of the pelvis on 07/08/2020 showed marrow replacing multifocal neoplasm/metastatic disease involving the right acetabulum with bony expansion extending into the adjacent pubic rami and pubic root. Signal abnormality was noted to extend into the right ilium and right iliac wing. There was additional disease involving the left intertrochanteric femur, with the largest lesion measuring 2.8 x 4.2 cm. The findings involving the S1-S2 vertebral bodies were again noted. Overall, the findings were compatible with neoplasm most likely due to metastatic disease. He was admitted to [facility] where additional evaluation with bone scan and x-rays confirmed evidence of a lytic lesion in the right acetabulum with cortical breakthrough, a large lytic lesion in the sacrum with cortical breakthrough, a lytic lesion in the left femoral intertrochanteric region, and a suspected lytic lesion in the left proximal tibia. Staging CT scans of the chest, abdomen, and pelvis on 07/15/2020 showed a hypoenhancing mass in the upper lobe of the right lung measuring 3.2 x 2.6 cm. It was noted to invade the right upper lobe bronchus and it appeared to be the likely cause of right upper lobe atelectasis. There were no pathologically enlarged lymph nodes in the mediastinum or kya. A 9 mm nodular groundglass opacity was noted in the right lower lobe and a 4 mm calcified granuloma was noted in the right lower lobe. There is no evidence for metastatic disease in the abdominal area. There was evidence of an infiltrative destructive mass centered in the sacrum with soft tissue component extending into the right sacroiliac joint and into the right aspect of the posterior elements of L5. Another infiltrative destructive mass with soft tissue component was seen centered in the right acetabulum with intra-arterial extension and with extension into the fovea of the right femoral head. Another lytic lesion was noted in the left femoral intertrochanteric region. On 07/21/2020 he underwent open biopsy of the left femur along with prophylactic fixation of the left femur with intramedullary maricruz. Pathology showed metastatic squamous cell carcinoma. The PD-L1 22C3 expression by IHC was reported positive at 1 to 10%. He was seen here initially on 08/04/2020. He began on symptomatic management for the bone pain. He was seen by Dr. Mead for palliative radiation. He was given a course of treatment to the sacrum, which he completed on 08/23/2020 to a total dose of 3000 cGy administered in 10 fractions. He tolerated the radiation well. His other medical illnesses include hypertension, hyperlipidemia, type 2 diabetes, and hypothyroidism. He has a history of atrial fibrillation and he also has a history of colonic polyps. He has a history of smoking 1-1/2 to 2 packs of cigarettes daily for 35 years. He quit smoking in November 2019. INTERIM HISTORY: On 09/06/2020 he began systemic therapy with carboplatin/Abraxane chemotherapy administered on a day 1/day 8 schedule every 21 days together with pembrolizumab administered every 21 days. At that point he had become significantly anemic, requiring PRBC transfusion. He was able to tolerate treatment with acceptable toxicity, and he continued with cycle 2 on 09/27/2020, with cycle 3 on 10/18/2020, and with cycle 4 on 11/17/2020. On 11/21/2020 he had been seen by Dr. Fontenot because of left lower quadrant abdominal pain. He improved on empiric antibiotic therapy with ciprofloxacin/metronidazole for suspected diverticulitis. However, because of that illness, his scheduled day 8 chemotherapy treatment was deferred. He was then seen here on 11/29/2020. His symptoms have improved at that point he continued with his cycle 4-day 8 chemotherapy. It was administered with Neulasta prophylactically. At his follow-up visit on 12/15/2020, he reported significant worsening of pain, particularly in the left hip area. Restaging PET/CT on 12/17/2020 showed FDG avid right upper lobe pulmonary nodule measuring 1.8 x 2.1 cm, SUV 12.8. There were malignant soft tissue implants noted in the left gluteal muscles with SUV up to 18.7, the dominant lesion measuring 6.7 x 3.1 cm. There was essential replacement of the right acetabulum with an FDG positive destructive mass measuring 8.7 x 4.5 cm, SUV 18.8. Other smaller active lesions were noted in the right iliac bone and proximal left femur. A FDG negative sclerotic change in the sacrum was felt to be consistent with treated metastatic disease. He had further evaluation with MRI of the pelvis on 12/29/2020. It showed a large destructive osseous metastatic mass centered in the right acetabulum with extension through the superior right hip joint and right ilium. Also noted were multifocal soft tissue metastatic deposits surrounding the left hip involving the gluteal muscles and an additional osseous metastatic site involving the left lesser trochanter with extension into the proximal femoral diaphysis. With those findings he was referred to Dr. Mead and he underwent additional palliative radiation to the right acetabular mass and to the left gluteal area. Treatment was completed on 01/19/2021, both sites to a total dose of 3000 cGy administered in 10 fractions. He was seen on 02/02/2021 for a follow-up visit. He had significant improvement in his pain following the radiation, but he still had very limited activity. He was essentially nonambulatory. He was also found to be anemic with a hemoglobin of 7.8g and hematocrit of 26.1%. He received 2 units of packed red blood cells on February 06, 2021. It was recommended that he pursue second line treatment with afatinib. He started the afatinib on 03/01/2021 at a standard dosage of 40 mg daily. In March he was seen in the emergency room with increased shortness of breath. It had started fairly abruptly the day before when he woke up from a nap and just could not catch his breath. His CT pulmonary angiogram showed no evidence of pulmonary embolism. There was evidence of moderately severe emphysema with coarse reticular interstitial changes. The right upper lobe pulmonary nodule measured 16 x 12 mm. There was mild diffuse bronchial wall thickening, but there was no acute infiltrate noted and there was no pleural or pericardial effusion. He was treated symptomatically for bronchitis. During subsequent follow-up he had reported development of a skin rash and he also then began having diarrhea. As of 05/02/2021 the afatinib was put on hold, and the diarrhea subsequently resolved. He then restarted the afatinib with the dosage reduced to 30 mg daily. He presents today for follow-up. He states he has been feeling pretty good lately. He is nonambulatory due to generalized weakness. His appetite has been fair. He denies fever, chills, night sweats. He denies sinus drainage or congestion. No shortness of breath, cough, chest pain no GI or problems. His bone pain especially in his left hip is controlled with the morphine. He denies headaches. Review Of Symptoms: See above. Past Medical History: Atrial fibrillation History of colonic polyps Hyperlipidemia Hypertension Hypothyroidism Type II diabetes Past [facility] History: [facility] Prophylactic fixation of the left femur and open biopsy of left femur in 2020 Colonoscopy in 2019 Allergies: No Known Allergies. Medications: Atorvastatin Calcium 1 (40 mg) Tablet Oral daily Cetirizine HCl 1 (10 mg) Tablet Oral daily Doxycycline Hyclate 1 Tablet (of 100 mg) Oral b.i.d. for 14 days Dulcolax Tablet, enteric coated Oral PRN DULoxetine HCl 1 (20 mg) Capsule Delayed Release Particles Oral b.i.d. Eliquis 1 (5 mg) Tablet Oral b.i.d. Famotidine 1 (20 mg) Tablet Oral daily Levoxyl 1 (200 mcg) Tablet Oral daily Liothyronine Sodium 1 (5 mcg) Tablet Oral daily LORazepam 1 (1 mg) Tablet Oral b.i.d. Marinol 1 (5 mg) Capsule Oral b.i.d. metFORMIN HCl 1 (500 mg) Tablet Oral b.i.d. Metoprolol Tartrate 1 (25 mg) Tablet Oral b.i.d. Montelukast Sodium 1 (10 mg) Tablet Oral daily Morphine Sulfate 1 - 2 Tablet (of 30 mg) Oral q 4 hours PRN Morphine Sulfate ER 3 Tablet (of 60 mg) Tablet, controlled release Oral b.i.d. Ondansetron 1 - 2 (4 mg) Tablet Dispersable Oral q 4 hours PRN predniSONE (5 ) Tablet Therapy Pack Oral Take as Directed Family History: Mr. Kerns's mother at age 63: Cancer. Mr. Kerns's father at age 65: myocardial infarction. Father of heart attack at age 65. Mother of lung cancer at age 63. Three sisters are in good health. A 17-year-old daughter has juvenile rheumatoid arthritis. Social History: Mr. Kerns is . He quit smoking 1 year ago but had smoked 3.0 packs/day for 30 years. He drinks occasionally. 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 He has a history of smoking 1-1/2 to 2 packs of cigarettes daily for 35 years. He quit in November 2019. He has moderate alcohol use with a mixed drink 4 to 5 days a week. Physical Examination: Performed on Jul 28, 2021 11:54: Height - 68.00 in, Weight - 140 lbs (LOW), BSA - 1.76 sq.m, BMI - 21.29, Temperature - 98.0 F (LOW), Pulse - 112 /min (HIGH), Respiration - 18 /min, BP - 137/87 mm(hg), O2 Sat - 99 %, Pain - 6, and Fatigue - 5. Performance Status: 3 - Capable of only limited self-care, confined to bed or chair more than 50% of waking hours. (ECOG) Constitutional Alert, cooperative, oriented. Mood and affect appropriate. Appears close to chronological age. Appears chronically ill. Head Normocephalic; no scars. Eyes Conjunctivae and sclerae are clear and without icterus. Pupils are reactive and equal. Respiratory Course breath sounds with intermittent wheezing bilaterally Cardiovascular Regular rate and rhythm of heart without murmurs, gallops or rubs. Abdomen Non-tender, non-distended, no masses, ascites or hepatosplenomegaly. Good bowel sounds. No guarding or rebound tenderness. Extremities No visible deformities, no cyanosis, clubbing or edema. Pulses 3+ and equal bilaterally. Musculoskeletal generalized weakness. Psychiatric Alert and oriented times three. Coherent speech. Verbalizes understanding of our discussions today. Laboratory: Test performed on Jul 28, 2021 10:45 Sodium 130 mmol/L Potassium 3.7 mmol/L Chloride 94 mmol/L CO2 26 mmol/L Anion Gap 13.7 BUN 20 mg/dL Creatinine 1.0 mg/dL Cr Clearance (Est) 72.3200 mL/min eGFR 76.7 mL/min Glucose 79 mg/dL Osmolality - Calculated 272 mOsm/kg Calcium 11.8 mg/dL Protein, Total 6.9 g/dL Albumin 3.4 g/dL Globulin 3.5 g/dL Bilirubin, Total 0.4 mg/dL ALT (SGPT) 14 U/L AST (SGOT) 14 U/L Alkaline Phosphatase 213 IU/L WBC 7.6 10 3/uL RBC 3.12 10 6/uL HGB 8.5 g/dL HCT 26.7 % MCV 85.6 fl MCH 27.2 pg MCHC 31.8 g/dL RDW 13.4 % Platelet Count 209 10 3/cmm MPV 8.5 fL Neutrophils 5.93 10 3/uL Lymphocytes 1.1 10 3/uL Monocytes 0.5 10 3/uL Eosinophils 0.1 10 3/uL Basophils 0.0 10 3/uL Neutrophil % 78.6 % Lymphocyte % 13.9 % Monocyte % 6.2 % Eosinophil % 0.8 % Basophils % 0.1 % NRBC % 0 % Test performed on Jul 19, 2021 00:00 Manual Diff Cancelled via OM: Procedure Rescheduled Anti-D Test Not Performed Cancelled via OM: Procedure Rescheduled Blood Type Test Not Performed Cancelled via OM: Procedure Rescheduled Antibody Screen (Gel) Test Not Performed Cancelled via OM: Procedure Rescheduled Test performed on Jul 06, 2021 10:00 Leukocyte Reduced RBC [id number] ON RCLR XM COMPATIBLE Test performed on Apr 24, 2021 08:35 [place] Free Light Chains 33.9 mg/L Lambda Free Light Chains 23.7 mg/L IgA 171 mg/dL [place]/Lambda Free Ratio 1.43 Impression: 1. Metastatic squamous cell carcinoma with presumed primary in the upper lobe of the right lung, stage IVB (T2a, N0, M1c). His tumor showed positive PD-L1 22C3 expression by IHC (1 to 10%). 2. He presented with severely painful bony metastatic disease involving multiple sites including the sacrum, right acetabulum, proximal left femur, and possibly the proximal left tibia. 3. Hypertension. 4. Hyperlipidemia. 5. Type 2 diabetes. 6. Atrial fibrillation. 7. History of colonic polyps. Plan: 1. Patient with metastatic squamous cell carcinoma with presumed primary in the upper lobe of the right lung, stage IVB (T2a, N0, M1c). His tumor showed positive PD-L1 22C3 expression by IHC (1 to 10%). He presented with severely painful bony metastatic disease involving multiple sites including the sacrum, right acetabulum, proximal left femur, and possibly the proximal left tibia. On 07/21/2019 he underwent open biopsy of the left femur in association with prophylactic fixation of the left femur with intramedullary maricruz. Pathology showed metastatic squamous cell carcinoma. His staging CT scans showed a primary tumor in the upper lobe of the right lung. There was associated right upper lobe atelectasis, but he has not been overtly symptomatic with it. He was given palliative radiation to the sacrum, completed on 08/23/2020 to a total dose of 3000 cGy administered in 10 fractions. He tolerated it well, and he did have symptomatic benefit. On 09/06/2020 he began systemic therapy with carboplatin/Abraxane chemotherapy in combination with pembrolizumab. He tolerated the 1st cycle with acceptable toxicity. He continued with cycle 2 on 09/27/2020. He was seen at day 8 of the 2nd cycle with complaints of low-grade fever along with episodes of feeling hot/sweaty alternating with severe chills. A specific cause was not determined, but there was no evidence of an active infectious process. Overall he had tolerated his treatment with acceptable toxicity, and he had been showing gradual improvement in his performance status. He then continued with cycle 3 of carboplatin/Abraxane/pembrolizumab on 10/18/2020 and with cycle 4 on 11/17/2020. His cycle 4-day 8 treatment was deferred due to suspected acute diverticulitis. At his follow-up visit on 11/29/2020 he was feeling better, and he then continued his cycle 4-day treatment. It was administered with Neulasta prophylactically. At his follow-up visit on 12/15/2020 he reported significant increased pain, particularly in the left hip area. His restaging PET/CT showed significant disease progression involving the right acetabulum and the left gluteal area, for which he was given additional palliative radiation. With evidence of disease progression, he then began second line treatment with afatinib 40 mg daily on 03/01/2021. During follow-up his continued to have transfusion dependent anemia, but he has tolerated the afatinib without significant toxicity. He was seen in the emergency room on 04/21/2021 with increased shortness of breath. The exact cause for that is uncertain, as there were no acute findings noted on CT pulmonary angiogram. He then continued treatment with afatinib 40 mg daily. As of 05/01/2021 the afatinib was put on hold due to side effects, mainly skin rash and diarrhea. With resolution of those symptoms, he then restarted the afatinib with the dosage reduced to 30 mg daily. He is tolerating the afatinib at 30 mg daily. 2. 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 His hemoglobin is 8.5 today so we will continue to monitor. Return to clinic in one month or sooner if needed. 3. He has metastatic involvement with right hip. Morphine is controlling pain. Signed By: Cindy Jamil N.P. <<Signature on File>>
== END 2021-08-24 23:59 | disposition home or self-care (01) ==
LOC: ONCMED 09:38
PROVIDERS: PCP Nurse Practitioner; Visit Provider Internal Medicine Medical Oncology
DX: C34.11 Malignant neoplasm of upper lobe, right bronchus or lung (principal); C79.51 Secondary malignant neoplasm of bone; I10 Essential (primary) hypertension; E78.5 Hyperlipidemia, unspecified; E11.59 Type 2 diabetes mellitus with other circulatory complications; I48.91 Unspecified atrial fibrillation; Z86.010 Personal history of colon polyps; Z79.899 Other long term (current) drug therapy; Z92.21 Personal history of antineoplastic chemotherapy
CPT/HCPCS: 36591; 80053; 85025; 99214

== ENCOUNTER 2021-10-03 11:30 | Oncology outpatient (recurring) (ONCR) | payer OTHER, SELFPAY ==
[2021-09-26] VITALS (8 sets, daily range): BP systolic 121–152; BP diastolic 78–95; PULSE 79–85; RESP 16–18; TEMP 36.6–37.2; O2SAT 98–99
[2021-09-26 10:54] LABS: Basophils % 0.1 %; Eosinophils % 0.6 %; Lymphocytes # 0.6 10^3/uL (0.8-4.8); Lymphocytes % 8.3 %; Mean Corpuscular HGB Conc 28.1 g/dL (30.0-36.0); Mean Corpuscular Hemoglobin 23.9 pg (28.0-34.0); Mean Corpuscular Volume 84.9 fl (80-94); Mean Platelet Volume 8.9 fL (7.4-10.4); Monocytes # 0.3 10^3/uL (0.2-0.9); Monocytes % 3.5 %; Neutrophils # 6.17 10^3/uL (1.8-7.7); Neutrophils % 87.2 %; Nucleated Red Blood Cells % 0 %; Platelet Count 246 10^3/cmm (130-400); Red Blood Count 2.18 10^6/uL (4.1-5.3); Red Cell Distribution Width 15.9 % (12.1-15.1); White Blood Count 7.1 10^3/uL (4.0-10.0)
[2021-09-26 11:03] LABS: Hematocrit 18.5 % (42.0-52.0); Hemoglobin 5.2 g/dL (11.7-16.6)
[2021-09-26 11:38] LABS: Alanine Aminotransferase < 5 U/L (0-41); Albumin Level 3.1 g/dL (3.5-5.2); Alkaline Phosphatase 268 IU/L (40-130); Anion Gap 17.4 (5-19); Aspartate Amino Transferase 10 U/L (0-40); Blood Urea Nitrogen 17 mg/dL (6-20); Calcium 10.2 mg/dL (8.5-10.5); Carbon Dioxide 22 mmol/L (22-29); Chloride 96 mmol/L (98-107); Globulin 3.7 g/dL (1.3-4.6); Glomerular Filtration Rate 86.7 mL/min (90-130); Glucose 92 mg/dL (65-115); Osmolality Calculated 275 mOsm/kg (285-295); Potassium 3.4 mmol/L (3.5-5.1); Sodium 132 mmol/L (136-145); Total Bilirubin 0.5 mg/dL (0.15-1.2); Total Protein 6.8 g/dL (6.6-8.7)
[2021-09-26] MEDS: sodium chloride 0.9% 250 ML 75 ML IV (11:45)
[2021-09-26] MEDS: acetaminophen 325 mg Tablet 650 MG PO (12:13)
[2021-09-26] MEDS: diphenhydrAMINE 25 mg Capsule PO (12:14)
[2021-09-26] MEDS: FUROsemide 10 mg/mL SDV 2mL 20 MG IVP (15:10)
[2021-10-03] MEDS: alteplase 1 mg/mL SDV 2 mL 2 MG INTRACATH (11:57)
[2021-10-03 13:41] VITALS: BP 142/87; PULSE 97; RESP 18; TEMP 36.3; O2SAT 100
[2021-10-03] MEDS: sodium chloride 0.9% 500 ML 999 ML IV (13:55)
== END 2021-10-24 23:59 | disposition home or self-care (01) ==
PROVIDERS: PCP Nurse Practitioner; Visit Provider Internal Medicine Medical Oncology
DX: C34.11 Malignant neoplasm of upper lobe, right bronchus or lung (principal); C79.51 Secondary malignant neoplasm of bone; D64.81 Anemia due to antineoplastic chemotherapy; L27.1 Localized skin eruption due to drugs and medicaments taken internally; K52.1 Toxic gastroenteritis and colitis; T45.1X5A Adverse effect of antineoplastic and immunosuppressive drugs, initial encounter; J98.11 Atelectasis; E03.9 Hypothyroidism, unspecified; E87.1 Hypo-osmolality and hyponatremia; Z79.899 Other long term (current) drug therapy
CPT/HCPCS: 36430; 36591; 36593; 80053; 85025; 86850; 86900; 86920; 96374; J1940; J2704; J2997; J3010; J7040; J7050; P9016

== ENCOUNTER 2021-10-15 12:22 | Inpatient (IN) | payer OTHER, SELFPAY ==
[2021-10-15] VITALS (11 sets, daily range): BP systolic 114–152; BP diastolic 72–98; PULSE 93–100; RESP 16–18; TEMP 36.4–37; O2SAT 97–100; BMI 19.5
--- NOTE | 2021-10-15 13:00 | ED_ITS ---
Documented by User: Gema Pineda PA-C 10/15/21 14:33 HPI - Skin/Abscess/Foreign Bdy General: Chief complaint: Skin/Abscess/Foreign Body Stated complaint: says his spine is exposed due to bed sores Time Seen by Provider: 10/15/21 12:47 Source: patient Mode of arrival: wheelchair Limitations: no limitations History of Present Illness: 60-year-old male presents to the ER via wheelchair for a pressure ulcer to the sacrum. Patient is end-stage metastatic lung cancer. He reports this has been there about 3 months and is not improving. Patient reports he is set up with wound care on Saturday. His has been taking care of it on her own at home however she felt like it is worsening and that she could see bone this morning. Patient denies any increased pain. Saira ent denies any fever or chills. Patient reports multiple areas with similar wounds but not to the extent of the 1 on the sacrum. Bilateral hips have pressure ulcers also. Review of Systems General: Reports: 10 or more systems reviewed and unremarkable except in HPI and below PFSH ED PFSH: Medical History Adult onset hypothyroidism Atrial fibrillation with rapid ventricular response Chronic allergic rhinitis due to pollen COPD (chronic obstructive pulmonary disease) with emphysema Essential (primary) hypertension History of colon polyps Impaired ambulation Lumbar pain with radiation down right leg Metabolic syndrome Mixed hyperlipidemia Vitamin D deficiency Surgical History History of circumcision History of colonoscopy 2019 History of tonsillectomy Port-A-Cath in place (08/31/20) Family History Other Cancer Hypertension Social History Smoking and tobacco status: former smoker Second hand smoke exposure: Yes Smoking risk assessment/counseling performed?: Yes Alcohol intake: current Alcohol intake frequency: holidays/special occasions only Desire information about alcohol rehabilitation?: No Counseling given: No Desire information about substance/drug rehabilitation?: No Counseling given: No Adopted: No Caregiver/support person: No Lives independently: Yes Household members: spouse and children Housing: House Marital status: Current occupational status: employed Current occupation: [employer] History of recent travel: Yes (for job) Out of state: Yes Current gender identity: Male Physical Exam Const: GENERAL APPEARANCE: ill appearing, frail appearing and appears older than stated age NUTRITIONAL APPEARANCE: cachectic Resp: COMMON NORMALS: normal respiratory effort, No retractions and clear to auscultation bilaterally AUSCULTATION: clear to auscultation bilaterally Cardio: COMMON NORMALS: regular rate and regular rhythm RATE: regular rate RHYTHM: regular rhythm Back/Pelvis: SACRUM: other (Patient has a very large pressure ulcer over the sacrum, stage IV ) Psych: COMMON NORMALS: Normal thought process present and cooperative THOUGHT PROCESS: Normal thought process present Skin: NARRATIVE SKIN EXAM: Patient has multiple pressure ulcers noted specifically to bilateral hips. These are granulomatous. There is a very large stage IV pressure ulcer noted to the sacrum. This does appear to be bone deep. Course ED course: 60-year-old male presents to the ER today for a pressure ulcer to the sacrum. Patient reports this is been there about 3 months. Patient is end- stage metastatic lung cancer. He reports his has been taking care of this at home however this morning she felt like it was deeper than normal. He has an appointment with wound care set up for Saturday. He denies any other symptoms at this time including fevers, nausea, vomiting. Dr. Rader, ER physician saw this patient and recommended consult with general surgery. Dr. Melvin was consulted and recommended ruling out sepsis. He recommended patient follow-up with wound care which patient has an appointment with on Saturday. We will get a CBC, CMP today. Consultations: Consultation #1: Spoke with oncall surgeon Dr. Melvin. Recommends ruling out sepsis, otherwise F/U with wound care. Time: 13:01 Consultation #2: Spoke with ER physician Dr. Rader. He also saw this patient. He recommended consult with general surgery and making sure there is support at home through home health etc. Time: 13:02 Consultation #3: Given results of low hemoglobin of 7.0, low sodium, low albumin and a stage IV pressure ulcer, we will consult senior research consultant for possible admission and blood transfusion. Dr. Rader will contact hospitalist at this time. Time: 14:33 Vital Signs: Vital signs: Vital Signs Temperature 98.5 F 10/15/21 13:00 Pulse Rate 100 10/15/21 12:44 Respiratory Rate 18 10/15/21 12:44 Blood Pressure 152/98 10/15/21 12:44 Pulse Oximetry 97 10/15/21 12:44 MDM - Skin/Abscess/Foreign Bdy Medicial Decision Making 60-year-old male presents to the ER today for a pressure ulcer to the sacrum. Patient reports this is been there about 3 months. Patient is end-stage metastatic lung cancer. He reports his has been taking care of this at home however this morning she felt like it was deeper than normal. He has an appointment with wound care set up for Saturday. He denies any other symptoms at this time including fevers, nausea, vomiting. Dr. Rader, ER physician saw this patient and recommended consult with general surgery. Dr. Melvin was consulted and recommended ruling out sepsis. He recommended patient follow-up with wound care which patient has an appointment with on Saturday. CBC obtained in ER. I did discuss with patient's home care. She reports she would rather not have any help at home until it is necessary. I discussed with her I felt like she likely needed assistance at home with this type of wound. She can discuss this with wound care on Saturday but I would highly recommend she consider some sort of home health to help her care for his wounds. CBC shows a hemoglobin of 7.0. Patient had as low as 5.2 about 2 weeks ago and was infused at that time. He did increase to 8 and is back down to 7 at this time. We will get a CMP and discuss pt with hospitalist. Lab Data : 10/15/21 13:15 10/15/21 13:15 Laboratory Results WBC 8.3 10^3/uL (4.0-10.0) 10/15/21 13:15 RBC 2.76 10^6/uL (4.1-5.3) L 10/15/21 13:15 Hgb 7.0 g/dL (11.7-16.6) L 10/15/21 13:15 Hct 23.3 % (42.0-52.0) L 10/15/21 13:15 MCV 84.4 fl (80-94) 10/15/21 13:15 MCH 25.4 pg (28.0-34.0) L 10/15/21 13:15 MCHC 30.0 g/dL (30.0-36.0) 10/15/21 13:15 RDW 14.9 % (12.1-15.1) 10/15/21 13:15 Plt Count 259 10^3/cmm (130-400) 10/15/21 13:15 MPV 8.5 fL (7.4-10.4) 10/15/21 13:15 Neut % (Auto) 92.1 % 10/15/21 13:15 Lymph % (Auto) 4.4 % 10/15/21 13:15 [place] % (Auto) 2.9 % 10/15/21 13:15 Eos % (Auto) 0.1 % 10/15/21 13:15 Baso % (Auto) 0.1 % 10/15/21 13:15 Neut # (Auto) 7.60 10^3/uL (1.8-7.7) 10/15/21 13:15 Lymph # (Auto) 0.4 10^3/uL (0.8-4.8) L 10/15/21 13:15 [place] # (Auto) 0.2 10^3/uL (0.2-0.9) 10/15/21 13:15 Eos # (Auto) 0.0 10^3/uL (0.0-0.8) 10/15/21 13:15 Baso # (Auto) 0.0 10^3/uL (0.0-0.1) 10/15/21 13:15 Nucleated RBC % (auto) 0 % 10/15/21 13:15 Nucleated RBCs # 0.0 /100WBC 10/15/21 13:15 Sodium 122 mmol/L (136-145) L 10/15/21 13:15 Potassium 3.8 mmol/L (3.5-5.1) 10/15/21 13:15 Chloride 87 mmol/L (98-107) L 10/15/21 13:15 Carbon Dioxide 26 mmol/L (22-29) 10/15/21 13:15 Anion Gap 12.8 (5-19) 10/15/21 13:15 BUN 13 mg/dL (6-20) 10/15/21 13:15 Creatinine 0.9 mg/dL (0.7-1.2) 10/15/21 13:15 GFR Calculation 86.7 mL/min (90-130) L 10/15/21 13:15 Glucose 106 mg/dL (65-115) 10/15/21 13:15 Calculated Osmolality 255 mOsm/kg (285-295) L 10/15/21 13:15 Calcium 10.8 mg/dL (8.5-10.5) H 10/15/21 13:15 Total Bilirubin 0.5 mg/dL (0.15-1.2) 10/15/21 13:15 AST 11 U/L (0-40) 10/15/21 13:15 ALT < 5 U/L (0-41) 10/15/21 13:15 Alkaline Phosphatase 288 IU/L (40-130) H 10/15/21 13:15 Total Protein 6.9 g/dL (6.6-8.7) 10/15/21 13:15 Albumin 3.0 g/dL (3.5-5.2) L 10/15/21 13:15 Globulin 3.9 g/dL (1.3-4.6) 10/15/21 13:15 Critical Care Time Critical Care Time: Critical Care Time: No Discharge Plan Discharge Patient Disposition: Placed in Observation Clinical Impression: Stage IV pressure ulcer, Hyponatremia, Anemia, Chronic malnutrition, Metastatic squamous cell carcinoma Condition: Stable Prescriptions: No Action fluticasone propionate 50 mcg/actuation spray,suspension 2 spray INTRANASAL DAILY 0RF magnesium 250 mg tablet 250 mg PO .every other day 0RF cholecalciferol (vitamin D3) 125 mcg (5,000 unit) capsule 5,000 unit PO QDAY Qty: 90 1RF metoprolol tartrate 25 mg tablet 25 mg PO DAILY 0RF potassium chloride 20 mEq tablet extended release 20 meq PO DAILY 0RF lactulose 10 gram/15 mL solution 20 g PO BID PRN0RF cetirizine [All Day Allergy (cetirizine)] 10 mg tablet 10 mg PO DAILY Qty: 90 1RF sennosides-docusate sodium [Senna-S] 8.6-50 mg tablet 1 tab-cap PO BID 30 Days Qty: 60 0RF (DME) AP pad with pump E0271 See Rx Instructions .Route .MEDSUPPLY Qty: 1 0RF Rx Instructions: As directed (DME) TU khanna [id number] See Rx Instructions .Route .MEDSUPPLY Qty: 1 0RF Rx Instructions: As directed mupirocin 2 % ointment 1 applic topical BID Qty: 22 0RF duloxetine [Cymbalta] 60 mg capsule,delayed release(DR/EC) 60 mg PO BID Qty: 180 1RF liothyronine [Cytomel] 5 mcg tablet 5 mcg PO DAILY Qty: 90 1RF Rx Instructions: use with levothroxyine montelukast [Singulair] 10 mg tablet 10 mg PO DAILY Qty: 90 1RF levothyroxine 200 mcg tablet 200 mcg PO QAM 90 Days Qty: 90 3RF ondansetron 4 mg tablet,disintegrating 4 mg PO Q8H PRN (Reason: Nausea) Qty: 60 2RF Eliquis 5 mg tablet 5 mg PO BID Qty: 60 0RF Hold Instructions: Resume on 09/02/20. Rx Instructions: Need to be seen in the office for future refills atorvastatin [Lipitor] 40 mg tablet 40 mg PO DAILY Qty: 90 1RF lorazepam 1 mg tablet 1 mg PO TID PRN (Reason: anxiety) Qty: 90 0RF Rx Instructions: take 0.5 to 1 tablet three times daily as needed for nausea afatinib 30 mg tablet 30 mg PO DAILY Qty: 30 0RF Rx Instructions: must be taken on empty stomach; no food 1 hr after or 2-3 hrs before dose morphine 30 mg tablet 30 mg PO Q4H PRN (Reason: pain) 30 Days Qty: 180 0RF morphine 60 mg tablet extended release 180 mg PO BID 30 Days Qty: 180 0RF MediHoney (honey) 100 % paste 1 applic topical BID Qty: 103 0RF dronabinol 5 mg capsule 5 mg PO BID 0RF albuterol sulfate 2.5 mg /3 mL (0.083 %) solution for nebulization 2.5 mg INHALATION Q4H PRN (Reason: Shortness Of Breath Or Wheezing) Qty: 180 2RF Gilotrif 30 mg Tablet 30 mg PO DAILY Qty: 28 0RF Rx Instructions: must be taken on empty stomach; no food 1 hr after or 2-3 hrs before dose Referrals: Guerrero Claudio, [facility] [Primary Care Provider] - Coding Level of Care Code ED Assistant Manager Pt for [facility] Fwd Exam Detailed Documented by User: Pop Rader DO 10/15/21 14:57 HPI - Skin/Abscess/Foreign Bdy General: Chief complaint: Skin/Abscess/Foreign Body Stated complaint: says his spine is exposed due to bed sores Time Seen by Provider: 10/15/21 12:47 PFSH ED PFSH: Medical History Adult onset hypothyroidism Atrial fibrillation with rapid ventricular response Chronic allergic rhinitis due to pollen COPD (chronic obstructive pulmonary disease) with emphysema Essential (primary) hypertension History of colon polyps Impaired ambulation Lumbar pain with radiation down right leg Metabolic syndrome Mixed hyperlipidemia Vitamin D deficiency Surgical History History of circumcision History of colonoscopy 2019 History of tonsillectomy Port-A-Cath in place (08/31/20) Family History Other Cancer Hypertension Social History Smoking and tobacco status: former smoker Second hand smoke exposure: Yes Smoking risk assessment/counseling performed?: Yes Alcohol intake: current Alcohol intake frequency: holidays/special occasions only Desire information about alcohol rehabilitation?: No Counseling given: No Desire information about substance/drug rehabilitation?: No Counseling given: No Adopted: No Caregiver/support person: No Lives independently: Yes Household members: spouse and children Housing: House Marital status: Current occupational status: employed Current occupation: [employer] History of recent travel: Yes (for job) Out of state: Yes Current gender identity: Male Course Consultations: Additional Consultation(s): I was asked to see this patient by the midlevel practitioner. I interviewed the patient and did a focused examination in the presence of the midlevel practitioner as well. Patient is alert and appears to be in no acute distress answers questions appropriately and appears to have normal mentation. No evidence of cardiorespiratory instability clinically at this time. Focused examination of his sacrum and gluteal area was undertaken. He does have a central skin breakdown in the mid sacrum which appears to be down to the presacral fascia consistent with grade 3/grade 4 pressure ulcer. He also has 2 areas of mild erythema distal to this central sacral rate lesion. Laboratory parameters were obtained. Patient is anemic and hyponatremic as noted. I reengage the patient later on in his ED stay and asked him if he had had any discussion with hospice or palliative care and he stated that he had not. When asked if you would be willing to proceed with consultation and and hospice care he expressed a willingness to do so. I did explain to him that the job at this point given what appears to be significant metastatic disease that palliative care and comfort care are in his best interest to give him the best quality of what ever life he has remaining. He acknowledged our discussion. We will go ahead and place him in observation at this time for transfusion, wound care consultation, hospice care consultation and other supportive measures as indicated. I discussed with the on-call hospitalist who agreed to proceed. Vital Signs: Vital signs: Vital Signs Temperature 98.5 F 10/15/21 13:00 Pulse Rate 100 10/15/21 12:44 Respiratory Rate 18 10/15/21 12:44 Blood Pressure 152/98 10/15/21 12:44 Pulse Oximetry 97 10/15/21 12:44 MDM - Skin/Abscess/Foreign Bdy Medicial Decision Making 60-year-old male presents to the ER today for a pressure ulcer to the sacrum. Patient reports this is been there about 3 months. Patient is end-stage metastatic lung cancer. He reports his has been taking care of this at home however this morning she felt like it was deeper than normal. He has an appointment with wound care set up for Saturday. He denies any other symptoms at this time including fevers, nausea, vomiting. Dr. Rader, ER physician saw this patient and recommended consult with general surgery. Dr. Melvin was consulted and recommended ruling out sepsis. He recommended patient follow-up w ith wound care which patient has an appointment with on Saturday. CBC obtained in ER. I did discuss with patient's home care. She reports she would rather not have any help at home until it is necessary. I discussed with her I felt like she likely needed assistance at home with this type of wound. She can discuss this with wound care on Saturday but I would highly recommend she consider some sort of home health to help her care for his wounds. His ulcers do not appear to be infected and patient does not have a clinical appearance consistent consistent with sepsis or significant infection at this time. CBC shows a hemoglobin of 7.0. Patient had as low as 5.2 about 2 weeks ago and was infused at that time. He did increase to 8 and is back down to 7 at this time. We will get a CMP and discuss pt with hospitalist. Medical Records I reviewed the patient's medical records. Lab Data I reviewed the patient's lab results. : 10/15/21 13:15 10/15/21 13:15 Laboratory Results WBC 8.3 10^3/uL (4.0-10.0) 10/15/21 13:15 RBC 2.76 10^6/uL (4.1-5.3) L 10/15/21 13:15 Hgb 7.0 g/dL (11.7-16.6) L 10/15/21 13:15 Hct 23.3 % (42.0-52.0) L 10/15/21 13:15 MCV 84.4 fl (80-94) 10/15/21 13:15 MCH 25.4 pg (28.0-34.0) L 10/15/21 13:15 MCHC 30.0 g/dL (30.0-36.0) 10/15/21 13:15 RDW 14.9 % (12.1-15.1) 10/15/21 13:15 Plt Count 259 10^3/cmm (130-400) 10/15/21 13:15 MPV 8.5 fL (7.4-10.4) 10/15/21 13:15 Neut % (Auto) 92.1 % 10/15/21 13:15 Lymph % (Auto) 4.4 % 10/15/21 13:15 [place] % (Auto) 2.9 % 10/15/21 13:15 Eos % (Auto) 0.1 % 10/15/21 13:15 Baso % (Auto) 0.1 % 10/15/21 13:15 Neut # (Auto) 7.60 10^3/uL (1.8-7.7) 10/15/21 13:15 Lymph # (Auto) 0.4 10^3/uL (0.8-4.8) L 10/15/21 13:15 [place] # (Auto) 0.2 10^3/uL (0.2-0.9) 10/15/21 13:15 Eos # (Auto) 0.0 10^3/uL (0.0-0.8) 10/15/21 13:15 Baso # (Auto) 0.0 10^3/uL (0.0-0.1) 10/15/21 13:15 Nucleated RBC % (auto) 0 % 10/15/21 13:15 Nucleated RBCs # 0.0 /100WBC 10/15/21 13:15 Sodium 122 mmol/L (136-145) L 10/15/21 13:15 Potassium 3.8 mmol/L (3.5-5.1) 10/15/21 13:15 Chloride 87 mmol/L (98-107) L 10/15/21 13:15 Carbon Dioxide 26 mmol/L (22-29) 10/15/21 13:15 Anion Gap 12.8 (5-19) 10/15/21 13:15 BUN 13 mg/dL (6-20) 10/15/21 13:15 Creatinine 0.9 mg/dL (0.7-1.2) 10/15/21 13:15 GFR Calculation 86.7 mL/min (90-130) L 10/15/21 13:15 Glucose 106 mg/dL (65-115) 10/15/21 13:15 Calculated Osmolality 255 mOsm/kg (285-295) L 10/15/21 13:15 Calcium 10.8 mg/dL (8.5-10.5) H 10/15/21 13:15 Total Bilirubin 0.5 mg/dL (0.15-1.2) 10/15/21 13:15 AST 11 U/L (0-40) 10/15/21 13:15 ALT < 5 U/L (0-41) 10/15/21 13:15 Alkaline Phosphatase 288 IU/L (40-130) H 10/15/21 13:15 Total Protein 6.9 g/dL (6.6-8.7) 10/15/21 13:15 Albumin 3.0 g/dL (3.5-5.2) L 10/15/21 13:15 Globulin 3.9 g/dL (1.3-4.6) 10/15/21 13:15 Discharge Plan Discharge Patient Disposition: Placed in Observation Clinical Impression: Stage IV pressure ulcer, Hyponatremia, Anemia, Chronic malnutrition, Metastatic squamous cell carcinoma Condition: Stable Prescriptions: No Action fluticasone propionate 50 mcg/actuation spray,suspension 2 spray INTRANASAL DAILY 0RF magnesium 250 mg tablet 250 mg PO .every other day 0RF cholecalciferol (vitamin D3) 125 mcg (5,000 unit) capsule 5,000 unit PO QDAY Qty: 90 1RF metoprolol tartrate 25 mg tablet 25 mg PO DAILY 0RF potassium chloride 20 mEq tablet extended release 20 meq PO DAILY 0RF lactulose 10 gram/15 mL solution 20 g PO BID PRN0RF cetirizine [All Day Allergy (cetirizine)] 10 mg tablet 10 mg PO DAILY Qty: 90 1RF sennosides-docusate sodium [Senna-S] 8.6-50 mg tablet 1 tab-cap PO BID 30 Days Qty: 60 0RF (DME) AP pad with pump E0271 See Rx Instructions .Route .MEDSUPPLY Qty: 1 0RF Rx Instructions: As directed (DME) ROHO pad [id number] See Rx Instructions .Route .MEDSUPPLY Qty: 1 0RF Rx Instructions: As directed mupirocin 2 % ointment 1 applic topical BID Qty: 22 0RF duloxetine [Cymbalta] 60 mg capsule,delayed release(DR/EC) 60 mg PO BID Qty: 180 1RF liothyronine [Cytomel] 5 mcg tablet 5 mcg PO DAILY Qty: 90 1RF Rx Instructions: use with levothroxyine montelukast [Singulair] 10 mg tablet 10 mg PO DAILY Qty: 90 1RF levothyroxine 200 mcg tablet 200 mcg PO QAM 90 Days Qty: 90 3RF ondansetron 4 mg tablet,disintegrating 4 mg PO Q8H PRN (Reason: Nausea) Qty: 60 2RF Eliquis 5 mg tablet 5 mg PO BID Qty: 60 0RF Hold Instructions: Resume on 09/02/20. Rx Instructions: Need to be seen in the office for future refills atorvastatin [Lipitor] 40 mg tablet 40 mg PO DAILY Qty: 90 1RF lorazepam 1 mg tablet 1 mg PO TID PRN (Reason: anxiety) Qty: 90 0RF Rx Instructions: take 0.5 to 1 tablet three times daily as needed for nausea afatinib 30 mg tablet 30 mg PO DAILY Qty: 30 0RF Rx Instructions: must be taken on empty stomach; no food 1 hr after or 2-3 hrs before dose morphine 30 mg tablet 30 mg PO Q4H PRN (Reason: pain) 30 Days Qty: 180 0RF morphine 60 mg tablet extended release 180 mg PO BID 30 Days Qty: 180 0RF MediHoney (honey) 100 % paste 1 applic topical BID Qty: 103 0RF dronabinol 5 mg capsule 5 mg PO BID 0RF albuterol sulfate 2.5 mg /3 mL (0.083 %) solution for nebulization 2.5 mg INHALATION Q4H PRN (Reason: Shortness Of Breath Or Wheezing) Qty: 180 2RF Gilotrif 30 mg Tablet 30 mg PO DAILY Qty: 28 0RF Rx Instructions: must be taken on empty stomach; no food 1 hr after or 2-3 hrs before dose Referrals: Guerrero Claudio, [facility] [Primary Care Provider] - Coding Level of Care Code ED Assistant Manager Pt for [facility] Fwd Exam Detailed
[2021-10-15 13:24] LABS: Basophils % 0.1 %; Eosinophils % 0.1 %; Hematocrit 23.3 % (42.0-52.0); Lymphocytes # 0.4 10^3/uL (0.8-4.8); Lymphocytes % 4.4 %; Mean Corpuscular Hemoglobin 25.4 pg (28.0-34.0); Mean Corpuscular Volume 84.4 fl (80-94); Mean Platelet Volume 8.5 fL (7.4-10.4); Monocytes # 0.2 10^3/uL (0.2-0.9); Monocytes % 2.9 %; Neutrophils % 92.1 %; Nucleated Red Blood Cells % 0 %; Platelet Count 259 10^3/cmm (130-400); Red Blood Count 2.76 10^6/uL (4.1-5.3); Red Cell Distribution Width 14.9 % (12.1-15.1); White Blood Count 8.3 10^3/uL (4.0-10.0)
[2021-10-15 14:20] LABS: Alanine Aminotransferase < 5 U/L (0-41); Alkaline Phosphatase 288 IU/L (40-130); Anion Gap 12.8 (5-19); Aspartate Amino Transferase 11 U/L (0-40); Blood Urea Nitrogen 13 mg/dL (6-20); Calcium 10.8 mg/dL (8.5-10.5); Carbon Dioxide 26 mmol/L (22-29); Chloride 87 mmol/L (98-107); Globulin 3.9 g/dL (1.3-4.6); Glomerular Filtration Rate 86.7 mL/min (90-130); Glucose 106 mg/dL (65-115); Osmolality Calculated 255 mOsm/kg (285-295); Potassium 3.8 mmol/L (3.5-5.1); Sodium 122 mmol/L (136-145); Total Bilirubin 0.5 mg/dL (0.15-1.2); Total Protein 6.9 g/dL (6.6-8.7)
--- NOTE | 2021-10-15 17:51 | PC.NURSE ---
bp: 119/70 o2: 100 room air hr: 97 temp: 98.2 oral rr: 18
--- NOTE | 2021-10-15 17:58 | PM.HP ---
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 His tumor showed positive PD-L1 22C3 expression by IHC (1 to 10%) with severely painful bony metastatic disease involving multiple sites including the sacrum, right acetabulum, proximal left femur, and proximal left tibia presented from home from chief complaint of worsening stage IV ulcer. Patient is stating that he is dependent on his for his daily care medication and activities, he does use bedside commode and use urinal. Her is doing a good job taking care of his wound but today when she noticed exposure of bone she got concerned and brought into the ER for further evaluation. Patient is denying fever, nausea, vomiting, chest pain, shortness of breath. His pain right now is 4/10. Morphine regimen is adequate for his pain control. Patient is stating that he never had any discussion regarding diverting colostomy. 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 He still undergoing chemotherapy, status post palliative radiotherapy for his metastatic lesions Last blood transfusion was a week ago White count 8 he is afebrile sodium 122 potassium 3.8 Stage IV ulcer with some tunneling, I will attach pictures in my history, maceration of edges, undermining of the wound with tunneling noted with skin sloughing I discussed goals of care with the patient, he does not want CPR or intubation or ventilator he is DNR/DNI however he has not talked about it with his yet Review of Systems Const: Denies: chills Eyes: Denies: change in vision ENMT: Denies: throat pain Card: Denies: chest pain Resp: Denies: dyspnea GI: Reports: diarrhea; Denies: abdominal pain : Denies: flank pain Musc: Reports: back pain Skin/Breast: Reports: rash, skin pain, skin swelling, new lesions, changing lesions and non-healing lesions Neuro: Denies: headache(s) Psych: Reports: depression Endo: Denies: polyuria Spencer/Lymph: Denies: easy bruising All/Imm: Denies: urticaria Medications/Allergies Home Medications Medication Instructions Recorded Confirmed Last Taken Type fluticasone propionate 50 2 spray INTRANASAL DAILY 07/14/19 10/15/21 09/09/19 History mcg/actuation nasal spray,suspension magnesium 250 mg tablet 250 mg PO EVERY OTHER DAY tab 07/14/19 10/15/21 10/14/21 History cetirizine 10 mg tablet (All Day 10 mg PO DAILY #90 tab 05/11/20 10/15/21 10/14/21 Rx Allergy (cetirizine)) dronabinol 5 mg capsule 5 mg PO BID 08/31/20 10/15/21 10/14/21 History sennosides 8.6 mg-docusate sodium 1 tab-cap PO BID 30 Days #60 tab 11/21/20 10/15/21 10/14/21 Rx 50 mg tablet (Senna-S) lactulose 10 gram/15 mL oral 20 g PO BID PRN ml 03/07/21 10/15/21 Unknown History solution AP pad with pump E0271 #1 ea 03/30/21 10/15/21 Unknown Rx ROHO pad [id number] #1 ea 03/30/21 10/15/21 Unknown Rx albuterol sulfate 2.5 mg (3 mL) INHALATION Q4H PRN 04/21/21 10/15/21 Unknown Rx #180 ml mupirocin 2 % topical ointment 1 applic TOPICAL BID #22 g 06/08/21 10/15/21 Unknown Rx atorvastatin 40 mg tablet (Lipitor) 40 mg PO DAILY #90 tab 06/16/21 10/15/21 10/14/21 Rx levothyroxine 200 mcg tablet 200 mcg PO QAM 90 Days #90 tab 10/03/21 10/15/21 10/14/21 Rx ondansetron 4 mg disintegrating 4 mg PO Q8H PRN #60 tab 10/03/21 10/15/21 Unknown Rx tablet morphine 30 mg immediate release 30 mg PO Q4H PRN 30 Days #180 tab 10/04/21 10/15/21 Unknown Rx tablet morphine 60 mg tablet,extended 180 mg PO BID 30 Days #180 tab 10/04/21 10/15/21 10/14/21 Rx release duloxetine 60 mg capsule,delayed 60 mg PO BID #180 cap 10/05/21 10/15/21 10/14/21 Rx release (Cymbalta) liothyronine 5 mcg tablet (Cytomel) 5 mcg PO DAILY #90 tab 10/05/21 10/15/21 10/14/21 Rx montelukast 10 mg tablet 10 mg PO DAILY #90 tab 10/05/21 10/15/21 10/14/21 Rx (Singulair) honey 100 % topical paste 1 applic TOPICAL BID #103 ml 10/06/21 10/15/21 Unknown Rx (MediHoney (honey)) afatinib 30 mg tablet (Gilotrif) 30 mg PO DAILY #28 tab 10/10/21 10/15/21 Unknown Rx cholecalciferol (vitamin D3) 125 5,000 unit PO DAILY 10/15/21 10/15/21 10/14/21 History mcg (5,000 unit) capsule lorazepam 1 mg tablet 1 mg PO TID PRN 10/15/21 10/15/21 Unknown History Allergies Allergy/AdvReac Type Severity Reaction Status Date / Time lisinopril AdvReac Severe Cough Verified 10/15/21 12:53 PFSH Acute PFSH: Medical History Adult onset hypothyroidism Atrial fibrillation with rapid ventricular response Chronic allergic rhinitis due to pollen COPD (chronic obstructive pulmonary disease) with emphysema Essential (primary) hypertension History of colon polyps Impaired ambulation Lumbar pain with radiation down right leg Metabolic syndrome Mixed hyperlipidemia Vitamin D deficiency Surgical History History of circumcision History of colonoscopy 2019 History of tonsillectomy Port-A-Cath in place (08/31/20) Family History Other Cancer Hypertension Social History Smoking and tobacco status: former smoker Second hand smoke exposure: Yes Smoking risk assessment/counseling performed?: Yes Alcohol intake: current Alcohol intake frequency: holidays/special occasions only Desire information about alcohol rehabilitation?: No Counseling given: No Desire information about substance/drug rehabilitation?: No Counseling given: No Adopted: No Caregiver/support person: No Lives independently: Yes Household members: spouse and children Housing: House Marital status: Current occupational status: employed Current occupation: [employer] History of recent travel: Yes (for job) Out of state: Yes Current gender identity: Male Vitals/I&O/Wt Last Vital Signs Temp 98.5 F 10/15/21 13:00 Pulse 96 10/15/21 14:30 Resp 16 10/15/21 14:30 BP 129/87 10/15/21 14:30 Pulse Ox 97 10/15/21 14:30 Weight last 48 hrs Weight 58.258 kg Weight 54.431 kg Data : 10/15/21 13:15 10/15/21 13:15 A&P Assessment and plan (1) Stage IV pressure ulcer: Status: Acute (2) Hyponatremia: Status: Acute (3) Anemia: Status: Acute (4) Chronic malnutrition: Status: Acute (5) Metastatic squamous cell carcinoma: Status: Acute (6) Transfusion-dependent anemia: Status: Acute (7) Malignant neoplasm of unspecified part of unspecified bronchus or lung: Status: Acute (8) Impaired ambulation: Status: Acute (9) Pressure sore on buttocks: Status: Chronic (10) History of colon polyps: Status: Acute (11) COPD (chronic obstructive pulmonary disease) with emphysema: Status: Chronic (12) Atrial fibrillation with rapid ventricular response: Status: Chronic Plan Stage IV ulcer Present on admission Maceration of skin, wound edges Tunneling of wound Consider general surgery consult for debridement in the morning, no acute indication for debridement I will start him on Augmentin and doxycycline He is not septic, I would hold off on adding IV antibiotics for now Patient does not want Cueva catheter placed, never had any discussion with a surgeon regarding diverting colostomy He will benefit from home health services with wound care Stage IV lung cancer with metastatic lesions Status post radiotherapy Currently on chemotherapy Saturating well on room air Follows up with Dr. Swenson Transfusion dependent anemia We will give him 1 unit PRBC He has history of recurrent blood transfusions Watch for signs of iron overload DVT prophylaxis: SCDs A. 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
[2021-10-15] MEDS: morphine IR 15 mg Tablet 30 MG PO (18:29)
[2021-10-15 19:23] LABS: Procalcitonin 0.36 ng/mL (0-0.5)
[2021-10-15] MEDS: sodium chloride 0.9% 1,000 ML 75 ML IV (20:34)
[2021-10-15] MEDS: sodium chloride 0.9% (100 ml) 100 ML (22:41)
[2021-10-16] VITALS (26 sets, daily range): BP systolic 104–146; BP diastolic 59–88; PULSE 73–94; RESP 12–18; TEMP 36.2–37.2; O2SAT 94–100
[2021-10-16] MEDS: morphine IR 15 mg Tablet 30 MG PO ×2 (02:12→06:28)
[2021-10-16] MEDS: levothyroxine 200 mcg Tablet PO (05:27)
--- NOTE | 2021-10-16 06:02 | PM.CONSULT ---
Providers/Reason For Consult Consulting Physician/Specialty*: Gordy Melvin MD Reason for Consult*: Sacral pressure injury ulcer Requesting Physician: Dr. Rader Attending Physician: Lolis Batista MD Primary Care Provider: ANTONIO aJmes History of Present Illness History of Present Illness Mr. Avtar Kerns is a 60 year old male with history of metastatic squamous cell carcinoma of the lung. Presented to the emergency department with stage IV sacral pressure injury ulcer. As his was concerned about the the deterioration of the ulcer she decided to come to the ER. From what I collected from the ER team that the patient has an appointment at the wound care center this coming Saturday. Patient presented with anemia and he is still getting chemotherapy. Per hospitalist note patient does not want CPR and he is DNR/DNI. Patient had an MRI of the pelvis back in December 2020 that did show 1.? Large destructive osseous metastatic mass centered in the RIGHT acetabulum with extension through the superior RIGHT hip joint and RIGHT ilium. Mass effect upon the bladder and soft tissues of the pelvis due to extension into the pelvis. 2.? Multifocal soft tissue metastatic deposit surrounding the LEFT hip involving the gluteal muscles. 3.? Additional osseous metastatic site involving the LEFT lesser trochanter with extension into the proximal femoral diaphysis. This metastatic site is adjacent to the prosthetic hardware in the LEFT hip. Patient at risk for pathological fracture. 4.? Multiple additional metastatic lesions in the lumbar spine, sacrum and RIGHT ischial tuberosity. ? At the presentation to the ER there is no repeat imaging to compare. General surgery was consulted for further evaluation and potential management Review of Systems General: Reports: 10 or more systems reviewed and unremarkable except in HPI and below Medications/Allergies Home Medications Medication Instructions Recorded Confirmed Last Taken Type fluticasone propionate 50 2 spray INTRANASAL DAILY 07/14/19 10/15/21 09/09/19 History mcg/actuation nasal spray,suspension magnesium 250 mg tablet 250 mg PO EVERY OTHER DAY tab 07/14/19 10/15/21 10/14/21 History cetirizine 10 mg tablet (All Day 10 mg PO DAILY #90 tab 05/11/20 10/15/21 10/14/21 Rx Allergy (cetirizine)) dronabinol 5 mg capsule 5 mg PO BID 08/31/20 10/15/21 10/14/21 History sennosides 8.6 mg-docusate sodium 1 tab-cap PO BID 30 Days #60 tab 11/21/20 10/15/21 10/14/21 Rx 50 mg tablet (Senna-S) lactulose 10 gram/15 mL oral 20 g PO BID PRN ml 03/07/21 10/15/21 Unknown History solution AP pad with pump [id number] #1 ea 03/30/21 10/15/21 Unknown Rx ROHO pad [id number] #1 ea 03/30/21 10/15/21 Unknown Rx albuterol sulfate 2.5 mg (3 mL) INHALATION Q4H PRN 04/21/21 10/15/21 Unknown Rx #180 ml mupirocin 2 % topical ointment 1 applic TOPICAL BID #22 g 06/08/21 10/15/21 Unknown Rx atorvastatin 40 mg tablet (Lipitor) 40 mg PO DAILY #90 tab 06/16/21 10/15/21 10/14/21 Rx levothyroxine 200 mcg tablet 200 mcg PO QAM 90 Days #90 tab 10/03/21 10/15/21 10/14/21 Rx ondansetron 4 mg disintegrating 4 mg PO Q8H PRN #60 tab 10/03/21 10/15/21 Unknown Rx tablet morphine 30 mg immediate release 30 mg PO Q4H PRN 30 Days #180 tab 10/04/21 10/15/21 Unknown Rx tablet morphine 60 mg tablet,extended 180 mg PO BID 30 Days #180 tab 10/04/21 10/15/21 10/14/21 Rx release duloxetine 60 mg capsule,delayed 60 mg PO BID #180 cap 10/05/21 10/15/21 10/14/21 Rx release (Cymbalta) liothyronine 5 mcg tablet (Cytomel) 5 mcg PO DAILY #90 tab 10/05/21 10/15/21 10/14/21 Rx montelukast 10 mg tablet 10 mg PO DAILY #90 tab 10/05/21 10/15/21 10/14/21 Rx (Singulair) honey 100 % topical paste 1 applic TOPICAL BID #103 ml 10/06/21 10/15/21 Unknown Rx (MediHoney (honey)) afatinib 30 mg tablet (Gilotrif) 30 mg PO DAILY #28 tab 10/10/21 10/15/21 Unknown Rx cholecalciferol (vitamin D3) 125 5,000 unit PO DAILY 10/15/21 10/15/21 10/14/21 History mcg (5,000 unit) capsule lorazepam 1 mg tablet 1 mg PO TID PRN 10/15/21 10/15/21 Unknown History Allergies Allergy/AdvReac Type Severity Reaction Status Date / Time lisinopril AdvReac Severe Cough Verified 10/16/21 06:05 Current Medications Generic Name Dose Route Start Last Admin Trade Name Freq PRN Reason Stop Dose Admin Sodium Chloride 1,000 mls @ 75 mls/hr 10/15/21 18:00 10/15/21 20:34 Sodium Chloride 0.9% IV 75 mls/hr .[id number] JASMINA Administration Levothyroxine Sodium 200 mcg 10/16/21 06:00 10/16/21 05:27 Levothyroxine 200 Mcg Tablet PO 200 mcg QAM JASMINA Administration Morphine Sulfate 30 mg 10/15/21 18:11 10/16/21 02:12 Morphine Ir 15 Mg Tablet PO 30 mg Q4H PRN Administration SEVERE PAIN PFSH Acute PFSH: Medical History Adult onset hypothyroidism Atrial fibrillation with rapid ventricular response Chronic allergic rhinitis due to pollen COPD (chronic obstructive pulmonary disease) with emphysema Essential (primary) hypertension History of colon polyps Impaired ambulation Lumbar pain with radiation down right leg Metabolic syndrome Mixed hyperlipidemia Vitamin D deficiency Surgical History History of circumcision History of colonoscopy 2019 History of tonsillectomy Port-A-Cath in place (08/31/20) Family History Other Cancer Hypertension Social History Smoking and tobacco status: former smoker Second hand smoke exposure: Yes Smoking risk assessment/counseling performed?: Yes Alcohol intake: current Alcohol intake frequency: holidays/special occasions only Desire information about alcohol rehabilitation?: No Counseling given: No Desire information about substance/drug rehabilitation?: No Counseling given: No Adopted: No Caregiver/support person: No Lives independently: Yes Household members: spouse and children Housing: House Marital status: Current occupational status: employed Current occupation: [email or web address] History of recent travel: Yes (for job) Out of state: Yes Current gender identity: Male Vitals/I&O/Wt Last Vital Signs Temp 98.5 F 10/16/21 05:21 Pulse 89 10/16/21 05:21 Resp 16 10/16/21 05:21 BP 146/88 10/16/21 05:21 Pulse Ox 97 10/16/21 03:38 10/15/21 10/15/21 10/16/21 14:59 22:59 06:59 Intake Total 480 / 480 700 / 1180 Output Total 200 / 200 500 / 700 Balance 280 / 280 200 / 480 Weight last 48 hrs Weight 128 lb 7 oz Weight 120 lb Physical Exam Narrative: Patient is conscious alert oriented X3 Cachectic BMI 19.5 Head and neck examination PERRLA no masses no cervical lymphadenopathy no jaundice Cardiac examination audible S1-S2 no murmurs no gallops no arrhythmias Chest is clear bilateral,abscence of Rhonchi or wheezes,no surgical emphysema Abdomen nontender nondistended soft no organomegaly guarding or rigidity/no signs of peritonitis Extremities no cyanosis no clubbing no edema, blisters on the left trochanteric lesion Stage IV sacral pressure injury ulcer 9 x 7 cm, necrotic tissues at the center of the ulcer with foul odor, no surrounding cellulitis. Data : 10/15/21 13:15 10/15/21 13:15 A&P Assessment and plan (1) Stage IV pressure ulcer: Plan of care; After thorough history physical examination and reviewing the chart and reviweing the images iwth my personal intrepretation.I counseled the patient for debridement of sacral ulcer, indications, risks including possibility of , stroke, heart attack, major bleeding, infection, pneumonia, organ failure, failure to benefit, prolonged hospital stay, long-term wound care and potential future surgical interventions. Pain after the procedure, benefits,indications and alternatives were all discussed with the patient, patient understands and is interested to proceed. Rationale was carefully and clearly discussed with the patient.Appropriate informed consent have been reviewed and signed. 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
--- NOTE | 2021-10-16 07:10 | PC.NURSE ---
Surgery here to get patient to take down for I&D to sacrum
[2021-10-16 07:26] LABS: Basophils % 0.2 %; Eosinophils # 0.1 10^3/uL (0.0-0.8); Eosinophils % 0.8 %; Hematocrit 28.3 % (42.0-52.0); Lymphocytes # 0.5 10^3/uL (0.8-4.8); Lymphocytes % 8.8 %; Mean Corpuscular HGB Conc 31.8 g/dL (30.0-36.0); Mean Corpuscular Hemoglobin 27.4 pg (28.0-34.0); Mean Corpuscular Volume 86.3 fl (80-94); Mean Platelet Volume 8.1 fL (7.4-10.4); Monocytes # 0.3 10^3/uL (0.2-0.9); Monocytes % 5.6 %; Neutrophils # 4.97 10^3/uL (1.8-7.7); Neutrophils % 83.9 %; Nucleated Red Blood Cells % 0 %; Platelet Count 183 10^3/cmm (130-400); Red Blood Count 3.28 10^6/uL (4.1-5.3); Red Cell Distribution Width 14.3 % (12.1-15.1); White Blood Count 5.9 10^3/uL (4.0-10.0)
--- NOTE | 2021-10-16 07:27 | P.ANESASSM_ITS ---
Pre-Anesthetic Assessment Height/Weight: Height 1.73 m Weight 58.258 kg Temp Pulse Resp BP Pulse Ox 98.5 F 89 18 146/88 100 10/16/21 05:21 10/16/21 05:21 10/16/21 06:28 10/16/21 05:21 10/16/21 06:28 Preop Diagnosis: Pressure injury ulcer of the sacrum Operation Date: 10/16/21 08:20 Proposed Procedures p Debridement(Not Applicable) - Gordy Melvin MD Familial anesthetic complications: None Was Beta Connie taken within 24 hours: N/A Was Clonidine taken within 24 hours: N/A Social Tobacco (Denies current tobacco use ) Airway Submandibular: within normal limits Cervical ROM: within normal limits Mallampati: Class II Dentition: chipped Pulmonary Chronic Obstructive Pulmonary Disease (Denies home O2) Metastatic lung cancer CV/HEM Atrial Fibrillation (Hx of afib), Anemia and Hypertension TTE 07/18 CONCLUSIONS ?1. This is a technically difficult study. ?2. Normal left ventricular size, systolic function? with no ?diagnostic regional wall motion abnormalities. Left ventricular ?ejection fraction is estimated at 60 %.? Interpretation limited ?by tachycardia. ?3.? Direct comparison to previous study dated 02/28/2021 is not ?possible given technically difficult study.? Recommend repeat ?studies be done with echo contrast. EKG 03/2021 ? Interpretive Statements SINUS TACHYCARDIA MINIMAL ST DEPRESSION? [0.025+ mV ST DEPRESSION] ABNORMAL RHYTHM ECG No previous ECG available for comparison Electronically Signed On 04-24-2021 12:56:39 KETTLE HAND by BLANCA AGUILAR [email or web address] Hyponatremia chronic Hepatic None reported GI None reported Metabolic Thyroid Disease Metabolic syndrome Musc/skel Weakness (Chronic deconditioning, now unable to ambulate or transfer on his own. Per patient no stroke or trauma, due to muscle weakness associated with decline surrounding metastatic cancer ) Sacral ulcer Neuropsych None reported Denies seizure or stroke hx Anesthetic Plan ASA status: 3 Anesthesia: Anesthesia Evaluation and MAC Other: I discussed with the patient risks, goals, and benefits of MAC and general anesthesia. We discussed spectrum of MAC anesthesia including conversion to general as well as possibility of recall of intraoperative stimuli including discomfort/pain. Patient agrees to proceed with MAC. Risk of > 500 ml blood loss (7ml/kg in children): No Medications/Allergies Home Medications Medication Instructions Recorded Confirmed Last Taken Type fluticasone propionate 50 2 spray INTRANASAL DAILY 07/14/19 10/15/21 09/09/19 History mcg/actuation nasal spray,suspension magnesium 250 mg tablet 250 mg PO EVERY OTHER DAY tab 07/14/19 10/15/21 10/14/21 History cetirizine 10 mg tablet (All Day 10 mg PO DAILY #90 tab 05/11/20 10/15/21 10/14/21 Rx Allergy (cetirizine)) dronabinol 5 mg capsule 5 mg PO BID 08/31/20 10/15/21 10/14/21 History sennosides 8.6 mg-docusate sodium 1 tab-cap PO BID 30 Days #60 tab 11/21/20 10/15/21 10/14/21 Rx 50 mg tablet (Senna-S) lactulose 10 gram/15 mL oral 20 g PO BID PRN ml 03/07/21 10/15/21 Unknown History solution AP pad with pump [id number] #1 ea 03/30/21 10/15/21 Unknown Rx ROHO pad [id number] #1 ea 03/30/21 10/15/21 Unknown Rx albuterol sulfate 2.5 mg (3 mL) INHALATION Q4H PRN 04/21/21 10/15/21 Unknown Rx #180 ml mupirocin 2 % topical ointment 1 applic TOPICAL BID #22 g 06/08/21 10/15/21 Unknown Rx atorvastatin 40 mg tablet (Lipitor) 40 mg PO DAILY #90 tab 06/16/21 10/15/21 10/14/21 Rx levothyroxine 200 mcg tablet 200 mcg PO QAM 90 Days #90 tab 10/03/21 10/15/21 10/14/21 Rx ondansetron 4 mg disintegrating 4 mg PO Q8H PRN #60 tab 10/03/21 10/15/21 Unknown Rx tablet morphine 30 mg immediate release 30 mg PO Q4H PRN 30 Days #180 tab 10/04/21 10/15/21 Unknown Rx tablet morphine 60 mg tablet,extended 180 mg PO BID 30 Days #180 tab 10/04/21 10/15/21 10/14/21 Rx release duloxetine 60 mg capsule,delayed 60 mg PO BID #180 cap 10/05/21 10/15/21 10/14/21 Rx release (Cymbalta) liothyronine 5 mcg tablet (Cytomel) 5 mcg PO DAILY #90 tab 10/05/21 10/15/21 10/14/21 Rx montelukast 10 mg tablet 10 mg PO DAILY #90 tab 10/05/21 10/15/21 10/14/21 Rx (Singulair) honey 100 % topical paste 1 applic TOPICAL BID #103 ml 10/06/21 10/15/21 Unknown Rx (MediHoney (honey)) afatinib 30 mg tablet (Gilotrif) 30 mg PO DAILY #28 tab 10/10/21 10/15/21 Unknown Rx cholecalciferol (vitamin D3) 125 5,000 unit PO DAILY 10/15/21 10/15/21 10/14/21 History mcg (5,000 unit) capsule lorazepam 1 mg tablet 1 mg PO TID PRN 10/15/21 10/15/21 Unknown History Allergies Allergy/AdvReac Type Severity Reaction Status Date / Time lisinopril AdvReac Severe Cough Verified 10/16/21 06:05 Current Medications Generic Name Dose Route Start Last Admin Trade Name Freq PRN Reason Stop Dose Admin Sodium Chloride 1,000 mls @ 75 mls/hr 10/15/21 18:00 10/15/21 20:34 Sodium Chloride 0.9% IV 75 mls/hr .[id number] JASMINA Administration Levothyroxine Sodium 200 mcg 10/16/21 06:00 10/16/21 05:27 Levothyroxine 200 Mcg Tablet PO 200 mcg QAM JASMINA Administration Morphine Sulfate 30 mg 10/15/21 18:11 10/16/21 06:28 Morphine Ir 15 Mg Tablet PO 30 mg Q4H PRN Administration SEVERE PAIN PFSH Anesthesia Medical History Adult onset hypothyroidism Atrial fibrillation with rapid ventricular response Chronic allergic rhinitis due to pollen COPD (chronic obstructive pulmonary disease) with emphysema Essential (primary) hypertension History of colon polyps Impaired ambulation Lumbar pain with radiation down right leg Metabolic syndrome Mixed hyperlipidemia Vitamin D deficiency Surgical History History of circumcision History of colonoscopy 2019 History of tonsillectomy Port-A-Cath in place (08/31/20) Family History Other Cancer Hypertension Social History Smoking and tobacco status: former smoker Second hand smoke exposure: Yes Smoking risk assessment/counseling performed?: Yes Alcohol intake: current Alcohol intake frequency: holidays/special occasions only Desire information about alcohol rehabilitation?: No Counseling given: No Desire information about substance/drug rehabilitation?: No Counseling given: No Adopted: No Caregiver/support person: No Lives independently: Yes Household members: spouse and children Housing: House Marital status: Current occupational status: employed Current occupation: [email or web address] History of recent travel: Yes (for job) Out of state: Yes Current gender identity: Male Data Anesthesia : 10/15/21 13:15 10/15/21 13:15 Short CBC 10/15/21 Range/Units 13:15 WBC 8.3 (4.0-10.0) 10^3/uL Hgb 7.0 L (11.7-16.6) g/dL Hct 23.3 L (42.0-52.0) % MCV 84.4 (80-94) fl Plt Count 259 (130-400) 10^3/cmm Neut % (Auto) 92.1 % Neut # (Auto) 7.60 (1.8-7.7) 10^3/uL BMP 10/15/21 13:15 Sodium 122 L Potassium 3.8 Chloride 87 L Carbon Dioxide 26 BUN 13 Creatinine 0.9 Glucose 106 Calcium 10.8 H Liver Function 10/15/21 Range/Units 13:15 Total Bilirubin 0.5 (0.15-1.2) mg/dL AST 11 (0-40) U/L ALT < 5 (0-41) U/L Alkaline Phosphatase 288 H (40-130) IU/L Albumin 3.0 L (3.5-5.2) g/dL Blood Bank 10/15/21 14:59 Blood Type O Negative Rho(D) Type Negative Antibody Screen Negative Cardiac Studies: Echocardiogram Limited Views 07/11/21
[2021-10-16] MEDS: acetaminophen 1,000 MG/100 ML PIGGYBACK 400 MG IV (07:39)
[2021-10-16] MEDS: sodium chloride 0.9% 1,000 ML 30 ML IV (07:39)
[2021-10-16 07:43] LABS: Anion Gap 11.9 (5-19); Blood Urea Nitrogen 13 mg/dL (6-20); C Reactive Protein 138.6 mg/L (0.0-4.9); Calcium 9.5 mg/dL (8.5-10.5); Carbon Dioxide 24 mmol/L (22-29); Chloride 95 mmol/L (98-107); Glomerular Filtration Rate 115.8 mL/min (90-130); Glucose 94 mg/dL (65-115); Magnesium 1.6 mg/dL (1.7-2.3); Osmolality Calculated 264 mOsm/kg (285-295); Potassium 3.9 mmol/L (3.5-5.1); Sodium 127 mmol/L (136-145)
[2021-10-16] MEDS: neomycin-poly-bacitracin oint 28 gm 1 APPLIC TOPICAL (09:00)
--- NOTE | 2021-10-16 09:05 | PM.OP ---
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 Post-op findings: Necrotic tissues Procedure done: Excisional and sharp debridement of pressure injury ulcer of the sacrum Implants: Large piece of Surgicel Specimens removed/disposition: Tissues for cultures and sensitivities Surgeon: Gordy Melvin MD Ship Pilot Dispatcher: systems protection technician Maricruz Circulating nurse Slime Hadley Anesthesia: MAC (Radha Mann) Estimated blood loss (mL): 15 IV fluids (mL): 300 Procedure: After identifying the patient holding area,patient was then taken to the operative suite,was placed in supine position then right lateral position, all pressure points were padded and patient was appropriately secured to the bed., Patient was already on therapy IV antibiotics were given per protocol,IV propofol was infused by the anesthesia provider, prep and drape of the periwound region over the lower back and upper thighs. Was done under the usual sterile technique. Time-out was done verifying the patient's name/date of /planned procedure and destination after the procedure, all were in agreement. Started by excising and debriding sharply the unhealthy necrotic indurated tissues of the wound, central necrotic tissues were appreciated that they were excised and sent for cultures and sensitivities. Incision was created at the skin level and went all the way down to the subcutaneous tissues and including the underlying muscle tissues all the way to the sacral periosteum were bony fragments were involved. Pre debridement measurements 7.5 x 7.4 x 0.4 cm post debridement measurements 7.5 x 8.7 x [address] to the bone layer Stage IV sacral pressure injury ulcer A portion of the edge of the sacral ulcer was sent for permanent pathology Copious and extensive irrigation of the wound was done using a liter of Vashe solution followed by 1 L of Pulsavac warm saline, followed by appropriate hemostasis using Bovie cauterization that was completed by placement of 1 piece of Surgicel, packing of the wound was done with 4 x 4 impregnated with lidocaine 2%, followed by piece of , ABDs, and surgical pants. Patient tolerated the procedure well, count of instruments,needle and sponges were completed at the end of the procedure. Patient was then taken to the recovery area in stable condition. I was present for the whole entire procedure
--- NOTE | 2021-10-16 10:34 | PC.CHAP ---
Pastoral Care Encounter/Spiritual Assessment Type of Contact [] Declined foundry engineer visit [] Patient/Family/Request visit [] Outpatient visit [] Follow-up visit [] Physician referral [] Code/Alert [x] Routine visit [] Staff referral [] Actively dying [] Patient sleeping [] Family support [] [] Out of room [] Palliative care [] [] Receiving care in room [] Pre-surgical visit [] Trauma [] Long length of stay [] ICU visit [] Other: Relational/Emotional Strength [x] Patient feels connected with others/family/visitors/staff [] Distress [] Loneliness/isolation [] Abandonment Spirituality of Patient [x] Person of Latoya [] Attends Synagogue of their Latoya [x] Believes in Prayer [] Reads Bible or Restoration materials [] There are Spiritual issues to be addressed Slide Attendant Interventions [x] Prayer [x] Active listening [x] Non-anxious presence [] Spiritual/emotional support [] Crisis/trauma care [] Spiritual counseling [] Bereavement support [] Provided bereavement packet [] Provided Bible/devotional materials [] Provided toy/stuffed animal, coloring book to patient or family member [] Provided Communion [] Anointing/[place] [] Salvation [x] Completed spiritual assessment [] Other: Impact on Illness or Injury [] Angry [] Fearful [] Anxious [] Often cries [] Exhaustion [] Unable to work [] Unable to attend judaism [] Unable to walk/stand [] Unable to read [] Unable to drive [] Unable to eat/drink [] Unable to sleep [] Unable to be with family [] Patient intubated [] Other: Summary Time spent with patient 15 min
[2021-10-16 11:35] LABS: Glucose Point of Care 82 mg/dL (70-110)
--- NOTE | 2021-10-16 14:18 | PM.PN ---
Subjective Subjective: Patient was seen and examined this morning, s/p Excisional and sharp debridement. Medications: Medication Review Details: Generic Name Dose Route Start Last Admin Trade Name Freq PRN Reason Stop Dose Admin Sodium Chloride 1,000 mls @ 75 ml s/hr 10/15/21 18:00 10/15/21 20:34 Sodium Chloride 0.9% IV 75 mls/hr .[id number] JASMINA Administration Levothyroxine Sodi um 200 mcg 10/16/21 06:00 10/16/21 05:27 Levothyroxine 20 0 Mcg Tablet PO 200 mcg QAM JASMINA Administration Morphine Sulfate 30 mg 10/15/21 18:11 10/16/21 06:28 Morphine Ir 15 M g Tablet PO 30 mg Q4H PRN Administration SEVERE PAIN Neomycin/Polymyxin /Bacitracin 1 applic 10/16/21 18:00 10/16/21 09:00 Ohuusmlg-Hhic-Tr citracin Oint 28 G m TOPICAL 1 applic BID JASMINA Administration Vitals/I&O/Wt Last Vital Signs Temp 97.7 F 10/16/21 09:40 Pulse 81 10/16/21 10:40 Resp 16 10/16/21 09:40 BP 106/61 10/16/21 10:40 Pulse Ox 94 10/16/21 10:40 10/15/21 10/16/21 10/16/21 22:59 06:59 14:59 Intake Total 480 / 480 700 / 1180 1460 / 1460 Output Total 200 / 200 500 / 700 410 / 410 Balance 280 / 280 200 / 480 1050 / 1050 Weight last 48 hrs Weight 58.258 kg Weight 54.431 kg Physical Exam Const: COMMON NORMALS: patient oriented x3 HENMT: COMMON NORMALS: normocephalic, atraumatic, hearing grossly normal bilaterally and external ears normal HEAD & SCALP: normocephalic and atraumatic EXTERNAL EAR: Yes external ears normal Eye: COMMON NORMALS: no scleral icterus GENERAL EYE: appearance normal, both eyes and all related structures Chest: COMMONS NORMALS: normal inspection of the chest and normal palpation of entire chest wall CHEST: Yes Symmetrical chest wall rise Resp: COMMON NORMALS: normal respiratory effort, No retractions, No use of accessory muscles and clear to auscultation bilaterally EFFORT & INSPECTION: Yes symmetric chest movement AUSCULTATION: clear to auscultation bilaterally Cardio: COMMON NORMALS: regular rate, regular rhythm, S1 normal heart sound present, S2 normal heart sound present, No gallops present (Cardio), No murmurs present (Cardio), No rub (Cardio) and Peripheral pulses 2+ throughout RATE: regular rate RHYTHM: regular rhythm HEART SOUNDS: S1 normal heart sound present and S2 normal heart sound present PERIPHERAL PULSES: Peripheral pulses 2+ throughout GI: COMMON NORMALS: Normal to inspection, nondistended, normoactive bowel sounds present, Soft to palpation, non-tender, No hepatosplenomegaly present and no masses AUSCULTATION: Yes normoactive bowel sounds PALPATION: Yes Soft to palpation and Yes No hepatosplenomegaly present RECTAL EXAM: Yes deferred Extremity: COMMON NORMALS: no clubbing, cyanosis or edema and no pedal edema Neuro: COMMON NORMALS: patient oriented x3 Skin: NARRATIVE SKIN EXAM: Stage IV sacral decubitus ulcer. Data : 10/16/21 07:10 10/16/21 07:10 Micro: Microbiology 10/16/21 09:00 Gram Stain - Final Buttock A&P Assessment and plan (1) Stage IV pressure ulcer: Status: Acute (2) Hyponatremia: Status: Acute (3) Anemia: Status: Acute (4) Chronic malnutrition: Status: Acute (5) Metastatic squamous cell carcinoma: Status: Acute (6) Transfusion-dependent anemia: Status: Acute (7) Malignant neoplasm of unspecified part of unspecified bronchus or lung: Status: Acute (8) Impaired ambulation: Status: Acute (9) Pressure sore on buttocks: Status: Chronic (10) History of colon polyps: Status: Acute (11) COPD (chronic obstructive pulmonary disease) with emphysema: Status: Chronic (12) Atrial fibrillation with rapid ventricular response: Status: Chronic Plan Stage IV ulcer: s/p Excisional and sharp debridement. Follow wound gram stain and culture. On Augmentin and doxycycline Follow-up wound care clinic as outpatient #Stage IV lung cancer with metastatic lesions: S/p chemoradiation Oncology follow-up as outpatient #History of A. 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 Saturating well on room air DuoNebs as needed DVT prophylaxis: SCDs Code Status : DNR/DNI Attestations Medical Necessity Statement*: Patient is still in hospital for management of sacral decubitus ulcer. Time Spent in Patient Care: Greater than 35 minutes Coding Level of Care Code Acute Hospital Social Worker for Chg Fwd Diagnoses Stage IV pressure ulcer L89.94 Hyponatremia E87.1 Anemia D64.9 Chronic malnutrition E46 Metastatic squamous cell carcinoma Transfusion-dependent anemia D64.9 Malignant neoplasm of unspecified part of unspecified bronchus or lung C34.90 Impaired ambulation R26.2 Pressure sore on buttocks L89.309 History of colon polyps Z86.010 COPD (chronic obstructive pulmonary disease) with emphysema J43.9 Atrial fibrillation with rapid ventricular response I48.91
--- NOTE | 2021-10-16 14:18 | ANE.PACU2 ---
Inpatient post-anesthesia follow up: Airway intact: Yes Vital signs: Temperature 97.7 F Pulse Rate 81 Respiratory Rate 16 Blood Pressure 106/61 Pulse Oximetry 94 Oxygen Delivery Me thod Room Air Oxygen Flow Rate 4 Fraction of Inspir ed Oxygen Hydration adequate: Yes Nausea and vomiting: No Pain level: 1 Mental status: Baseline
[2021-10-16] MEDS: sodium chloride 0.9% 1,000 ML 75 ML IV (17:01)
[2021-10-16] MEDS: amoxicillin-clav 875-125 mg Tablet 1 TAB PO (17:03)
[2021-10-16] MEDS: morphine ER (12 HR) 30 mg tablet 180 MG PO (17:03)
[2021-10-16] MEDS: doxycycline 100 mg Tablet PO (17:04)
[2021-10-16] MEDS: duloxetine 60 mg Capsule PO (17:04)
--- NOTE | 2021-10-16 19:56 | PC.PT ---
Attempted PT evaluation 3 times today, patient sleeping soundly, post irrigation and debridement, not even awake to eat his supper, discussed patient with surgeon, who feels patient very fragile due to bony metastasis, and may be inappropriate for physical therapy, due to severity of same, will discuss with patient's hospitalist.
[2021-10-17] VITALS: BP 118/75; PULSE 72; RESP 17; TEMP 36.4; O2SAT 96
[2021-10-17 04:00] VITALS: BP 125/76; PULSE 78; RESP 16; TEMP 36.5; O2SAT 98
[2021-10-17] MEDS: levothyroxine 200 mcg Tablet PO (05:11)
[2021-10-17] MEDS: sodium chloride 0.9% 1,000 ML 75 ML IV (05:11)
[2021-10-17 07:22] VITALS: BP 100/54; PULSE 80; RESP 20; TEMP 36.8; O2SAT 97
[2021-10-17 07:56] VITALS: PULSE 88; RESP 16; O2SAT 97
[2021-10-17] MEDS: duloxetine 60 mg Capsule PO (08:44)
[2021-10-17] MEDS: amoxicillin-clav 875-125 mg Tablet 1 TAB PO (08:44)
[2021-10-17] MEDS: magnesium oxide 400 mg tablet PO (08:44)
[2021-10-17] MEDS: doxycycline 100 mg Tablet PO (08:44)
[2021-10-17] MEDS: morphine ER (12 HR) 30 mg tablet 180 MG PO (08:45)
[2021-10-17] MEDS: sennosides-docusate Tablet 1 TAB PO (08:45)
[2021-10-17] MEDS: liothyronine 5 mcg Tablet PO (08:47)
--- NOTE | 2021-10-17 09:16 | PM.DCS ---
Discharge Providers Date of Admission: 10/16/21 11:33 Date of Discharge: October 17, 2021 Attending Provider at Admission: Lolis Batista MD Attending Provider at Discharge: Yon Bee MD Primary Care Provider: ANTONIO James Diagnoses at Discharge Discharge Diagnosis (1) Stage IV pressure ulcer: Status: Acute (2) Hyponatremia: (3) Anemia: (4) Chronic malnutrition: (5) Metastatic squamous cell carcinoma: (6) Transfusion-dependent anemia: (7) Malignant neoplasm of unspecified part of unspecified bronchus or lung: (8) Impaired ambulation: (9) Pressure sore on buttocks: (10) History of colon polyps: (11) COPD (chronic obstructive pulmonary disease) with emphysema: (12) Atrial fibrillation with rapid ventricular response: Reason for Visit Reason for Visit: says his spine is exposed due to bed sores Hospital Course Hospital Course 60 year old male?Metastatic 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 His tumor showed positive PD-L1 22C3 expression by IHC (1 to 10%) with severely painful bony metastatic disease involving multiple sites including the sacrum, right acetabulum, proximal left femur, and proximal left tibia presented from home from chief complaint of worsening stage IV ulcer. s/p Excisional and sharp debridement. He was kept on Augmentin and doxycycline. He will follow wound care clinic as an outpatient for continued management of the sacral ulcer.He is being discharged on p.o. Augmentin as well as doxycycline for another 2 weeks. He was also managed for hypovolemic hyponatremia he was kept on IV hydration to which he responded well serum sodium was improving. He has been advised to keep himself well-hydrated. For his history of transfusion dependent anemia he received 1 unit PRBC transfusion, H&H was stable at the time of discharge.Patient has so far responded well to above medical management and is being discharged in stable condition to home. Patient was offered home health, as well as patient has decided currently not to have home health, prefers to take care of him herself. Patient is being discharged in stable condition to home. Physical Exam Const: COMMON NORMALS: patient oriented x3 HENMT: COMMON NORMALS: normocephalic, atraumatic, hearing grossly normal bilaterally and external ears normal HEAD & SCALP: normocephalic and atraumatic EXTERNAL EAR: Yes external ears normal Eye: COMMON NORMALS: no scleral icterus GENERAL EYE: appearance normal, both eyes and all related structures Chest: COMMONS NORMALS: normal inspection of the chest and normal palpation of entire chest wall CHEST: Yes Symmetrical chest wall rise Resp: COMMON NORMALS: normal respiratory effort, No retractions, No use of accessory muscles and clear to auscultation bilaterally EFFORT & INSPECTION: Yes symmetric chest movement AUSCULTATION: clear to auscultation bilaterally Cardio: COMMON NORMALS: regular rate, regular rhythm, S1 normal heart sound present, S2 normal heart sound present, No gallops present (Cardio), No murmurs present (Cardio), No rub (Cardio) and Peripheral pulses 2+ throughout RATE: regular rate RHYTHM: regular rhythm HEART SOUNDS: S1 normal heart sound present and S2 normal heart sound present PERIPHERAL PULSES: Peripheral pulses 2+ throughout GI: COMMON NORMALS: Normal to inspection, nondistended, normoactive bowel sounds present, Soft to palpation, non-tender, No hepatosplenomegaly present and no masses AUSCULTATION: Yes normoactive bowel sounds PALPATION: Yes Soft to palpation and Yes No hepatosplenomegaly present RECTAL EXAM: Yes deferred Extremity: COMMON NORMALS: no clubbing, cyanosis or edema and no pedal edema Neuro: COMMON NORMALS: patient oriented x3 Skin: NARRATIVE SKIN EXAM: Stage IV sacral decubitus ulcer. Discharge Data Studies Completed and Pending Pending at discharge Category Date Time Status ES surgery / GI images Routine Exams 10/16/21 08:44 Taken ES surgery / GI images Routine Exams 10/16/21 08:52 Taken Tissue Culture and Gram Stain Routine Lab 10/16/21 09:00 Results Laboratory Results WBC 5.9 10^3/uL (4.0-10.0) 10/16/21 07:10 RBC 3.28 10^6/uL (4.1-5.3) L 10/16/21 07:10 Hgb 9.0 g/dL (11.7-16.6) L 10/16/21 07:10 Hct 28.3 % (42.0-52.0) L 10/16/21 07:10 MCV 86.3 fl (80-94) 10/16/21 07:10 MCH 27.4 pg (28.0-34.0) L 10/16/21 07:10 MCHC 31.8 g/dL (30.0-36.0) D 10/16/21 07:10 RDW 14.3 % (12.1-15.1) 10/16/21 07:10 Plt Count 183 10^3/cmm (130-400) 10/16/21 07:10 MPV 8.1 fL (7.4-10.4) 10/16/21 07:10 Neut % (Auto) 83.9 % 10/16/21 07:10 Lymph % (Auto) 8.8 % 10/16/21 07:10 [place] % (Auto) 5.6 % 10/16/21 07:10 Eos % (Auto) 0.8 % 10/16/21 07:10 Baso % (Auto) 0.2 % 10/16/21 07:10 Neut # (Auto) 4.97 10^3/uL (1.8-7.7) 10/16/21 07:10 Lymph # (Auto) 0.5 10^3/uL (0.8-4.8) L 10/16/21 07:10 [place] # (Auto) 0.3 10^3/uL (0.2-0.9) 10/16/21 07:10 Eos # (Auto) 0.1 10^3/uL (0.0-0.8) 10/16/21 07:10 Baso # (Auto) 0.0 10^3/uL (0.0-0.1) 10/16/21 07:10 Nucleated RBC % (auto) 0 % 10/16/21 07:10 Nucleated RBCs # 0.0 /100WBC 10/16/21 07:10 Sodium 127 mmol/L (136-145) L 10/16/21 07:10 Potassium 3.9 mmol/L (3.5-5.1) 10/16/21 07:10 Chloride 95 mmol/L (98-107) L 10/16/21 07:10 Carbon Dioxide 24 mmol/L (22-29) 10/16/21 07:10 Anion Gap 11.9 (5-19) 10/16/21 07:10 BUN 13 mg/dL (6-20) 10/16/21 07:10 Creatinine 0.7 mg/dL (0.7-1.2) 10/16/21 07:10 GFR Calculation 115.8 mL/min (90-130) 10/16/21 07:10 Glucose 94 mg/dL (65-115) 10/16/21 07:10 POC Glucose 82 mg/dL (70-110) 10/16/21 06:42 Calculated Osmolality 264 mOsm/kg (285-295) L 10/16/21 07:10 Calcium 9.5 mg/dL (8.5-10.5) 10/16/21 07:10 Magnesium 1.6 mg/dL (1.7-2.3) L 10/16/21 07:10 Total Bilirubin 0.5 mg/dL (0.15-1.2) 10/15/21 13:15 AST 11 U/L (0-40) 10/15/21 13:15 ALT < 5 U/L (0-41) 10/15/21 13:15 Alkaline Phosphatase 288 IU/L (40-130) H 10/15/21 13:15 C-Reactive Protein 138.6 mg/L (0.0-4.9) H 10/16/21 07:10 Total Protein 6.9 g/dL (6.6-8.7) 10/15/21 13:15 Albumin 3.0 g/dL (3.5-5.2) L 10/15/21 13:15 Globulin 3.9 g/dL (1.3-4.6) 10/15/21 13:15 Procalcitonin 0.36 ng/mL (0-0.5) 10/15/21 18:42 Blood Type O Negative 10/15/21 14:59 Rho(D) Type Negative 10/15/21 14:59 Antibody Screen Negative 10/15/21 14:59 Crossmatch See Detail 10/15/21 14:59 Vitals Last Vital Signs Temp 98.2 F 10/17/21 07:22 Pulse 88 10/17/21 07:56 Resp 16 10/17/21 07:56 BP 100/54 10/17/21 07:22 Pulse Ox 97 10/17/21 07:56 Discharge Plan Discharge Patient Disposition: Home Condition: Stable Prescriptions: New doxycycline monohydrate 100 mg Tablet 100 mg PO BID 14 Days Qty: 28 0RF amoxicillin-pot clavulanate 875-125 mg Tablet 1 tab PO BID 14 Days Qty: 28 0RF Continued fluticasone propionate 50 mcg/actuation spray,suspension 2 spray INTRANASAL DAILY 0RF magnesium 250 mg tablet 250 mg PO EVERY OTHER DAY 0RF lactulose 10 gram/15 mL solution 20 g PO BID PRN (Reason: Constipation) 0RF cetirizine [All Day Allergy (cetirizine)] 10 mg tablet 10 mg PO DAILY Qty: 90 1RF sennosides-docusate sodium [Senna-S] 8.6-50 mg tablet 1 tab-cap PO BID 30 Days Qty: 60 0RF (DME) AP pad with pump [id number] See Rx Instructions .Route .MEDSUPPLY Qty: 1 0RF Rx Instructions: As directed (DME) ROHO pad [id number] See Rx Instructions .Route .MEDSUPPLY Qty: 1 0RF Rx Instructions: As directed mupirocin 2 % ointment 1 applic topical BID Qty: 22 0RF duloxetine [Cymbalta] 60 mg capsule,delayed release(DR/EC) 60 mg PO BID Qty: 180 1RF liothyronine [Cytomel] 5 mcg tablet 5 mcg PO DAILY Qty: 90 1RF Rx Instructions: use with levothroxyine montelukast [Singulair] 10 mg tablet 10 mg PO DAILY Qty: 90 1RF levothyroxine 200 mcg tablet 200 mcg PO QAM 90 Days Qty: 90 3RF ondansetron 4 mg tablet,disintegrating 4 mg PO Q8H PRN (Reason: Nausea) Qty: 60 2RF atorvastatin [Lipitor] 40 mg tablet 40 mg PO DAILY Qty: 90 1RF morphine 30 mg tablet 30 mg PO Q4H PRN (Reason: pain) 30 Days Qty: 180 0RF morphine 60 mg tablet extended release 180 mg PO BID 30 Days Qty: 180 0RF MediHoney (honey) 100 % paste 1 applic topical BID Qty: 103 0RF dronabinol 5 mg capsule 5 mg PO BID 0RF albuterol sulfate 2.5 mg /3 mL (0.083 %) solution for nebulization 2.5 mg INHALATION Q4H PRN (Reason: Shortness Of Breath Or Wheezing) Qty: 180 2RF Gilotrif 30 mg Tablet 30 mg PO DAILY Qty: 28 0RF Rx Instructions: must be taken on empty stomach; no food 1 hr after or 2-3 hrs before dose lorazepam 1 mg tablet 1 mg PO TID PRN (Reason: Nausea) 0RF Rx Instructions: take 0.5 to 1 tablet three times daily as needed for nausea cholecalciferol (vitamin D3) 125 mcg (5,000 unit) capsule 5,000 unit PO DAILY 0RF Discharge Orders: Discharge Order (Routine); Ordered 10/17/21 Ordered By: Yon Bee Referrals: Gordy Melvin MD [Physician] - 10/20/21 8:30 am (Return to wound care center this coming Saturday) Guerrero Claudio FNP-C [Primary Care Provider] - 10/27/21 9:40 am Discharge Diet: Regular Patient Instructions: Anemia, COPD, Doxycycline (By mouth), Amoxicillin/Clavulanate Potassium (By mouth) (Augmentin, Augmentin..., Lung Cancer (DC), Squamous Cell Carcinoma (DC), Malnutrition (DC), Hyponatremia (DC), Pressure Injury (DC), Opioid Safety, Post Anesthesia Care Discharge Attestations Time Spent in Discharge Care*: less than 30 min Quality Metrics Clinical Quality Measures [ No reported AMI, CVA or VTE this stay] Coding Level of Care Code Acute Chg FW DC note Exam Comprehensive Diagnoses Stage IV pressure ulcer L89.94 Hyponatremia E87.1 Anemia D64.9 Chronic malnutrition E46 Metastatic squamous cell carcinoma Transfusion-dependent anemia D64.9 Malignant neoplasm of unspecified part of unspecified bronchus or lung C34.90 Impaired ambulation R26.2 Pressure sore on buttocks L89.309 History of colon polyps Z86.010 COPD (chronic obstructive pulmonary disease) with emphysema J43.9 Atrial fibrillation with rapid ventricular response I48.91
[2021-10-17 11:41] VITALS: BP 105/64; PULSE 78; RESP 18; O2SAT 93
[2021-10-17] MEDS: sodium hypochlorite 0.125% Btl 473 mL 1 APPLIC TOPICAL (11:54)
[2021-10-17 12:22] VITALS: BP 105/64; PULSE 78; RESP 18; O2SAT 93
--- NOTE | 2021-10-17 12:22 | PC.NURSE ---
Discharge Note Patient discharged to home via wheelchair in private vehicle accompanied by family. Discharge instructions reviewed with patient and/or sales representative girls' apparel. Mobile pharmacy medications and/or prescriptions provided. Belongings/home medications returned.
== END 2021-10-17 12:22 | disposition home or self-care (01) | DRG 580 ==
LOC: ER 14:59 → MEDSURG 15:23
PROVIDERS: Surgery; Admitting Provider Internal Medicine; Emergency Provider Physician Assistant; PCP Nurse Practitioner; Visit Provider Internal Medicine
PROC: 0QB10ZZ Excision of Sacrum, Open Approach (ICD-10-PCS; principal; 2021-10-16 08:10)
DX: L89.154 Pressure ulcer of sacral region, stage 4 (principal); C34.11 Malignant neoplasm of upper lobe, right bronchus or lung; C79.51 Secondary malignant neoplasm of bone; E87.1 Hypo-osmolality and hyponatremia; E46 Unspecified protein-calorie malnutrition; Z68.1 Body mass index [BMI] 19.9 or less, adult; Z99.3 Dependence on wheelchair; E03.9 Hypothyroidism, unspecified; I48.91 Unspecified atrial fibrillation; J44.9 Chronic obstructive pulmonary disease, unspecified; I10 Essential (primary) hypertension; E78.2 Mixed hyperlipidemia; Z87.891 Personal history of nicotine dependence; D64.81 Anemia due to antineoplastic chemotherapy; T45.1X5A Adverse effect of antineoplastic and immunosuppressive drugs, initial encounter; G89.3 Neoplasm related pain (acute) (chronic); Z79.51 Long term (current) use of inhaled steroids; Z79.891 Long term (current) use of opiate analgesic; Z96.642 Presence of left artificial hip joint; Z66 Do not resuscitate; Z92.3 Personal history of irradiation; Z79.899 Other long term (current) drug therapy
CPT/HCPCS: 36415; 36416; 36430; 80048; 80053; 82962; 83735; 84145; 85025; 86140; 86850; 86900; 86920; 87070; 87077; 87176; 87186; 87205; 99285; G0378; J1642; J2704; J3010; J7030; P9016

== ENCOUNTER 2021-10-20 10:41 | Observation (INO) | payer OTHER, SELFPAY ==
[2021-10-20 11:08] VITALS: BP 117/81; PULSE 68; RESP 16; TEMP 36.7; O2SAT 98; BMI 18.2
[2021-10-20 11:31] VITALS: BP 139/100; PULSE 97; RESP 15; O2SAT 99
[2021-10-20] MEDS: sodium chloride 0.9% 1,000 ML 999 ML IV (11:40)
--- NOTE | 2021-10-20 11:53 | W.ED.GENADLT ---
HPI - General Adult General: Chief complaint: General Medical Stated complaint: DehyratedSunita care sent him Time Seen by Provider: 10/20/21 11:25 History of Present Illness: Patient is a 52-year-old male with history of metastatic lung cancer to the bones followed by Dr. Swenson not currently on chemotherapy who was recently discharged from hospital on 10/17/2021 presenting to the emergency room for evaluation of dehydration. Per patient's , patient has had decreased p.o. intake and decreased urine output since discharge from hospital. Patient peeing normally 2 cups of urine daily. Patient has no other focal complaints including fever/chills, cough, runny nose sore throat, cough with nausea/vomiting fever or chills. Patient has had decreased p.o. intake since discharge from the hospital. Earlier today, patient was seen and evaluated in wound care clinic was told to come to the emergency room for evaluation of possible dehydration. Patient is on the Augmentin doxycycline for stage IV decub ulcer. Onset: 4 days ago Duration:4 days Location: home Severity:moderate Associated symptoms: Reports malaise; Deny chest pain, dyspnea, nausea, rash, palpitations or vomiting Review of Systems Const: Reports: fatigue and malaise; Denies: fever(s) or chills Eyes: Denies: change in vision ENMT: Denies: mouth pain Card: Denies: chest pain or palpitations Resp: Denies: dyspnea or non-productive cough GI: Reports: other (+decresed PO intake); Denies: abdominal pain, nausea, vomiting or diarrhea : Reports: other (+decreased urinary output); Denies: dysuria Musc: Denies: extremity pain Skin/Breast: Denies: rash or new lesions Neuro: Denies: weakness in extremities Psych: Reports: other (Normal mood) Spencer/Lymph: Denies: easy bruising PFSH ED PFSH: Medical History Adult onset hypothyroidism Anemia Atrial fibrillation with rapid ventricular response Chronic allergic rhinitis due to pollen Chronic malnutrition COPD (chronic obstructive pulmonary disease) with emphysema Essential (primary) hypertension History of colon polyps Hyponatremia Impaired ambulation Lumbar pain with radiation down right leg Malignant neoplasm of unspecified part of unspecified bronchus or lung Metabolic syndrome Metastatic squamous cell carcinoma Mixed hyperlipidemia Pressure sore on buttocks Transfusion-dependent anemia Vitamin D deficiency Surgical History History of circumcision History of colonoscopy 2019 History of tonsillectomy Port-A-Cath in place (08/31/20) Family History Other Cancer Hypertension Social History Smoking and tobacco status: former smoker Second hand smoke exposure: Yes Smoking risk assessment/counseling performed?: Yes Alcohol intake: current Alcohol intake frequency: holidays/special occasions only Desire information about alcohol rehabilitation?: No Counseling given: No Desire information about substance/drug rehabilitation?: No Counseling given: No Adopted: No Caregiver/support person: No Lives independently: Yes Household members: spouse and children Housing: House Marital status: Current occupational status: employed Current occupation: [employer] History of recent travel: Yes (for job) Out of state: Yes Current gender identity: Male Physical Exam Const: COMMON NORMALS: alert HENMT: COMMON NORMALS: atraumatic HEAD & SCALP: atraumatic MOUTH: moist mucous membranes abnormal Eye: COMMON NORMALS: EOMs intact bilaterally and conjunctivae normal CONJUNCTIVA: Yes conjunctivae normal Neck/C-Spine: COMMON NORMALS: full ROM and supple Resp: COMMON NORMALS: normal respiratory effort and clear to auscultation bilaterally AUSCULTATION: clear to auscultation bilaterally Cardio: COMMON NORMALS: regular rate RATE: regular rate GI: COMMON NORMALS: Soft to palpation and non-tender PALPATION: Yes Soft to palpation Extremity: COMMON NORMALS: full ROM Neuro: SENSORIUM/ORIENTATION: Yes alert MOTOR EXAM: No Abnormal motor strength present and Other motor observations present (no focal motor deficits) Psych: COMMON NORMALS: speech normal SPEECH: Yes normal speech MOOD & AFFECT: Yes euthymic mood Skin: OTHER: stage 4 sacral decubitus ulcer packed Course Vital Signs: Vital signs: Vital Signs Temperature 98.0 F 10/20/21 11:08 Pulse Rate 97 10/20/21 11:31 Respiratory Rate 15 10/20/21 11:31 Blood Pressure 139/100 10/20/21 11:31 Pulse Oximetry 99 10/20/21 11:31 [facility] - General Adult Medical Decision Making Patient is a 60-year-old male with history metastatic lung cancer now on chemotherapy presenting to the emergency room with decreased urinary output and decreased p.o. intake. On physical exam, patient was found to have a stage IV decubitus ulcer for which patient follows with wound care and dry mucous membrane. CR wnl. Mild leukocytosis. Patient will be admitted for rehydration. Lab Data : 10/20/21 11:57 10/20/21 11:57 Laboratory Results WBC 11.9 10^3/uL (4.0-10.0) H 10/20/21 11:57 RBC 3.49 10^6/uL (4.1-5.3) L 10/20/21 11:57 Hgb 9.7 g/dL (11.7-16.6) L 10/20/21 11:57 Hct 30.0 % (42.0-52.0) L 10/20/21 11:57 MCV 86.0 fl (80-94) 10/20/21 11:57 MCH 27.8 pg (28.0-34.0) L 10/20/21 11:57 MCHC 32.3 g/dL (30.0-36.0) 10/20/21 11:57 RDW 15.0 % (12.1-15.1) 10/20/21 11:57 Plt Count 210 10^3/cmm (130-400) 10/20/21 11:57 MPV 8.6 fL (7.4-10.4) 10/20/21 11:57 Neut % (Auto) 90.0 % 10/20/21 11:57 Lymph % (Auto) 5.6 % 10/20/21 11:57 Gaines % (Auto) 3.7 % 10/20/21 11:57 Eos % (Auto) 0.2 % 10/20/21 11:57 Baso % (Auto) 0.1 % 10/20/21 11:57 Neut # (Auto) 10.72 10^3/uL (1.8-7.7) H 10/20/21 11:57 Lymph # (Auto) 0.7 10^3/uL (0.8-4.8) L 10/20/21 11:57 Gaines # (Auto) 0.4 10^3/uL (0.2-0.9) 10/20/21 11:57 Eos # (Auto) 0.0 10^3/uL (0.0-0.8) 10/20/21 11:57 Baso # (Auto) 0.0 10^3/uL (0.0-0.1) 10/20/21 11:57 Nucleated RBC % (auto) 0 % 10/20/21 11:57 Nucleated RBCs # 0.0 /100WBC 10/20/21 11:57 Sodium 128 mmol/L (136-145) L 10/20/21 11:57 Potassium 3.8 mmol/L (3.5-5.1) 10/20/21 11:57 Chloride 93 mmol/L (98-107) L 10/20/21 11:57 Carbon Dioxide 27 mmol/L (22-29) 10/20/21 11:57 Anion Gap 11.8 (5-19) 10/20/21 11:57 BUN 16 mg/dL (6-20) 10/20/21 11:57 Creatinine 0.7 mg/dL (0.7-1.2) 10/20/21 11:57 GFR Calculation 115.8 mL/min (90-130) 10/20/21 11:57 Glucose 96 mg/dL (65-115) 10/20/21 11:57 Calculated Osmolality 267 mOsm/kg (285-295) L 10/20/21 11:57 Calcium 11.9 mg/dL (8.5-10.5) H 10/20/21 11:57 Total Bilirubin 0.5 mg/dL (0.15-1.2) 10/20/21 11:57 AST 16 U/L (0-40) 10/20/21 11:57 ALT 7 U/L (0-41) 10/20/21 11:57 Alkaline Phosphatase 259 IU/L (40-130) H 10/20/21 11:57 Total Protein 6.2 g/dL (6.6-8.7) L 10/20/21 11:57 Albumin 2.7 g/dL (3.5-5.2) L 10/20/21 11:57 Globulin 3.5 g/dL (1.3-4.6) 10/20/21 11:57 Lipase 6 U/L (13-60) L 10/20/21 11:57 Discharge Plan Discharge Condition: Stable Prescriptions: No Action fluticasone propionate 50 mcg/actuation spray,suspension 2 spray INTRANASAL DAILY 0RF magnesium 250 mg tablet 250 mg PO EVERY OTHER DAY 0RF lactulose 10 gram/15 mL solution 20 g PO BID PRN (Reason: Constipation) 0RF cetirizine [All Day Allergy (cetirizine)] 10 mg tablet 10 mg PO DAILY Qty: 90 1RF sennosides-docusate sodium [Senna-S] 8.6-50 mg tablet 1 tab-cap PO BID 30 Days Qty: 60 0RF (DME) AP pad with pump E0271 See Rx Instructions .Route .MEDSUPPLY Qty: 1 0RF Rx Instructions: As directed (DME) ROHO pad [id number] See Rx Instructions .Route .MEDSUPPLY Qty: 1 0RF Rx Instructions: As directed mupirocin 2 % ointment 1 applic topical BID Qty: 22 0RF duloxetine [Cymbalta] 60 mg capsule,delayed release(DR/EC) 60 mg PO BID Qty: 180 1RF liothyronine [Cytomel] 5 mcg tablet 5 mcg PO DAILY Qty: 90 1RF Rx Instructions: use with levothroxyine montelukast [Singulair] 10 mg tablet 10 mg PO DAILY Qty: 90 1RF levothyroxine 200 mcg tablet 200 mcg PO QAM 90 Days Qty: 90 3RF ondansetron 4 mg tablet,disintegrating 4 mg PO Q8H PRN (Reason: Nausea) Qty: 60 2RF atorvastatin [Lipitor] 40 mg tablet 40 mg PO DAILY Qty: 90 1RF morphine 30 mg tablet 30 mg PO Q4H PRN (Reason: pain) 30 Days Qty: 180 0RF morphine 60 mg tablet extended release 180 mg PO BID 30 Days Qty: 180 0RF MediHoney (honey) 100 % paste 1 applic topical BID Qty: 103 0RF dronabinol 5 mg capsule 5 mg PO BID 0RF albuterol sulfate 2.5 mg /3 mL (0.083 %) solution for nebulization 2.5 mg INHALATION Q4H PRN (Reason: Shortness Of Breath Or Wheezing) Qty: 180 2RF Gilotrif 30 mg Tablet 30 mg PO DAILY Qty: 28 0RF Rx Instructions: must be taken on empty stomach; no food 1 hr after or 2-3 hrs before dose lorazepam 1 mg tablet 1 mg PO TID PRN (Reason: Nausea) 0RF Rx Instructions: take 0.5 to 1 tablet three times daily as needed for nausea cholecalciferol (vitamin D3) 125 mcg (5,000 unit) capsule 5,000 unit PO DAILY 0RF doxycycline monohydrate 100 mg Tablet 100 mg PO BID 14 Days Qty: 28 0RF amoxicillin-pot clavulanate 875-125 mg Tablet 1 tab PO BID 14 Days Qty: 28 0RF Referrals: Guerrero Claudio, MAIL TECHNICIAN-C [Primary Care Provider] - Coding Level of Care Code ED Plastic Sheets Finishing Supervisor for Chg Fwd Exam Comprehensive
--- NOTE | 2021-10-20 12:01 | PC.NURSE ---
PT came in with port access on left chest. Port accessed for lab and medication. Aseptic technique used. Pt aware of access and gave verbal consent.
[2021-10-20 12:03] LABS: Basophils % 0.1 %; Eosinophils % 0.2 %; Hemoglobin 9.7 g/dL (11.7-16.6); Lymphocytes # 0.7 10^3/uL (0.8-4.8); Lymphocytes % 5.6 %; Mean Corpuscular HGB Conc 32.3 g/dL (30.0-36.0); Mean Corpuscular Hemoglobin 27.8 pg (28.0-34.0); Mean Platelet Volume 8.6 fL (7.4-10.4); Monocytes # 0.4 10^3/uL (0.2-0.9); Monocytes % 3.7 %; Neutrophils # 10.72 10^3/uL (1.8-7.7); Nucleated Red Blood Cells % 0 %; Platelet Count 210 10^3/cmm (130-400); Red Blood Count 3.49 10^6/uL (4.1-5.3); White Blood Count 11.9 10^3/uL (4.0-10.0)
[2021-10-20 12:14] LABS: Alanine Aminotransferase 7 U/L (0-41); Albumin Level 2.7 g/dL (3.5-5.2); Alkaline Phosphatase 259 IU/L (40-130); Anion Gap 11.8 (5-19); Aspartate Amino Transferase 16 U/L (0-40); Blood Urea Nitrogen 16 mg/dL (6-20); Calcium 11.9 mg/dL (8.5-10.5); Carbon Dioxide 27 mmol/L (22-29); Chloride 93 mmol/L (98-107); Creatinine Clr Calc Pharmacy 88.5584; Globulin 3.5 g/dL (1.3-4.6); Glomerular Filtration Rate 115.8 mL/min (90-130); Glucose 96 mg/dL (65-115); Lipase 6 U/L (13-60); Osmolality Calculated 267 mOsm/kg (285-295); Potassium 3.8 mmol/L (3.5-5.1); Sodium 128 mmol/L (136-145); Total Bilirubin 0.5 mg/dL (0.15-1.2); Total Protein 6.2 g/dL (6.6-8.7)
[2021-10-20 13:39] VITALS: BP 139/100; PULSE 79; RESP 17; O2SAT 95
[2021-10-20 13:42] LABS: Add Urine Microscopic? NO; Charge for UA Resulting for Rev
[2021-10-20 13:47] LABS: Bilirubin Urine Neg (Negative); Blood Urine Neg (Negative); Glucose Urine UA Norm (Normal); Ketones Urine Negative (Negative); Leukocyte Esterase Urine Negative (Negative); Nitrate Urine Negative (Negative); Protein Urine Neg (Negative); Specific Gravity, Urine 1.015 (1.005-1.030); Urine Appearance Clear (CLEAR); Urine Color Yellow (Yellow); Urobilinogen Urine Norm (Negative); pH Urine 6 (5-7)
--- NOTE | 2021-10-20 14:12 | PM.HP ---
Providers/Chief Complaint Primary Care Provider: ALISON JamesC Chief Complaint: Dehyrated, Wond care sent him History of Present Illness Pleasant 60-year-old gentleman is accompanied in ER by his , since recent discharge she has been feeling weak, he overall has a poor appetite for which he takes dronabinol, but has not been drinking very much, she has noticed he has had decreased urine output. He was reassessed today by at wound care after recent debridement of stage IV decub ulceration, he is on Augmentin and doxycycline. reports he has not had a bowel movement in 3-4 days. In ER he is noted with mild leukocytosis 11.9, afebrile, without tachycardia or other signs of sepsis. Chronic hyponatremia, sodium 128. BUN 16, creatinine 0.7. Normal transaminases with chronic elevation of alkaline phosphatase. Lipase not elevated. Unremarkable UA. He received a fluid bolus in ER and request was made for additional IV hydration and observation. Review of Systems Const: Reports: other (Weak); Denies: fever(s), chills, body aches or malaise Eyes: Denies: change in vision, eye discomfort or eye redness ENMT: Denies: throat pain, oral sores or ear or mastoid pain Card: Denies: chest pain, edema, pre-syncope or dyspnea on exertion Resp: Denies: dyspnea, productive cough, change in phlegm color or hemoptysis GI: Reports: constipation; Denies: abdominal pain, nausea, vomiting, diarrhea, hematochezia or melena : Denies: flank pain, difficulty urinating, urinary frequency or hematuria Musc: Denies: back pain, joint swelling or joint redness Skin/Breast: Denies: rash or new lesions Neuro: Denies: headache(s), numbness in extremities, weakness in extremities, dizziness, confusion or seizure-like activity Endo: Denies: polyuria or polydipsia Spencer/Lymph: Denies: easy bleeding or tender lymph nodes All/Imm: Denies: urticaria or tongue swelling Medications/Allergies Home Medications Medication Instructions Recorded Confirmed Last Taken Type dronabinol 5 mg capsule 5 mg PO BID 08/31/20 10/20/21 10/20/21 History sennosides 8.6 mg-docusate sodium 1 tab-cap PO BID 30 Days #60 tab 11/21/20 10/20/21 10/20/21 Rx 50 mg tablet (Senna-S) lactulose 10 gram/15 mL oral 20 g PO BID PRN ml 03/07/21 10/20/21 Unknown History solution AP pad with pump E0271 #1 ea 03/30/21 10/20/21 Unknown Rx ROHO pad [id number] #1 ea 03/30/21 10/20/21 Unknown Rx mupirocin 2 % topical ointment 1 applic TOPICAL BID #22 g 06/08/21 10/20/21 Unknown Rx levothyroxine 200 mcg tablet 200 mcg PO QAM 90 Days #90 tab 10/03/21 10/20/21 10/20/21 Rx ondansetron 4 mg disintegrating 4 mg PO Q8H PRN #60 tab 10/03/21 10/20/21 Unknown Rx tablet morphine 30 mg immediate release 30 mg PO Q4H PRN 30 Days #180 tab 10/04/21 10/20/21 10/20/21 Rx tablet morphine 60 mg tablet,extended 180 mg PO BID 30 Days #180 tab 10/04/21 10/20/21 10/20/21 Rx release duloxetine 60 mg capsule,delayed 60 mg PO BID #180 cap 10/05/21 10/20/21 10/20/21 Rx release (Cymbalta) liothyronine 5 mcg tablet (Cytomel) 5 mcg PO DAILY #90 tab 10/05/21 10/20/21 10/20/21 Rx montelukast 10 mg tablet 10 mg PO DAILY #90 tab 10/05/21 10/20/21 10/20/21 Rx (Singulair) afatinib 30 mg tablet (Gilotrif) 30 mg PO DAILY #28 tab 10/10/21 10/20/21 10/20/21 Rx cholecalciferol (vitamin D3) 125 5,000 unit PO DAILY 10/15/21 10/20/21 10/20/21 History mcg (5,000 unit) capsule lorazepam 1 mg tablet 1 mg PO TID PRN 10/15/21 10/20/21 Unknown History amoxicillin 875 mg-potassium 1 tab PO BID 14 Days #28 tab 10/17/21 10/20/21 10/20/21 Rx clavulanate 125 mg tablet doxycycline monohydrate 100 mg 100 mg PO BID 14 Days #28 tab 10/17/21 10/20/21 10/20/21 Rx tablet Allergies Allergy/AdvReac Type Severity Reaction Status Date / Time lisinopril AdvReac Severe Cough Verified 10/20/21 14:01 PFSH Acute PFSH: Medical History (Updated 10/20/21 @ 14:34 by Jose Alfredo Pretty MD) Adult onset hypothyroidism Anemia Atrial fibrillation with rapid ventricular response Chronic allergic rhinitis due to pollen Chronic malnutrition COPD (chronic obstructive pulmonary disease) with emphysema Essential (primary) hypertension History of colon polyps Hyponatremia Impaired ambulation Lumbar pain with radiation down right leg Malignant neoplasm of unspecified part of unspecified bronchus or lung Metabolic syndrome Metastatic squamous cell carcinoma Mixed hyperlipidemia Pressure sore on buttocks Transfusion-dependent anemia Vitamin D deficiency Surgical History History of circumcision History of colonoscopy 2019 History of tonsillectomy Port-A-Cath in place (08/31/20) Family History Other Cancer Hypertension Social History Smoking and tobacco status: former smoker Second hand smoke exposure: Yes Smoking risk assessment/counseling performed?: Yes Alcohol intake: current Alcohol intake frequency: holidays/special occasions only Desire information about alcohol rehabilitation?: No Counseling given: No Desire information about substance/drug rehabilitation?: No Counseling given: No Adopted: No Caregiver/support person: No Lives independently: Yes Household members: spouse and children Housing: House Marital status: Current occupational status: employed Current occupation: [employer] History of recent travel: Yes (for job) Out of state: Yes Current gender identity: Male Vitals/I&O/Wt Last Vital Signs Temp 98.0 F 10/20/21 11:08 Pulse 79 10/20/21 13:39 Resp 17 10/20/21 13:39 BP 139/100 10/20/21 13:39 Pulse Ox 95 10/20/21 13:39 Weight last 48 hrs Weight 54.431 kg Physical Exam Narrative: at bedside. Const: COMMON NORMALS: alert GENERAL APPEARANCE: cooperative and frail appearing ORIENTATION/CONSCIOUSNESS: Yes awake HENMT: COMMON NORMALS: normocephalic, EAC's normal, Normal external nose present and moist oral mucous membranes HEAD & SCALP: normocephalic NOSE: Normal external nose present EXTERNAL AUDITORY CANAL: EAC's normal Neck/C-Spine: COMMON NORMALS: no meningeal signs Chest: CHEST: Yes Symmetrical chest wall rise Resp: COMMON NORMALS: clear to auscultation bilaterally AUSCULTATION: clear to auscultation bilaterally Cardio: COMMON NORMALS: regular rate, regular rhythm and No murmurs present (Cardio) RATE: regular rate RHYTHM: regular rhythm GI: COMMON NORMALS: Normal to inspection, nondistended, normoactive bowel sounds present, Soft to palpation and non-tender PALPATION: Yes Soft to palpation Extremity: COMMON NORMALS: no pedal edema Neuro: COMMON NORMALS: moves all extremities SENSORIUM/ORIENTATION: Yes alert MENINGEAL SIGNS: Yes no meningeal signs Psych: COMMON NORMALS: mental status grossly normal Skin: COMMON NORMALS: no wounds RASHES: no rashes OTHER: Large stage IV sacral ulcer packed with gauze, minimal erythema at the edge, no significant swelling or surrounding redness. Data : 10/20/21 11:57 10/20/21 11:57 A&P Assessment and plan (1) Dehydration: Dehydration with poor oral intake. Generalized weakness. Received IV fluid bolus in ER, continue gentle IV hydration. Encourage oral intake as tolerating. Monitor urine output. Recheck renal function. With constipation. Status: Acute (2) Generalized weakness: Check TSH. COVID-19. Follow-up sodium level. Status: Acute (3) Low urine output: As above. Status: Acute (4) Stage IV pressure ulcer: Continue dressing changes. Wound cultures with MRSA, Enterococcus faecalis Providencia rettgeri Currently empirically on Augmentin, doxycycline. Change to Cipro with doxy. Reposition. Encourage PO intake. Status: Acute (5) Hyponatremia: Chronic hyponatremia with acute component, sodium down to 128, possible hypovolemic component Status: Acute Plan Constipation: Add MiraLAX. Dulcolax suppository. Continue Senokot. Transfusion dependent anemia Chronic monitoring Metastatic squamous cell carcinoma Impaired ambulation COPD Atrial fibrillation Attestations Medical Necessity Statement*: Place in observation for additional assessment management of dehydration, generalized weakness and gentleman with underlying metastatic cancer, stage IV pressure ulcer after recent debridement. Coding Level of Care Code Acute Product Development Assistant for Chg Fwd Exam Comprehensive Diagnoses Dehydration E86.0 Generalized weakness R53.1 Low urine output R34 Stage IV pressure ulcer L89.94 Hyponatremia E87.1
[2021-10-20 14:42] LABS: Thyroid Stimulating Hormone 10.95 uIU/mL (0.27-4.20)
[2021-10-20] MEDS: enoxaparin 30 mg/0.3 mL Syringe SUBCUT (15:00)
[2021-10-20] MEDS: lactated ringers 1,000 ML 75 ML IV (15:08)
[2021-10-20 16:08] VITALS: BP 111/71; PULSE 73; RESP 16; TEMP 36.6; O2SAT 97
[2021-10-20] MEDS: polyethylene glycol 3350 Pkt 17 gm PO (16:54)
[2021-10-20] MEDS: duloxetine 60 mg Capsule PO (16:55)
[2021-10-20] MEDS: doxycycline 100 mg Tablet PO (16:55)
[2021-10-20] MEDS: sennosides-docusate Tablet 1 TAB PO (16:55)
[2021-10-20] MEDS: mupirocin oint 22 gm 1 APPLIC TOPICAL (17:29)
[2021-10-20 17:30] VITALS: RESP 20
[2021-10-20] MEDS: morphine ER (12 HR) 30 mg tablet 90 MG PO (17:30)
[2021-10-20 19:10] LABS: Adenovirus Not Detected (NOT DETECT); Chlamydia Pneumoniae Not Detected (NOT DETECT); Coronavirus 229E,HKU1,NL63,OC4 Not Detected (NOT DETECT); Human Metapneumovirus Not Detected (NOT DETECT); Human Rhinovirus/Enterovirus Not Detected (NOT DETECT); Influenza A Not Detected (NOT DETECT); Influenza A H1 Not Detected (NOT DETECT); Influenza A H1-2009 Not Detected (NOT DETECT); Influenza A H3 Not Detected (NOT DETECT); Influenza B Not Detected (NOT DETECT); Mycoplasma Pneumoniae Not Detected (NOT DETECT); Parainfluenza Virus Type 1 Not Detected (NOT DETECT); Parainfluenza Virus Type 2 Not Detected (NOT DETECT); Parainfluenza Virus Type 3 Not Detected (NOT DETECT); Parainfluenza Virus Type 4 Not Detected (NOT DETECT); Respiratory Syncytial Virus A Not Detected (NOT DETECT); Respiratory Syncytial Virus B Not Detected (NOT DETECT); SARS-COV-2 Not Detected (NOT DETECT)
[2021-10-20 19:46] LABS: Sodium 130 mmol/L (136-145)
[2021-10-20 20:00] VITALS: BP 115/71; PULSE 96; RESP 18; TEMP 36.7; O2SAT 97
--- NOTE | 2021-10-20 21:05 | PC.NURSE ---
spoke with Md Janis about fluid bolus. per MD hold fluid bolus
[2021-10-20] MEDS: ciprofloxacin 500 mg Tablet PO (21:07)
[2021-10-20] MEDS: ondansetron 2 mg/ML SDV 2 mL 4 MG IVP (21:13)
[2021-10-21] VITALS (9 sets, daily range): BP systolic 108–142; BP diastolic 66–86; PULSE 75–92; RESP 15–18; TEMP 36.3–36.8; O2SAT 91–99
[2021-10-21 03:38] LABS: Basophils % 0.3 %; Eosinophils # 0.2 10^3/uL (0.0-0.8); Eosinophils % 2.5 %; Hematocrit 24.2 % (42.0-52.0); Hemoglobin 7.5 g/dL (11.7-16.6); Lymphocytes # 0.9 10^3/uL (0.8-4.8); Lymphocytes % 13.2 %; Mean Corpuscular Hemoglobin 27.1 pg (28.0-34.0); Mean Corpuscular Volume 87.4 fl (80-94); Mean Platelet Volume 8.6 fL (7.4-10.4); Monocytes # 0.4 10^3/uL (0.2-0.9); Monocytes % 6.4 %; Neutrophils # 5.19 10^3/uL (1.8-7.7); Nucleated Red Blood Cells % 0 %; Platelet Count 154 10^3/cmm (130-400); Red Blood Count 2.77 10^6/uL (4.1-5.3); White Blood Count 6.7 10^3/uL (4.0-10.0)
[2021-10-21 03:59] LABS: Alanine Aminotransferase < 5 U/L (0-41); Albumin Level 2.2 g/dL (3.5-5.2); Alkaline Phosphatase 212 IU/L (40-130); Anion Gap 7.8 (5-19); Aspartate Amino Transferase 12 U/L (0-40); Blood Urea Nitrogen 13 mg/dL (6-20); Calcium 11.3 mg/dL (8.5-10.5); Carbon Dioxide 29 mmol/L (22-29); Chloride 99 mmol/L (98-107); Creatinine Clr Calc Pharmacy 88.5584; Globulin 2.9 g/dL (1.3-4.6); Glomerular Filtration Rate 115.8 mL/min (90-130); Glucose 84 mg/dL (65-115); Osmolality Calculated 273 mOsm/kg (285-295); Potassium 3.8 mmol/L (3.5-5.1); Sodium 132 mmol/L (136-145); Total Bilirubin 0.4 mg/dL (0.15-1.2); Total Protein 5.1 g/dL (6.6-8.7)
[2021-10-21] MEDS: lactated ringers 1,000 ML 75 ML IV (03:59)
[2021-10-21] MEDS: levothyroxine 200 mcg Tablet PO (06:22)
[2021-10-21] MEDS: liothyronine 5 mcg Tablet PO (08:57)
[2021-10-21] MEDS: montelukast sodium 10 mg Tablet PO (08:58)
[2021-10-21] MEDS: morphine ER (12 HR) 30 mg tablet 90 MG PO ×2 (08:58→17:15)
[2021-10-21] MEDS: duloxetine 60 mg Capsule PO ×2 (08:59→17:16)
[2021-10-21] MEDS: sennosides-docusate Tablet 1 TAB PO ×2 (08:59→17:16)
[2021-10-21] MEDS: polyethylene glycol 3350 Pkt 17 gm PO ×2 (08:59→17:15)
[2021-10-21] MEDS: doxycycline 100 mg Tablet PO ×2 (08:59→17:16)
[2021-10-21] MEDS: ciprofloxacin 500 mg Tablet PO (10:36)
[2021-10-21] MEDS: mupirocin oint 22 gm 1 APPLIC TOPICAL (10:37)
--- NOTE | 2021-10-21 11:47 | P.DS_ITS ---
Discharge Providers Date of Admission: 10/20/21 12:28 Date of Discharge: October 21, 2021 Attending Provider at Admission: Jose Alfredo Pretty Attending Provider at Discharge: Jose Alfredo Pretty Primary Care Provider: ANTONIO James Diagnoses at Discharge Discharge Diagnosis (1) Dehydration: Status: Acute (2) Generalized weakness: Status: Acute (3) Low urine output: Status: Acute (4) Stage IV pressure ulcer: Status: Acute (5) Hyponatremia: Status: Acute Reason for Visit Reason for Visit: [facility] sent him Brief History: Pleasant 60-year-old gentleman is accompanied in ER by his , since recent discharge she has been feeling weak, he overall has a poor appetite for which he takes dronabinol, but has not been drinking very much, she has noticed he has had decreased urine output.? He was reassessed today by at wound care after recent debridement of stage IV decub ulceration, he is on Augmentin and doxycycline. reports he has not had a bowel movement in 3-4 days. In ER he is noted with mild leukocytosis 11.9, afebrile, without tachycardia or other signs of sepsis.? Chronic hyponatremia, sodium 128. BUN 16, creatinine 0.7.? Normal transaminases with chronic elevation of alkaline phosphatase.? Lipase not elevated.? Unremarkable UA.? Hospital Course Hospital Course He received additional gentle IV hydration with LR 75 ml per hour. Antibiotics were adjusted to with change from Augmentin to ciprofloxacin, continue doxycycline due to resistant organisms noted on culture. Dressing changes continued. He was continued on regular diet, with addition of protein shakes. Today he reports he is feeling better and stronger. With rehydration his leukocytosis resolved. Discussed with him and his to avoid dehydration, continue oral intake as tolerating. Add protein shakes at home. Hyponatremia improved, sodium up to 132, likely hypovolemic hyponatremia. Again, discussed continue oral intake as best tolerated. With rehydration we have also unmasked anemia, hemoglobin down to 7.7, discussed with him and his RBC transfusion prior to discharge today. Additionally we will check TSH, and discussed with him and his regarding hypothyroid symptoms, with possibility of his generalized weakness, poor appetite, constipation, and possibly anemia could be related to hypothyroidism. TSH is 10.95. Discussed adjusting levothyroxine dose to 213 mcg daily. Continue liothyronine. Please follow-up TSH in 3-4 weeks for reassessment. Please also revisit constipation. Continue bowel regimen. Continue wound care, antibiotics, repositioning, optimization of nutrition, follow-up regarding stage IV sacral decub. Follow-up with oncology. Physical Exam Narrative: He reports he is feeling better. He appears more energetic, stronger. Const: COMMON NORMALS: alert GENERAL APPEARANCE: cooperative and frail appearing ORIENTATION/CONSCIOUSNESS: Yes awake HENMT: COMMON NORMALS: normocephalic, EAC's normal, Normal external nose present and moist oral mucous membranes HEAD & SCALP: normocephalic NOSE: Normal external nose present EXTERNAL AUDITORY CANAL: EAC's normal Neck/C-Spine: COMMON NORMALS: no meningeal signs Chest: CHEST: Yes Symmetrical chest wall rise Resp: COMMON NORMALS: clear to auscultation bilaterally AUSCULTATION: clear to auscultation bilaterally Cardio: COMMON NORMALS: regular rate, regular rhythm and No murmurs present (Cardio) RATE: regular rate RHYTHM: regular rhythm GI: COMMON NORMALS: Normal to inspection, nondistended, normoactive bowel sounds present, Soft to palpation and non-tender PALPATION: Yes Soft to palpation Extremity: COMMON NORMALS: no pedal edema Neuro: COMMON NORMALS: moves all extremities SENSORIUM/ORIENTATION: Yes alert MENINGEAL SIGNS: Yes no meningeal signs Psych: COMMON NORMALS: mental status grossly normal Skin: COMMON NORMALS: no wounds RASHES: no rashes OTHER: Large stage IV sacral ulcer packed with gauze, minimal erythema at the edge, no significant swelling or surrounding redness. Discharge Data Studies Completed and Pending Pending at discharge Category Date Time Status Complete Blood Count w/Auto AM LABS Lab 10/22/21 04:00 Ordered Complete Blood Count w/Auto AM LABS Lab 10/23/21 04:00 Ordered Comprehensive Metabolic Panel AM LABS Lab 10/22/21 04:00 Ordered Comprehensive Metabolic Panel AM LABS Lab 10/23/21 04:00 Ordered Leukocyte Reduced RBC Routine Lab 10/21/21 08:51 Results Type and Screen Routine Lab 10/21/21 08:51 Results Laboratory Results WBC 6.7 10^3/uL (4.0-10.0) 10/21/21 03:20 RBC 2.77 10^6/uL (4.1-5.3) L 10/21/21 03:20 Hgb 7.5 g/dL (11.7-16.6) L 10/21/21 03:20 Hct 24.2 % (42.0-52.0) L 10/21/21 03:20 MCV 87.4 fl (80-94) 10/21/21 03:20 MCH 27.1 pg (28.0-34.0) L 10/21/21 03:20 MCHC 31.0 g/dL (30.0-36.0) 10/21/21 03:20 RDW 15.0 % (12.1-15.1) 10/21/21 03:20 Plt Count 154 10^3/cmm (130-400) 10/21/21 03:20 MPV 8.6 fL (7.4-10.4) 10/21/21 03:20 Neut % (Auto) 77.0 % 10/21/21 03:20 Lymph % (Auto) 13.2 % 10/21/21 03:20 [place] % (Auto) 6.4 % 10/21/21 03:20 Eos % (Auto) 2.5 % 10/21/21 03:20 Baso % (Auto) 0.3 % 10/21/21 03:20 Neut # (Auto) 5.19 10^3/uL (1.8-7.7) 10/21/21 03:20 Lymph # (Auto) 0.9 10^3/uL (0.8-4.8) 10/21/21 03:20 [place] # (Auto) 0.4 10^3/uL (0.2-0.9) 10/21/21 03:20 Eos # (Auto) 0.2 10^3/uL (0.0-0.8) 10/21/21 03:20 Baso # (Auto) 0.0 10^3/uL (0.0-0.1) 10/21/21 03:20 Nucleated RBC % (auto) 0 % 10/21/21 03:20 Nucleated RBCs # 0.0 /100WBC 10/21/21 03:20 Sodium 132 mmol/L (136-145) L 10/21/21 03:20 Potassium 3.8 mmol/L (3.5-5.1) 10/21/21 03:20 Chloride 99 mmol/L (98-107) 10/21/21 03:20 Carbon Dioxide 29 mmol/L (22-29) 10/21/21 03:20 Anion Gap 7.8 (5-19) 10/21/21 03:20 BUN 13 mg/dL (6-20) 10/21/21 03:20 Creatinine 0.7 mg/dL (0.7-1.2) 10/21/21 03:20 GFR Calculation 115.8 mL/min (90-130) 10/21/21 03:20 Glucose 84 mg/dL (65-115) 10/21/21 03:20 Calculated Osmolality 273 mOsm/kg (285-295) L 10/21/21 03:20 Calcium 11.3 mg/dL (8.5-10.5) H 10/21/21 03:20 Total Bilirubin 0.4 mg/dL (0.15-1.2) 10/21/21 03:20 AST 12 U/L (0-40) 10/21/21 03:20 ALT < 5 U/L (0-41) 10/21/21 03:20 Alkaline Phosphatase 212 IU/L (40-130) H 10/21/21 03:20 Total Protein 5.1 g/dL (6.6-8.7) L 10/21/21 03:20 Albumin 2.2 g/dL (3.5-5.2) L 10/21/21 03:20 Globulin 2.9 g/dL (1.3-4.6) 10/21/21 03:20 Lipase 6 U/L (13-60) L 10/20/21 11:57 TSH 10.95 uIU/mL (0.27-4.20) H 10/20/21 11:57 Urine Color Yellow (Yellow) 10/20/21 13:18 Urine Appearance Clear (CLEAR) 10/20/21 13:18 Urine pH 6 (5-7) 10/20/21 13:18 Ur Specific [place] 1.015 (1.005-1.030) 10/20/21 13:18 Urine Protein Neg (Negative) 10/20/21 13:18 Urine Glucose (UA) Norm (Normal) 10/20/21 13:18 Urine Ketones Negative (Negative) 10/20/21 13:18 Urine Blood Neg (Negative) 10/20/21 13:18 Urine Nitrate Negative (Negative) 10/20/21 13:18 Urine Bilirubin Neg (Negative) 10/20/21 13:18 Urine Urobilinogen Norm mg/dL (Negative) 10/20/21 13:18 Ur Leukocyte Esterase Negative (Negative) 10/20/21 13:18 Coronavirus 229E (PCR) Not detected (NOT DETECT) 10/20/21 15:15 SARS-CoV-2 (PCR) Not detected (NOT DETECT) 10/20/21 15:15 Blood Type O Negative 10/21/21 08:51 Rho(D) Type Negative 10/21/21 08:51 Antibody Screen Negative 10/21/21 08:51 Crossmatch See Detail 10/21/21 08:51 Vitals Last Vital Signs Temp 97.9 F 10/21/21 07:49 Pulse 82 10/21/21 07:49 Resp 18 10/21/21 08:58 BP 108/68 10/21/21 07:49 Pulse Ox 94 10/21/21 07:49 Discharge Plan Discharge Patient Disposition: Home Condition: Stable Prescriptions: New ciprofloxacin HCl 500 mg tablet 500 mg PO BID@0900,2100 Qty: 20 0RF levothyroxine 13 mcg capsule 13 mcg PO DAILY Qty: 90 0RF Rx Instructions: Take with levothyroxine 200mcg for total 213 mcg daily polyethylene glycol 3350 [ClearLax] 17 gram/dose powder 17 g PO DAILY Qty: 238 0RF Continued lactulose 10 gram/15 mL solution 20 g PO BID PRN (Reason: Constipation) 0RF sennosides-docusate sodium [Senna-S] 8.6-50 mg tablet 1 tab-cap PO BID 30 Days Qty: 60 0RF (DME) AP pad with pump [id number] See Rx Instructions .Route .MEDSUPPLY Qty: 1 0RF Rx Instructions: As directed (DME) ROHO pad [id number] See Rx Instructions .Route .MEDSUPPLY Qty: 1 0RF Rx Instructions: As directed mupirocin 2 % ointment 1 applic topical BID Qty: 22 0RF duloxetine [Cymbalta] 60 mg capsule,delayed release(DR/EC) 60 mg PO BID Qty: 180 1RF liothyronine [Cytomel] 5 mcg tablet 5 mcg PO DAILY Qty: 90 1RF Rx Instructions: use with levothroxyine montelukast [Singulair] 10 mg tablet 10 mg PO DAILY Qty: 90 1RF levothyroxine 200 mcg tablet 200 mcg PO QAM 90 Days Qty: 90 3RF ondansetron 4 mg tablet,disintegrating 4 mg PO Q8H PRN (Reason: Nausea) Qty: 60 2RF morphine 30 mg tablet 30 mg PO Q4H PRN (Reason: pain) 30 Days Qty: 180 0RF morphine 60 mg tablet extended release 180 mg PO BID 30 Days Qty: 180 0RF dronabinol 5 mg capsule 5 mg PO BID 0RF Gilotrif 30 mg Tablet 30 mg PO DAILY Qty: 28 0RF Rx Instructions: must be taken on empty stomach; no food 1 hr after or 2-3 hrs before dose lorazepam 1 mg tablet 1 mg PO TID PRN (Reason: Nausea) 0RF Rx Instructions: take 0.5 to 1 tablet three times daily as needed for nausea cholecalciferol (vitamin D3) 125 mcg (5,000 unit) capsule 5,000 unit PO DAILY 0RF doxycycline monohydrate 100 mg Tablet 100 mg PO BID 14 Days Qty: 28 0RF Discontinued amoxicillin-pot clavulanate 875-125 mg Tablet 1 tab PO BID 14 Days Qty: 28 0RF Discharge Orders: Discharge Order (Routine); Ordered 10/21/21 Ordered By: Jose Alfredo Pretty Referrals: Wound Care [Provider Group] - 1 week Guerrero Claudio FNP-C [Primary Care Provider] - 4-7 days Zuleima Faith NP [Hospitalist] - 1 week Discharge Diet: Advance as tolerated Discharge Activity: Increase activity as tolerated Patient Instructions: Ciprofloxacin (By mouth), Doxycycline (By mouth), Dehydration (GEN), Hypothyroidism (GEN), Anemia (GEN), Opioid Safety, Decubitus Ulcers, Constipation (GEN) Activity Restrictions/Additional Instructions: Continue to encourage oral intake as tolerating. Add protein shakes with Ensure plus or other per her preference with meals. Try to avoid dehydration. Your sodium level was low as well on presentation, likely due to dehydration, continue regular diet, have your primary doctor reassess sodium level. After IV rehydration also with noted anemia, for which red blood cell transfusion was given. Please follow-up with your primary doctor and cancer doc tor for reassessment. TSH level is noted elevated at 10.95, so dose of levothyroxine is increased to 213. Please have your primary doctor follow-up thyroid function as symptoms of hypothyroidism may also include generalized weakness, tiredness, constipation, loss of appetite and anemia. Regarding sacral wound, based on culture results and sensitivities antibiotic regimen adjusted to ciprofloxacin and doxycycline. Continue dressing changes and please follow-up with wound care clinic for reassessment. Discuss with your primary doctor. Discharge Attestations Time Spent in Discharge Care*: greater than 30 min Quality Metrics Clinical Quality Measures [ No reported AMI, CVA or VTE this stay] Coding Level of Care Code Acute g [facility] note Diagnoses Dehydration E86.0 Generalized weakness R53.1 Low urine output R34 Stage IV pressure ulcer L89.94 Hyponatremia E87.1
[2021-10-21] MEDS: morphine IR 15 mg Tablet 30 MG PO (13:55)
--- NOTE | 2021-10-21 16:18 | PC.NURSE ---
Dr. Stephens verbalized patient doesn't need post hgb and hct pt can d/c after unit of blood.
--- NOTE | 2021-10-21 18:16 | PC.NURSE ---
Port de-accessed per protocol
== END 2021-10-21 18:17 | disposition home or self-care (01) ==
LOC: ER 11:54 → MEDSURG 14:18
PROVIDERS: Admitting Provider Internal Medicine; Emergency Provider Emergency Medicine; PCP Nurse Practitioner; Visit Provider Internal Medicine
DX: E86.0 Dehydration (principal); R53.1 Weakness; R34 Anuria and oliguria; L89.94 Pressure ulcer of unspecified site, stage 4; E87.1 Hypo-osmolality and hyponatremia; E03.9 Hypothyroidism, unspecified; I48.91 Unspecified atrial fibrillation; J43.9 Emphysema, unspecified; E78.2 Mixed hyperlipidemia; Z87.891 Personal history of nicotine dependence
CPT/HCPCS: 36415; 36430; 80053; 81003; 83690; 84295; 84443; 85025; 86850; 86900; 86920; 87635; 96374; 99285; G0378; J1642; J1650; J2405; J7030; P9040; T1015-U1

== ENCOUNTER 2021-10-28 20:43 | Inpatient (IN) | payer OTHER, SELFPAY ==
[2021-10-28 21:03] VITALS: BP 131/89; PULSE 82; RESP 18; TEMP 36.5; O2SAT 98
--- NOTE | 2021-10-28 21:11 | W.ED.AMS ---
HPI - Altered Mental Status General: Chief Complaint: Altered Mental Status Stated Complaint: Dehydrated/hallucinating Time Seen by Provider: 10/28/21 21:11 History of Present Illness: Mr. Kerns is a 60-year-old gentleman with significant past medical history of hypertension, hyperlipidemia, thyroid disorder, metastatic lung cancer, and stage IV pressure ulcer presents to the emergency department due to altered mental status. He is accompanied by and daughter who provide supplemental history. They report overall lately the patient has been doing poorly with poor p.o. intake. He has required multiple hospitalizations for dehydration. Over the past day or so he has had increased confusion. There is no reported trauma or other known specific provoking events. He has been compliant with his medication regimen. Overall intensity symptoms seems to vary however is worse than baseline and at least moderate to severe. No other specific changes in health, exacerbating, or alleviating factors identified. Onset (ago): week(s) Severity: severe Consistency of symptoms: Waxing and Waning Context: history of similar presentation Review of Systems General: Reports: 10 or more systems reviewed and unremarkable except in HPI and below PFSH ED PFSH: Medical History Adult onset hypothyroidism Anemia Atrial fibrillation with rapid ventricular response Chronic allergic rhinitis due to pollen Chronic malnutrition COPD (chronic obstructive pulmonary disease) with emphysema Essential (primary) hypertension History of colon polyps Hyponatremia Impaired ambulation Lumbar pain with radiation down right leg Malignant neoplasm of unspecified part of unspecified bronchus or lung Metabolic syndrome Metastatic lung cancer (metastasis from lung to other site) Metastatic squamous cell carcinoma Mixed hyperlipidemia Pressure sore on buttocks Stage IV pressure ulcer Transfusion-dependent anemia Vitamin D deficiency Surgical History History of circumcision History of colonoscopy 2019 History of tonsillectomy Port-A-Cath in place (08/31/20) Family History Other Cancer Hypertension Social History Smoking and tobacco status: former smoker Second hand smoke exposure: Yes Smoking risk assessment/counseling performed?: Yes Alcohol intake: current Alcohol intake frequency: holidays/special occasions only Desire information about alcohol rehabilitation?: No Counseling given: No Desire information about substance/drug rehabilitation?: No Counseling given: No Adopted: No Caregiver/support person: No Lives independently: Yes Household members: spouse and children Housing: House Marital status: Current occupational status: employed Current occupation: [employer] History of recent travel: Yes (for job) Out of state: Yes Current gender identity: Male Physical Exam Const: COMMON NORMALS: alert GENERAL APPEARANCE: cooperative, well developed and ill appearing ORIENTATION/CONSCIOUSNESS: Yes oriented to person HENMT: COMMON NORMALS: normocephalic and atraumatic HEAD & SCALP: normocephalic and atraumatic THROAT: posterior oropharynx normal Eye: COMMON NORMALS: conjunctivae normal CONJUNCTIVA: Yes conjunctivae normal SCLERA: sclerae normal Neck/C-Spine: COMMON NORMALS: supple GENERAL: Yes trachea midline Resp: COMMON NORMALS: normal respiratory effort and clear to auscultation bilaterally EFFORT & INSPECTION: Yes able to speak in complete sentences AUSCULTATION: clear to auscultation bilaterally Cardio: COMMON NORMALS: regular rate and regular rhythm RATE: regular rate RHYTHM: regular rhythm GI: COMMON NORMALS: Soft to palpation PALPATION: Yes Soft to palpation and No Tenderness to palpation present (GI) PERCUSSION: normal to percussion Extremity: GENERAL: Yes normal exam except as noted and No edema Neuro: COMMON NORMALS: moves all extremities SENSORIUM/ORIENTATION: Yes alert, Yes oriented to person and Yes Orientation impaired Psych: MEMORY/COGNITION: Yes memory grossly impaired Skin: NARRATIVE SKIN EXAM: Sacral wound with no significant surrounding erythema, there is some thickened jurado in the wound bed. Course ED course: - Patient was seen and evaluated by me at bedside - Patient placed on cardiac monitors, IV access obtained - Initial evaluation notable for ill appearance, patient has no focal neurologic deficits however orientation/mental status is abnormal. Patient does not recall accurate timeline of events. - Labs and xrays personally interpreted by me. EKG showing sinus rhythm with nonspecific ST segment abnormalities. No STEMI. -IV fluids given. - Labs notable for leukocytosis, normocytic anemia. Metabolic panel with evidence of dehydration. ESR and CRP are mildly elevated. TSH elevated with normal free T4 - Imaging notable for no acute intracranial pathology to explain symptoms. Chest x-ray without obvious abnormality. - Upon serial reexamination after treatment the patient was similar - Based on patient history, evaluation, and testing as interpreted the most likely cause of the patient's condition is altered mental status of uncertain etiology. - Empiric antibiotics given given elevated ESR and CRP, certainly there could be an acute on chronic component of patient's wound given depth and severity. - The results of ED evaluation were discussed with the patient including plan for admission due to requirement for level of care not available if discharged to prevent significant worsening/deterioration. - Admitting service was contacted and Dr Daugherty with the hospitalist service agreed to admit the patient - Patient was admitted without further deterioration or significant events. Note: Click bubbles or prepopulated adams in note writing are used for assistance with data collection and billing and are inherently more limited than narrative and other text portions of this note. Please use narrative for additional clinical history and defer to narrative/free test for any case of contradictory information. If information appears in only free text or click bubble it should be considered present or absent as reported. Please contact note underwriter solicitation director for clarifications of clinical information or contradictory information. MDM is a brief summary, contradictory or erroneous seeming information should be clarified and full note should be reviewed. Vital Signs: Vital signs: Vital Signs Temperature 98.1 F 11/03/21 14:50 Pulse Rate 82 11/03/21 14:50 Respiratory Rate 18 11/03/21 14:50 Blood Pressure 131/74 11/03/21 14:50 Pulse Oximetry 97 11/03/21 14:50 MDM - Altered Mental Status Medical Decision Making 61-year-old gentleman with complex past medical history including metastatic cancer and chronic wound presenting with altered mental status. ED evaluation notable for leukocytosis with elevated inflammatory markers. Unclear exact etiology however possible infectious. Antibiotics administered. Admitted for further management. Medical Records I reviewed the patient's medical records. Lab Data I reviewed the patient's lab results. : 11/03/21 03:15 11/03/21 03:15 Radiology Impressions Chest X-Ray 10/28/21 21:20 IMPRESSION: No acute abnormality. Head CT 10/28/21 21:20 IMPRESSION: No acute intracranial abnormality. Chronic microvascular ischemic changes. Chest/Abdomen/Pelvis CT 10/29/21 01:14 IMPRESSION: 1. Increased size of a spiculated nodule in the right upper lobe and new bilateral pulmonary metastases since 04/21/2021. 2. New osseous metastases since 04/21/2021. 3. Acute pathologic fracture of the left coracoid process. 4. New pathologic compression fracture at T2 since 04/21/2021. Acuity is otherwise indeterminate. IMPRESSION: 1. Osseous metastases with destruction of the right acetabulum and displacement of the right femoral head through the acetabulum into the pelvis. Findings are progressive since 12/29/2020. 2. Occlusion of the left femoral vein likely due to neoplastic involvement or compression from the soft tissue mass centered at the left hip. This finding corresponds to ultrasound findings previously today. 3. Marked destructive changes in the proximal left femur with intact internal fixation hardware. Findings are progressive since 12/29/2020. 4. Retroperitoneal lymphadenopathy. ADDENDUM: 10/29/21 1426 There is a sacral decubitus ulcer. No abscess. Mild sclerosis of the posterior surface of the sacrum could represent chronic osteomyelitis. Lumbar Spine CT 10/29/21 01:14 IMPRESSION: 1. Lumbosacral metastases. No pathologic fracture. 2. Probable neoplastic compression of the right S1 nerve root. 3. Partially imaged sacral decubitus ulcer. 4. Moderate L3-4 degenerative spinal stenosis. Venous Duplex 10/29/21 02:11 IMPRESSION: 1. Deep venous thrombosis present in left common femoral vein. 2. Superficial vein thrombosis of the right greater saphenous vein. Laboratory Results WBC 12.5 10^3/uL (4.0-10.0) H 10/28/21 22:55 RBC 3.88 10^6/uL (4.1-5.3) L 10/28/21 22:55 Hgb 10.6 g/dL (11.7-16.6) L 10/28/21 22:55 Hct 33.1 % (42.0-52.0) L 10/28/21 22:55 MCV 85.3 fl (80-94) 10/28/21 22:55 MCH 27.3 pg (28.0-34.0) L 10/28/21 22:55 MCHC 32.0 g/dL (30.0-36.0) 10/28/21 22:55 RDW 14.5 % (12.1-15.1) 10/28/21 22:55 Plt Count 202 10^3/cmm (130-400) 10/28/21 22:55 MPV 8.8 fL (7.4-10.4) 10/28/21 22:55 Neut % (Auto) 88.1 % 10/28/21 22:55 Lymph % (Auto) 6.5 % 10/28/21 22:55 [place] % (Auto) 4.4 % 10/28/21 22:55 Eos % (Auto) 0.4 % 10/28/21 22:55 Baso % (Auto) 0.2 % 10/28/21 22:55 Neut # (Auto) 11.03 10^3/uL (1.8-7.7) H 10/28/21 22:55 Lymph # (Auto) 0.8 10^3/uL (0.8-4.8) 10/28/21 22:55 [place] # (Auto) 0.6 10^3/uL (0.2-0.9) 10/28/21 22:55 Eos # (Auto) 0.1 10^3/uL (0.0-0.8) 10/28/21 22: Baso # (Auto) 0.0 10^3/uL (0.0-0.1) 10/28/21 22:55 Nucleated RBC % (auto) 0 % 10/28/21: Nucleated RBCs # 0.0 /100WBC 10/28/21 22:55 ESR 50 mm/hr (0-10) H 10/28/21 22:55 Sodium 128 mmol/L (136-145) L 10/28/21 22:55 Potassium 3.7 mmol/L (3.5-5.1) 10/28/21 22:55 Chloride 90 mmol/L (98-107) L 10/28/21 22:55 Carbon Dioxide 27 mmol/L (22-29) 10/28/21 22:55 Anion Gap 14.7 (5-19) 10/28/21 22:55 BUN 25 mg/dL (6-20) H 10/28/21 22:55 Creatinine 1.3 mg/dL (0.7-1.2) H 10/28/21 22:55 GFR Calculation 56.7 mL/min (90-130) L 10/28/21 22:55 Glucose 77 mg/dL (65-115) 10/28/21 22:55 Calculated Osmolality 269 mOsm/kg (285-295) L 10/28/21 22:55 Lactic Acid 2.3 mmol/L (0.5-2.2) H 10/28/21 22:55 Calcium 12.8 mg/dL (8.5-10.5) H 10/28/21 22:55 Magnesium 1.9 mg/dL (1.7-2.3) 10/28/21 22:55 Total Bilirubin 0.5 mg/dL (0.15-1.2) 10/28/21 22:55 AST 15 U/L (0-40) 10/28/21 22:55 ALT 7 U/L (0-41) 10/28/21 22:55 Alkaline Phosphatase 253 IU/L (40-130) H 10/28/21 22:55 Ammonia 13 umol/L (16-60) L 10/29/21 00:34 C-Reactive Protein 126.0 mg/L (0.0-4.9) H 10/28/21 22:55 Total Protein 6.5 g/dL (6.6-8.7) L 10/28/21 22:55 Albumin 2.8 g/dL (3.5-5.2) L 10/28/21 22:55 Globulin 3.7 g/dL (1.3-4.6) 10/28/21 22:55 Procalcitonin 0.25 ng/mL (0-0.5) 10/28/21 22:55 TSH 17.39 uIU/mL (0.27-4.20) H 10/28/21 22:55 Free T4 1.02 ng/dL (0.82-1.77) 10/28/21 22:55 Discharge Plan Discharge Patient Disposition: Admitted As Inpatient Admit Provider: Ephraim Daugherty Clinical Impression: Altered mental status, Metastatic lung cancer (metastasis from lung to other site), Stage IV pressure ulcer Condition: Stable Discharge Diet: Advance as tolerated and Regular Discharge Activity: Increase activity as tolerated Coding Level of Care Code ED House Carpenter Helper for Kasey Paul
--- NOTE | 2021-10-28 21:20 | CTR_ITS ---
PROCEDURE INFORMATION: Exam: CT Head Without Contrast Exam date and time: 10/28/2021 9:38 PM Age: 60 years old Clinical indication: Altered mental status/memory loss; Additional info: AMS, HX cancer TECHNIQUE: Imaging protocol: Computed tomography of the head without contrast. Radiation optimization: All CT scans at this facility use at least one of these dose optimization techniques: automated exposure control; mA and/or kV adjustment per patient size (includes targeted exams where dose is matched to clinical indication); or iterative reconstruction. COMPARISON: [place] thyroid [id number] 07/11/2018 2:56 PM RADIATION DOSE METRICS: Total DLP (mGy-cm): 823.99 FINDINGS: Brain: There are mild periventricular and subcortical lucencies consistent with chronic microvascular ischemic changes. The paredes-white differentiation is maintained. No hemorrhage. No edema. Cerebral ventricles: No ventriculomegaly. Paranasal sinuses: Visualized sinuses are unremarkable. No fluid levels. Mastoid air cells: Visualized mastoid air cells are well aerated. Bones/joints: Unremarkable. No acute fracture. Soft tissues: Unremarkable. CT/CT head wo con* [id number] IMPRESSION: No acute intracranial abnormality. Chronic microvascular ischemic changes.
--- NOTE | 2021-10-28 21:20 | XRR_ITS ---
PROCEDURE INFORMATION: Exam: XR Chest Exam date and time: 10/28/2021 9:35 PM Age: 60 years old Clinical indication: Other: AMS; Prior surgery; Surgery date: 6+ months; Surgery type: Port TECHNIQUE: Imaging protocol: XR of the chest. Views: 1 view. COMPARISON: CR XR chest 1V portable [id number] 04/21/2021 2:46 PM FINDINGS: Tubes, catheters and devices: Left approach Port-A-Cath with its tip in the distal superior vena cava. Lungs: Unremarkable. No consolidation. Pleural spaces: Unremarkable. No pleural effusion. No pneumothorax. Heart/Mediastinum: Unremarkable. No cardiomegaly. Bones/joints: Degenerative changes of the spine. XR/XR chest 1V portable [id number] IMPRESSION: No acute abnormality.
--- NOTE | 2021-10-28 21:21 | ECG_ITS ---
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 Measurements Intervals [place] Rate: 104 P: 256 NC: 148 QRS: 62 QRSD: 94 T: 38 QT: 322 QTc: 425 Interpretive Statements ECTOPIC ATRIAL TACHYCARDIA NONSPECIFIC T-WAVE ABNORMALITY ABNORMAL RHYTHM ECG Compared to ECG 04/21/2021 14:18:44 T-wave abnormality now present Sinus tachycardia no longer present ST (T wave) deviation no longer present Electronically Signed On 10-29-2021 9:21:58 CDT by Dominick Moscoso M.D. [id number]
[2021-10-28 23:10] LABS: Basophils % 0.2 %; Eosinophils # 0.1 10^3/uL (0.0-0.8); Eosinophils % 0.4 %; Hematocrit 33.1 % (42.0-52.0); Hemoglobin 10.6 g/dL (11.7-16.6); Lymphocytes # 0.8 10^3/uL (0.8-4.8); Lymphocytes % 6.5 %; Mean Corpuscular Hemoglobin 27.3 pg (28.0-34.0); Mean Corpuscular Volume 85.3 fl (80-94); Mean Platelet Volume 8.8 fL (7.4-10.4); Monocytes # 0.6 10^3/uL (0.2-0.9); Monocytes % 4.4 %; Neutrophils # 11.03 10^3/uL (1.8-7.7); Neutrophils % 88.1 %; Nucleated Red Blood Cells % 0 %; Platelet Count 202 10^3/cmm (130-400); Red Blood Count 3.88 10^6/uL (4.1-5.3); Red Cell Distribution Width 14.5 % (12.1-15.1); White Blood Count 12.5 10^3/uL (4.0-10.0)
[2021-10-28 23:24] LABS: Lactic Sepsis W/Reflex 2.3 mmol/L (0.5-2.2)
[2021-10-28 23:29] LABS: Erythrocyte Sedimentation Rate 50 mm/hr (0-10)
[2021-10-28 23:36] LABS: Procalcitonin 0.25 ng/mL (0-0.5); Thyroid Stimulating Hormone 17.39 uIU/mL (0.27-4.20)
[2021-10-28 23:47] LABS: Alanine Aminotransferase 7 U/L (0-41); Albumin Level 2.8 g/dL (3.5-5.2); Alkaline Phosphatase 253 IU/L (40-130); Anion Gap 14.7 (5-19); Aspartate Amino Transferase 15 U/L (0-40); Blood Urea Nitrogen 25 mg/dL (6-20); Calcium 12.8 mg/dL (8.5-10.5); Carbon Dioxide 27 mmol/L (22-29); Chloride 90 mmol/L (98-107); Globulin 3.7 g/dL (1.3-4.6); Glomerular Filtration Rate 56.7 mL/min (90-130); Glucose 77 mg/dL (65-115); Magnesium 1.9 mg/dL (1.7-2.3); Osmolality Calculated 269 mOsm/kg (285-295); Potassium 3.7 mmol/L (3.5-5.1); Sodium 128 mmol/L (136-145); Total Bilirubin 0.5 mg/dL (0.15-1.2); Total Protein 6.5 g/dL (6.6-8.7)
[2021-10-29] VITALS (13 sets, daily range): BP systolic 118–164; BP diastolic 70–90; PULSE 54–90; RESP 16–97; TEMP 36.3–36.6; O2SAT 94–100
[2021-10-29 00:19] LABS: Free T4 Free Thyroxine 1.02 ng/dL (0.82-1.77)
[2021-10-29 00:55] LABS: Reflex Lactate Order REFLEX LACTIC ORDERD
[2021-10-29] MEDS: sodium chloride 0.9% 1,000 ML 999 ML IV (00:55)
[2021-10-29] MEDS: piperacillin-tazobactam 4.5 GM in sodium chloride 0.9% (plus) 50 ML IV (00:55)
[2021-10-29 01:05] LABS: Ammonia 13 umol/L (16-60)
--- NOTE | 2021-10-29 01:14 | CTR_ITS ---
PROCEDURE INFORMATION: Exam: CT Chest With Contrast; Diagnostic Exam date and time: 10/29/2021 1:17 PM Age: 60 years old Clinical indication: Mass, lump, or swelling in the chest; Additional info: AMS TECHNIQUE: Imaging protocol: Diagnostic computed tomography of the chest with contrast. Radiation optimization: All CT scans at this facility use at least one of these dose optimization techniques: automated exposure control; mA and/or kV adjustment per patient size (includes targeted exams where dose is matched to clinical indication); or iterative reconstruction. Contrast material: OMNI 300; Contrast volume: 50 ml; Contrast route: INTRAVENOUS (IV); COMPARISON: CT angio chest PE protcl [id number] 04/21/2021 6:27 PM RADIATION DOSE METRICS: Total DLP (mGy-cm): 1517.91 FINDINGS: Tubes, catheters and devices: There is a left chest port with the line tip appropriately positioned in the lower SVC near the cavoatrial junction. Lungs: There are scattered bilateral spiculated pulmonary nodules. The dominant right upper lobe nodule measures 2.2 x 1.6 cm, increased from 1.9 x 1.2 cm on 04/21/2021. Numerous additional bilateral pulmonary nodules are new. There is subsegmental atelectasis in the right lung. There is no consolidation. Pleural spaces: There is no pleural effusion or pneumothorax. Heart: Heart size is normal. There is no pericardial effusion. Lymph nodes: There is no mediastinal or hilar lymphadenopathy. Vasculature: The aorta is unremarkable. There is no aneurysm. The central pulmonary arteries are unremarkable. Intraperitoneal space: Visible structures in the upper abdomen are unremarkable. Bones/joints: There is an acute pathologic fracture through a lytic lesion at the base of the left coracoid process. There are lytic bone lesions in the thoracic spine, ribs and sternum. Mild pathologic compression fracture at T2 is new since 04/21/2021. Soft tissues: The extrathoracic soft tissues are unremarkable. PROCEDURE INFORMATION: Exam: CT Abdomen And Pelvis With Contrast Exam date and time: 10/29/2021 1:17 PM Age: 60 years old Clinical indication: Mass, lump, or swelling in the chest; Additional info: AMS TECHNIQUE: Imaging protocol: Computed tomography of the abdomen and pelvis with contrast. Radiation optimization: All CT scans at this facility use at least one of these dose optimization techniques: automated exposure control; mA and/or kV adjustment per patient size (includes targeted exams where dose is matched to clinical indication); or iterative reconstruction. Contrast material: OMNI 300; Contrast volume: 50 ml; Contrast route: INTRAVENOUS (IV); COMPARISON: 1. MR pelvis wo/w con [id number] 12/29/2020 1:45 PM 2. [place] [id number] 10/29/2021 10:33 AM RADIATION DOSE METRICS: Total DLP (mGy-cm): 1517.91 FINDINGS: Liver: The liver is normal. Gallbladder and bile ducts: The gallbladder is normal. There is no biliary dilation. Pancreas: There is moderate atrophy of the pancreas. Spleen: The spleen is unremarkable. Adrenal glands: The adrenal glands are unremarkable. Kidneys and ureters: The kidneys are unremarkable. No hydronephrosis or stones. No ureteral dilation. Stomach and bowel: The stomach is decompressed, preventing meaningful evaluation of wall thickness. The small bowel is nondilated. The colon is unremarkable. Appendix: Not visible. Intraperitoneal space: Mild mesenteric edema in the lower abdomen. No ascites. There is no free air. Vasculature: There is moderate aortic atherosclerotic disease. There is left proximal femoral vein occlusion. See axial series 3, image 88. The portal, splenic and superior mesenteric veins are patent. Lymph nodes: There is distal retroperitoneal lymphadenopathy. Urinary bladder: The Cueva catheter is appropriately positioned with the bulb and tip within the bladder lumen. The urinary bladder is decompressed, preventing meaningful evaluation of wall thickness. Reproductive: The prostate and seminal vesicles are unremarkable. Bones/joints: There are extensive lytic osseous metastases with marked destructive changes of the proximal left femur and a bulky surrounding soft tissue mass measuring 12.9 x 10.4 cm. There is destruction of the right acetabulum with displacement of the femoral head through the acetabulum. There is a large soft tissue mass surrounding the right hip measuring approximately 10.5 x 8.9 cm. Multilevel lytic metastases in the lumbar spine and sacrum. Soft tissues: The abdominal wall is intact. CT/CT chest abd pel w con* IMPRESSION: 1. Increased size of a spiculated nodule in the right upper lobe and new bilateral pulmonary metastases since 04/21/2021. 2. New osseous metastases since 04/21/2021. 3. Acute pathologic fracture of the left coracoid process. 4. New pathologic compression fracture at T2 since 04/21/2021. Acuity is otherwise indeterminate. IMPRESSION: 1. Osseous metastases with destruction of the right acetabulum and displacement of the right femoral head through the acetabulum into the pelvis. Findings are progressive since 12/29/2020. 2. Occlusion of the left femoral vein likely due to neoplastic involvement or compression from the soft tissue mass centered at the left hip. This finding corresponds to ultrasound findings previously today. 3. Marked destructive changes in the proximal left femur with intact internal fixation hardware. Findings are progressive since 12/29/2020. 4. Retroperitoneal lymphadenopathy.
--- NOTE | 2021-10-29 01:14 | CTR_ITS ---
PROCEDURE INFORMATION: Exam: CT Lumbar Spine With Contrast Exam date and time: 10/29/2021 1:22 PM Age: 60 years old Clinical indication: Other: Sacral decubitus ulcer TECHNIQUE: Imaging protocol: Computed tomography images of the lumbar spine with intravenous contrast. Radiation optimization: All CT scans at this facility use at least one of these dose optimization techniques: automated exposure control; mA and/or kV adjustment per patient size (includes targeted exams where dose is matched to clinical indication); or iterative reconstruction. Contrast material: OMNI 300; Contrast volume: 50 ml; Contrast route: INTRAVENOUS (IV); COMPARISON: MR lumbar spine wo con* [id number] 06/23/2020 1:05 PM RADIATION DOSE METRICS: Total DLP (mGy-cm): 1983.19 FINDINGS: Bones/joints: Spinal alignment is normal. Vertebral body height is maintained. There are lytic osseous metastases involving L5, S1 and S2. The metastatic lesion at L5 is centered in the right pedicle and extends into the transverse process and vertebral body. There is a destructive bone lesion in the superior left ilium. There is a destructive bone lesion in the right acetabulum which is partially imaged. The right femoral head protrudes through the destroyed acetabular into the pelvis. There is a partially imaged surrounding soft tissue mass. No acute fracture. Discs/Spinal canal/Neural foramina: There is moderate degenerative spinal stenosis at L3-4. There is probable compression of the right S1 nerve root due to the L5 and sacral metastases. Soft tissues: Paraspinal soft tissues are unremarkable. Sacral decubitus ulcer is partially imaged. No visible abscess. CT/CT lumbar spine w con [id number] IMPRESSION: 1. Lumbosacral metastases. No pathologic fracture. 2. Probable neoplastic compression of the right S1 nerve root. 3. Partially imaged sacral decubitus ulcer. 4. Moderate L3-4 degenerative spinal stenosis.
--- NOTE | 2021-10-29 01:20 | PM.HP ---
Providers/Chief Complaint Admitting Physician: Ephraim Daugherty MD Primary Care Provider: Guerrero Claudio, CIRCULATING PROCESS INSPECTOR-C Chief Complaint: Dehydrated/hallucinating History of Present Illness Avtar Kerns is a 60 year old male with a past medical history of lung cancer, metastatic to bone, status post chemotherapy, currently on immunotherapy, COPD, history of anemia, history of atrial fibrillation not on anticoagulation, deconditioning, protein calorie malnutrition, history of stage IV sacral decubitus ulcer, who presents to [facility] due to altered mental status. Currently is at bedside, patient is alert to person, not to place, not to time, he does follow commands at times, he can answer some yes or no questions, but is not detailed in his responses, and but some of his answers do not make sense. His tells me that he was recently here in the hospital for dehydration, he continues to have poor appetite, fatigue, malaise, weight loss. For the last 24 hours has been confused, they are not exactly sure why, no nausea or vomiting episodes, no abdominal pain complaints, no chest pain complaints, no shortness of breath complaints, he has had UTIs, he has a sacral decubitus ulcer which he sees wound care for, he has not fallen, no fevers, no known history of COVID, no facial droop, no slurring of his words, does tell me that she thinks that at times he might be having seizure-like episodes as he has flapping of his hands and feet, that intermittently happens Review of Systems General: Reports: ROS unobtainable due to mental status Medications/Allergies Home Medications Medication Instructions Recorded Confirmed Last Taken Type dronabinol 5 mg capsule 5 mg PO BID 08/31/20 10/27/21 10/20/21 History sennosides 8.6 mg-docusate sodium 1 tab-cap PO BID 30 Days #60 tab 11/21/20 10/27/21 10/20/21 Rx 50 mg tablet (Senna-S) lactulose 10 gram/15 mL oral 20 g PO BID PRN ml 03/07/21 10/27/21 Unknown History solution AP pad with pump E0271 #1 ea 03/30/21 10/27/21 Unknown Rx ROHO pad E2622 #1 ea 03/30/21 10/27/21 Unknown Rx ondansetron 4 mg disintegrating 4 mg PO Q8H PRN #60 tab 10/03/21 10/27/21 Unknown Rx tablet morphine 30 mg immediate release 30 mg PO Q4H PRN 30 Days #180 tab 10/04/21 10/27/21 10/20/21 Rx tablet morphine 60 mg tablet,extended 180 mg PO BID 30 Days #180 tab 10/04/21 10/27/21 10/20/21 Rx release duloxetine 60 mg capsule,delayed 60 mg PO BID #180 cap 10/05/21 10/27/21 10/20/21 Rx release (Cymbalta) montelukast 10 mg tablet 10 mg PO DAILY #90 tab 10/05/21 10/27/21 10/20/21 Rx (Singulair) cholecalciferol (vitamin D3) 125 5,000 unit PO DAILY 10/15/21 10/27/21 10/20/21 History mcg (5,000 unit) capsule lorazepam 1 mg tablet 1 mg PO TID PRN 10/15/21 10/27/21 Unknown History doxycycline monohydrate 100 mg 100 mg PO BID 14 Days #28 tab 10/17/21 10/27/21 10/20/21 Rx tablet ciprofloxacin HCl 500 mg tablet 500 mg PO BID@0900,2100 #20 tab 10/21/21 10/27/21 Unknown Rx polyethylene glycol 3350 17 17 g PO DAILY #238 g 10/21/21 10/27/21 Unknown Rx gram/dose oral powder (ClearLax) afatinib 30 mg tablet (Gilotrif) See Rx Instructions .ROUTE 10/27/21 Unknown Rx .COMPLEX #30 tab levothyroxine 200 mcg tablet 200 mcg PO QAM tab 10/27/21 10/27/21 Unknown History levothyroxine 25 mcg tablet 12.5 mcg PO DAILY #30 tab 10/27/21 10/27/21 Unknown Rx liothyronine 5 mcg tablet (Cytomel) 10 mcg PO DAILY #1 tab 10/27/21 10/27/21 Unknown Rx mupirocin 2 % topical ointment 1 applic TOPICAL BID #22 g 10/27/21 10/27/21 Unknown Rx Allergies Allergy/AdvReac Type Severity Reaction Status Date / Time lisinopril AdvReac Severe Cough Verified 10/27/21 11:04 PFSH Acute PFSH: Medical History Adult onset hypothyroidism Anemia Atrial fibrillation with rapid ventricular response Chronic allergic rhinitis due to pollen Chronic malnutrition COPD (chronic obstructive pulmonary disease) with emphysema Essential (primary) hypertension History of colon polyps Hyponatremia Impaired ambulation Lumbar pain with radiation down right leg Malignant neoplasm of unspecified part of unspecified bronchus or lung Metabolic syndrome Metastatic squamous cell carcinoma Mixed hyperlipidemia Pressure sore on buttocks Transfusion-dependent anemia Vitamin D deficiency Surgical History History of circumcision History of colonoscopy 2019 History of tonsillectomy Port-A-Cath in place (08/31/20) Family History Other Cancer Hypertension Social History Smoking and tobacco status: former smoker Second hand smoke exposure: Yes Smoking risk assessment/counseling performed?: Yes Alcohol intake: current Alcohol intake frequency: holidays/special occasions only Desire information about alcohol rehabilitation?: No Counseling given: No Desire information about substance/drug rehabilitation?: No Counseling given: No Adopted: No Caregiver/support person: No Lives independently: Yes Household members: spouse and children Housing: House Marital status: Current occupational status: employed Current occupation: [employer] History of recent travel: Yes (for job) Out of state: Yes Current gender identity: Male Vitals/I&O/Wt Last Vital Signs Temp 97.7 F 10/28/21 21:03 Pulse 82 10/28/21 21:03 Resp 18 10/28/21 21:03 BP 131/89 10/28/21 21:03 Pulse Ox 98 10/28/21 21:03 Weight last 48 hrs Weight 56.699 kg Physical Exam Const: COMMON NORMALS: no acute distress and alert EXAM LIMITATIONS: altered mental status GENERAL APPEARANCE: frail appearing NUTRITIONAL APPEARANCE: cachectic ORIENTATION/CONSCIOUSNESS: Yes awake, Yes oriented to person and Yes confused; not oriented to place and not oriented to time HENMT: COMMON NORMALS: normocephalic HEAD & SCALP: normocephalic Eye: COMMON NORMALS: Equal, round and reactive pupils present and EOMs intact bilaterally Neck/C-Spine: COMMON NORMALS: no JVD Resp: COMMON NORMALS: normal respiratory effort, No retractions, No use of accessory muscles and clear to auscultation bilaterally AUSCULTATION: clear to auscultation bilaterally Cardio: COMMON NORMALS: no JVD, regular rate, regular rhythm, S1 normal heart sound present and S2 normal heart sound present RATE: regular rate RHYTHM: regular rhythm HEART SOUNDS: S1 normal heart sound present and S2 normal heart sound present GI: COMMON NORMALS: Normal to inspection, nondistended, normoactive bowel sounds present, Soft to palpation, non-tender, No hepatosplenomegaly present, no masses and no bruits PALPATION: Yes Soft to palpation and Yes No hepatosplenomegaly present Extremity: COMMON NORMALS: capillary refill normal and no pedal edema NARRATIVE EXTREMITY EXAM: Has right calf tenderness Psych: COMMON NORMALS: mental status grossly normal Skin: OTHER: Large, 3 x 3 cm sacral decubitus ulcer currently packed, Data : 10/28/21 22:55 10/28/21 22:55 Micro: Microbiology 10/28/21 22:55 Blood Culture - Preliminary Blood SPECIMEN COLLECTED 10/28/21 22:55 Blood Culture - Preliminary Blood SPECIMEN COLLECTED A&P Assessment and plan (1) Altered mental status: Status: Acute (2) Anemia: Status: Acute (3) Stage IV pressure ulcer: Status: Acute (4) Metastatic lung cancer (metastasis from lung to other site): Status: Chronic (5) Protein calorie malnutrition: Status: Acute (6) Cancer cachexia: Status: Acute Plan Altered mental status -Etiology unclear at this time -UA is pending, will ask nursing staff to place a Cueva catheter -We will order CT chest abdomen pelvis with contrast -Does have a sacral decubitus ulcer, currently packed, ESR is 50, will do CT of the lumbar spine to evaluate for osteomyelitis or deep tissue infection -Has received vancomycin, Zosyn -He does have flapping like motion of his arms and legs according to his , not observed by me, possibly could be seizure-like episodes, CT head within normal limits, but might require an MRI or even a trial of Keppra to rule out metastatic lesions to the brain -DNR/DNI, according to at bedside, that was his wishes during his last admission Hyponatremia, IV fluids Dehydration, JOSÉ MIGUEL, IV fluids Metastatic lung cancer, to bone Cancer cachexia Protein calorie malnutrition Hypothyroidism, elevated TSH, continue home levothyroxine Chronic pain, continue home morphine Attestations Medical Necessity Statement*: Patient requires hospitalization, inpatient, greater than 2 midnights, for altered mental status Coding Level of Care Code Acute Photo Finish Photographer for Chg Fwd Diagnoses Altered mental status R41.82 Anemia D64.9 Stage IV pressure ulcer L89.94 Metastatic lung cancer (metastasis from lung to other site) C34.90 Protein calorie malnutrition E46 Cancer cachexia R64
[2021-10-29 01:23] LABS: INR 1.08 (0.8-1.2)
--- NOTE | 2021-10-29 01:52 | PC.NURSE ---
Placed curtis catheter per Dr. Hernandez request.
--- NOTE | 2021-10-29 01:53 | PC.NURSE ---
Report called to [facility] on med/surg.
--- NOTE | 2021-10-29 02:11 | USR_ITS ---
PROCEDURE INFORMATION: Exam: US Duplex Lower Extremity Veins, Bilateral Exam date and time: 10/29/2021 10:33 AM Age: 60 years old Clinical indication: Swelling (edema) of limb; Lower extremity, bilateral; Patient HX: PT can not give history. I do not see a cabg scar or ablation scars. ; Additional info: Leg swelling TECHNIQUE: Imaging protocol: Real-time Duplex ultrasound of the bilateral extremities with 2-D paredes scale, color Doppler flow and spectral waveform analysis with image documentation. Complete exam focused on the bilateral lower extremity veins. Total images: 298 COMPARISON: CT chest abd pel w con* 07/15/2020 5:09 PM FINDINGS: Right deep veins: Unremarkable. The common femoral, femoral, proximal profunda femoral and popliteal veins are patent without thrombus. Normal Doppler waveforms. Normal compressibility and/or augmentation response. Right superficial veins: Right greater saphenous vein demonstrates thrombus from the mid thigh to below the knee. The vein fails to compress. Left deep veins: The femoral, proximal profunda femoral and popliteal veins are patent without thrombus. Normal Doppler waveforms. Normal compressibility and/or augmentation response. The left common femoral vein is noncompressible with minimal venous flow demonstrated. Left superficial veins: Saphenofemoral junction is patent without thrombus. Soft tissues: Unremarkable. US/[place] [id number] IMPRESSION: 1. Deep venous thrombosis present in left common femoral vein. 2. Superficial vein thrombosis of the right greater saphenous vein.
[2021-10-29] MEDS: enoxaparin 40 mg/0.4 mL Syringe SUBCUT (02:30)
[2021-10-29] MEDS: dextrose 5%-sod chloride 0.9% 1,000 ML 125 ML IV (02:30)
[2021-10-29] MEDS: pantoprazole 40 mg SDV IVP (02:54)
[2021-10-29 03:20] LABS: Add Urine Microscopic? NO; Charge for UA Resulting for Rev
[2021-10-29 03:25] LABS: Bilirubin Urine Neg (Negative); Blood Urine Neg (Negative); Glucose Urine UA Norm (Normal); Ketones Urine Negative (Negative); Leukocyte Esterase Urine Negative (Negative); Nitrate Urine Negative (Negative); Protein Urine Neg (Negative); Urine Appearance Clear (CLEAR); Urine Color Yellow (Yellow); Urobilinogen Urine Norm (Negative); pH Urine 6 (5-7)
--- NOTE | 2021-10-29 03:27 | PC.NURSE ---
Pharmacokinetic dosing service Date: 10/29/21 Time: 030 Objective: Patient: Avtar Kerns Floor: 254-1 Age: 60 yo Serum creatinine: 1.3 mg/dL Height: 68.0 Inches Weight (kg): 56.699 Diagnosis: Relevant medical/social history: Cultures and sensitivities: Other labs: Assessment: IBW (kg): 68.40 Dosing wt(kg): 56.699 Estimated Creatinine clearance (ml/min): 49.7 CRCL method: Cockcroft and Gault using ibw(default). Drug selected: Vancomycin Loading dose (mg): 0 Vd (liters): 51.0 (factor used: 0.9 L/kg) Terrell (hr-1): 0.046 Half life (hrs): 15.07 Recommended dose: 1250 mg Interval: 24 hrs Infusion time (hrs): 1.5 Predicted peak (mcg/mL): 35.4 Predicted trough (mcg/mL): 12.58 Total body weight is being used for vancomycin dosing. Renal function is stable [ ] /unstable [ ] Recommendations: Give Vancomycin 1250 mg q 24 hrs with an expected Cpeak of 35.4 mcg/ml and an expected Ctrough of 12.58 mcg/ml Renal dosing of other antibiotics (review renal dosing of other medications and list guidelines here): Thank you for the consult, will continue to follow. Signature: Shilpi Srinivasan [facility]ly [facility]
[2021-10-29 06:14] LABS: NT Pro B Type Natriuretic Pept 649 pg/mL (0-125)
[2021-10-29] MEDS: levothyroxine 200 mcg Tablet PO (06:22)
[2021-10-29] MEDS: levothyroxine 25 mcg Tablet 12.5 MCG PO (06:22)
[2021-10-29] MEDS: piperacillin-tazobactam 3.375 GM in sodium chloride 0.9% (plus) 50 ML IV ×3 (09:37→23:55)
--- NOTE | 2021-10-29 11:04 | PC.PHAR ---
PT UNABLE TO VERIFY - ATTEMPTED TO CALL ANDREW () WITH NO ANSWER. VERIFIED MEDS BY EXT MED HISTORY UNTIL I HAVE SPOKEN WITH .
[2021-10-29 11:08] LABS: Cortisol Random 15.06 ug/dL (2.47-19.5)
[2021-10-29] MEDS: iohexol 300 mg/mL 100 mL Btl IV ×2 (13:27→13:28)
--- NOTE | 2021-10-29 14:11 | P.PN_ITS ---
Subjective Subjective: Admitted overnight. H&P and labs appreciated. On examination laying comfortably in bed. Awake and alert. Slow to respond. Able to have complete conversation. Denies any nausea vomiting, headache. Complaining of mild pain in the back. Vitals/I&O/Wt Last Vital Signs Temp 97.6 F 10/29/21 12:00 Pulse 86 10/29/21 12:00 Resp 16 10/29/21 12:00 BP 152/84 10/29/21 12:00 Pulse Ox 95 10/29/21 12:00 10/28/21 10/29/21 10/29/21 22:59 06:59 14:59 Intake Total 1300 / 1300 1050 / 1050 Output Total 200 / 200 Balance 1100 / 1100 1050 / 1050 Weight last 48 hrs Weight 56.699 kg Weight 56.699 kg Physical Exam Const: COMMON NORMALS: no acute distress and alert EXAM LIMITATIONS: altered mental status GENERAL APPEARANCE: frail appearing NUTRITIONAL APPEARANCE: cachectic ORIENTATION/CONSCIOUSNESS: Yes awake, Yes oriented to person and Yes confused; not oriented to place and not oriented to time HENMT: COMMON NORMALS: normocephalic HEAD & SCALP: normocephalic Eye: COMMON NORMALS: Equal, round and reactive pupils present and EOMs intact bilaterally PUPIL: Yes Equal, round and reactive pupils present Neck/C-Spine: COMMON NORMALS: no JVD Resp: COMMON NORMALS: normal respiratory effort, No retractions, No use of accessory muscles and clear to auscultation bilaterally AUSCULTATION: clear to auscultation bilaterally Cardio: COMMON NORMALS: no JVD, regular rate, regular rhythm, S1 normal heart sound present and S2 normal heart sound present RATE: regular rate RHYTHM: regular rhythm HEART SOUNDS: S1 normal heart sound present and S2 normal heart sound present GI: COMMON NORMALS: Normal to inspection, nondistended, normoactive bowel sounds present, Soft to palpation, non-tender, No hepatosplenomegaly present, no masses and no bruits PALPATION: Yes Soft to palpation and Yes No hepatosplenomegaly present Extremity: COMMON NORMALS: capillary refill normal and no pedal edema NARRATIVE EXTREMITY EXAM: Has right calf tenderness Neuro: SENSORIUM/ORIENTATION: Yes alert, Yes oriented to person, No oriented to place and No oriented to time Psych: COMMON NORMALS: mental status grossly normal Skin: OTHER: Large, 3 x 3 cm sacral decubitus ulcer currently packed, Urinary Catheter Management: Cueva: Cath Placed During This Visit: yes Reason for Continuing Indwelling Catheter: Acute Urinary Retention or Obstruction Urinary Catheter Date of Insertion: 10/29/21 Urinary Catheter Time of Insertion: 01:30 Data : 10/28/21 22:55 10/28/21 22:55 Micro: Microbiology 10/28/21 22:55 Blood Culture - Preliminary Blood SPECIMEN COLLECTED 10/28/21 22:55 Blood Culture - Preliminary Blood SPECIMEN COLLECTED A&P Assessment and plan (1) Altered mental status: Status: Acute (2) Anemia: Status: Acute (3) Stage IV pressure ulcer: Status: Acute (4) Metastatic lung cancer (metastasis from lung to other site): Status: Chronic (5) Protein calorie malnutrition: Status: Acute (6) Cancer cachexia: Status: Acute (7) DVT (deep venous thrombosis): Status: Acute Plan Altered mental status -Etiology unclear at this time -UA is pending, will ask nursing staff to place a Cueva catheter -We will order CT chest abdomen pelvis with contrast -Does have a sacral decubitus ulcer, currently packed, ESR is 50, will do CT of the lumbar spine to evaluate for osteomyelitis or deep tissue infection -Has received vancomycin, Zosyn -He does have flapping like motion of his arms and legs according to his , not observed by me, possibly could be seizure-like episodes, CT head within normal limits, but might require an MRI or even a trial of Keppra to rule out metastatic lesions to the brain -DNR/DNI, according to at bedside, that was his wishes during his last admission Hyponatremia, IV fluids Dehydration, JOSÉ MIGUEL, IV fluids Metastatic lung cancer, to bone Cancer cachexia Protein calorie malnutrition Hypothyroidism, elevated TSH, continue home levothyroxine Chronic pain, continue home morphine Plan for day: Found to have a DVT on lower limb Dopplers. Start on heparin drip. Confirmed with . She does not remember him to have any history of bleeding, melena. Did have colonoscopy few years ago with Dr. Fontenot as per which was benign other than few polyps. Monitor hemoglobin. Follow-up CT imaging ordered overnight. Continue vancomycin and Zosyn. Follow blood culture. Stop D5 NS. Repeat stat CMP. Add urine lites to UA from last night. Will restart on fluid for fluid restriction as per urine studies and repeat BMP. Cannot rule out SIADH given lung cancer. Add protein supplements to diet. Dietary consultation. Physical therapy. Attestations Medical Necessity Statement*: Requires further hospitalization for management of altered mental status secondary to hyponatremia, possible sepsis, DVT, JOSÉ MIGUEL, cancer cachexia Time Spent in Patient Care: Greater than 35 minutes Coding Level of Care Code Acute Sustainable Design Coordinator for [facility] Fwd Diagnoses Altered mental status R41.82 Anemia D64.9 Stage IV pressure ulcer L89.94 Metastatic lung cancer (metastasis from lung to other site) C34.90 Protein calorie malnutrition E46 Cancer cachexia R64 DVT (deep venous thrombosis) I82.409
[2021-10-29] MEDS: heparin drip 25,000 UNIT/500 ML PREMIX 16 UNIT IV (16:38)
[2021-10-29 18:34] LABS: Potassium, Radom Urine 19 mmol/L; Urine Random Chloride 81 mmol/L; Urine Random Sodium 87 mmol/L
[2021-10-29 20:54] LABS: Alanine Aminotransferase < 5 U/L (0-41); Albumin Level 2.5 g/dL (3.5-5.2); Alkaline Phosphatase 212 IU/L (40-130); Anion Gap 9.4 (5-19); Aspartate Amino Transferase 12 U/L (0-40); Blood Urea Nitrogen 23 mg/dL (6-20); Calcium 11.5 mg/dL (8.5-10.5); Carbon Dioxide 28 mmol/L (22-29); Chloride 95 mmol/L (98-107); Globulin 2.9 g/dL (1.3-4.6); Glomerular Filtration Rate 56.7 mL/min (90-130); Glucose 75 mg/dL (65-115); Osmolality Calculated 270 mOsm/kg (285-295); Potassium 3.4 mmol/L (3.5-5.1); Sodium 129 mmol/L (136-145); Total Bilirubin 0.5 mg/dL (0.15-1.2); Total Protein 5.4 g/dL (6.6-8.7)
[2021-10-29] MEDS: morphine ER (12 HR) 30 mg tablet 60 MG PO (21:01)
[2021-10-29 22:37] LABS: Partial Thromboplastin Time 83.2 SECONDS (23.9-36.7)
[2021-10-30] VITALS (8 sets, daily range): BP systolic 116–151; BP diastolic 57–88; PULSE 58–84; RESP 12–16; TEMP 36.2–36.4; O2SAT 95–98
[2021-10-30] MEDS: pantoprazole 40 mg SDV IVP (01:35)
[2021-10-30] MEDS: vancomycin 1,250 MG/250 ML PIGGYBACK 250 MG IV (03:27)
[2021-10-30] MEDS: levothyroxine 25 mcg Tablet 12.5 MCG PO (05:12)
[2021-10-30] MEDS: levothyroxine 200 mcg Tablet PO (05:12)
[2021-10-30 05:27] LABS: Basophils % 0.2 %; Eosinophils # 0.2 10^3/uL (0.0-0.8); Eosinophils % 1.6 %; Hematocrit 25.7 % (42.0-52.0); Hemoglobin 8.1 g/dL (11.7-16.6); Lymphocytes # 0.8 10^3/uL (0.8-4.8); Mean Corpuscular HGB Conc 31.5 g/dL (30.0-36.0); Mean Corpuscular Hemoglobin 27.2 pg (28.0-34.0); Mean Corpuscular Volume 86.2 fl (80-94); Mean Platelet Volume 8.8 fL (7.4-10.4); Monocytes # 0.3 10^3/uL (0.2-0.9); Monocytes % 3.6 %; Neutrophils # 8.09 10^3/uL (1.8-7.7); Neutrophils % 86.2 %; Nucleated Red Blood Cells % 0 %; Platelet Count 165 10^3/cmm (130-400); Red Blood Count 2.98 10^6/uL (4.1-5.3); Red Cell Distribution Width 14.8 % (12.1-15.1); White Blood Count 9.4 10^3/uL (4.0-10.0)
[2021-10-30 05:37] LABS: Partial Thromboplastin Time 65.8 SECONDS (23.9-36.7)
[2021-10-30 05:45] LABS: Alanine Aminotransferase < 5 U/L (0-41); Albumin Level 2.4 g/dL (3.5-5.2); Alkaline Phosphatase 207 IU/L (40-130); Anion Gap 11.6 (5-19); Aspartate Amino Transferase 13 U/L (0-40); Blood Urea Nitrogen 22 mg/dL (6-20); Calcium 11.6 mg/dL (8.5-10.5); Carbon Dioxide 27 mmol/L (22-29); Chloride 96 mmol/L (98-107); Globulin 3.1 g/dL (1.3-4.6); Glomerular Filtration Rate 62.2 mL/min (90-130); Glucose 65 mg/dL (65-115); Magnesium 1.6 mg/dL (1.7-2.3); Osmolality Calculated 273 mOsm/kg (285-295); Phosphorus 2.5 mg/dL (2.5-4.5); Potassium 3.6 mmol/L (3.5-5.1); Sodium 131 mmol/L (136-145); Total Bilirubin 0.5 mg/dL (0.15-1.2); Total Protein 5.5 g/dL (6.6-8.7)
[2021-10-30 05:46] LABS: Lactic Sepsis W/Reflex 0.8 mmol/L (0.5-2.2)
[2021-10-30] MEDS: piperacillin-tazobactam 3.375 GM in sodium chloride 0.9% (plus) 50 ML IV ×2 (08:08→17:05)
--- NOTE | 2021-10-30 09:43 | PC.CHAP ---
Pastoral Care Encounter/Spiritual Assessment Type of Contact [] Declined belling machine operator visit [] Patient/Family/Request visit [] Outpatient visit [] Follow-up visit [] Physician referral [] Code/Alert [x] Routine visit [] Staff referral [] Actively dying [] Patient sleeping [] Family support [] [] Out of room [] Palliative care [] [] Receiving care in room [] Pre-surgical visit [] Trauma [] Long length of stay [] ICU visit [] Other: Relational/Emotional Strength [x] Patient feels connected with others/family/visitors/staff [] Distress [] Loneliness/isolation [] Abandonment Spirituality of Patient [x] Person of Latoya [] Attends Mosque of their Latoya [x] Believes in Prayer [] Reads Bible or Tenriism materials [] There are Spiritual issues to be addressed Library Circulation Clerk Interventions [x] Prayer [x] Active listening [x] Non-anxious presence [] Spiritual/emotional support [] Crisis/trauma care [] Spiritual counseling [] Bereavement support [] Provided bereavement packet [] Provided Bible/devotional materials [] Provided toy/stuffed animal, coloring book to patient or family member [] Provided Communion [] Anointing/[place] [] Salvation [x] Completed spiritual assessment [] Other: Impact on Illness or Injury [] Angry [] Fearful [] Anxious [] Often cries [] Exhaustion [] Unable to work [] Unable to attend gnosticist [] Unable to walk/stand [] Unable to read [] Unable to drive [] Unable to eat/drink [] Unable to sleep [] Unable to be with family [] Patient intubated [] Other: Summary Time spent with patient 10 min
[2021-10-30] MEDS: liothyronine 5 mcg Tablet 10 MCG PO (10:20)
[2021-10-30 11:30] LABS: Partial Thromboplastin Time 57.2 SECONDS (23.9-36.7)
--- NOTE | 2021-10-30 13:54 | PM.PN ---
Subjective Subjective: Lethargic, giving brief answers when woken up to voice and shoulder touch. Denies pain or discomfort. Vitals/I&O/Wt Last Vital Signs Temp 97.6 F 10/30/21 12:00 Pulse 82 10/30/21 12:00 Resp 12 10/30/21 12:00 BP 124/83 10/30/21 12:00 Pulse Ox 95 10/30/21 12:00 10/29/21 10/30/21 10/30/21 22:59 06:59 14:59 Intake Total 170 / 1220 300 / 1520 50 / 50 Output Total 400 / 400 500 / 900 Balance -230 / 820 -200 / 620 50 / 50 Weight last 48 hrs Weight 56.699 kg Weight 56.699 kg Physical Exam Const: GENERAL APPEARANCE: cooperative, lethargic and frail appearing ORIENTATION/CONSCIOUSNESS: Yes lethargic HENMT: COMMON NORMALS: normocephalic, EAC's normal, Normal external nose present and moist oral mucous membranes HEAD & SCALP: normocephalic NOSE: Normal external nose present EXTERNAL AUDITORY CANAL: EAC's normal Chest: CHEST: Yes Symmetrical chest wall rise Resp: COMMON NORMALS: clear to auscultation bilaterally AUSCULTATION: clear to auscultation bilaterally Cardio: COMMON NORMALS: regular rate, regular rhythm and No murmurs present (Cardio) RATE: regular rate RHYTHM: regular rhythm GI: COMMON NORMALS: Normal to inspection, nondistended, normoactive bowel sounds present, Soft to palpation and non-tender PALPATION: Yes Soft to palpation Extremity: COMMON NORMALS: no pedal edema Neuro: COMMON NORMALS: moves all extremities SENSORIUM/ORIENTATION: Yes lethargic Skin: OTHER: Large St IV sacral decub w bone exposure, min undermining, no surrounding erythema, swelling. Thin layer slough at base. No drainage. Urinary Catheter Management: Cueva: Cath Placed During This Visit: yes Reason for Continuing Indwelling Catheter: Acute Urinary Retention or Obstruction Urinary Catheter Date of Insertion: 10/29/21 Urinary Catheter Time of Insertion: 01:30 Data : 10/30/21 05:10 10/30/21 05:10 Micro: Microbiology 10/29/21 01:45 Urine Culture - Preliminary Urine,Clean Catch 10/28/21 22:55 Blood Culture - Preliminary Blood NEGATIVE TO DATE 10/28/21 22:55 Blood Culture - Preliminary Blood NEGATIVE TO DATE A&P Assessment and plan (1) Metastatic lung cancer (metastasis from lung to other site): Progressively metastatic cancer now noted bilateral lung metastatic foci, with multiple pathologic fractures with fracture of left coracoid, T2, as well as disruption of right establish and displacement of right femoral head through the stoma into the pelvis. Occlusion of left femoral vein also with neoplastic involvement or compression from soft tissue mass centered at the left hip, with resulting DVT. With recent functional status decline, poor oral intake. Discussed condition and findings with his . Unfortunately could not discussed with him due to level of lethargy. Discussed regarding hospice care, she would like to discuss goals of care further with him if that would become possible, otherwise also will be further discussing goals of care with his sister. Considering hospice, considering disposition. Alerted case management. D/W his oncologist. Status: Chronic (2) Altered mental status: Acute metabolic, possibly toxic encephalopathy. Hold morphine in setting of JOSÉ MIGUEL Status: Acute (3) Anemia: Status: Acute (4) Stage IV pressure ulcer: Continue wound care, antibiotics Status: Acute (5) Protein calorie malnutrition: Status: Acute (6) Cancer cachexia: Status: Acute (7) DVT (deep venous thrombosis): Anticoagulation Status: Acute Plan Hyponatremia: Improved Hypomagnesemia: Replace Dehydration, received IVF JOSÉ MIGUEL with mild improvement Metastatic lung cancer, to bone Cancer cachexia Protein calorie malnutrition Hypothyroidism, elevated TSH, continue home levothyroxine Chronic pain Attestations Medical Necessity Statement*: Continue admission for assessment and management of acute encephalopathy, progressive metastatic cancer, goals of care discussion. Post discharge planning. Coding Level of Care Code Acute Program Evaluation Consultant for [facility] Fwd Exam Comprehensive Diagnoses Altered mental status R41.82 Anemia D64.9 Stage IV pressure ulcer L89.94 Metastatic lung cancer (metastasis from lung to other site) C34.90 Protein calorie malnutrition E46 Cancer cachexia R64 DVT (deep venous thrombosis) I82.409
[2021-10-30] MEDS: magnesium sulfate premix 2 GM/50 ML PIGGYBACK IV (15:46)
[2021-10-30 19:37] LABS: Partial Thromboplastin Time 50.2 SECONDS (23.9-36.7)
[2021-10-30] MEDS: heparin 5,000 unit/mL INJ 1 mL IV (20:05)
[2021-10-31] VITALS (9 sets, daily range): BP systolic 116–145; BP diastolic 66–86; PULSE 78–101; RESP 14–17; TEMP 35.9–36.6; O2SAT 93–99
[2021-10-31] MEDS: piperacillin-tazobactam 3.375 GM in sodium chloride 0.9% (plus) 50 ML IV ×3 (00:48→16:32)
[2021-10-31] MEDS: heparin drip 25,000 UNIT/500 ML PREMIX 16 UNIT IV (02:44)
[2021-10-31] MEDS: pantoprazole 40 mg SDV IVP (02:59)
[2021-10-31] MEDS: vancomycin 1,250 MG/250 ML PIGGYBACK 250 MG IV (03:01)
[2021-10-31 03:10] LABS: Basophils % 0.1 %; Eosinophils # 0.1 10^3/uL (0.0-0.8); Eosinophils % 1.4 %; Hematocrit 25.1 % (42.0-52.0); Hemoglobin 7.8 g/dL (11.7-16.6); Lymphocytes # 0.8 10^3/uL (0.8-4.8); Lymphocytes % 9.6 %; Mean Corpuscular HGB Conc 31.1 g/dL (30.0-36.0); Mean Corpuscular Hemoglobin 26.8 pg (28.0-34.0); Mean Corpuscular Volume 86.3 fl (80-94); Mean Platelet Volume 9.1 fL (7.4-10.4); Monocytes # 0.3 10^3/uL (0.2-0.9); Monocytes % 3.9 %; Neutrophils # 6.78 10^3/uL (1.8-7.7); Neutrophils % 84.7 %; Nucleated Red Blood Cells % 0 %; Platelet Count 181 10^3/cmm (130-400); Red Blood Count 2.91 10^6/uL (4.1-5.3); Red Cell Distribution Width 14.9 % (12.1-15.1)
[2021-10-31 03:37] LABS: Alanine Aminotransferase < 5 U/L (0-41); Albumin Level 2.3 g/dL (3.5-5.2); Alkaline Phosphatase 216 IU/L (40-130); Anion Gap 11.3 (5-19); Aspartate Amino Transferase 11 U/L (0-40); Blood Urea Nitrogen 21 mg/dL (6-20); Calcium 11.6 mg/dL (8.5-10.5); Carbon Dioxide 27 mmol/L (22-29); Chloride 98 mmol/L (98-107); Globulin 3.1 g/dL (1.3-4.6); Glomerular Filtration Rate 62.2 mL/min (90-130); Glucose 61 mg/dL (65-115); Magnesium 2.1 mg/dL (1.7-2.3); Osmolality Calculated 277 mOsm/kg (285-295); Phosphorus 2.8 mg/dL (2.5-4.5); Potassium 3.3 mmol/L (3.5-5.1); Sodium 133 mmol/L (136-145); Total Bilirubin 0.4 mg/dL (0.15-1.2); Total Protein 5.4 g/dL (6.6-8.7)
[2021-10-31 03:39] LABS: Partial Thromboplastin Time 59.9 SECONDS (23.9-36.7)
[2021-10-31] MEDS: levothyroxine 200 mcg Tablet PO (06:03)
[2021-10-31] MEDS: levothyroxine 25 mcg Tablet 12.5 MCG PO (06:03)
[2021-10-31 08:25] LABS: Partial Thromboplastin Time 66.2 SECONDS (23.9-36.7)
[2021-10-31] MEDS: liothyronine 5 mcg Tablet 10 MCG PO (09:50)
[2021-10-31] MEDS: morphine IR 15 mg Tablet 30 MG PO (12:30)
--- NOTE | 2021-10-31 15:59 | PM.PN ---
Subjective Subjective: This morning he is still lethargic, I am having trouble waking him up from more than 1 word answers. States he is not in discomfort. We could not discussed with him results of CT we will further discuss his condition and goals of care. Vitals/I&O/Wt Last Vital Signs Temp 97.6 F 10/31/21 11:56 Pulse 84 10/31/21 11:56 Resp 16 10/31/21 12:30 BP 128/75 10/31/21 11:56 Pulse Ox 94 10/31/21 11:56 10/31/21 10/31/21 10/31/21 06:59 14:59 22:59 Intake Total 800 / 1250 290 / 290 Output Total 700 / 700 Balance 100 / 550 290 / 290 Physical Exam Const: GENERAL APPEARANCE: cooperative, lethargic and frail appearing ORIENTATION/CONSCIOUSNESS: Yes lethargic HENMT: COMMON NORMALS: normocephalic, EAC's normal, Normal external nose present and moist oral mucous membranes HEAD & SCALP: normocephalic NOSE: Normal external nose present EXTERNAL AUDITORY CANAL: EAC's normal Chest: CHEST: Yes Symmetrical chest wall rise Resp: COMMON NORMALS: clear to auscultation bilaterally AUSCULTATION: clear to auscultation bilaterally Cardio: COMMON NORMALS: regular rate, regular rhythm and No murmurs present (Cardio) RATE: regular rate RHYTHM: regular rhythm GI: COMMON NORMALS: Normal to inspection, nondistended, normoactive bowel sounds present, Soft to palpation and non-tender PALPATION: Yes Soft to palpation Extremity: COMMON NORMALS: no pedal edema Neuro: SENSORIUM/ORIENTATION: Yes lethargic Skin: OTHER: Known large St IV sacral decub w bone exposure, min undermining, no surrounding erythema, swelling. Thin layer slough at base. No drainage. Urinary Catheter Management: Cueva: Cath Placed During This Visit: yes Reason for Continuing Indwelling Catheter: Acute Urinary Retention or Obstruction Urinary Catheter Date of Insertion: 10/29/21 Urinary Catheter Time of Insertion: 01:30 Data : 10/31/21 02:05 10/31/21 02:05 Micro: Microbiology 10/29/21 01:45 Urine Culture - Final Urine,Clean Catch A&P Assessment and plan (1) Metastatic lung cancer (metastasis from lung to other site): She is again lethargic currently discussion this morning. Continue to hold scheduled morphine for now. Pending further goals of care discussion with consideration of hospice care. Progressively metastatic cancer now noted bilateral lung metastatic foci, with multiple pathologic fractures with fracture of left coracoid, T2, as well as disruption of right establish and displacement of right femoral head through the stoma into the pelvis. Occlusion of left femoral vein also with neoplastic involvement or compression from soft tissue mass centered at the left hip, with resulting DVT. With recent functional status decline, poor oral intake. Status: Chronic (2) Altered mental status: Hold scheduled morphine for now with persistent encephalopathy. Acute metabolic, possibly toxic encephalopathy. Status: Acute (3) Anemia: Mild worsening of anemia, hemoglobin down to 7.8. Recheck hemoglobin level. Status: Acute (4) Stage IV pressure ulcer: Continue wound care, antibiotics Status: Acute (5) Protein calorie malnutrition: Status: Acute (6) Cancer cachexia: Status: Acute (7) DVT (deep venous thrombosis): Anticoagulation Status: Acute Plan Hyponatremia: Improved Hypomagnesemia: Replaced Dehydration, received IVF JOSÉ MIGUEL with mild improvement Metastatic lung cancer, to bone Cancer cachexia Protein calorie malnutrition Hypothyroidism, elevated TSH, continue home levothyroxine Chronic pain Attestations Medical Necessity Statement*: Continue assessment and management secondary to acute encephalopathy, further goals of care discussion and post discharge planning. Coding Level of Care Code Acute Workers Compensation Claims Analyst for [facility] Diagnoses Metastatic lung cancer (metastasis from lung to other site) C34.90 Altered mental status R41.82 Anemia D64.9 Stage IV pressure ulcer L89.94 Protein calorie malnutrition E46 Cancer cachexia R64 DVT (deep venous thrombosis) I82.409
[2021-10-31 16:31] LABS: Partial Thromboplastin Time 66.3 SECONDS (23.9-36.7)
[2021-10-31 20:38] LABS: Glucose Point of Care 95 mg/dL (70-110)
[2021-11-01] VITALS (11 sets, daily range): BP systolic 132–157; BP diastolic 80–91; PULSE 76–98; RESP 13–20; TEMP 36.2–37; O2SAT 96–99
[2021-11-01] MEDS: piperacillin-tazobactam 3.375 GM in sodium chloride 0.9% (plus) 50 ML IV ×3 (00:37→17:22)
[2021-11-01] MEDS: pantoprazole 40 mg SDV IVP (01:54)
[2021-11-01 02:32] LABS: Basophils % 0.1 %; Eosinophils % 0.4 %; Hematocrit 24.6 % (42.0-52.0); Lymphocytes # 0.8 10^3/uL (0.8-4.8); Lymphocytes % 8.6 %; Mean Corpuscular HGB Conc 32.5 g/dL (30.0-36.0); Mean Corpuscular Hemoglobin 27.2 pg (28.0-34.0); Mean Corpuscular Volume 83.7 fl (80-94); Mean Platelet Volume 8.8 fL (7.4-10.4); Monocytes # 0.5 10^3/uL (0.2-0.9); Monocytes % 4.9 %; Neutrophils # 8.19 10^3/uL (1.8-7.7); Neutrophils % 85.7 %; Nucleated Red Blood Cells % 0 %; Platelet Count 205 10^3/cmm (130-400); Red Blood Count 2.94 10^6/uL (4.1-5.3); Red Cell Distribution Width 14.8 % (12.1-15.1); White Blood Count 9.6 10^3/uL (4.0-10.0)
[2021-11-01 02:56] LABS: Alanine Aminotransferase < 5 U/L (0-41); Albumin Level 2.6 g/dL (3.5-5.2); Alkaline Phosphatase 224 IU/L (40-130); Anion Gap 14.1 (5-19); Aspartate Amino Transferase 11 U/L (0-40); Blood Urea Nitrogen 22 mg/dL (6-20); Calcium 11.2 mg/dL (8.5-10.5); Carbon Dioxide 24 mmol/L (22-29); Chloride 97 mmol/L (98-107); Globulin 2.5 g/dL (1.3-4.6); Glomerular Filtration Rate 68.8 mL/min (90-130); Glucose 82 mg/dL (65-115); Osmolality Calculated 276 mOsm/kg (285-295); Phosphorus 2.2 mg/dL (2.5-4.5); Potassium 3.1 mmol/L (3.5-5.1); Sodium 132 mmol/L (136-145); Total Bilirubin 0.4 mg/dL (0.15-1.2); Total Protein 5.1 g/dL (6.6-8.7); Vancomycin Trough 22.5 ug/mL (10-15)
[2021-11-01 05:22] LABS: Partial Thromboplastin Time 70.6 SECONDS (23.9-36.7)
[2021-11-01] MEDS: levothyroxine 200 mcg Tablet PO (05:34)
[2021-11-01] MEDS: levothyroxine 25 mcg Tablet 12.5 MCG PO (05:34)
[2021-11-01 06:10] LABS: Glucose Point of Care 88 mg/dL (70-110)
[2021-11-01] MEDS: liothyronine 5 mcg Tablet 10 MCG PO (09:29)
[2021-11-01] MEDS: heparin drip 25,000 UNIT/500 ML PREMIX 16 UNIT IV (11:24)
[2021-11-01] MEDS: acetaminophen 325 mg Tablet 650 MG PO (13:09)
--- NOTE | 2021-11-01 13:44 | P.PN_ITS ---
Subjective Subjective: He is awake and alert. States he is doing so-so all things considering. No acute pain. Discussed with him encephalopathy over the last several days, discussed. To back off pain medications due to lethargy. Discussed with him results of the CT scan, progression of cancer, multiple metastatic sites, including multiple destructive bone lesions with pathologic fractures, erosion of right femoral capitulum into the pelvis, left pelvic mass with vein compression resulting DVT, and other metastatic sites. We discussed regarding transitioning to hospice care, he is interested in hearing more about and setting up hospice. Alerted case management. Vitals/I&O/Wt Last Vital Signs Temp 97.7 F 11/01/21 12:00 Pulse 84 11/01/21 12:00 Resp 14 11/01/21 12:00 BP 155/91 11/01/21 12:00 Pulse Ox 96 11/01/21 13:10 10/31/21 11/01/21 11/01/21 22:59 06:59 14:59 Intake Total 50 / 340 50 / 390 620 / 620 Output Total 350 / 350 300 / 650 Balance -300 / -10 -250 / -260 620 / 620 Physical Exam Const: GENERAL APPEARANCE: cooperative, lethargic and frail appearing ORIENTATION/CONSCIOUSNESS: Yes lethargic HENMT: COMMON NORMALS: normocephalic, EAC's normal, Normal external nose present and moist oral mucous membranes HEAD & SCALP: normocephalic NOSE: Normal external nose present EXTERNAL AUDITORY CANAL: EAC's normal Chest: CHEST: Yes Symmetrical chest wall rise Resp: COMMON NORMALS: clear to auscultation bilaterally AUSCULTATION: clear to auscultation bilaterally Cardio: COMMON NORMALS: regular rate, regular rhythm and No murmurs present (Cardio) RATE: regular rate RHYTHM: regular rhythm GI: COMMON NORMALS: Normal to inspection, nondistended, normoactive bowel sounds present, Soft to palpation and non-tender PALPATION: Yes Soft to palpation Extremity: COMMON NORMALS: no pedal edema Neuro: COMMON NORMALS: moves all extremities SENSORIUM/ORIENTATION: Yes lethargic Skin: OTHER: Known large St IV sacral decub w bone exposure, min undermining, no surrounding erythema, swelling. Thin layer slough at base. No drainage. Urinary Catheter Management: Cueva: Cath Placed During This Visit: yes Reason for Continuing Indwelling Catheter: Assist healing open wound Urinary Catheter Date of Insertion: 10/29/21 Urinary Catheter Time of Insertion: 01:30 Data : 11/01/21 02:16 11/01/21 02:16 Micro: Microbiology 10/29/21 01:45 Urine Culture - Final Urine,Clean Catch A&P Assessment and plan (1) Metastatic lung cancer (metastasis from lung to other site): Mental status today is better. He is awake and alert. Additional goals of care discussion took place. He is interested and willing to hear more about and set up hospice care. Alerted case management. We will be working with his with regards to arrangements for postdischarge care. Progressively metastatic cancer now noted bilateral lung metastatic foci, with multiple pathologic fractures with fracture of left coracoid, T2, as well as disruption of right establish and displacement of right femoral head through the stoma into the pelvis. Occlusion of left femoral vein also with neoplastic involvement or compression from soft tissue mass centered at the left hip, with resulting DVT. With recent functional status decline, poor oral intake. Status: Chronic (2) Altered mental status: Encephalopathy improved. Lethargy improved. MS Contin has been on hold. Resume at lower dose 50 mg twice daily Continue MS IR for breakthroughs. Status: Acute (3) Anemia: Hemoglobin steady at around 8. Status: Acute (4) Stage IV pressure ulcer: Continue wound care, antibiotics Status: Acute (5) Protein calorie malnutrition: Status: Acute (6) Cancer cachexia: Status: Acute (7) DVT (deep venous thrombosis): Anticoagulation Status: Acute Plan Hyponatremia: Improved Hypomagnesemia: Replaced Dehydration, received IVF JOSÉ MIGUEL with mild improvement Metastatic lung cancer, to bone Cancer cachexia Protein calorie malnutrition Hypothyroidism, elevated TSH, continue home levothyroxine Chronic pain Attestations Medical Necessity Statement*: Continue admission for optimization of pain control in setting of acute encephalopathy, lethargy, post discharge planning and arrangements including hospice care. Coding Level of Care Code Acute Journeyman Meat Cutter for g Fwd Exam Comprehensive Diagnoses Metastatic lung cancer (metastasis from lung to other site) C34.90 Altered mental status R41.82 Anemia D64.9 Stage IV pressure ulcer L89.94 Protein calorie malnutrition E46 Cancer cachexia R64 DVT (deep venous thrombosis) I82.409
[2021-11-01 15:58] LABS: Partial Thromboplastin Time 62.9 SECONDS (23.9-36.7)
[2021-11-01] MEDS: morphine ER (12 HR) 15 mg Tablet PO (17:24)
[2021-11-01] MEDS: morphine IR 15 mg Tablet 30 MG PO (21:37)
[2021-11-01 21:52] LABS: Glucose Point of Care 160 mg/dL (70-110)
[2021-11-02] VITALS (9 sets, daily range): BP systolic 140–172; BP diastolic 69–89; PULSE 73–100; RESP 17–21; TEMP 36.6–37.3; O2SAT 93–99
[2021-11-02] MEDS: piperacillin-tazobactam 3.375 GM in sodium chloride 0.9% (plus) 50 ML IV ×3 (00:33→16:56)
[2021-11-02] MEDS: pantoprazole 40 mg SDV IVP (02:25)
--- NOTE | 2021-11-02 03:12 | PC.NURSE ---
Upon entering room patient's iv in left ac found to be removed by patient with tip intact. Patient then made complaint of abdominal/ana-area discomfort so curtis catheter patency checked and bloody urine was returned. When curtis irrigation was done resistance was met and irrigation fluid dribbled from penis. Curtis catheter was removed. Will attempt reinsertion of new catheter. New iv initiated in left forearm.
[2021-11-02 04:34] LABS: Partial Thromboplastin Time 54.3 SECONDS (23.9-36.7)
[2021-11-02 04:38] LABS: Anion Gap 12.5 (5-19); Basophils % 0.1 %; Blood Urea Nitrogen 20 mg/dL (6-20); Calcium 12.2 mg/dL (8.5-10.5); Carbon Dioxide 26 mmol/L (22-29); Chloride 98 mmol/L (98-107); Eosinophils % 0.1 %; Glomerular Filtration Rate 86.7 mL/min (90-130); Glucose 115 mg/dL (65-115); Hemoglobin 8.5 g/dL (11.7-16.6); Lymphocytes # 0.6 10^3/uL (0.8-4.8); Lymphocytes % 4.9 %; Mean Corpuscular HGB Conc 32.7 g/dL (30.0-36.0); Mean Corpuscular Hemoglobin 27.1 pg (28.0-34.0); Mean Corpuscular Volume 82.8 fl (80-94); Monocytes # 0.6 10^3/uL (0.2-0.9); Monocytes % 5.5 %; Neutrophils # 9.88 10^3/uL (1.8-7.7); Neutrophils % 88.7 %; Nucleated Red Blood Cells % 0 %; Osmolality Calculated 282 mOsm/kg (285-295); Platelet Count 214 10^3/cmm (130-400); Red Blood Count 3.14 10^6/uL (4.1-5.3); Red Cell Distribution Width 14.8 % (12.1-15.1); Sodium 134 mmol/L (136-145); White Blood Count 11.1 10^3/uL (4.0-10.0)
--- NOTE | 2021-11-02 04:59 | PC.NURSE ---
Patient refusing curtis catheter at this time. Dr. Bee notified and order received to hold curtis catheter for now as well as heparin drip. Patient had incontinent void x1 which was noted to be bloody, no clots assessed.
[2021-11-02 05:03] LABS: Potassium 2.5 mmol/L (3.5-5.1)
[2021-11-02] MEDS: levothyroxine 200 mcg Tablet PO (05:22)
[2021-11-02] MEDS: levothyroxine 25 mcg Tablet 12.5 MCG PO (05:22)
[2021-11-02] MEDS: lidocaine 1% 5 ML in potassium chloride premix 100 ML 25 ML IV (05:22)
[2021-11-02] MEDS: liothyronine 5 mcg Tablet 10 MCG PO (08:20)
[2021-11-02] MEDS: morphine ER (12 HR) 15 mg Tablet PO ×2 (08:21→17:06)
[2021-11-02] MEDS: potassium chloride ER 20 mEq Tablet PO (09:17)
--- NOTE | 2021-11-02 10:33 | PC.CHAP ---
Pastoral Care Encounter/Spiritual Assessment Type of Contact [] Declined engine oiler visit [] Patient/Family/Request visit [] Outpatient visit [] Follow-up visit [] Physician referral [] Code/Alert [x] Routine visit [] Staff referral [] Actively dying [] Patient sleeping [] Family support [] [] Out of room [] Palliative care [] [x] Receiving care in room [] Pre-surgical visit [] Trauma [] Long length of stay [] ICU visit [] Other: Relational/Emotional Strength [x] Patient feels connected with others/family/visitors/staff [] Distress [] Loneliness/isolation [] Abandonment Spirituality of Patient [x] Person of Latoya [] Attends Latter-Day of their [place] [x] Believes in Prayer [] Reads Bible or Hindu materials [] There are Spiritual issues to be addressed Guest Relations Executive Interventions [x] Prayer [x] Active listening [x] Non-anxious presence [x] Spiritual/emotional support [] Crisis/trauma care [x] Spiritual counseling [] Bereavement support [] Provided bereavement packet [] Provided Bible/devotional materials [] Provided toy/stuffed animal, coloring book to patient or family member [] Provided Communion [] Anointing/[place] [] Salvation [x] Completed spiritual assessment [] Other: Impact on Illness or Injury [] Angry [] Fearful [x] Anxious [] Often cries [] Exhaustion [] Unable to work [] Unable to attend uatsdin [] Unable to walk/stand [] Unable to read [] Unable to drive [] Unable to eat/drink [] Unable to sleep [] Unable to be with family [] Patient intubated [] Other: Summary some blockage is bowl is workin g now well be jaycob g home has a good attitude Time spent with patient 10 mins
--- NOTE | 2021-11-02 13:35 | P.PN_ITS ---
Subjective Subjective: He had had hematuria, overnight Cueva catheter was removed. This morning he is resting. Not in discomfort. Vitals/I&O/Wt Last Vital Signs Temp 98.2 F 11/02/21 11:34 Pulse 73 11/02/21 11:34 Resp 18 11/02/21 11:34 BP 164/76 11/02/21 11:34 Pulse Ox 96 11/02/21 11:34 11/01/21 11/02/21 11/02/21 22:59 06:59 14:59 Intake Total 200 / 870 50 / 920 395 / 395 Output Total 600 / 600 300 / 900 Balance -400 / 270 -250 / 20 395 / 395 Physical Exam Const: GENERAL APPEARANCE: cooperative, lethargic and frail appearing ORIENTATION/CONSCIOUSNESS: Yes lethargic HENMT: COMMON NORMALS: normocephalic, EAC's normal, Normal external nose present and moist oral mucous membranes HEAD & SCALP: normocephalic NOSE: Normal external nose present EXTERNAL AUDITORY CANAL: EAC's normal Chest: CHEST: Yes Symmetrical chest wall rise Resp: COMMON NORMALS: clear to auscultation bilaterally AUSCULTATION: clear to auscultation bilaterally Cardio: COMMON NORMALS: regular rate, regular rhythm and No murmurs present (C ardio) RATE: regular rate RHYTHM: regular rhythm GI: COMMON NORMALS: Normal to inspection, nondistended, normoactive bowel sounds present, Soft to palpation and non-tender PALPATION: Yes Soft to palpation Extremity: COMMON NORMALS: no pedal edema Neuro: COMMON NORMALS: moves all extremities SENSORIUM/ORIENTATION: Yes lethargic Skin: OTHER: Known large St IV sacral decub w bone exposure, min undermining, no surrounding erythema, swelling. Thin layer slough at base. No drainage. Urinary Catheter Management: Cueva: Cath Placed During This Visit: yes, but has since been removed by the nurse Reason for Continuing Indwelling Catheter: Assist Healing of Perineal & Sacral Wounds- Incontinent Patients Urinary Catheter Date of Insertion: 10/29/21 Urinary Catheter Time of Insertion: 01:30 Date Urinary Catheter Removed: 11/02/21 Time Urinary Catheter Discontinued: 03:00 Data : 11/02/21 04:14 11/02/21 04:14 A&P Assessment and plan (1) Metastatic lung cancer (metastasis from lung to other site): CM working with him and family for hospice arrangements. Progressively metastatic cancer now noted bilateral lung metastatic foci, with multiple pathologic fractures with fracture of left coracoid, T2, as well as disruption of right establish and displacement of right femoral head through the stoma into the pelvis. Occlusion of left femoral vein also with neoplastic involvement or compression from soft tissue mass centered at the left hip, with resulting DVT. With recent functional status decline, poor oral intake. Status: Chronic (2) Hematuria: Urinary catheter removed overnight after he was having hematuria. Unclear whether he had pulled on it. Still having hematuria. We will see if we can place a coud? catheter. Status: Acute (3) Altered mental status: Encephalopathy improved. Lethargy improved. MS Contin has been on hold. Resumed at lower dose 15 mg twice daily Continue MS IR for breakthroughs. Status: Acute (4) Anemia: Hemoglobin steady at around 8. Reassess given hematuria. Status: Acute (5) Stage IV pressure ulcer: Continue wound care, antibiotics Status: Acute (6) Protein calorie malnutrition: Status: Acute (7) Cancer cachexia: Status: Acute (8) DVT (deep venous thrombosis): Anticoagulation Status: Acute Plan Hyponatremia: Improved Hypomagnesemia: Replaced Dehydration, received IVF JOSÉ MIGUEL with mild improvement Metastatic lung cancer, to bone Cancer cachexia Protein calorie malnutrition Hypothyroidism, elevated TSH, continue home levothyroxine Chronic pain Attestations Medical Necessity Statement*: Continue admission for assessment of management of hematuria, post discharge planning and arrangements. Coding Level of Care Code Acute Motorcycle Engine As[employer] for Chg Fwd Diagnoses Metastatic lung cancer (metastasis from lung to other site) C34.90 Altered mental status R41.82 Anemia D64.9 Stage IV pressure ulcer L89.94 Protein calorie malnutrition E46 Cancer cachexia R64 DVT (deep venous thrombosis) I82.409 Hematuria R31.9
--- NOTE | 2021-11-02 18:18 | PC.NURSE ---
Patient remains resting in bed with very limited activity, AAOx4, VSS, severe weakness to BLE with drop foot. BUE moderate weakness, agreeable to drinking the supplements but no appetite. Frequent turns and tolerates them well. Replaced WTD dressing to coccyx this AM and PRN. Updated , daughter and two sisters during shift. Patient is calm and cooperative, has had good UOP and continues to have hematuria. No new event during shift or needs. Room is clean and clutter free with call light within reach. Pain controlled with scheduled medications not requiring break through meds but has slept frequently throughout shift. Port dressing remains clean, dry and intact. Will report to oncoming nurse at shift change.
[2021-11-03] VITALS: BP 158/65; PULSE 86; RESP 18; TEMP 36.6; O2SAT 97
[2021-11-03] MEDS: piperacillin-tazobactam 3.375 GM in sodium chloride 0.9% (plus) 50 ML IV ×2 (00:36→08:16)
[2021-11-03] MEDS: pantoprazole 40 mg SDV IVP (03:00)
[2021-11-03 03:36] VITALS: PULSE 98
[2021-11-03 03:39] LABS: Eosinophils % 0.1 %; Hematocrit 24.4 % (42.0-52.0); Hemoglobin 7.9 g/dL (11.7-16.6); Lymphocytes # 0.8 10^3/uL (0.8-4.8); Mean Corpuscular HGB Conc 32.4 g/dL (30.0-36.0); Mean Corpuscular Hemoglobin 26.7 pg (28.0-34.0); Mean Corpuscular Volume 82.4 fl (80-94); Monocytes # 0.8 10^3/uL (0.2-0.9); Monocytes % 8.6 %; Neutrophils # 7.46 10^3/uL (1.8-7.7); Neutrophils % 81.9 %; Nucleated Red Blood Cells % 0 %; Platelet Count 202 10^3/cmm (130-400); Red Blood Count 2.96 10^6/uL (4.1-5.3); White Blood Count 9.1 10^3/uL (4.0-10.0)
[2021-11-03 03:53] LABS: Blood Urea Nitrogen 17 mg/dL (6-20); Calcium 12.6 mg/dL (8.5-10.5); Carbon Dioxide 28 mmol/L (22-29); Chloride 100 mmol/L (98-107); Glomerular Filtration Rate 99.3 mL/min (90-130); Glucose 88 mg/dL (65-115); Osmolality Calculated 281 mOsm/kg (285-295); Sodium 135 mmol/L (136-145)
[2021-11-03 04:00] VITALS: BP 141/86; PULSE 102; RESP 17; TEMP 36.9; O2SAT 98
--- NOTE | 2021-11-03 04:37 | PC.NURSE ---
Patient pulled port access out by accident. Port re-accessed via sterile technique.
[2021-11-03] MEDS: levothyroxine 200 mcg Tablet PO (04:58)
[2021-11-03] MEDS: levothyroxine 25 mcg Tablet 12.5 MCG PO (04:58)
[2021-11-03] MEDS: vancomycin 1,000 MG in sodium chloride 0.9% 250 ML 250 MG IV (05:00)
[2021-11-03 07:51] VITALS: BP 134/75; PULSE 105; RESP 18; TEMP 36.7; O2SAT 97
[2021-11-03] MEDS: potassium chloride ER 20 mEq Tablet PO ×2 (08:15→09:14)
[2021-11-03] MEDS: liothyronine 5 mcg Tablet 10 MCG PO (08:15)
[2021-11-03] MEDS: morphine ER (12 HR) 15 mg Tablet PO (08:16)
[2021-11-03 11:48] VITALS: BP 131/74; PULSE 82; RESP 18; TEMP 36.7; O2SAT 97
--- NOTE | 2021-11-03 13:30 | PM.DCS ---
Discharge Providers Date of Admission: 10/29/21 00:40 Date of Discharge: November 03, 2021 Attending Provider at Admission: Ephraim Daugherty MD Attending Provider at Discharge: Jose Alfredo Pretty Primary Care Provider: ANTONIO James Diagnoses at Discharge Discharge Diagnosis (1) Metastatic lung cancer (metastasis from lung to other site): Status: Chronic (2) Hematuria: Status: Acute (3) Altered mental status: Status: Acute (4) Anemia: Status: Acute (5) Stage IV pressure ulcer: Status: Acute (6) Protein calorie malnutrition: Status: Acute (7) Cancer cachexia: Status: Acute (8) DVT (deep venous thrombosis): Status: Acute Reason for Visit Reason for Visit: Dehydrated/hallucinating Hospital Course Hospital Course Very pleasant 60-year-old gentleman with metastatic lung cancer to multiple sites, on immunotherapy, other history of COPD, anemia, atrial fibrillation, not on anticoagulation, deconditioning, protein calorie malnutrition, history of stage IV sacral decubitus ulcer with wound infection on antibiotics, return to the hospital on 10/29 because of altered mental status, worsened weakness. Worsened hyponatremia, with also new finding of DVT for which was started on anticoagulation. Blood cultures were obtained, which have been negative. Antibiotics during hospitalization were broadened to Zosyn and vancomycin. Pain medication de-escalated from scheduled MS Contin 180 mg twice daily down to 60 mg twice daily, but subsequently with persistent episodes of lethargy, the escalated further to 15 mg twice daily with significant improvement. Wound care was continued for stage IV decubitus ulcer. CT chest abdomen pelvis showed progression of cancer now to bilateral lung metastases, and multiple bone and stasis with multiple pathological fractures including left coracoid process, T2 compression pathologic fracture, as well as dissection of the right acetabulum and displacement of right femoral head through the acetabulum into the pelvis, progressive since December 2020, as well as occlusion in the femoral left femoral vein likely due to neoplastic involvement or compression from the soft tissue mass central at the left hip, explaining the new finding of DVT. Marked destructive changes in proximal left femur with intact internal fixation hardware, progressed since prior imaging. Retroperitoneal lymphadenopathy. During hospitalization anticoagulation was transiently held due to hematuria, which has resolved after removal of Cueva catheter without difficulty with urination. With progressive metastatic cancer without further options for treatment especially given recent progressive decline in functional capacity, malnutrition and cachexia, further goals of care discussions took place both with his and once his mental status improved with him, discussed also with his oncologist, with consensus decision to transition care to hospice. Required multiple replacements of hypokalemia, and is continued on potassium supplement after discharge. Please follow-up potassium levels in addition to blood counts. Physical Exam Const: COMMON NORMALS: patient oriented x3 and alert GENERAL APPEARANCE: cooperative, comfortable and frail appearing ORIENTATION/CONSCIOUSNESS: Yes awake HENMT: COMMON NORMALS: normocephalic, EAC's normal, Normal external nose present and moist oral mucous membranes HEAD & SCALP: normocephalic NOSE: Normal external nose present EXTERNAL AUDITORY CANAL: EAC's normal Chest: CHEST: Yes Symmetrical chest wall rise Resp: COMMON NORMALS: clear to auscultation bilaterally AUSCULTATION: clear to auscultation bilaterally Cardio: COMMON NORMALS: regular rate, regular rhythm and No murmurs present (Cardio) RATE: regular rate RHYTHM: regular rhythm GI: COMMON NORMALS: Normal to inspection, nondistended, normoactive bowel sounds present, Soft to palpation and non-tender PALPATION: Yes Soft to palpation Extremity: COMMON NORMALS: no pedal edema Neuro: COMMON NORMALS: patient oriented x3 and moves all extremities SENSORIUM/ORIENTATION: Yes alert Skin: OTHER: Known large St IV sacral decub w bone exposure, min undermining, no surrounding erythema, swelling. Thin layer slough at base. No drainage. Urinary Catheter Management: Cueva: Cath Placed During This Visit: yes, but has since been removed by the nurse Reason for Continuing Indwelling Catheter: Assist Healing of Perineal & Sacral Wounds- Incontinent Patients Urinary Catheter Date of Insertion: 10/29/21 Urinary Catheter Time of Insertion: 01:30 Date Urinary Catheter Removed: 11/02/21 Time Urinary Catheter Discontinued: 03:00 Discharge Data Studies Completed and Pending Completed Studies During Hospitalization Category Date Time Status CT chest abdomen pelvis [CT chest abd pel w con*] Stat Cat Scan 10/29/21 01:[address] head wo con* [id number] Urgent Cat Scan 10/28/21 21:[address] lumbar spine w con [id number] Stat Cat Scan 10/29/21 01:14 Completed XR chest 1V portable [id number] Urgent Exams 10/28/21 21:20 [place] [id number] Routine Ultrasound 10/29/21 02:11 Completed Pending at discharge Category Date Time Status Basic Metabolic Panel AM LABS Lab 11/04/21 04:00 Ordered Complete Blood Count w/Auto AM LABS Lab 11/04/21 04:00 Ordered Complete Blood Count w/Auto AM LABS Lab 11/05/21 04:00 Ordered Vancomycin Trough Timed Lab 11/05/21 04:00 Ordered Radiology Impressions Chest X-Ray 10/28/21 21:20 IMPRESSION: No acute abnormality. Head CT 10/28/21 21:20 IMPRESSION: No acute intracranial abnormality. Chronic microvascular ischemic changes. Chest/Abdomen/Pelvis CT 10/29/21 01:14 IMPRESSION: 1. Increased size of a spiculated nodule in the right upper lobe and new bilateral pulmonary metastases since 04/21/2021. 2. New osseous metastases since 04/21/2021. 3. Acute pathologic fracture of the left coracoid process. 4. New pathologic compression fracture at T2 since 04/21/2021. Acuity is otherwise indeterminate. IMPRESSION: 1. Osseous metastases with destruction of the right acetabulum and displacement of the right femoral head through the acetabulum into the pelvis. Findings are progressive since 12/29/2020. 2. Occlusion of the left femoral vein likely due to neoplastic involvement or compression from the soft tissue mass centered at the left hip. This finding corresponds to ultrasound findings previously today. 3. Marked destructive changes in the proximal left femur with intact internal fixation hardware. Findings are progressive since 12/29/2020. 4. Retroperitoneal lymphadenopathy. ADDENDUM: 10/29/21 [id number] There is a sacral decubitus ulcer. No abscess. Mild sclerosis of the posterior surface of the sacrum could represent chronic osteomyelitis. Lumbar Spine CT 10/29/21 01:14 IMPRESSION: 1. Lumbosacral metastases. No pathologic fracture. 2. Probable neoplastic compression of the right S1 nerve root. 3. Partially imaged sacral decubitus ulcer. 4. Moderate L3-4 degenerative spinal stenosis. Venous Duplex 10/29/21 02:11 IMPRESSION: 1. Deep venous thrombosis present in left common femoral vein. 2. Superficial vein thrombosis of the right greater saphenous vein. Laboratory Results WBC 9.1 10^3/uL (4.0-10.0) 11/03/21 03:15 RBC 2.96 10^6/uL (4.1-5.3) L 11/03/21 03:15 Hgb 7.9 g/dL (11.7-16.6) L 11/03/21 03:15 Hct 24.4 % (42.0-52.0) L 11/03/21 03:15 MCV 82.4 fl (80-94) 11/03/21 03:15 MCH 26.7 pg (28.0-34.0) L 11/03/21 03:15 MCHC 32.4 g/dL (30.0-36.0) 11/03/21 03:15 RDW 15.0 % (12.1-15.1) 11/03/21 03:15 Plt Count 202 10^3/cmm (130-400) 11/03/21 03:15 MPV 9.0 fL (7.4-10.4) 11/03/21 03:15 Neut % (Auto) 81.9 % 11/03/21 03:15 Lymph % (Auto) 9.0 % 11/03/21 03:15 [place] % (Auto) 8.6 % 11/03/21 03:15 Eos % (Auto) 0.1 % 11/03/21 03:15 Baso % (Auto) 0.0 % 11/03/21 03:15 Neut # (Auto) 7.46 10^3/uL (1.8-7.7) 11/03/21 03:15 Lymph # (Auto) 0.8 10^3/uL (0.8-4.8) 11/03/21 03:15 [place] # (Auto) 0.8 10^3/uL (0.2-0.9) 11/03/21 03:15 Eos # (Auto) 0.0 10^3/uL (0.0-0.8) 11/03/21 03:15 Baso # (Auto) 0.0 10^3/uL (0.0-0.1) 11/03/21 03:15 Nucleated RBC % (auto) 0 % 11/03/21 03:15 Nucleated RBCs # 0.0 /100WBC 11/03/21 03:15 ESR 50 mm/hr (0-10) H 10/28/21 22:55 PT 14.30 SECONDS (12.1-14.9) 10/29/21 01:09 INR 1.08 (0.8-1.2) 10/29/21 01:09 APTT 54.3 SECONDS (23.9-36.7) H 11/02/21 04:14 Sodium 135 mmol/L (136-145) L 11/03/21 03:15 Potassium 3.0 mmol/L (3.5-5.1) L 11/03/21 03:15 Chloride 100 mmol/L (98-107) 11/03/21 03:15 Carbon Dioxide 28 mmol/L (22-29) 11/03/21 03:15 Anion Gap 10.0 (5-19) 11/03/21 03:15 BUN 17 mg/dL (6-20) 11/03/21 03:15 Creatinine 0.8 mg/dL (0.7-1.2) 11/03/21 03:15 GFR Calculation 99.3 mL/min (90-130) 11/03/21 03:15 Glucose 88 mg/dL (65-115) 11/03/21 03:15 POC Glucose 160 mg/dL (70-110) H 11/01/21 21:49 Calculated Osmolality 281 mOsm/kg (285-295) L 11/03/21 03:15 Lactic Acid 0.8 mmol/L (0.5-2.2) 10/30/21 05:10 Lactic Acid (Sepsis) 1.0 mmol/L (0.5-2.2) 10/29/21 01:09 Calcium 12.6 mg/dL (8.5-10.5) H 11/03/21 03:15 Phosphorus 2.2 mg/dL (2.5-4.5) L 11/01/21 02:16 Magnesium 2.0 mg/dL (1.7-2.3) 11/01/21 02:16 Total Bilirubin 0.4 mg/dL (0.15-1.2) 11/01/21 02:16 AST 11 U/L (0-40) 11/01/21 02:16 ALT < 5 U/L (0-41) 11/01/21 02:16 Alkaline Phosphatase 224 IU/L (40-130) H 11/01/21 02:16 Ammonia 13 umol/L (16-60) L 10/29/21 00:34 C-Reactive Protein 126.0 mg/L (0.0-4.9) H 10/28/21 22:55 NT-Pro-B Natriuret Pep 649 pg/mL (0-125) H 10/29/21 04:55 Total Protein 5.1 g/dL (6.6-8.7) L 11/01/21 02:16 Albumin 2.6 g/dL (3.5-5.2) L 11/01/21 02:16 Globulin 2.5 g/dL (1.3-4.6) 11/01/21 02:16 Procalcitonin 0.25 ng/mL (0-0.5) 10/28/21 22:55 TSH 17.39 uIU/mL (0.27-4.20) H 10/28/21 22:55 Free T4 1.02 ng/dL (0.82-1.77) 10/28/21 22:55 Random Cortisol 15.06 ug/dL (2.47-19.5) 10/29/21 04:55 Urine Color Yellow (Yellow) 10/29/21 01:45 Urine Appearance Clear (CLEAR) 10/29/21 01:45 Urine pH 6 (5-7) 10/29/21 01:45 Ur Specific [place] 1.020 (1.005-1.030) 10/29/21 01:45 Urine Protein Neg (Negative) 10/29/21 01:45 Urine Glucose (UA) Norm (Normal) 10/29/21 01:45 Urine Ketones Negative (Negative) 10/29/21 01:45 Urine Blood Neg (Negative) 10/29/21 01:45 Urine Nitrate Negative (Negative) 10/29/21 01:45 Urine Bilirubin Neg (Negative) 10/29/21 01:45 Urine Urobilinogen Norm mg/dL (Negative) 10/29/21 01:45 Ur Leukocyte Esterase Negative (Negative) 10/29/21 01:45 Ur Random Sodium 87 mmol/L 10/29/21 14:09 Ur Random Potassium 19 mmol/L 10/29/21 14:09 Ur Random Chloride 81 mmol/L 10/29/21 14:09 Vancomycin Trough 22.5 ug/mL (10-15) H 11/01/21 02:16 Vitals Last Vital Signs Temp 98.1 F 11/03/21 11:48 Pulse 82 11/03/21 11:48 Resp 18 11/03/21 11:48 BP 131/74 11/03/21 11:48 Pulse Ox 97 11/03/21 11:48 Discharge Plan Discharge Patient Disposition: Hospice - Home Condition: Stable Prescriptions: New morphine 15 mg Tablet Extended Release 15 mg PO BID Qty: 10 0RF potassium chloride 20 mEq tablet extended release 20 meq PO DAILY Qty: 14 0RF linezolid 600 mg tablet 600 mg PO BID 7 Days Qty: 14 0RF apixaban 5 mg (74 tabs) tablets,dose pack See Rx Instructions .ROUTE .COMPLEX Qty: 74 0RF Rx Instructions: orally per package directions Continued lactulose 10 gram/15 mL solution 20 g PO BID PRN (Reason: Constipation) 0RF sennosides-docusate sodium [Senna-S] 8.6-50 mg tablet 1 tab-cap PO BID 30 Days Qty: 60 0RF (DME) AP pad with pump E0271 See Rx Instructions .Route .MEDSUPPLY Qty: 1 0RF Rx Instructions: As directed (DME) ROHO pad [id number] See Rx Instructions .Route .MEDSUPPLY Qty: 1 0RF Rx Instructions: As directed montelukast [Singulair] 10 mg tablet 10 mg PO DAILY Qty: 90 1RF ondansetron 4 mg tablet,disintegrating 4 mg PO Q8H PRN (Reason: Nausea) Qty: 60 2RF levothyroxine 25 mcg tablet 12.5 mcg PO DAILY Qty: 30 0RF Rx Instructions: take with 942ycn=556.5mcg daily. Has 200mcg at home levothyroxine 200 mcg tablet 200 mcg PO QAM 0RF Label Comments: Has 200mcg at home to use with 12.1jrl=550.5mcg daily liothyronine [Cytomel] 5 mcg tablet 10 mcg PO DAILY Qty: 1 0RF Rx Instructions: use with levothroxyine mupirocin 2 % ointment 1 applic topical BID Qty: 22 0RF morphine 30 mg tablet 30 mg PO Q4H PRN (Reason: pain) 30 Days Qty: 180 0RF Gilotrif 30 mg tablet See Rx Instructions .ROUTE .COMPLEX Qty: 30 0RF Dose Instruction: TAKE 1 TABLET (OF 30 MG) DAILY. MUST BE TAKEN ON EMPTY STOMACH, NO FOOD 1 HOUR AFTER OR 2 TO 3 HOURS BEFORE DOSE. Rx Instructions: TAKE 1 TABLET (OF 30 MG) DAILY. MUST BE TAKEN ON EMPTY STOMACH, NO FOOD 1 HOUR AFTER OR 2 TO 3 HOURS BEFORE DOSE. dronabinol 5 mg capsule 5 mg PO BID 0RF ciprofloxacin HCl 500 mg tablet 500 mg PO BID@0900,2100 Qty: 20 0RF polyethylene glycol 3350 [ClearLax] 17 gram/dose powder 17 g PO DAILY Qty: 238 0RF lorazepam 1 mg tablet 1 mg PO TID PRN (Reason: Nausea) 0RF Rx Instructions: take 0.5 to 1 tablet three times daily as needed for nausea cholecalciferol (vitamin D3) 125 mcg (5,000 unit) capsule 5,000 unit PO DAILY 0RF Held duloxetine [Cymbalta] 60 mg capsule,delayed release(DR/EC) 60 mg PO BID Qty: 180 1RF Hold Instructions: Resume on 11/16/21. Discontinued morphine 60 mg tablet extended release 180 mg PO BID 30 Days Qty: 180 0RF doxycycline monohydrate 100 mg Tablet 100 mg PO BID 14 Days Qty: 28 0RF Discharge Orders: Discharge Order (Routine); Ordered 11/03/21 Ordered By: Jose Alfredo Pretty Referrals: Guerrero Claudio FNP-C [Primary Care Provider] - 4-7 days Discharge Diet: Advance as tolerated and Regular Discharge Activity: Increase activity as tolerated Patient Instructions: Linezolid (By mouth), Hospice Care, Opioid Safety Activity Restrictions/Additional Instructions: Continue with hospice care arrangements. Antibiotics for sacral wound infection were adjusted. Complete course of ciprofloxacin that is remaining, and a prescription is given for linezolid. Please hold duloxetine while taking linezolid. Resume duloxetine afterward. Continue wound care for sacral wound as previously. Follow-up with wound care clinic. Due to blood clot in your left leg you are started on blood thinner medication, however, if you have any recurrence of blood in your urine, please stop the blood thinner medication and speak with your doctor. Advance oral intake as tolerating, foods which you may prefer. Add protein shakes to meals. Please have your primary doctor recheck your blood count in 1 week for anemia. Please have your primary doctor also recheck potassium level at the same time due to mildly low potassium in the hospital requiring replacement. Prescriptions provided for additional potassium supplementation. Discharge Attestations Time Spent in Discharge Care*: greater than 30 min Quality Metrics Clinical Quality Measures [ No reported AMI, CVA or VTE this stay] Coding Level of Care Code Acute Chg FW DC note Diagnoses Metastatic lung cancer (metastasis from lung to other site) C34.90 Hematuria R31.9 Altered mental status R41.82 Anemia D64.9 Stage IV pressure ulcer L89.94 Protein calorie malnutrition E46 Cancer cachexia R64 DVT (deep venous thrombosis) I82.409
[2021-11-03 14:50] VITALS: BP 131/74; PULSE 82; RESP 18; TEMP 36.7; O2SAT 97
== END 2021-11-03 14:53 | disposition hospice, home (50) | DRG 180 ==
LOC: ER 10-29 00:45 → MEDSURG 10-29 01:06
PROVIDERS: Internal Medicine; Student in an Organized Health Care Education/Training Program; Admitting Provider Family Medicine; Emergency Provider Emergency Medicine; PCP Nurse Practitioner; Visit Provider Internal Medicine
DX: C34.11 Malignant neoplasm of upper lobe, right bronchus or lung (principal); L89.154 Pressure ulcer of sacral region, stage 4; G93.41 Metabolic encephalopathy; C78.02 Secondary malignant neoplasm of left lung; C79.51 Secondary malignant neoplasm of bone; E46 Unspecified protein-calorie malnutrition; I82.412 Acute embolism and thrombosis of left femoral vein; I82.811 Embolism and thrombosis of superficial veins of right lower extremity; N17.9 Acute kidney failure, unspecified; E87.1 Hypo-osmolality and hyponatremia; M84.551A Pathological fracture in neoplastic disease, right femur, initial encounter for fracture; M84.58XA Pathological fracture in neoplastic disease, other specified site, initial encounter for fracture; I10 Essential (primary) hypertension; E78.2 Mixed hyperlipidemia; E03.9 Hypothyroidism, unspecified; D64.9 Anemia, unspecified; I48.91 Unspecified atrial fibrillation; Z68.20 Body mass index [BMI] 20.0-20.9, adult; J44.9 Chronic obstructive pulmonary disease, unspecified; Z87.891 Personal history of nicotine dependence; Z92.21 Personal history of antineoplastic chemotherapy; Z79.899 Other long term (current) drug therapy; Z79.891 Long term (current) use of opiate analgesic; R31.9 Hematuria, unspecified; E83.42 Hypomagnesemia; G89.3 Neoplasm related pain (acute) (chronic); E86.0 Dehydration; Z66 Do not resuscitate
CPT/HCPCS: 36415; 36416; 36591; 51702; 70450; 71045; 71260; 72132; 74177; 80048; 80053; 80202; 81003; 82140; 82436; 82533; 82962; 83605; 83735; 83880; 84100; 84133; 84145; 84300; 84439; 84443; 85025; 85610; 85651; 85730; 86140; 87040; 87086; 93005; 93970; 94664; 96365; 96367; 96372; 99285; C9113; J1644; J1650; J2543; J3370; J3475; J3480; J7030; J7050; Q9967

== ENCOUNTER 2021-11-09 10:00 | Oncology outpatient (recurring) (ONCR) | payer OTHER, SELFPAY ==
[2021-10-25 10:11] LABS: Basophils % 0.2 %; Eosinophils % 0.3 %; Hematocrit 31.5 % (42.0-52.0); Hemoglobin 10.3 g/dL (11.7-16.6); Lymphocytes # 0.8 10^3/uL (0.8-4.8); Mean Corpuscular HGB Conc 32.7 g/dL (30.0-36.0); Mean Corpuscular Hemoglobin 27.5 pg (28.0-34.0); Mean Platelet Volume 8.8 fL (7.4-10.4); Monocytes # 0.5 10^3/uL (0.2-0.9); Monocytes % 4.5 %; Neutrophils # 9.93 10^3/uL (1.8-7.7); Neutrophils % 87.3 %; Nucleated Red Blood Cells % 0 %; Platelet Count 221 10^3/cmm (130-400); Red Blood Count 3.75 10^6/uL (4.1-5.3); Red Cell Distribution Width 14.5 % (12.1-15.1); White Blood Count 11.4 10^3/uL (4.0-10.0)
[2021-10-25 10:31] LABS: Alanine Aminotransferase 7 U/L (0-41); Albumin Level 2.9 g/dL (3.5-5.2); Alkaline Phosphatase 232 IU/L (40-130); Anion Gap 13.7 (5-19); Aspartate Amino Transferase 15 U/L (0-40); Blood Urea Nitrogen 22 mg/dL (6-20); Calcium 12.4 mg/dL (8.5-10.5); Carbon Dioxide 27 mmol/L (22-29); Chloride 90 mmol/L (98-107); Globulin 3.3 g/dL (1.3-4.6); Glomerular Filtration Rate 68.8 mL/min (90-130); Glucose 77 mg/dL (65-115); Osmolality Calculated 266 mOsm/kg (285-295); Potassium 3.7 mmol/L (3.5-5.1); Sodium 127 mmol/L (136-145); Total Bilirubin 0.7 mg/dL (0.15-1.2); Total Protein 6.2 g/dL (6.6-8.7)
== END 2021-11-13 23:59 | disposition home or self-care (01) ==
PROVIDERS: Nurse Practitioner Family; PCP Nurse Practitioner; Visit Provider Internal Medicine Medical Oncology
DX: C34.11 Malignant neoplasm of upper lobe, right bronchus or lung (principal); D64.9 Anemia, unspecified
CPT/HCPCS: 80053; 85025; 86850; 86900